=== PATIENT | male | born 1940 | race Caucasian/White ===

== ENCOUNTER → 2017-12-12 14:32 | Outpatient (CLI) | payer MEDICARE, OTHER, SELFPAY ==
--- NOTE | 2017-12-12 | DI.MRI.S_ITS ---
PROCEDURE: MR SHOULDER RT WO CON INDICATIONS: PAIN IN RIGHT SHOULDER. DECREASED RANGE OF MOTION TECHNIQUE: Noncontrast oblique coronal T2 fast spin echo with fat saturation, oblique sagittal T1 spin echo and T2 fast spin echo with fat saturation, axial T1 spin echo and T2 fast spin echo with fat saturation through the shoulder. COMPARISON: [facility] [place], CR, XR SHOULDER 2+ VIEWS RIGHT, 05/23/2017, 9:18. [facility], MR, SHOULDER WITHOUT CONTRAST, 08/10/2017, 10:39. FINDINGS: Image quality: Excellent. Rotator cuff: The infraspinatus and subscapularis tendons appear intact throughout. There is a wide full-thickness supraspinatus rotator cuff tear measuring up to 2.9 cm in maximal dimension in the lateral length of the tear. This appears to have slightly enlarged from a comparison MRI 08/10/17. Alternatively, further retraction of the supraspinatus tendon could explain that increased width of the tear. No rotator cuff muscle atrophy on sagittal images. Bones and bursae: No bone marrow contusions or fractures. 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 The acromion demonstrates conventional anatomy, without an os acromiale. No pathologic subacromial-subdeltoid or subcoracoid bursal fluid is present. Stable mild lateral humeral joint osteoarthritis. Capsule and soft tissues: In the absence of intra-articular contrast, the labrum and glenohumeral ligaments appear intact. The long head of the biceps tendon demonstrates normal location and morphology. The rotator interval appears normal, without fibrosis. The coracohumeral ligament is normal in thickness. IMPRESSION: Slight interval increase in the width of the full-thickness supraspinatus rotator cuff tear previously also identified 08/10/17 by right shoulder MRI. This injury appears secondary to the chronic impingement related to fibrous and osseous hypertrophy from a.c. joint degeneration. Dictated by: Venkatesh Modi M.D. on 12/12/2017 at 15:28 Approved by: Venkatesh Modi M.D. on 12/12/2017 at 15:32
== END ==
PROVIDERS: Family Provider Family Medicine; PCP Family Medicine; Visit Provider Orthopaedic Surgery
DX: M75.121 Complete rotator cuff tear or rupture of right shoulder, not specified as traumatic (principal)
CPT/HCPCS: 73221

== ENCOUNTER → 2018-01-23 13:12 | Outpatient (CLI) | payer MEDICARE, OTHER, SELFPAY ==
[2018-01-23 13:39] LABS: INR 2.2 (0.9-1.3); Prothrombin Time 23.7 SECONDS (10.1-12.7)
== END ==
PROVIDERS: Family Provider Family Medicine; PCP Family Medicine; Visit Provider Family Medicine
DX: Z95.2 Presence of prosthetic heart valve (principal); Z79.01 Long term (current) use of anticoagulants
CPT/HCPCS: 36415; 85610

== ENCOUNTER 2018-03-14 20:06 | Emergency (ER) | payer MEDICARE, OTHER, SELFPAY ==
[2018-03-14 20:16] VITALS: BP 140/67; PULSE 60; RESP 17; TEMP 36.5; O2SAT 95; BMI 28.8
--- NOTE | 2018-03-14 20:22 | DI.CT.S_ITS ---
PROCEDURE: CT ABDOMEN PELVIS W CON INDICATIONS: Generalized abdominal pain and bloating over the past severa TECHNIQUE: After the administration of intravenous contrast, 5 mm thick sections acquired from the diaphragm to the symphysis. 5 mm coronal and sagittal reformats were acquired. For radiation dose reduction, the following was used: automated exposure control, adjustment of mA and/or kV according to patient size. COMPARISON: [facility], CT, CHEST/ABD/PEL WITH CONTRAST, 03/29/2017, 17:47. FINDINGS: Image quality: Excellent. ABDOMEN: Lung bases: Mild bibasilar scarring versus atelectasis.. Heart size is normal. Solid organs: Liver is normal in size and enhancement. Gallbladder demonstrates calculi within its lumen.. Biliary system is non dilated. Pancreas enhances normally. Spleen is normal in size and enhancement. No adrenal nodules. Kidneys demonstrate normal size and enhancement, without hydronephrosis. Peritoneum and bowel: Bowel loops demonstrate normal wall thickness and caliber. No pneumoperitoneum. Small amount of mesenteric fluid within the central pelvis.. Duodenal diverticulum. Normal appendix. Nodes and vessels: No retroperitoneal or mesenteric adenopathy by size criteria. Aorta and inferior vena cava are normal in size. Miscellaneous: No ventral hernias. PELVIS: Genitourinary: Bladder wall thickness is normal. Prostate is enlarged, and indents the urinary bladder base, as before. Miscellaneous: No inguinal hernias or adenopathy. Bones: No suspicious bony lesions. No vertebral body compression fractures. IMPRESSION: 1. Small amount of mesenteric fluid, which is nonspecific, but may indicate underlying peritoneal inflammation. 2. Cholelithiasis. 3. Enlarged prostate; recommend correlation with PSA values. 4. Cholelithiasis. Dictated by: Adriana Cotton M.D. on 03/14/2018 at 21:17 Approved by: Adriana Cotton M.D. on 03/14/2018 at 21:20
--- NOTE | 2018-03-14 20:26 | ED_ITS ---
HPI - Abdominal Pain <REESE Valdez - Last Filed: 03/14/18 21:46> General Chief Complaint: Abdominal Pain Stated Complaint: STOMACH PAIN Time Seen by Provider: 03/14/18 20:12 History of Present Illness HPI narrative: 78-year-old male here for complaint of pain into his abdomen over the past several days. He denies any trauma to the abdomen. He reports that he also feels so bloated. Last bowel movement was yesterday and was diarrhea. He denies any fevers or chills. He denies any urinary symptoms. He denies any dark stool. No nausea or vomiting. Positive p.o. intake. He denies any other concerns or complaints at this time. Increased pain with palpation to the area. He denies any relievers of his pain. Related Data Home Medications Medication Instructions Recorded Confirmed acetaminophen 650 mg PO Q8HP PRN #0 03/29/17 Previous Rx's Medication Instructions Recorded amlodipine [Norvasc] 5 mg PO QDAY #90 tab 09/11/17 oxycodone 5 mg tablet 5 - 10 mg PO Q6HP PRN #90 tab 12/06/17 atorvastatin 40 mg tablet 40 mg PO DAILY #90 tab 01/15/18 warfarin 5 mg tablet 5 mg PO SEE INSTRUCTIONS #180 tab 03/13/18 doxazosin 8 mg tablet 8 mg PO Q DAY #30 tab 03/14/18 Allergies Allergy/AdvReac Type Severity Reaction Status Date / Time amoxicillin [AMOXICILLIN] Allergy Mild EDEMA IN Verified 03/14/18 20:16 HANDS, BUTTOCKS Penicillins [PENICILLINS] Allergy Mild SWELLING Verified 03/14/18 20:16 clavulanic acid AdvReac Mild EDEMA Verified 03/14/18 20:16 [CLAVULANIC ACID] lisinopril [LISINOPRIL] AdvReac Mild COUGH Verified 03/14/18 20:16 Review of Systems <REESE Valdez - Last Filed: 03/14/18 21:46> Constitutional Denies chills, Denies fever(s), Denies lethargy and Denies weakness Eyes Denies change in vision, Denies eye discharge, Denies irritation and Denies loss of vision ENT Ears, Nose, Mouth, and Throat: Denies change in voice, Denies neck pain and Denies sore throat Cardiovascular Denies chest pain, Denies irregular heart rhythm, Denies lightheadedness, Denies palpitations, Denies dyspnea, Denies dyspnea on exertion and Denies orthopnea Respiratory Denies cough, Denies dyspnea, Denies dyspnea on exertion and Denies wheezing Gastrointestinal Gastrointestinal: Reports abdominal pain Genitourinary Denies hematuria, Denies flank pain, Denies urinary incontinence and Denies urinary urgency Musculoskeletal Denies neck pain Integumentary/Breasts Denies pruritus, Denies erythema, Denies rash and Denies wounds Neurologic Denies confusion, Denies loss of vision and Denies weakness Psychiatric Denies anxiety, Denies confusion, Denies depression, Denies homicidal ideation and Denies suicidal ideation Endocrine Denies palpitations Hematologic/Lymphatic Denies easy bruising Allergic/Immunologic Denies wheezing Exam <REESE Valdez - Last Filed: 03/14/18 21:46> Initial Vital Signs Initial Vital Signs: Vital Signs Temperature 97.7 F 03/14/18 20:16 Pulse Rate 60 03/14/18 20:16 Respiratory Rate 17 03/14/18 20:16 Blood Pressure 140/67 H 03/14/18 20:16 Pulse Oximetry 95 03/14/18 20:16 Const General: cooperative and well developed Nutritional Appearance: well nourished Orientation: alert, awake, oriented x3 and not confused [facility] Mouth: oral mucosae normal and moist mucous membranes Eyes Eyelids: eyelids normal Conjunctivae: conjunctivae normal Sclera: sclerae normal Pupils: PERRL Resp Effort & Inspection: normal respiratory effort, able to speak in complete sentences, no respiratory distress and no use of accessory muscles Auscultation: clear to auscultation bilaterally, no rales, no rhonchi and no wheezes Cardio Rate: regular rate Rhythm: regular rhythm Heart Sounds: no click, no gallops, no murmurs and no rubs Pulses: normal peripheral pulses GI Inspection: distended Palpation: soft, no hepatosplenomegaly, No guarding, No pulsatile mass and tender (Generalized tenderness however worse to super umbilical area) Auscultation: normal bowel sounds Skin General: no rashes or lesions noted, No jaundice and No petechiae Neuro General: alert, oriented x3, gait normal and no focal motor deficits Speech: speech normal <Kvng Mendoza DO - Last Filed: 03/14/18 21:49> Initial Vital Signs Initial Vital Signs: Vital Signs Temperature 97.7 F 03/14/18 20:16 Pulse Rate 60 03/14/18 20:16 Respiratory Rate 17 03/14/18 20:16 Blood Pressure 140/67 H 03/14/18 20:16 Pulse Oximetry 95 03/14/18 20:16 Course <REESE Valdez - Last Filed: 03/14/18 21:46> Orders Ordered: ED Orders 03/14/18 20:22 CT abdomen pelvis w con Stat 03/14/18 20:30 Complete Blood Count AUTO DIFF Stat Comprehensive Metabolic Panel Stat Lipase Stat Prothrombin Time INR Stat Sodium Chloride (Normal Saline 0.9%) 1,000 mls @ 150 mls/hr IV CONT BELÉN Last Admin: 03/14/18 20:45 Dose: 150 mls/hr Vital Signs - 8 hr 03/14/18 20:16 03/14/18 21:33 Temperature 97.7 F Pulse Rate 60 64 Respiratory Rate 17 18 Blood Pressure 140/67 H Blood Pressure [Left Arm] 142/62 H Pulse Oximetry 95 97 <Kvng Mendoza DO - Last Filed: 03/14/18 21:49> Orders Ordered: ED Orders 03/14/18 20:22 CT abdomen pelvis w con Stat 03/14/18 20:30 Complete Blood Count AUTO DIFF Stat Comprehensive Metabolic Panel Stat Lipase Stat Prothrombin Time INR Stat Sodium Chloride (Normal Saline 0.9%) 1,000 mls @ 150 mls/hr IV CONT BELÉN Last Admin: 03/14/18 20:45 Dose: 150 mls/hr Vital Signs - 8 hr 03/14/18 20:16 03/14/18 21:33 Temperature 97.7 F Pulse Rate 60 64 Respiratory Rate 17 18 Blood Pressure 140/67 H Blood Pressure [Left Arm] 142/62 H Pulse Oximetry 95 97 MDM - Abdominal Pain <REESE Valdez - Last Filed: 03/14/18 21:46> Lab Data Result diagrams: 03/14/18 20:30 03/14/18 20:30 Lab Results 03/14/18 03/14/18 03/14/18 Range/Units 20:30 20:30 20:30 WBC 5.2 (4.5-11.0) X10^3/uL RBC 4.18 L (4.5-5.9) X10^6/uL Hgb 14.2 (13.5-17.5) g/dL Hct 40.4 L (41-53) % MCV 96.6 (80-100) fL MCH 33.8 (26-34) PG MCHC 35.0 (30-36) % RDW 13.0 (11.6-14.8) % Plt Count 161 (150-400) X10^3/uL Neut % (Auto) 58.3 (50-75) % Lymph % (Auto) 28.7 (25-40) % [place] % (Auto) 9.4 (3-14) % Eos % (Auto) 2.7 (2-4) % Baso % (Auto) 0.9 (0-2) % Neut # (Auto) 3000 (3461-3932) /uL PT 24.8 H (10.1-12.7) SECONDS INR 2.2 H (0.9-1.3) Sodium 141 (137-145) mmol/L Potassium 4.1 (3.4-5.1) mmol/L Chloride 103 (98-107) mmol/L Carbon Dioxide 30 (22-32) mmol/L BUN 13 (9-20) mg/dL Creatinine 0.90 (0.66-1.25) mg/dL Estimated GFR > 60.0 (>60) mL/min BUN/Creatinine Ratio 14.4 (6-22) Glucose 110 (80-110) mg/dL Calcium 8.9 (8.4-10.2) mg/dL Total Bilirubin 1.9 H (0.2-1.3) mg/dL AST 28 (17-59) IU/L ALT 23 (21-72) IU/L Alkaline Phosphatase 63 (38-126) U/L Total Protein 6.5 (6.3-8.2) g/dL Albumin 4.0 (3.5-5.0) g/dL Globulin 2.5 (1.7-4.1) g/dL Albumin/Globulin Ratio 1.6 (1.0-2.8) Lipase 27 (23-300) U/L Point of care testing: Urine Dip Bedside Urine Glucose Negative Bedside Urine Bilirubin - Negative Bedside Urine Ketone - Negative Urine Specific [place] 1.015 Bedside Urine Occult Blood - Negative Bedside Urine pH 7.0 Bedside Urine Urobilinogen +/- 1mg Bedside Urine Nitrite - Negative Bedside Urine Leukocytes - Negative Esterase Imaging Data CT scan - abdomen: Radiologist's impression: PROCEDURE: CT ABDOMEN PELVIS W CON INDICATIONS: Generalized abdominal pain and bloating over the past severa TECHNIQUE: After the administration of intravenous contrast, 5 mm thick sections acquired from the diaphragm to the symphysis. 5 mm coronal and sagittal reformats were acquired. For radiation dose reduction, the following was used: automated exposure control, adjustment of mA and/or kV according to patient size. COMPARISON: [facility], CT, CHEST/ABD/PEL WITH CONTRAST, 03/29/2017, 17:47. FINDINGS: Image quality: Excellent. ABDOMEN: Lung bases: Mild bibasilar scarring versus atelectasis.. Heart size is normal. Solid organs: Liver is normal in size and enhancement. Gallbladder demonstrates calculi within its lumen.. Biliary system is non dilated. Pancreas enhances normally. Spleen is normal in size and enhancement. No adrenal nodules. Kidneys demonstrate normal size and enhancement, without hydronephrosis. Peritoneum and bowel: Bowel loops demonstrate normal wall thickness and caliber. No pneumoperitoneum. Small amount of mesenteric fluid within the central pelvis.. Duodenal diverticulum. Normal appendix. Nodes and vessels: No retroperitoneal or mesenteric adenopathy by size criteria. Aorta and inferior vena cava are normal in size. Miscellaneous: No ventral hernias. PELVIS: Genitourinary: Bladder wall thickness is normal. Prostate is enlarged, and indents the urinary bladder base, as before. Miscellaneous: No inguinal hernias or adenopathy. Bones: No suspicious bony lesions. No vertebral body compression fractures. IMPRESSION: 1. Small amount of mesenteric fluid, which is nonspecific, but may indicate underlying peritoneal inflammation. 2. Cholelithiasis. 3. Enlarged prostate; recommend correlation with PSA values. 4. Cholelithiasis. Dictated by: Adriana Cotton M.D. on 03/14/2018 at 21:17 Approved by: Adriana Cotton M.D. on 03/14/2018 at 21:20 MDM Narrative Medical decision making narrative: CBC and Chem panel were obtained were unremarkable. Lipase was obtained was negative. Urinalysis was negative for urinary tract infection. CT of the abdomen showed cholelithiasis however did not appear to be any biliary dilation or blockage. No emergent cause of his symptoms are found. Differential between viral illness and abdominal wall pain. [id number] Tylenol as needed for any discomfort. Follow up with primary care provider the next couple days for re-evaluation. For any worsening symptoms return to the emergency room. <Kvng Mendoza, - Last Filed: 03/14/18 21:49> Lab Data Lab Results 03/14/18 03/14/18 03/14/18 Range/Units 20:30 20:30 20:30 WBC 5.2 (4.5-11.0) X10^3/uL RBC 4.18 L (4.5-5.9) X10^6/uL Hgb 14.2 (13.5-17.5) g/dL Hct 40.4 L (41-53) % MCV 96.6 (80-100) fL MCH 33.8 (26-34) PG MCHC 35.0 (30-36) % RDW 13.0 (11.6-14.8) % Plt Count 161 (150-400) X10^3/uL Neut % (Auto) 58.3 (50-75) % Lymph % (Auto) 28.7 (25-40) % [place] % (Auto) 9.4 (3-14) % Eos % (Auto) 2.7 (2-4) % Baso % (Auto) 0.9 (0-2) % Neut # (Auto) 3000 (8880-0040) /uL PT 24.8 H (10.1-12.7) SECONDS INR 2.2 H (0.9-1.3) Sodium 141 (137-145) mmol/L Potassium 4.1 (3.4-5.1) mmol/L Chloride 103 (98-107) mmol/L Carbon Dioxide 30 (22-32) mmol/L BUN 13 (9-20) mg/dL Creatinine 0.90 (0.66-1.25) mg/dL Estimated GFR > 60.0 (>60) mL/min BUN/Creatinine Ratio 14.4 (6-22) Glucose 110 (80-110) mg/dL Calcium 8.9 (8.4-10.2) mg/dL Total Bilirubin 1.9 H (0.2-1.3) mg/dL AST 28 (17-59) IU/L ALT 23 (21-72) IU/L Alkaline Phosphatase 63 (38-126) U/L Total Protein 6.5 (6.3-8.2) g/dL Albumin 4.0 (3.5-5.0) g/dL Globulin 2.5 (1.7-4.1) g/dL Albumin/Globulin Ratio 1.6 (1.0-2.8) Lipase 27 (23-300) U/L Point of care testing: Urine Dip Bedside Urine Glucose Negative Bedside Urine Bilirubin - Negative Bedside Urine Ketone - Negative Urine Specific [place] 1.015 Bedside Urine Occult Blood - Negative Bedside Urine pH 7.0 Bedside Urine Urobilinogen +/- 1mg Bedside Urine Nitrite - Negative Bedside Urine Leukocytes - Negative Esterase Discharge Plan Departure Patient Disposition: Home, Self-Care Clinical Impression: Abdominal pain Instructions: DI for Abdominal Pain-Adult Activity Restrictions/Additional Instructions: Laboratory results today were unremarkable. CT of the abdomen shows that you have gallstones however those appear to be causing a problem at this time. Otherwise CT was unremarkable. Differential between abdominal wall pain or viral illness. Use [id number] Tylenol as needed for any discomfort. Follow up with her primary care provider in the next couple days for re- evaluation. For any worsening symptoms return to the emergency room. Prescriptions: No Action acetaminophen 650 MG tablet extended release 650 mg PO Q8HP PRNQty: 0 RF: 0 amlodipine [Norvasc] 5 MG tablet 5 mg PO QDAY Qty: 90 RF: 2 oxycodone 5 mg tablet 5 - 10 mg PO Q6HP PRN (Reason: PAIN) Qty: 90 RF: 0 atorvastatin 40 mg tablet 40 mg PO DAILY Qty: 90 RF: 1 warfarin [Coumadin] 5 mg tablet 5 mg PO SEE INSTRUCTIONS Qty: 180 RF: 3 doxazosin 8 mg tablet 8 mg PO Q DAY Qty: 30 RF: 0 Referrals: Phillip Ghosh MD [Primary Care Provider] - <Kvng Mendoza DO - Last Filed: 03/14/18 21:49> Cosign ED Attending Tabature Attestation: I was available for consultation during this patient's emergency department encounter
[2018-03-14 20:43] LABS: Add Manual Diff / Slide Review NO; Basophils Percent Auto 0.9 % (0-2); Eosinophils Percent Auto 2.7 % (2-4); Hematocrit 40.4 % (41-53); Hemoglobin 14.2 g/dL (13.5-17.5); Lymphocytes Percent Auto 28.7 % (25-40); Mean Corpuscular Hemoglobin 33.8 PG (26-34); Mean Corpuscular Volume 96.6 fL (80-100); Monocytes Percent Auto 9.4 % (3-14); Neutrophils Absolute Auto 3000 /uL (3000-5900); Neutrophils Percent Auto 58.3 % (50-75); Platelet Count 161 X10^3/uL (150-400); Red Blood Cell Count 4.18 X10^6/uL (4.5-5.9); White Blood Cell Count 5.2 X10^3/uL (4.5-11.0)
[2018-03-14] MEDS: SODIUM CHLORIDE 0.9% 1,000 ML 150 ML IV (20:45)
[2018-03-14 20:54] LABS: INR 2.2 (0.9-1.3); Prothrombin Time 24.8 SECONDS (10.1-12.7)
[2018-03-14 20:57] LABS: Alanine Aminotransferase 23 IU/L (21-72); Albumin Globulin Ratio 1.6 (1.0-2.8); Alkaline Phosphatase 63 U/L (38-126); Aspartate Aminotransferase 28 IU/L (17-59); BUN Creatinine Ratio 14.4 (6-22); Bilirubin Total 1.9 mg/dL (0.2-1.3); Blood Urea Nitrogen 13 mg/dL (9-20); Calcium 8.9 mg/dL (8.4-10.2); Carbon Dioxide 30 mmol/L (22-32); Chloride 103 mmol/L (98-107); Estimated Glomerular Filt Rate > 60.0 mL/min (>60); Globulin 2.5 g/dL (1.7-4.1); Glucose 110 mg/dL (80-110); HEMOLYSIS 17 (0-50); Lipase 27 U/L (23-300); Potassium 4.1 mmol/L (3.4-5.1); Sodium 141 mmol/L (137-145); Total Protein 6.5 g/dL (6.3-8.2)
[2018-03-14 21:33] VITALS: BP 142/62; PULSE 64; RESP 18; O2SAT 97
== END 2018-03-14 21:55 | disposition home or self-care (01) ==
PROVIDERS: Emergency Provider Nurse Practitioner Family; Family Provider Family Medicine; PCP Family Medicine
DX: R10.9 Unspecified abdominal pain (principal)
CPT/HCPCS: 36591; 74177; 80053; 81003; 83690; 85025; 85610; 96360; 99283; 99285; Q9967

== ENCOUNTER → 2018-03-22 10:06 | Outpatient (CLI) | payer MEDICARE, OTHER, SELFPAY ==
[2018-03-22 11:28] LABS: Alanine Aminotransferase 21 IU/L (21-72); Albumin 4.1 g/dL (3.5-5.0); Albumin Globulin Ratio 1.6 (1.0-2.8); Alkaline Phosphatase 69 U/L (38-126); Aspartate Aminotransferase 20 IU/L (17-59); Blood Urea Nitrogen 16 mg/dL (9-20); Calcium 9.5 mg/dL (8.4-10.2); Carbon Dioxide 32 mmol/L (22-32); Chloride 102 mmol/L (98-107); Estimated Glomerular Filt Rate > 60.0 mL/min (>60); Globulin 2.5 g/dL (1.7-4.1); Glucose 116 mg/dL (80-110); HEMOLYSIS < 15 (0-50); Potassium 4.5 mmol/L (3.4-5.1); Sodium 142 mmol/L (137-145); Total Protein 6.6 g/dL (6.3-8.2)
== END ==
PROVIDERS: PCP Family Medicine; Visit Provider Internal Medicine
DX: Z00.00 Encounter for general adult medical examination without abnormal findings (principal)
CPT/HCPCS: 36415; 80053

== ENCOUNTER → 2018-03-30 07:26 | Outpatient (CLI) | payer MEDICARE, OTHER, SELFPAY ==
--- NOTE | 2018-03-30 07:27 | DI.NM.S_ITS ---
PROCEDURE: [place] BONE SCAN WHOLE BODY RADIOPHARMACEUTICAL: 19.7 mCi Tc-99m MDP IV. INDICATIONS: left rib pain TECHNIQUE: Delayed whole-body scintigrams were obtained approximately 3-4 hours after intravenous injection of radiotracer. Anterior and posterior views were acquired from vertex to feet. Additional left and right oblique views of the ribs were obtained. COMPARISON: [place], [place], BONE SCAN WHOLE BODY, 07/28/2008, 15:02. FINDINGS: Focus of moderately increased uptake involving left anterolateral 10th rib is seen. Significant increased tracer uptake at L1 level is also seen. Symmetric increased uptake in bilateral shoulder and wrist joints are seen as well as bilateral ankle joints consistent with osteoarthritic changes. Patient is status post bilateral total knee arthroplasty with symmetric mildly increased tracer uptake around bilateral knee prosthesis likely represent stress reaction. IMPRESSION: 1. Suggestion of a fracture involving left anterolateral 10th rib with mild to moderately increased focus of tracer uptake. 2. Increased uptake at L1 level, most consistent with significant degenerative endplate changes seen on recent CT dated 03/14/18. Dictated by: Frank Brizuela M.D. on 03/30/2018 at 14:09 Approved by: Frank Brizuela M.D. on 03/30/2018 at 14:21
== END ==
PROVIDERS: Family Provider Family Medicine; PCP Family Medicine; Visit Provider Family Medicine
DX: R07.81 Pleurodynia (principal)
CPT/HCPCS: 78306; A9503

== ENCOUNTER 2018-04-19 06:26 | Day surgery (SDC) | payer MEDICARE, OTHER, SELFPAY ==
[2018-04-11 09:42] VITALS: BMI 30.1
[2018-04-19 07:03] VITALS: BP 139/78; PULSE 55; RESP 16; TEMP 36.3; O2SAT 92; BMI 30.1
[2018-04-19] MEDS: LACTATED RINGERS 1,000 ML 42 ML IV ×2 (07:14→09:44)
[2018-04-19] MEDS: MIDAZOLAM 2 MG/2 ML VIAL IV (07:50)
--- NOTE | 2018-04-19 08:09 | SUR.PREOP ---
Block start time 0751 . Monitoring initiated and maintained throughout procedure. Oxygen and medications given per anesthesiologist instructions. Patient remained stable throughout procedure, no adverse reactions noted. Block end time 0801.
[2018-04-19] MEDS: CLINDAMYCIN 900 MG/50 ML PIGGYBACK 50 MG IV (08:10)
--- NOTE | 2018-04-19 08:54 | SUR.OPER ---
Beach chair with Conner/Dillon shoulder positioner. Lower body on padded OR bed. Head in foam padded head cradle, secured with straps. Non-operative arm secured <90 degrees abduction. Pillow under knees. Safety belt at thigh. Cloth tape over blanket over lower legs.
[2018-04-19] MEDS: BUPIVACAINE 0.5% W/ EPI (PF) VIAL 30 ML INJ (09:00)
[2018-04-19] MEDS: SODIUM CHLORIDE IRRIG SOLUTION 3,000 ML, EPINEPHrine 1 MG IRR (09:19)
--- NOTE | 2018-04-19 10:13 | PM.OP.1 ---
Operative Date/Time/Diagnoses Date of procedure: 04/19/18 Time of procedure: 08:16 Pre-op diagnosis: Right rotator cuff tear Post-op diagnosis: same Procedure & Clinicians Procedure: Right arthroscopic rotator cuff repair. Right arthroscopic subacromial decompression and distal clavicle excision. Right arthroscopic glenohumeral joint debridement. Same procedure as scheduled: Yes Indications: Large tear involving the rotator cuff Biomedical Engineering Supervisor: Susanna Basurto Anesthesia Type: General and Peripheral nerve block Operative Notes Findings: Large tear involving supraspinatus and infraspinatus. No sign of any high riding humeral head. No sign of any subscapularis tear. Some general arthritic changes to the glenohumeral joint but no signs of any complete loss of cartilage. Degenerative fraying to the labrum. No sign of any proximal biceps tearing or tenosynovitis. Type 1 slap tear. Closure Type: primary Specimen(s): none sent Implants & Drains: Arthrex anchors Applied: implant(s) Estimated Blood Loss (mL): 5 Blood products transfused: none Procedure in detail: On date of service, Patient was met in the holding area. The operative site was signed and witnessed by the OR staff. The surgeries once again discussed with the patient and any remaining questions they had were answered fully. Patient was taken back to the operating theater and placed on the operating table in a supine position. Great care was taken to ensure that all bony prominences were properly padded. Patient was then placed into the beach chair position. The head and neck were properly positioned and secured. A timeout was performed verifying patient's name, procedure, and the operative site. The upper extremity was then prepped and draped in the normal sterile fashion. Previously, the bony anatomy and portal sites were marked out as well as injected with Marcaine with epinephrine. An 11 blade was used to make an incision in the posterior aspect of the shoulder. The camera was placed, and a diagnostic shoulder scope was performed. Findings listed above. Next under direct visualization, a anterior portal was made. A shaver was brought in and Extensive debridement of the glenohumeral joint was performed. Patient had signs of fraying to the labrum. There is no sign of any instability to the glenohumeral joint. Next the camera was placed into the subacromial space. A lateral portal was obtained under direct visualization. A combination of the shaver and vapor wand, a debridement of the inflamed tissue as well as inflamed bursa was performed. The lateral gutter was also cleaned out. This gave us good visualization of the bursal aspect of the rotator cuff as well as the acromial arch. There was a large rotator cuff tear with significant retraction. A good portion of the humeral head was exposed. A 4 mm bur was used to decorticate the rotator cuff footprint. Next, a 6 mm bur was used to perform a subacromial decompression as well as a distal clavicle excision. Two medial anchor was placed. It was preloaded with 2 suture strands. 2 strands were placed posteriorly and the other 2 were placed anteriorly. Using a grasper the rotator cuff back to its point of insertion. Next, one limb anteriorly and one limb posteriorly was placed through one lateral anchor and this was repeated one more time. This allowed a crisscross pattern for the lateral fixation helping us to recreate the rotator cuff footprint. This provided a complete coverage of the humeral head which was previously exposed. Also reinforcing the rotator cuff repair. The shoulder was taken through range of motion and there was no sign of any remaining impingement lesions. The rotator cuff repair was tested using a probe and was felt to be very secure. Instruments were removed and the portal sites were closed. Patient's shoulder was cleaned, dried, dressed and she was taken to the PACU in stable condition. Complications: none Condition: stable Disposition: PACU Plan for aftercare: Patient will follow our postoperative protocol for rotator cuff repair.
--- NOTE | 2018-04-19 10:22 | SUR.OPER ---
UNABLE TO SCAN CLEOCIN
[2018-04-19 10:24] VITALS: BP 122/70; PULSE 68; TEMP 36; O2SAT 89
[2018-04-19 10:29] VITALS: BP 97/47; PULSE 63; RESP 16; O2SAT 91
[2018-04-19 10:34] VITALS: BP 98/49; PULSE 65; RESP 11; O2SAT 91
[2018-04-19 10:39] VITALS: BP 116/59; PULSE 65; RESP 17; O2SAT 91
[2018-04-19 11:13] VITALS: BP 113/62; PULSE 12; RESP 69; TEMP 36.2; O2SAT 90
== END 2018-04-19 11:17 | disposition home or self-care (01) ==
PROVIDERS: Family Provider Family Medicine; PCP Family Medicine; Visit Provider Orthopaedic Surgery
PROC: (CPT 29805; principal; 2018-04-19 07:45)
DX: M75.121 Complete rotator cuff tear or rupture of right shoulder, not specified as traumatic (principal); M75.41 Impingement syndrome of right shoulder; S43.431A Superior glenoid labrum lesion of right shoulder, initial encounter; I10 Essential (primary) hypertension; E78.5 Hyperlipidemia, unspecified; G47.30 Sleep apnea, unspecified; K21.9 Gastro-esophageal reflux disease without esophagitis; F32.9 Major depressive disorder, single episode, unspecified; F17.200 Nicotine dependence, unspecified, uncomplicated; Z95.4 Presence of other heart-valve replacement; Z79.01 Long term (current) use of anticoagulants; G47.33 Obstructive sleep apnea (adult) (pediatric)
CPT/HCPCS: 29827; 29826; 29824; 64415; 64450; J0171; J1100; J2250; J2405; J2704; J3010

== ENCOUNTER 2018-04-25 08:30 | Oncology outpatient (ONC) | payer MEDICARE, OTHER, SELFPAY ==
[2018-04-15] MEDS: ENOXAPARIN 100 MG/ML SYRINGE SUBCUT (21:16)
--- NOTE | 2018-04-15 21:18 | PC.NURSE ---
Pt ambulated up to for lovenox shot. Pt tolerated well.
[2018-04-16 08:38] VITALS: BP 148/75; PULSE 48; RESP 18; TEMP 36.9; O2SAT 93
[2018-04-16] MEDS: ENOXAPARIN 100 MG/ML SYRINGE SUBCUT ×2 (08:39→20:46)
[2018-04-17 08:26] VITALS: BP 140/75; PULSE 46; RESP 16; TEMP 36.8; O2SAT 96
[2018-04-17] MEDS: ENOXAPARIN 100 MG/ML SYRINGE SUBCUT ×2 (08:27→20:36)
[2018-04-18 08:34] VITALS: BP 151/69; PULSE 46; RESP 16; TEMP 36.8; O2SAT 94
[2018-04-18] MEDS: ENOXAPARIN 100 MG/ML SYRINGE SUBCUT ×2 (08:36→20:32)
[2018-04-19 21:01] VITALS: BP 101/40; PULSE 54; RESP 20; TEMP 36.3; O2SAT 92
[2018-04-19] MEDS: ENOXAPARIN 100 MG/ML SYRINGE SUBCUT (21:01)
--- NOTE | 2018-04-19 21:03 | PC.NURSE ---
Pt ambulatory with daughter to room 203 for evening lovenox injection. Vital signs taken and recorded. Pt has areas of ecchymosis to lower abdomen BL. Injection administered to left upper abdomen without difficulty. Pt ambulatory from room 203 with daughter to home. Left hospital in stable condition without any verbalized concerns or complaints.
--- NOTE | 2018-04-19 22:16 | PC.NURSE ---
Addendum: Re pt's blood pressure 101/40. Inquired of pt if experiencing any dizziness when up and pt denies. Pt does demonstrate steady gait and ambulates without any assistive devices. 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 Daughter (caregiver) confirms this.
[2018-04-20] MEDS: ENOXAPARIN 100 MG/ML SYRINGE SUBCUT ×2 (09:14→20:28)
--- NOTE | 2018-04-20 09:20 | PC.NURSE ---
Pt arrived for Lovenox injection per orders. edmund well. will return for tenth dose tonight.
[2018-04-20 09:21] VITALS: BP 150/69; PULSE 46; RESP 16; TEMP 36.7
[2018-04-21 08:43] VITALS: BP 133/71; PULSE 50; RESP 16; TEMP 36.6; O2SAT 93
[2018-04-21] MEDS: ENOXAPARIN 100 MG/ML SYRINGE SUBCUT ×2 (08:48→20:40)
--- NOTE | 2018-04-21 08:52 | PC.NURSE ---
Pt here for a scheduled Lovenox injection. Pt denies pain, right arm is in a sling. Pt is afebrile and states he is feeling well today. Lovenox injection administered to right lower abdomen. Pt has bruising bilaterally to lower abdomen.
--- NOTE | 2018-04-21 21:02 | PC.NURSE ---
Lien shift note: Infusion center patient receiving Lovenox SQ arrived to , independently ambulatory with steady gait. Patient receiving Lovenox daily SQ Q12H. Will return in the AM. Patient is aware of precautions and is aware of re check INR on the Mar. Alert, oriented and very pleasant. No s/sx of active bleeding. Accompanied by family, which are very supportive.
[2018-04-22] MEDS: ENOXAPARIN 100 MG/ML SYRINGE SUBCUT ×2 (08:47→20:16)
--- NOTE | 2018-04-22 20:46 | PC.NURSE ---
Pt arrived on unit with daughter for evening injection of Lovenox which was administered. He has extensive bruising over his R and L abdomen secondary to the previous injections. He and his daughter say that this is usual for him. His vital signs were 131/62, 68,18, 98.3. He is complaining of pain in the outer saspect of his R wrist which is in a sling. it appears as though there is increased pressure from the sling on his wrist although there is no redness or swelling apparent. he has full ROM of the joint and good CMS to the fingers. The back of his hand and fingers are slightly swollen. I told him that he could put a soft cloth or washcloth in the sling around the area that is bothering him and to be sure to tell the physical Therapist about it in the morning. He stated that he understood my guidance and he left the unit ambulatory.
[2018-04-23 08:51] VITALS: BP 120/51; PULSE 65; RESP 16; TEMP 37; O2SAT 94
[2018-04-23] MEDS: ENOXAPARIN 100 MG/ML SYRINGE SUBCUT ×2 (08:53→20:32)
--- NOTE | 2018-04-23 20:35 | PC.NURSE ---
pt ambulated to for lovenox shot @ 2031. Pt tolerated well and had no complaints.
[2018-04-24] MEDS: ENOXAPARIN 100 MG/ML SYRINGE SUBCUT ×2 (08:37→20:24)
--- NOTE | 2018-04-24 20:28 | PC.NURSE ---
Patient ambulated to ac coordinator office for lovenox injection. no other rooms available. Pt tolerated well. scattered bruising noted on lower abd.
[2018-04-25] MEDS: ENOXAPARIN 100 MG/ML SYRINGE SUBCUT ×2 (08:31→20:12)
[2018-04-25 08:32] VITALS: BP 123/70; PULSE 54; RESP 18; TEMP 36.9; O2SAT 92
== END 2018-04-26 12:00 | disposition home or self-care (01) ==
PROVIDERS: Family Provider Family Medicine; PCP Family Medicine; Visit Provider Family Medicine
DX: Z95.2 Presence of prosthetic heart valve (principal)
CPT/HCPCS: 96372; J1650

== ENCOUNTER → 2018-08-14 08:08 | Outpatient (CLI) | payer MEDICARE, OTHER, SELFPAY ==
[2018-08-14 09:07] LABS: Hemoglobin A1C% w Est Avg Glu 5.1 % (4.0-6.0)
[2018-08-14 09:13] LABS: Add Manual Diff / Slide Review NO; Basophils Absolute Auto 0 /uL (0-100); Basophils Percent Auto 0.4 % (0-2); Eosinophils Absolute Auto 100 /uL (0-450); Eosinophils Percent Auto 1.5 % (2-4); Hematocrit 45.1 % (41-53); Hemoglobin 15.3 g/dL (13.5-17.5); Lymphocytes Absolute Auto 1700 /uL (1100-4500); Lymphocytes Percent Auto 31.2 % (25-40); Mean Corpuscular HGB Conc 34.1 % (30-36); Mean Corpuscular Hemoglobin 32.4 PG (26-34); Monocytes Absolute Auto 500 /uL (0-900); Monocytes Percent Auto 9.3 % (3-14); Neutrophils Absolute Auto 3200 /uL (1500-7000); Neutrophils Percent Auto 57.6 % (50-75); Platelet Count 180 X10^3/uL (150-400); Red Blood Cell Count 4.74 X10^6/uL (4.5-5.9); Red Cell Distribution Width 14.8 % (11.6-14.8); White Blood Cell Count 5.6 X10^3/uL (4.5-11.0)
[2018-08-14 09:18] LABS: Alanine Aminotransferase 27 IU/L (21-72); Albumin 4.3 g/dL (3.5-5.0); Albumin Globulin Ratio 1.4 (1.0-2.8); Alkaline Phosphatase 83 U/L (38-126); Aspartate Aminotransferase 21 IU/L (17-59); BUN Creatinine Ratio 16.3 (6-22); Bilirubin Total 1.7 mg/dL (0.2-1.3); Blood Urea Nitrogen 13 mg/dL (9-20); Calcium 9.3 mg/dL (8.4-10.2); Carbon Dioxide 29 mmol/L (22-32); Chloride 105 mmol/L (98-107); Cholesterol 145 mg/dL (140-199); Estimated Glomerular Filt Rate > 60.0 mL/min (>60); Glucose 103 mg/dL (80-110); HDL Cholesterol 44 mg/dL (40-60); HEMOLYSIS < 15 (0-50); LDL Cholesterol Calculated 83 mg/dL (<100); Potassium 4.8 mmol/L (3.4-5.1); Sodium 142 mmol/L (137-145); Total Protein 7.3 g/dL (6.3-8.2); Triglycerides 90 mg/dL (35-150)
[2018-08-14 09:21] LABS: Microalbumi Creatinin Ratio Ur 15.7 ug/mg CR (<30); Microalbumin Urine Random 1.7 mg/dL (0-1.6)
[2018-08-14 09:47] LABS: Prostate Specific Antigen Scrn 7.07 ng/mL (0.1-4.0)
[2018-08-14 09:59] LABS: Thyroid Stimulating Hormone 1.62 uIU/mL (0.47-4.68)
== END ==
PROVIDERS: Family Provider Family Medicine; PCP Family Medicine; Visit Provider Family Medicine
DX: E78.5 Hyperlipidemia, unspecified (principal); I10 Essential (primary) hypertension; R89.9 Unspecified abnormal finding in specimens from other organs, systems and tissues; Z95.2 Presence of prosthetic heart valve; R97.20 Elevated prostate specific antigen [PSA]; Z12.5 Encounter for screening for malignant neoplasm of prostate; R73.09 Other abnormal glucose
CPT/HCPCS: 36415; 80053; 80061; 82043; 82570; 83036; 84443; 85025; G0103

== ENCOUNTER 2018-08-20 16:00 | Outpatient (RCR) | payer MEDICARE, OTHER, SELFPAY ==
--- NOTE | 2018-04-24 14:23 | PT.OIE ---
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 (04/23/18) Impingement syndrome of right shoulder (04/23/18) Past Medical History (Last Updated 04/11/18 @ 10:24 by Chante Santacruz, RN) Neck pain (Chronic) Hospital-acquired pneumonia (Resolved 2015) Neck muscle spasm (Chronic) Pneumonia (Resolved 2016) Hypoxia (Chronic) Cholelithiasis (Chronic 02/2018) Respiratory failure (Chronic) Cervical spinal stenosis (Chronic) Community acquired pneumonia (Resolved 2016) BPH NOS w ur obs/LUTS (Chronic) GERD (gastroesophageal reflux disease) (Acute) Gallstones (Acute) Gout (Acute) Hyperlipidemia (Acute) Impingement syndrome of right shoulder (Acute) Osteoarthritis (Acute) 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 (Acute) Rib fracture (Acute) Supraspinatus tendon tear (Acute) TIA (transient ischemic attack) (Acute) Ankle pain (Chronic 1999) Chronic anticoagulation (Chronic 03/11/97) Depression (Chronic) Diverticular disease (Chronic ~1989) Elevated PSA (Chronic ~1989) Hearing loss (Chronic ~1989) Hypertension (Chronic 1999) Reflex sympathetic dystrophy (Chronic) Shoulder pain (Chronic 1996) Sleep apnea (Chronic 2002) AAA (abdominal aortic aneurysm) (Resolved 03/11/97) Chicken pox (Resolved 1951) Colon polyps (Resolved 2001) Hepatitis B (Resolved 1984) Hernia (Resolved ~1989) Kidney stones (Resolved ~1969) Measles (Resolved ~1949) Mumps (Resolved 1949) Neck fracture (Resolved 1974) Spinal fracture (Resolved 2007) Past Surgical History (Last Updated 04/11/18 @ 10:23 by Chante Santacruz RN) H/O varicose vein stripping (Acute) History of cardiac catheterization (Acute) History of meniscectomy of left knee (Acute) History of partial colectomy (Acute) History of total knee arthroplasty (Acute) S/P cervical spinal fusion (Acute) S/P left knee arthroscopy (Acute) S/P resection of aortic aneurysm (Acute) Status post unicompartmental knee replacement, left (Acute) Anesthesia (Resolved) History of aortic valve replacement (Resolved 03/11/97) History of arthroscopy of knee (Resolved) History of colon surgery (Resolved) History of neck surgery (Resolved 1998) History of spinal fusion (Resolved 1974) History of vasectomy (Resolved) Status post hernia repair (Resolved ~1989) Status post knee surgery (Resolved 1974) Provider Visit Care Team Role Provider Type Phillip Ghosh MD Family Provider Physician Primary Care Provider Specialty: Family Practice Address: [address] [place] [address], [address] Email: [email or web address] Jerry Pabon MD Attending Provider Physician Specialty: Orthopedic Surgery Address: [address] [place] [address], [address] Email: [email or web address] Physical Therapy Initial Evaluation PT-OP-A Visit Information Start: 04/23/18 14:56 Freq: Status: Active Protocol: Document 04/23/18 14:58 EA (Rec: 04/23/18 15:09 EA [id number]) Out-Patient Physical Therapy Visit Information Visit Information Visit Type Initial Evaluation Visit Start Time 09:45 Visit Stop Time 10:35 Total Visit Minutes 35 Visit Number 1 Evaluation Information Evaluation Date 04/23/18 PT-OP-B Current Condition Start: 04/23/18 14:56 Freq: Status: Active Protocol: Document 04/23/18 14:58 EA (Rec: 04/23/18 15:09 EA [id number]) Current Condition History of Current Condition Onset Date S/P R rotator cuff repain 04/19 History of Current Condition S/P R rotator cuff repair 04/19 Prior Treatments and Tests Steroid injection in the past few months prior to surgery Future Testing and Treatments Planned None at this time Treatment Goals Patient/Caregiver Goals Back to previous level of function Prior Functional Status Baseline Function- ADL's Independent Baseline Function- Mobility Independent Baseline Function- Other Able to drive and do groceries indep Current Functional Impairments (Reported) Functional Limitations- ADL's Minimal assistance with bathing, personal care Functional Limitations- Mobility/Gait indep Functional Limitations- Work/School Indep Functional Limitations- Other Unable to drive at this time, unable to perform yard work PT-OP-C Subjective Start: 04/23/18 14:56 Freq: Status: Active Protocol: Document 04/23/18 14:58 EA (Rec: 04/23/18 15:09 EA [id number]) OP-PT Subjective Patient Comments Patient Comments Patient wants to get back to previous level of function Patient Questionnaires Quick Dash- Upper Extremity Quick Dash UE Score 51 Quick Dash UE Impairment 80 to 99% Impaired (Score 80- 99) OP-PT Pain Assessment Location Right Shoulder Intensity 7 Scale Used Numeric (1 - 10) Description Acute With Movement Home Pain Medication Use Pain Medications Used Yes Pain Behaviors Pain Behaviors Facial Grimacing Guarding Holding Area PT-OP-E Functional Tests Start: 04/23/18 14:56 Freq: Status: Active Protocol: Document 04/23/18 16:50 EA (Rec: 04/24/18 10:02 EA [id number]) Functional Tests Apley's Scratch Test Action 1: The subject is instructed to touch the opposite shoulder with his/her hand. This motion checks Glenohumeral adduction, internal rotation , horizontal adduction and scapular protraction Action 2: The subject is instructed to place his/her arm overhead and reach behind the neck to touch his/her upper back. This motion checks Glenohumeral abduction, external rotation and scapular upward rotation and elevation. Action 3: The subject puts his/her hand on the lower back and reaches upward as far as possible. This motion checks glenohumeral adduction, internal rotation and scapular retraction with downward rotation Action 1- Left shoulder Action 1- Right n/a Action 2- Left T2 Action 2- Right n/a Action 3- Left T12 Action 3- Right n/a PT-OP-J Posture/Palpation/Skin Start: 04/23/18 14:56 Freq: Status: Active Protocol: Document 04/23/18 16:50 EA (Rec: 04/24/18 10:02 EA [id number]) Posture Evaluation Position Standing Evaluation View Lateral Head/C-Spine Posture Forward Head Shoulder Posture (L) Rounded (R) Rounded Scapula Posture (L) Protracted (R) Protracted Skin Assessment Incisional Assessment Incision Appearance/Comments Incision is covered but no signs of acute infection Other Assessments Skin Assessment Comments Bruise to right low abdominal quadrant, right anterolat arm PT-OP-K Range of Motion Start: 04/23/18 14:56 Freq: Status: Active Protocol: Document 04/23/18 16:45 EA (Rec: 04/24/18 10:04 EA [id number]) Shoulder Goniometric Range of Motion Shoulder Measured in Degrees Left Active Shoulder ROM WFL Yes Shoulder ROM Limitations Comments Right shoulder not tested due to pre-caution. Elbow/Forearm Range of Motion Elbow/Forearm Measured in Degrees Passive Elbow/Forearm ROM WFL Yes PT-OP-M Strength Start: 04/23/18 14:56 Freq: Status: Active Protocol: Document 04/23/18 16:50 EA (Rec: 04/24/18 10:02 EA [id number]) Shoulder Strength Shoulder Manual Muscle Testing Right Reason Not Measured Orthopedic Precautions Elbow/Forearm Strength Elbow and Forearm Manual Muscle Testing Left Reason Not Measured WFL Right Flexion (C6) 3 Fair Extension (C7) 3 Fair Pronation 3 Fair Supination 3 Fair Wrist Strength Wrist Manual Muscle Testing Left Reason Not Measured WFL Right Flexion (C7) 3 Fair Extension (C6) 3 Fair Ulnar Deviation 3 Fair Radial Deviation 3 Fair PT-OP-Q Treatments Start: 04/23/18 14:56 Freq: Status: Active Protocol: Document 04/23/18 15:13 EA (Rec: 04/23/18 15:13 EA [id number]) Self-Care/Home Management Treatment Education Patient Education Home Exercise Program Joint Protection Pain Management Posture Safety Other Education Shoulder pre-cautions PT-OP-T Assessment and Plan Start: 04/23/18 14:56 Freq: Status: Active Protocol: Document 04/23/18 16:45 EA (Rec: 04/24/18 14:20 EA [id number]) Physical Therapy Assessment Rehab Potential Rehabilitation Potential Good Evaluation Complexity Number of Personal Factors/Comorbidities 1-2 Number of Body Systems Impaired 1-2 Clinical Presentation at Evaluation Stable Impairments Impairments Activity Tolerance Functional Activities Functional Mobility Pain Posture ROM Soft Tissue Mobility Strength Goals Five Impairment HEP dependent Director Of Accounts Payable Goal (LTG) Patient will exhibit independent HEP with safety LTG Duration 4 wks. Four Impairment Impaired elbow and wrist strength Director Of Accounts Payable Goal (LTG) Patient will increase elbow and wrist strength to at least 3+/5 for functional gripping activities LTG Duration 4 wks Three Impairment QuickDash score of 51 Halfway Goal (LTG) Patient will have Quick Dash score of less than 40 LTG Duration 4 wks Two Impairment Impaired Right shoulder strength Halfway Goal (LTG) Patient increase left shoulder strength to 3/5 for functional AROM that is align to rehab protocol LTG Duration 4-6 wks One Impairment Impaired R shoulder ROM Director Of Accounts Payable Goal (LTG) Patient will perform abd/ flexion AROM to functional range or as to align with rehab protocol LTG Duration 4 wks Assessment Summary Assessment Pleasant 78/ y/o male patient who underwent R total shoulder arthroplasty on 04/19/18. Today patient exhibited limited ROM to R shoulder, elbow, and wrist with muscle weakness and muscle guarding. Ocular inspection reveals no signs of acute infection. Skin assessment reveals bruises to anterior arm and right lower abdominal quadrant. Circulatory test and sensory test to right UE are WFL. Pre- cautions and HEP given to patient and showed good understanding. Patient is a good candidate for skilled PT to reach previous level of function safely. Physical Therapy Plan Frequency and Duration Frequency of Treatment 2x/Week Duration of Treatment 8 wks Plan of Care Start Date 04/23/18 Plan of Care End Date 06/18/18 Therapeutic Interventions Therapeutic Interventions Home Exercise Program Joint Mobilizations Manual Therapy Patient/Caregiver Education Self-Care/Home Management Soft Tissue Mobilization Taping Therapeutic Activities Therapeutic Exercises Modalities Biofeedback Electric Stimulation Hot Packs Ultrasound Next Visit Focus/Plan Next Note Type Treatment Note Next Visit Plan FRA AROM- strengthening, gentle PROM to right shoulder, pendulum
--- NOTE | 2018-04-24 14:25 | PT.OPPOC ---
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 (04/23/18) Impingement syndrome of right shoulder (04/23/18) Provider Visit Care Team Role Provider Type Phillip Ghosh MD Family Provider Physician Primary Care Provider Specialty: Family Practice Address: [address] [place] [address], [address] Email: [email or web address] Jerry Pabon MD Attending Provider Physician Specialty: Orthopedic Surgery Address: [address] [place] [address], [address] Email: [email or web address] Plan Of Care PT-OP-T Assessment and Plan Start: 04/23/18 14:56 Freq: Status: Active Protocol: Document 04/23/18 16:45 EA (Rec: 04/24/18 14:20 EA [id number]) Physical Therapy Assessment Rehab Potential Rehabilitation Potential Good Evaluation Complexity Number of Personal Factors/Comorbidities 1-2 Number of Body Systems Impaired 1-2 Clinical Presentation at Evaluation Stable Impairments Impairments Activity Tolerance Functional Activities Functional Mobility Pain Posture ROM Soft Tissue Mobility Strength Goals Five Impairment HEP dependent Extension Division Director Goal (LTG) Patient will exhibit independent HEP with safety LTG Duration 4 wks. Four Impairment Impaired elbow and wrist strength Extension Division Director Goal (LTG) Patient will increase elbow and wrist strength to at least 3+/5 for functional gripping activities LTG Duration 4 wks Three Impairment QuickDash score of 51 Long-Term Goal (LTG) Patient will have Quick Dash score of less than 40 LTG Duration 4 wks Two Impairment Impaired Right shoulder strength Long-Term Goal (LTG) Patient increase left shoulder strength to 3/5 for functional AROM that is align to rehab protocol LTG Duration 4-6 wks One Impairment Impaired R shoulder ROM Extension Division Director Goal (LTG) Patient will perform abd/ flexion AROM to functional range or as to align with rehab protocol LTG Duration 4 wks Assessment Summary Assessment Pleasant 78/ y/o male patient who underwent R total shoulder arthroplasty on 04/19/18. Today patient exhibited limited ROM to R shoulder, elbow, and wrist with muscle weakness and muscle guarding. Ocular inspection reveals no signs of acute infection. Skin assessment reveals bruises to anterior arm and right lower abdominal quadrant. Circulatory test and sensory test to right UE are WFL. Pre- cautions and HEP given to patient and showed good understanding. Patient is a good candidate for skilled PT to reach previous level of function safely. Physical Therapy Plan Frequency and Duration Frequency of Treatment 2x/Week Duration of Treatment 8 wks Plan of Care Start Date 04/23/18 Plan of Care End Date 06/18/18 Therapeutic Interventions Therapeutic Interventions Home Exercise Program Joint Mobilizations Manual Therapy Patient/Caregiver Education Self-Care/Home Management Soft Tissue Mobilization Taping Therapeutic Activities Therapeutic Exercises Modalities Biofeedback Electric Stimulation Hot Packs Ultrasound Next Visit Focus/Plan Next Note Type Treatment Note Next Visit Plan FRA AROM- strengthening, gentle PROM to right shoulder, pendulum Plan of Care Dates Plan of Care Start Date 04/23/18 Plan of Care End Date 06/18/18 Please Sign and Return: I have reviewed this Plan of Care and certify that the skilled therapy services above are required to meet the patient?s needs. Physician Signature Date Printed Name and Credentials Clinical Instructor Signature Printed Name and Credentials
--- NOTE | 2018-04-26 12:14 | PT.OTN ---
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 (04/26/18) Impingement syndrome of right shoulder (04/26/18) Physical Therapy Treatment Note PT-OP-A Visit Information Start: 04/23/18 14:56 Freq: Status: Active Protocol: Document 04/26/18 10:21 EA (Rec: 04/26/18 10:31 EA [id number]) Out-Patient Physical Therapy Visit Information Visit Information Visit Type Treatment Note Visit Start Time 09:45 Visit Stop Time 10:30 Total Visit Minutes 40 Visit Number 1 PT-OP-B Current Condition Start: 04/23/18 14:56 Freq: Status: Active Protocol: Document 04/23/18 14:58 EA (Rec: 04/23/18 15:09 EA [id number]) Current Condition History of Current Condition Onset Date S/P R rotator cuff repain 04/19 History of Current Condition S/P R rotator cuff repair 04/19 Prior Treatments and Tests Steroid injection in the past few months prior to surgery Future Testing and Treatments Planned None at this time Treatment Goals Patient/Caregiver Goals Back to previous level of function Prior Functional Status Baseline Function- ADL's Independent Baseline Function- Mobility Independent Baseline Function- Other Able to drive and do groceries indep Current Functional Impairments (Reported) Functional Limitations- ADL's Minimal assistance with bathing, personal care Functional Limitations- Mobility/Gait indep Functional Limitations- Work/School Indep Functional Limitations- Other Unable to drive at this time, unable to perform yard work PT-OP-C Subjective Start: 04/23/18 14:56 Freq: Status: Active Protocol: Document 04/26/18 10:21 EA (Rec: 04/26/18 10:31 EA [id number]) OP-PT Subjective Patient Comments Patient Comments Patient reports unable to perform HEP on schedule time; denies tingling and numbness to arm. Pt rated pain 4/10. PT-OP-E Functional Tests Start: 04/23/18 14:56 Freq: Status: Active Protocol: Document 04/23/18 16:50 EA (Rec: 04/24/18 10:02 EA [id number]) Functional Tests Lorenzoey's Scratch Test Action 1: The subject is instructed to touch the opposite shoulder with his/her hand. This motion checks Glenohumeral adduction, internal rotation , horizontal adduction and scapular protraction Action 2: The subject is instructed to place his/her arm overhead and reach behind the neck to touch his/her upper back. This motion checks Glenohumeral abduction, external rotation and scapular upward rotation and elevation. Action 3: The subject puts his/her hand on the lower back and reaches upward as far as possible. This motion checks glenohumeral adduction, internal rotation and scapular retraction with downward rotation Action 1- Left shoulder Action 1- Right n/a Action 2- Left T2 Action 2- Right n/a Action 3- Left T12 Action 3- Right n/a PT-OP-J Posture/Palpation/Skin Start: 04/23/18 14:56 Freq: Status: Active Protocol: Document 04/23/18 16:50 EA (Rec: 04/24/18 10:02 EA [id number]) Posture Evaluation Position Standing Evaluation View Lateral Head/C-Spine Posture Forward Head Shoulder Posture (L) Rounded (R) Rounded Scapula Posture (L) Protracted (R) Protracted Skin Assessment Incisional Assessment Incision Appearance/Comments Incision is covered but no signs of acute infection Other Assessments Skin Assessment Comments Bruise to right low abdominal quadrant, right anterolat arm PT-OP-K Range of Motion Start: 04/23/18 14:56 Freq: Status: Active Protocol: Document 04/23/18 16:45 EA (Rec: 04/24/18 10:04 EA [id number]) Shoulder Goniometric Range of Motion Shoulder Measured in Degrees Left Active Shoulder ROM WFL Yes Shoulder ROM Limitations Comments Right shoulder not tested due to pre-caution. Elbow/Forearm Range of Motion Elbow/Forearm Measured in Degrees Passive Elbow/Forearm ROM WFL Yes PT-OP-M Strength Start: 04/23/18 14:56 Freq: Status: Active Protocol: Document 04/23/18 16:50 EA (Rec: 04/24/18 10:02 EA [id number]) Shoulder Strength Shoulder Manual Muscle Testing Right Reason Not Measured Orthopedic Precautions Elbow/Forearm Strength Elbow and Forearm Manual Muscle Testing Left Reason Not Measured WFL Right Flexion (C6) 3 Fair Extension (C7) 3 Fair Pronation 3 Fair Supination 3 Fair Wrist Strength Wrist Manual Muscle Testing Left Reason Not Measured WFL Right Flexion (C7) 3 Fair Extension (C6) 3 Fair Ulnar Deviation 3 Fair Radial Deviation 3 Fair PT-OP-Q Treatments Start: 04/23/18 14:56 Freq: Status: Active Protocol: Document 04/26/18 10:21 EA (Rec: 04/26/18 10:31 EA [id number]) Therapeutic Exercises Supine Exercises 4 Supine Exercise Name gentle PROM to flexion Reps/Minutes 10 reps Comments Avoid stressing tissue 3 Supine Exercise Name Wrist AP AROM Resistance 15 reps x 2 sets 2 Supine Exercise Name Elbo pron/sup Reps/Minutes 15 reps x 2 sets Comments Pillow under elbow and fixed side of the the body 1 Supine Exercise Name elbow flexion/ext Reps/Minutes 15 reps x 2 Comments Pillow under elbow and fixed side of the the body Standing Exercises 1 Standing Exercise Name Pendulum: flexion only Reps/Minutes x 10 reps Comments HEP componenets Self-Care/Home Management Treatment Education Patient Education Joint Protection Pain Management Posture Safety Other Education Reviewed HEP and additional exercise. Advised to call his physcian for follow up. PT-OP-R Modalities Start: 04/23/18 14:56 Freq: Status: Active Protocol: Document 04/26/18 10:21 EA (Rec: 04/26/18 10:31 EA [id number]) Hot Pack/Cold Pack Treatment Cold Pack Location Right shoulder Patient Position Supine Treatment Duration (minutes) 10 Comments Pillow under arm PT-OP-T Assessment and Plan Start: 04/23/18 14:56 Freq: Status: Active Protocol: Document 04/26/18 10:21 EA (Rec: 04/26/18 10:31 EA [id number]) Physical Therapy Assessment Assessment Summary Assessment Patient has improve elbow and wrist mobility and strength. No signs acute infection noted . Recommended to cont HEP and call his physician for follow up. Physical Therapy Plan Next Visit Focus/Plan Next Note Type Treatment Note Next Visit Plan FRA AROM- strengthening, gentle PROM to right shoulder, pendulum
--- NOTE | 2018-04-30 14:32 | PT.OTN ---
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 (04/30/18) Impingement syndrome of right shoulder (04/30/18) Physical Therapy Treatment Note PT-OP-A Visit Information Start: 04/23/18 14:56 Freq: Status: Active Protocol: Document 04/30/18 14:32 DLM (Rec: 04/30/18 16:47 DL [id number]) Out-Patient Physical Therapy Visit Information Visit Information Visit Type Treatment Note Visit Start Time 14:32 Visit Stop Time 15:18 Total Visit Minutes 46 Visit Number 3/10 Number of BAR[employer] Visits 0 Evaluation Information Evaluation Date 04/23/18 PT-OP-B Current Condition Start: 04/23/18 14:56 Freq: Status: Active Protocol: Document 04/23/18 14:58 EA (Rec: 04/23/18 15:09 EA [id number]) Current Condition History of Current Condition Onset Date S/P R rotator cuff repair 04/19 History of Current Condition S/P R rotator cuff repair 04/19 Prior Treatments and Tests Steroid injection in the past few months prior to surgery Future Testing and Treatments Planned None at this time Treatment Goals Patient/Caregiver Goals Back to previous level of function Prior Functional Status Baseline Function- ADL's Independent Baseline Function- Mobility Independent Baseline Function- Other Able to drive and do groceries indep Current Functional Impairments (Reported) Functional Limitations- ADL's Minimal assistance with bathing, personal care Functional Limitations- Mobility/Gait indep Functional Limitations- Work/School Indep Functional Limitations- Other Unable to drive at this time, unable to perform yard work PT-OP-C Subjective Start: 04/23/18 14:56 Freq: Status: Active Protocol: Document 04/30/18 14:32 DLM (Rec: 04/30/18 16:47 [facility] [email or web address][facility] OP-PT Subjective Patient Comments Patient Comments He has been doing some ex and icing at home. He continues to have pain when trying to sleep. He has a trip planned to [place] in Aug and wants to be well by then. OP-PT Pain Assessment Location Right Shoulder Pain Location Details at rest Intensity 0 Other Pain Alleviating Factors moving right UE increases his pain PT-OP-E Functional Tests Start: 04/23/18 14:56 Freq: Status: Active Protocol: Document 04/23/18 16:50 EA (Rec: 04/24/18 10:02 EA [id number]) Functional Tests Action 1- Left shoulder Action 1- Right n/a Action 2- Left T2 Action 2- Right n/a Action 3- Left T12 Action 3- Right n/a PT-OP-J Posture/Palpation/Skin Start: 04/23/18 14:56 Freq: Status: Active Protocol: Document 04/23/18 16:50 EA (Rec: 04/24/18 10:02 EA [id number]) Posture Evaluation Position Standing Evaluation View Lateral Head/C-Spine Posture Forward Head Shoulder Posture (L) Rounded (R) Rounded Scapula Posture (L) Protracted (R) Protracted Skin Assessment Incisional Assessment Incision Appearance/Comments Incision is covered but no signs of acute infection Other Assessments Skin Assessment Comments Bruise to right low abdominal quadrant, right anterolat arm PT-OP-K Range of Motion Start: 04/23/18 14:56 Freq: Status: Active Protocol: Document 04/30/18 14:32 DLM (Rec: 04/30/18 16:47 DLM [email or web address]) Shoulder Goniometric Range of Motion Shoulder Measured in Degrees Right Passive Testing Position Supine Flexion 85 External Rotation at 0 degrees Abduction 10 PT-OP-M Strength Start: 04/23/18 14:56 Freq: Status: Active Protocol: Document 04/23/18 16:50 EA (Rec: 04/24/18 10:02 EA [id number]) Shoulder Strength Shoulder Manual Muscle Testing Right Reason Not Measured Orthopedic Precautions Elbow/Forearm Strength Elbow and Forearm Manual Muscle Testing Left Reason Not Measured WFL Right Flexion (C6) 3 Fair Extension (C7) 3 Fair Pronation 3 Fair Supination 3 Fair Wrist Strength Wrist Manual Muscle Testing Left Reason Not Measured WFL Right Flexion (C7) 3 Fair Extension (C6) 3 Fair Ulnar Deviation 3 Fair Radial Deviation 3 Fair PT-OP-Q Treatments Start: 04/23/18 14:56 Freq: Status: Active Protocol: Document 04/30/18 14:32 DLM (Rec: 04/30/18 16:47 DLM [email or web address]) Therapeutic Exercises Supine Exercises 6 Supine Exercise Name shoulder ER with cane Side right Resistance AAROM/PROM Equipment Used cane Reps/Minutes x 10 Comments per protocal 5 Supine Exercise Name PROM shoulder ER Side right Comments gradual progression per protocal 4 Supine Exercise Name gentle PROM to flexion Comments gradual progression 3 Supine Exercise Name Wrist AP AROM Resistance 15 reps x 2 sets 2 Supine Exercise Name Elbow pron/sup Reps/Minutes 15 reps x 2 sets Comments Pillow under elbow and fixed side of the the body 1 Supine Exercise Name elbow flexion/ext Reps/Minutes 15 reps x 2 Comments Pillow under elbow and fixed side of the the body Manual Therapy Treatment Soft Tissue Mobilization 1 Body Location right LE bruised area Mobilization Type Myofascial Release Intensity/Depth Superficial Body Position Supine Comments pillow under UE, goal to decrease bruising Self-Care/Home Management Treatment Education Other Education reviewed HEP and surgeon protocal PT-OP-R Modalities Start: 04/23/18 14:56 Freq: Status: Active Protocol: Document 04/30/18 14:32 DLM (Rec: 04/30/18 16:47 DLM [email or web address]) Hot Pack/Cold Pack Treatment Cold Pack Location Right shoulder Patient Position Hooklying Treatment Duration (minutes) 10 Patient Tolerance Good Comments Pillow under UE PT-OP-T Assessment and Plan Start: 04/23/18 14:56 Freq: Status: Active Protocol: Document 04/30/18 14:32 DLM (Rec: 04/30/18 16:47 DLM [email or web address]) Physical Therapy Assessment Progress Towards Goals Progress Towards Goals Progressing Toward Goals Progress Comments progressing treatment per protocal post-op Assessment Summary Assessment Original dressing still in place. Pt scheduled to follow up with surgeon on 05/02/18. He reports increased pain with ROM exercises this visit. PROM continues to gradually improve. Will continue to progress treatment per surgeon protocal. Physical Therapy Plan Frequency and Duration Frequency of Treatment 2x/Week Duration of Treatment 8 wks Plan of Care Start Date 04/23/18 Plan of Care End Date 06/18/18 Therapeutic Interventions Other Therapeutic Interventions continue per treatment plan and surgeon protocal Next Visit Focus/Plan Next Note Type Treatment Note Next Visit Plan progress PROM right shoulder per protocal
--- NOTE | 2018-05-03 12:20 | PT.OTN ---
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 (05/03/18) Impingement syndrome of right shoulder (05/03/18) Physical Therapy Treatment Note PT-OP-A Visit Information Start: 04/23/18 14:56 Freq: Status: Active Protocol: Document 05/03/18 10:22 EA (Rec: 05/03/18 10:26 EA [id number]) Out-Patient Physical Therapy Visit Information Visit Information Visit Type Treatment Note Visit Start Time 09:45 Visit Stop Time 10:30 Visit Number 11/07 PT-OP-B Current Condition Start: 04/23/18 14:56 Freq: Status: Active Protocol: Document 04/23/18 14:58 EA (Rec: 04/23/18 15:09 EA [id number]) Current Condition History of Current Condition Onset Date S/P R rotator cuff repain 04/19 History of Current Condition S/P R rotator cuff repair 04/19 Prior Treatments and Tests Steroid injection in the past few months prior to surgery Future Testing and Treatments Planned None at this time Treatment Goals Patient/Caregiver Goals Back to previous level of function Prior Functional Status Baseline Function- ADL's Independent Baseline Function- Mobility Independent Baseline Function- Other Able to drive and do groceries indep Current Functional Impairments (Reported) Functional Limitations- ADL's Minimal assistance with bathing, personal care Functional Limitations- Mobility/Gait indep Functional Limitations- Work/School Indep Functional Limitations- Other Unable to drive at this time, unable to perform yard work PT-OP-C Subjective Start: 04/23/18 14:56 Freq: Status: Active Protocol: Document 05/03/18 10:22 EA (Rec: 05/03/18 10:26 EA [id number]) OP-PT Subjective Patient Comments Patient Comments Pt reports HEP compliance; states pain is increasing. patient denies arm numbness, however weak. PT-OP-E Functional Tests Start: 04/23/18 14:56 Freq: Status: Active Protocol: Document 04/23/18 16:50 EA (Rec: 04/24/18 10:02 EA [id number]) Functional Tests Lorenzoey's Scratch Test Action 1: The subject is instructed to touch the opposite shoulder with his/her hand. This motion checks Glenohumeral adduction, internal rotation , horizontal adduction and scapular protraction Action 2: The subject is instructed to place his/her arm overhead and reach behind the neck to touch his/her upper back. This motion checks Glenohumeral abduction, external rotation and scapular upward rotation and elevation. Action 3: The subject puts his/her hand on the lower back and reaches upward as far as possible. This motion checks glenohumeral adduction, internal rotation and scapular retraction with downward rotation Action 1- Left shoulder Action 1- Right n/a Action 2- Left T2 Action 2- Right n/a Action 3- Left T12 Action 3- Right n/a PT-OP-J Posture/Palpation/Skin Start: 04/23/18 14:56 Freq: Status: Active Protocol: Document 04/23/18 16:50 EA (Rec: 04/24/18 10:02 EA [id number]) Posture Evaluation Position Standing Evaluation View Lateral Head/C-Spine Posture Forward Head Shoulder Posture (L) Rounded (R) Rounded Scapula Posture (L) Protracted (R) Protracted Skin Assessment Incisional Assessment Incision Appearance/Comments Incision is covered but no signs of acute infection Other Assessments Skin Assessment Comments Bruise to right low abdominal quadrant, right anterolat arm PT-OP-K Range of Motion Start: 04/23/18 14:56 Freq: Status: Active Protocol: Document 04/30/18 14:32 DLM (Rec: 04/30/18 16:47 DLM [email or web address]) Shoulder Goniometric Range of Motion Shoulder Measured in Degrees Right Passive Testing Position Supine Flexion 85 External Rotation at 0 degrees Abduction 10 PT-OP-M Strength Start: 04/23/18 14:56 Freq: Status: Active Protocol: Document 04/23/18 16:50 EA (Rec: 04/24/18 10:02 EA [id number]) Shoulder Strength Shoulder Manual Muscle Testing Right Reason Not Measured Orthopedic Precautions Elbow/Forearm Strength Elbow and Forearm Manual Muscle Testing Left Reason Not Measured WFL Right Flexion (C6) 3 Fair Extension (C7) 3 Fair Pronation 3 Fair Supination 3 Fair Wrist Strength Wrist Manual Muscle Testing Left Reason Not Measured WFL Right Flexion (C7) 3 Fair Extension (C6) 3 Fair Ulnar Deviation 3 Fair Radial Deviation 3 Fair PT-OP-Q Treatments Start: 04/23/18 14:56 Freq: Status: Active Protocol: Document 05/03/18 10:27 EA (Rec: 05/03/18 10:29 EA [id number]) Therapeutic Exercises Supine Exercises 4 Supine Exercise Name gentle PROM to flexion Comments gradual progression 3 Supine Exercise Name Wrist AP AROM Resistance 15 reps x 2 sets Comments 1# 2 Supine Exercise Name Elbow pron/sup Resistance 1# Reps/Minutes 15 reps x 2 sets Comments Pillow under elbow and fixed side of the the body 1 Supine Exercise Name elbow flexion/ext Resistance 1# Reps/Minutes 15 reps x 2 Comments Pillow under elbow and fixed side of the the body Manual Therapy Treatment Soft Tissue Mobilization 1 Body Location Right scapular, traps and deltoid area Mobilization Type Myofascial Release Intensity/Depth Superficial Body Position Supine PT-OP-R Modalities Start: 04/23/18 14:56 Freq: Status: Active Protocol: Document 05/03/18 10:22 EA (Rec: 05/03/18 10:26 EA [id number]) Electric Stimulation Electric Stimulation Interferential Current (IFC) Body Location right scapulars and deltoid Duration (Minutes) 15 Patient Position Supine Combined With Heat/Cold Cold Pack PT-OP-T Assessment and Plan Start: 04/23/18 14:56 Freq: Status: Active Protocol: Document 05/03/18 10:22 EA (Rec: 05/03/18 10:26 EA [id number]) Physical Therapy Assessment Assessment Summary Assessment Dressing is removed and showed no acute infection. FRA still weak and shakey during exercises. Recommended to cont . HEP and ICING. Re-educated with pre-cautions. Physical Therapy Plan Next Visit Focus/Plan Next Note Type Treatment Note Next Visit Plan progress PROM right shoulder per protocal
--- NOTE | 2018-05-10 15:14 | PT.OTN ---
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 (05/10/18) Impingement syndrome of right shoulder (05/10/18) Physical Therapy Treatment Note PT-OP-A Visit Information Start: 04/23/18 14:56 Freq: Status: Active Protocol: Document 05/10/18 13:47 EA (Rec: 05/10/18 14:01 EA [id number]) Out-Patient Physical Therapy Visit Information Visit Information Visit Type Treatment Note Visit Start Time 09:45 Visit Stop Time 10:30 Visit Number 01/07 PT-OP-B Current Condition Start: 04/23/18 14:56 Freq: Status: Active Protocol: Document 04/23/18 14:58 EA (Rec: 04/23/18 15:09 EA [id number]) Current Condition History of Current Condition Onset Date S/P R rotator cuff repain 04/19 History of Current Condition S/P R rotator cuff repair 04/19 Prior Treatments and Tests Steroid injection in the past few months prior to surgery Future Testing and Treatments Planned None at this time Treatment Goals Patient/Caregiver Goals Back to previous level of function Prior Functional Status Baseline Function- ADL's Independent Baseline Function- Mobility Independent Baseline Function- Other Able to drive and do groceries indep Current Functional Impairments (Reported) Functional Limitations- ADL's Minimal assistance with bathing, personal care Functional Limitations- Mobility/Gait indep Functional Limitations- Work/School Indep Functional Limitations- Other Unable to drive at this time, unable to perform yard work PT-OP-C Subjective Start: 04/23/18 14:56 Freq: Status: Active Protocol: Document 05/10/18 13:47 EA (Rec: 05/10/18 14:01 EA [id number]) OP-PT Subjective Patient Comments Patient Comments Pt reports unable to perform HEP on time and he has been out sling a lot of times; denies tingling and numbness RUE. PT-OP-E Functional Tests Start: 04/23/18 14:56 Freq: Status: Active Protocol: Document 04/23/18 16:50 EA (Rec: 04/24/18 10:02 EA [id number]) Functional Tests Lorenzoey's Scratch Test Action 1: The subject is instructed to touch the opposite shoulder with his/her hand. This motion checks Glenohumeral adduction, internal rotation , horizontal adduction and scapular protraction Action 2: The subject is instructed to place his/her arm overhead and reach behind the neck to touch his/her upper back. This motion checks Glenohumeral abduction, external rotation and scapular upward rotation and elevation. Action 3: The subject puts his/her hand on the lower back and reaches upward as far as possible. This motion checks glenohumeral adduction, internal rotation and scapular retraction with downward rotation Action 1- Left shoulder Action 1- Right n/a Action 2- Left T2 Action 2- Right n/a Action 3- Left T12 Action 3- Right n/a PT-OP-J Posture/Palpation/Skin Start: 04/23/18 14:56 Freq: Status: Active Protocol: Document 04/23/18 16:50 EA (Rec: 04/24/18 10:02 EA [id number]) Posture Evaluation Position Standing Evaluation View Lateral Head/C-Spine Posture Forward Head Shoulder Posture (L) Rounded (R) Rounded Scapula Posture (L) Protracted (R) Protracted Skin Assessment Incisional Assessment Incision Appearance/Comments Incision is covered but no signs of acute infection Other Assessments Skin Assessment Comments Bruise to right low abdominal quadrant, right anterolat arm PT-OP-K Range of Motion Start: 04/23/18 14:56 Freq: Status: Active Protocol: Document 04/30/18 14:32 DLM (Rec: 04/30/18 16:47 DLM [email or web address]) Shoulder Goniometric Range of Motion Shoulder Measured in Degrees Right Passive Testing Position Supine Flexion 85 External Rotation at 0 degrees Abduction 10 PT-OP-M Strength Start: 04/23/18 14:56 Freq: Status: Active Protocol: Document 04/23/18 16:50 EA (Rec: 04/24/18 10:02 EA [id number]) Shoulder Strength Shoulder Manual Muscle Testing Right Reason Not Measured Orthopedic Precautions Elbow/Forearm Strength Elbow and Forearm Manual Muscle Testing Left Reason Not Measured WFL Right Flexion (C6) 3 Fair Extension (C7) 3 Fair Pronation 3 Fair Supination 3 Fair Wrist Strength Wrist Manual Muscle Testing Left Reason Not Measured WFL Right Flexion (C7) 3 Fair Extension (C6) 3 Fair Ulnar Deviation 3 Fair Radial Deviation 3 Fair PT-OP-Q Treatments Start: 04/23/18 14:56 Freq: Status: Active Protocol: Document 05/10/18 13:47 EA (Rec: 05/10/18 14:01 EA [id number]) Therapeutic Exercises Supine Exercises 7 Supine Exercise Name squeeze and release Reps/Minutes x 20 reps x 2 sets Comments squeeze ball 4 Supine Exercise Name gentle PROM to flexion Comments gradual progression 3 Supine Exercise Name Wrist AP AROM Resistance 15 reps x 2 sets Comments 1# 2 Supine Exercise Name Elbow pron/sup Resistance 1# Reps/Minutes 15 reps x 2 sets Comments Pillow under elbow and fixed side of the the body 1 Supine Exercise Name elbow flexion/ext Resistance 1# Reps/Minutes 15 reps x 2 Comments Pillow under elbow and fixed side of the the body Manual Therapy Treatment Soft Tissue Mobilization 1 Body Location Right scapular, traps and deltoid area Mobilization Type Myofascial Release Intensity/Depth Superficial Body Position Supine Manual Techniques 1 Type Contract -relax passive stretch: Elbow flex/EXT PT-OP-R Modalities Start: 04/23/18 14:56 Freq: Status: Active Protocol: Document 05/10/18 13:47 EA (Rec: 05/10/18 14:01 EA [id number]) Electric Stimulation Electric Stimulation Interferential Current (IFC) Body Location right scapulars and deltoid Duration (Minutes) 15 Patient Position Supine Combined With Heat/Cold Cold Pack PT-OP-T Assessment and Plan Start: 04/23/18 14:56 Freq: Status: Active Protocol: Document 05/10/18 13:47 EA (Rec: 05/10/18 14:01 EA [id number]) Physical Therapy Assessment Assessment Summary Assessment Still noted weakness to right LE's. Recommended to cont. HEP . Educated the consequences of not using the elbow and hand for exercises at this time. Patient tolerated treatment well. Physical Therapy Plan Next Visit Focus/Plan Next Note Type Treatment Note Next Visit Plan progress PROM right shoulder per protocal
--- NOTE | 2018-05-14 15:41 | PT.OTN ---
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 (05/14/18) Impingement syndrome of right shoulder (05/14/18) Physical Therapy Treatment Note PT-OP-A Visit Information Start: 04/23/18 14:56 Freq: Status: Active Protocol: Document 05/14/18 13:40 EA (Rec: 05/14/18 13:44 EA [id number]) Out-Patient Physical Therapy Visit Information Visit Information Visit Type Treatment Note Visit Start Time 09:45 Visit Stop Time 10:30 Visit Number 02/06 PT-OP-B Current Condition Start: 04/23/18 14:56 Freq: Status: Active Protocol: Document 04/23/18 14:58 EA (Rec: 04/23/18 15:09 EA [id number]) Current Condition History of Current Condition Onset Date S/P R rotator cuff repain 04/19 History of Current Condition S/P R rotator cuff repair 04/19 Prior Treatments and Tests Steroid injection in the past few months prior to surgery Future Testing and Treatments Planned None at this time Treatment Goals Patient/Caregiver Goals Back to previous level of function Prior Functional Status Baseline Function- ADL's Independent Baseline Function- Mobility Independent Baseline Function- Other Able to drive and do groceries indep Current Functional Impairments (Reported) Functional Limitations- ADL's Minimal assistance with bathing, personal care Functional Limitations- Mobility/Gait indep Functional Limitations- Work/School Indep Functional Limitations- Other Unable to drive at this time, unable to perform yard work PT-OP-C Subjective Start: 04/23/18 14:56 Freq: Status: Active Protocol: Document 05/14/18 13:40 EA (Rec: 05/14/18 13:44 EA [id number]) OP-PT Subjective Patient Comments Patient Comments Pt reports shoulder pain is improving; states at tiems removed sling for elbow and hand mobility; denies increase in symptoms. PT-OP-E Functional Tests Start: 04/23/18 14:56 Freq: Status: Active Protocol: Document 04/23/18 16:50 EA (Rec: 04/24/18 10:02 EA [id number]) Functional Tests Patricia's Scratch Test Action 1: The subject is instructed to touch the opposite shoulder with his/her hand. This motion checks Glenohumeral adduction, internal rotation , horizontal adduction and scapular protraction Action 2: The subject is instructed to place his/her arm overhead and reach behind the neck to touch his/her upper back. This motion checks Glenohumeral abduction, external rotation and scapular upward rotation and elevation. Action 3: The subject puts his/her hand on the lower back and reaches upward as far as possible. This motion checks glenohumeral adduction, internal rotation and scapular retraction with downward rotation Action 1- Left shoulder Action 1- Right n/a Action 2- Left T2 Action 2- Right n/a Action 3- Left T12 Action 3- Right n/a PT-OP-J Posture/Palpation/Skin Start: 04/23/18 14:56 Freq: Status: Active Protocol: Document 04/23/18 16:50 EA (Rec: 04/24/18 10:02 EA [id number]) Posture Evaluation Position Standing Evaluation View Lateral Head/C-Spine Posture Forward Head Shoulder Posture (L) Rounded (R) Rounded Scapula Posture (L) Protracted (R) Protracted Skin Assessment Incisional Assessment Incision Appearance/Comments Incision is covered but no signs of acute infection Other Assessments Skin Assessment Comments Bruise to right low abdominal quadrant, right anterolat arm PT-OP-K Range of Motion Start: 04/23/18 14:56 Freq: Status: Active Protocol: Document 04/30/18 14:32 DLM (Rec: 04/30/18 16:47 DLM [id number]) Shoulder Goniometric Range of Motion Shoulder Measured in Degrees Right Passive Testing Position Supine Flexion 85 External Rotation at 0 degrees Abduction 10 PT-OP-M Strength Start: 04/23/18 14:56 Freq: Status: Active Protocol: Document 04/23/18 16:50 EA (Rec: 04/24/18 10:02 EA [id number]) Shoulder Strength Shoulder Manual Muscle Testing Right Reason Not Measured Orthopedic Precautions Elbow/Forearm Strength Elbow and Forearm Manual Muscle Testing Left Reason Not Measured WFL Right Flexion (C6) 3 Fair Extension (C7) 3 Fair Pronation 3 Fair Supination 3 Fair Wrist Strength Wrist Manual Muscle Testing Left Reason Not Measured WFL Right Flexion (C7) 3 Fair Extension (C6) 3 Fair Ulnar Deviation 3 Fair Radial Deviation 3 Fair PT-OP-Q Treatments Start: 04/23/18 14:56 Freq: Status: Active Protocol: Document 05/14/18 13:44 EA (Rec: 05/14/18 13:45 EA [id number]) Therapeutic Exercises Supine Exercises 7 Supine Exercise Name squeeze and release Reps/Minutes x 20 reps x 2 sets Comments squeeze ball 4 Supine Exercise Name gentle PROM to flexion Comments gradual progression 3 Supine Exercise Name Wrist AP AROM Resistance 15 reps x 2 sets Comments 1-3# 2 Supine Exercise Name Elbow pron/sup Resistance 1-3# Reps/Minutes 15 reps x 2 sets Comments Pillow under elbow and fixed side of the the body 1 Supine Exercise Name elbow flexion/ext Resistance 1-3# Reps/Minutes 15 reps x 2 Comments Pillow under elbow and fixed side of the the body Manual Therapy Treatment Soft Tissue Mobilization 1 Body Location Right scapular, traps and deltoid area Mobilization Type Myofascial Release Intensity/Depth Superficial Body Position Supine Manual Techniques 1 Type Contract -relax passive stretch: Elbow flex/EXT PT-OP-R Modalities Start: 04/23/18 14:56 Freq: Status: Active Protocol: Document 05/14/18 13:40 EA (Rec: 05/14/18 13:44 EA [id number]) Electric Stimulation Electric Stimulation Interferential Current (IFC) Body Location right scapulars and deltoid Duration (Minutes) 15 Patient Position Supine Combined With Heat/Cold Cold Pack Hot Pack/Cold Pack Treatment Cold Pack Location Right shoulder Patient Position Hooklying Treatment Duration (minutes) 10 Patient Tolerance Good Comments Pillow under arm PT-OP-T Assessment and Plan Start: 04/23/18 14:56 Freq: Status: Active Protocol: Document 05/14/18 13:40 EA (Rec: 05/14/18 13:44 EA [id number]) Physical Therapy Assessment Assessment Summary Assessment Patient had improved arm and hands strength with improved shoulder mobility. Patient is progressing well. re-educated with pre-caution and understands it. Physical Therapy Plan Next Visit Focus/Plan Next Note Type Treatment Note Next Visit Plan progress PROM right shoulder per protocal
--- NOTE | 2018-05-17 17:44 | PT.OTN ---
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 (05/17/18) Impingement syndrome of right shoulder (05/17/18) Physical Therapy Treatment Note PT-OP-A Visit Information Start: 04/23/18 14:56 Freq: Status: Active Protocol: Document 05/17/18 15:58 EA (Rec: 05/17/18 16:02 EA [id number]) Out-Patient Physical Therapy Visit Information Visit Information Visit Type Treatment Note Visit Number 03/09 PT-OP-B Current Condition Start: 04/23/18 14:56 Freq: Status: Active Protocol: Document 04/23/18 14:58 EA (Rec: 04/23/18 15:09 EA [id number]) Current Condition History of Current Condition Onset Date S/P R rotator cuff repain 04/19 History of Current Condition S/P R rotator cuff repair 04/19 Prior Treatments and Tests Steroid injection in the past few months prior to surgery Future Testing and Treatments Planned None at this time Treatment Goals Patient/Caregiver Goals Back to previous level of function Prior Functional Status Baseline Function- ADL's Independent Baseline Function- Mobility Independent Baseline Function- Other Able to drive and do groceries indep Current Functional Impairments (Reported) Functional Limitations- ADL's Minimal assistance with bathing, personal care Functional Limitations- Mobility/Gait indep Functional Limitations- Work/School Indep Functional Limitations- Other Unable to drive at this time, unable to perform yard work PT-OP-C Subjective Start: 04/23/18 14:56 Freq: Status: Active Protocol: Document 05/17/18 15:58 EA (Rec: 05/17/18 16:02 EA [id number]) OP-PT Subjective Patient Comments Patient Comments Pt reports compliant with HEP; denies increased in symptoms PT-OP-E Functional Tests Start: 04/23/18 14:56 Freq: Status: Active Protocol: Document 04/23/18 16:50 EA (Rec: 04/24/18 10:02 EA [id number]) Functional Tests Patricia's Scratch Test Action 1: The subject is instructed to touch the opposite shoulder with his/her hand. This motion checks Glenohumeral adduction, internal rotation , horizontal adduction and scapular protraction Action 2: The subject is instructed to place his/her arm overhead and reach behind the neck to touch his/her upper back. This motion checks Glenohumeral abduction, external rotation and scapular upward rotation and elevation. Action 3: The subject puts his/her hand on the lower back and reaches upward as far as possible. This motion checks glenohumeral adduction, internal rotation and scapular retraction with downward rotation Action 1- Left shoulder Action 1- Right n/a Action 2- Left T2 Action 2- Right n/a Action 3- Left T12 Action 3- Right n/a PT-OP-J Posture/Palpation/Skin Start: 04/23/18 14:56 Freq: Status: Active Protocol: Document 04/23/18 16:50 EA (Rec: 04/24/18 10:02 EA [id number]) Posture Evaluation Position Standing Evaluation View Lateral Head/C-Spine Posture Forward Head Shoulder Posture (L) Rounded (R) Rounded Scapula Posture (L) Protracted (R) Protracted Skin Assessment Incisional Assessment Incision Appearance/Comments Incision is covered but no signs of acute infection Other Assessments Skin Assessment Comments Bruise to right low abdominal quadrant, right anterolat arm PT-OP-K Range of Motion Start: 04/23/18 14:56 Freq: Status: Active Protocol: Document 04/30/18 14:32 DLM (Rec: 04/30/18 16:47 DLM [id number]) Shoulder Goniometric Range of Motion Shoulder Measured in Degrees Right Passive Testing Position Supine Flexion 85 External Rotation at 0 degrees Abduction 10 PT-OP-M Strength Start: 04/23/18 14:56 Freq: Status: Active Protocol: Document 04/23/18 16:50 EA (Rec: 04/24/18 10:02 EA [id number]) Shoulder Strength Shoulder Manual Muscle Testing Right Reason Not Measured Orthopedic Precautions Elbow/Forearm Strength Elbow and Forearm Manual Muscle Testing Left Reason Not Measured WFL Right Flexion (C6) 3 Fair Extension (C7) 3 Fair Pronation 3 Fair Supination 3 Fair Wrist Strength Wrist Manual Muscle Testing Left Reason Not Measured WFL Right Flexion (C7) 3 Fair Extension (C6) 3 Fair Ulnar Deviation 3 Fair Radial Deviation 3 Fair PT-OP-Q Treatments Start: 04/23/18 14:56 Freq: Status: Active Protocol: Document 05/17/18 15:58 EA (Rec: 05/17/18 16:02 EA [id number]) Therapeutic Exercises Supine Exercises 8 Supine Exercise Name Trips ext Side right Resistance Lv 1 TB Reps/Minutes x 10 resp x 2 7 Supine Exercise Name squeeze and release Reps/Minutes x 20 reps x 3 sets Comments squeeze ball 4 Supine Exercise Name gentle PROM to flexion Comments gradual progression 3 Supine Exercise Name Wrist AP AROM Resistance 15 reps x 2 sets Comments 1-3# 2 Supine Exercise Name Elbow pron/sup Resistance 1-3# Reps/Minutes 15 reps x 2 sets Comments Pillow under elbow and fixed side of the the body 1 Supine Exercise Name elbow flexion/ext Resistance 1-3# Reps/Minutes 15 reps x 2 Comments Pillow under elbow and fixed side of the the body Standing Exercises 1 Standing Exercise Name Pendulum: flexion Reps/Minutes x 20 reps Manual Therapy Treatment Soft Tissue Mobilization 1 Body Location Right scapular, traps and deltoid area Mobilization Type Myofascial Release Intensity/Depth Superficial Body Position Supine PT-OP-R Modalities Start: 04/23/18 14:56 Freq: Status: Active Protocol: Document 05/17/18 15:58 EA (Rec: 05/17/18 16:02 EA [id number]) Electric Stimulation Electric Stimulation Interferential Current (IFC) Body Location right scapulars and deltoid Duration (Minutes) 15 Patient Position Supine Combined With Heat/Cold Cold Pack PT-OP-T Assessment and Plan Start: 04/23/18 14:56 Freq: Status: Active Protocol: Document 05/17/18 15:58 EA (Rec: 05/17/18 16:02 EA [id number]) Physical Therapy Assessment Assessment Summary Assessment Pt tolerated treatment well. ROM is much improved; still noted weakness of elbow and wrist musculature. Physical Therapy Plan Next Visit Focus/Plan Next Note Type Treatment Note Next Visit Plan Progress as tolerated.
--- NOTE | 2018-05-21 13:54 | PT.OTN ---
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 (05/21/18) Impingement syndrome of right shoulder (05/21/18) Physical Therapy Treatment Note PT-OP-A Visit Information Start: 04/23/18 14:56 Freq: Status: Active Protocol: Document 05/21/18 10:25 EA (Rec: 05/21/18 10:32 EA [id number]) Out-Patient Physical Therapy Visit Information Visit Information Visit Type Treatment Note Visit Start Time 09:45 Visit Stop Time 10:30 Visit Number 04/09 PT-OP-B Current Condition Start: 04/23/18 14:56 Freq: Status: Active Protocol: Document 04/23/18 14:58 EA (Rec: 04/23/18 15:09 EA [id number]) Current Condition History of Current Condition Onset Date S/P R rotator cuff repain 04/19 History of Current Condition S/P R rotator cuff repair 04/19 Prior Treatments and Tests Steroid injection in the past few months prior to surgery Future Testing and Treatments Planned None at this time Treatment Goals Patient/Caregiver Goals Back to previous level of function Prior Functional Status Baseline Function- ADL's Independent Baseline Function- Mobility Independent Baseline Function- Other Able to drive and do groceries indep Current Functional Impairments (Reported) Functional Limitations- ADL's Minimal assistance with bathing, personal care Functional Limitations- Mobility/Gait indep Functional Limitations- Work/School Indep Functional Limitations- Other Unable to drive at this time, unable to perform yard work PT-OP-C Subjective Start: 04/23/18 14:56 Freq: Status: Active Protocol: Document 05/21/18 10:25 EA (Rec: 05/21/18 10:32 EA [id number]) OP-PT Subjective Patient Comments Patient Comments Pt reports is now able to use right hand with feed with feeding; states no increased in pain and other symptoms. PT-OP-E Functional Tests Start: 04/23/18 14:56 Freq: Status: Active Protocol: Document 04/23/18 16:50 EA (Rec: 04/24/18 10:02 EA [id number]) Functional Tests Lorenzoey's Scratch Test Action 1: The subject is instructed to touch the opposite shoulder with his/her hand. This motion checks Glenohumeral adduction, internal rotation , horizontal adduction and scapular protraction Action 2: The subject is instructed to place his/her arm overhead and reach behind the neck to touch his/her upper back. This motion checks Glenohumeral abduction, external rotation and scapular upward rotation and elevation. Action 3: The subject puts his/her hand on the lower back and reaches upward as far as possible. This motion checks glenohumeral adduction, internal rotation and scapular retraction with downward rotation Action 1- Left shoulder Action 1- Right n/a Action 2- Left T2 Action 2- Right n/a Action 3- Left T12 Action 3- Right n/a PT-OP-J Posture/Palpation/Skin Start: 04/23/18 14:56 Freq: Status: Active Protocol: Document 04/23/18 16:50 EA (Rec: 04/24/18 10:02 EA [id number]) Posture Evaluation Position Standing Evaluation View Lateral Head/C-Spine Posture Forward Head Shoulder Posture (L) Rounded (R) Rounded Scapula Posture (L) Protracted (R) Protracted Skin Assessment Incisional Assessment Incision Appearance/Comments Incision is covered but no signs of acute infection Other Assessments Skin Assessment Comments Bruise to right low abdominal quadrant, right anterolat arm PT-OP-K Range of Motion Start: 04/23/18 14:56 Freq: Status: Active Protocol: Document 04/30/18 14:32 DLM (Rec: 04/30/18 16:47 DLM [id number]) Shoulder Goniometric Range of Motion Shoulder Measured in Degrees Right Passive Testing Position Supine Flexion 85 External Rotation at 0 degrees Abduction 10 PT-OP-M Strength Start: 04/23/18 14:56 Freq: Status: Active Protocol: Document 04/23/18 16:50 EA (Rec: 04/24/18 10:02 EA [id number]) Shoulder Strength Shoulder Manual Muscle Testing Right Reason Not Measured Orthopedic Precautions Elbow/Forearm Strength Elbow and Forearm Manual Muscle Testing Left Reason Not Measured WFL Right Flexion (C6) 3 Fair Extension (C7) 3 Fair Pronation 3 Fair Supination 3 Fair Wrist Strength Wrist Manual Muscle Testing Left Reason Not Measured WFL Right Flexion (C7) 3 Fair Extension (C6) 3 Fair Ulnar Deviation 3 Fair Radial Deviation 3 Fair PT-OP-Q Treatments Start: 04/23/18 14:56 Freq: Status: Active Protocol: Document 05/21/18 10:25 EA (Rec: 05/21/18 10:32 EA [id number]) Therapeutic Exercises Supine Exercises 9 Supine Exercise Name Shoulder Isomet: ABD/FLEX/ER/ IR Reps/Minutes x 5SH x 3reps Comments arm at side 8 Supine Exercise Name Trips ext Side right Resistance Lv 1 TB Reps/Minutes x 10 resp x 2 7 Supine Exercise Name squeeze and release Reps/Minutes x 20 reps x 3 sets Comments squeeze ball 4 Supine Exercise Name gentle PROM to flexion Comments gradual progression 3 Supine Exercise Name Wrist AP AROM Resistance 15 reps x 2 sets Comments 1-3# 2 Supine Exercise Name Elbow pron/sup Resistance 1-3# Reps/Minutes 15 reps x 2 sets Comments Pillow under elbow and fixed side of the the body Standing Exercises 1 Standing Exercise Name Pendulum: flexion Reps/Minutes x 20 reps Manual Therapy Treatment Soft Tissue Mobilization 1 Body Location Right scapular, traps and deltoid area Mobilization Type Myofascial Release Intensity/Depth Superficial Body Position Supine PT-OP-R Modalities Start: 04/23/18 14:56 Freq: Status: Active Protocol: Document 05/21/18 10:25 EA (Rec: 05/21/18 10:32 EA [id number]) Electric Stimulation Electric Stimulation Interferential Current (IFC) Body Location right scapulars and deltoid Duration (Minutes) 15 Patient Position Supine Combined With Heat/Cold Cold Pack PT-OP-T Assessment and Plan Start: 04/23/18 14:56 Freq: Status: Active Protocol: Document 05/21/18 10:25 EA (Rec: 05/21/18 10:32 EA [id number]) Physical Therapy Assessment Assessment Summary Assessment Improved strength and mobility noted to right shoulder; advised to out of sling as often at this time except when sleeping and unfamiliar places. Physical Therapy Plan Next Visit Focus/Plan Next Note Type Treatment Note Next Visit Plan Progress as tolerated. Provide HEP next visit.
--- NOTE | 2018-05-24 15:13 | PT.OTN ---
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 (05/24/18) Impingement syndrome of right shoulder (05/24/18) Physical Therapy Treatment Note PT-OP-A Visit Information Start: 04/23/18 14:56 Freq: Status: Active Protocol: Document 05/24/18 12:58 EA (Rec: 05/24/18 13:03 EA [id number]) Out-Patient Physical Therapy Visit Information Visit Information Visit Type Treatment Note Visit Start Time 12:15 Visit Stop Time 13:00 Visit Number 05/09 PT-OP-B Current Condition Start: 04/23/18 14:56 Freq: Status: Active Protocol: Document 04/23/18 14:58 EA (Rec: 04/23/18 15:09 EA [id number]) Current Condition History of Current Condition Onset Date S/P R rotator cuff repain 04/19 History of Current Condition S/P R rotator cuff repair 04/19 Prior Treatments and Tests Steroid injection in the past few months prior to surgery Future Testing and Treatments Planned None at this time Treatment Goals Patient/Caregiver Goals Back to previous level of function Prior Functional Status Baseline Function- ADL's Independent Baseline Function- Mobility Independent Baseline Function- Other Able to drive and do groceries indep Current Functional Impairments (Reported) Functional Limitations- ADL's Minimal assistance with bathing, personal care Functional Limitations- Mobility/Gait indep Functional Limitations- Work/School Indep Functional Limitations- Other Unable to drive at this time, unable to perform yard work PT-OP-C Subjective Start: 04/23/18 14:56 Freq: Status: Active Protocol: Document 05/24/18 12:58 EA (Rec: 05/24/18 13:03 EA [id number]) OP-PT Subjective Patient Comments Patient Comments Pt reports left shoulder pain is much less and he has been using with eating and other below shoulder movement with cautious. PT-OP-E Functional Tests Start: 04/23/18 14:56 Freq: Status: Active Protocol: Document 04/23/18 16:50 EA (Rec: 04/24/18 10:02 EA [id number]) Functional Tests Lorenzoey's Scratch Test Action 1: The subject is instructed to touch the opposite shoulder with his/her hand. This motion checks Glenohumeral adduction, internal rotation , horizontal adduction and scapular protraction Action 2: The subject is instructed to place his/her arm overhead and reach behind the neck to touch his/her upper back. This motion checks Glenohumeral abduction, external rotation and scapular upward rotation and elevation. Action 3: The subject puts his/her hand on the lower back and reaches upward as far as possible. This motion checks glenohumeral adduction, internal rotation and scapular retraction with downward rotation Action 1- Left shoulder Action 1- Right n/a Action 2- Left T2 Action 2- Right n/a Action 3- Left T12 Action 3- Right n/a PT-OP-J Posture/Palpation/Skin Start: 04/23/18 14:56 Freq: Status: Active Protocol: Document 04/23/18 16:50 EA (Rec: 04/24/18 10:02 EA [id number]) Posture Evaluation Position Standing Evaluation View Lateral Head/C-Spine Posture Forward Head Shoulder Posture (L) Rounded (R) Rounded Scapula Posture (L) Protracted (R) Protracted Skin Assessment Incisional Assessment Incision Appearance/Comments Incision is covered but no signs of acute infection Other Assessments Skin Assessment Comments Bruise to right low abdominal quadrant, right anterolat arm PT-OP-K Range of Motion Start: 04/23/18 14:56 Freq: Status: Active Protocol: Document 04/30/18 14:32 DLM (Rec: 04/30/18 16:47 DLM [id number]) Shoulder Goniometric Range of Motion Shoulder Measured in Degrees Right Passive Testing Position Supine Flexion 85 External Rotation at 0 degrees Abduction 10 PT-OP-M Strength Start: 04/23/18 14:56 Freq: Status: Active Protocol: Document 04/23/18 16:50 EA (Rec: 04/24/18 10:02 EA [id number]) Shoulder Strength Shoulder Manual Muscle Testing Right Reason Not Measured Orthopedic Precautions Elbow/Forearm Strength Elbow and Forearm Manual Muscle Testing Left Reason Not Measured WFL Right Flexion (C6) 3 Fair Extension (C7) 3 Fair Pronation 3 Fair Supination 3 Fair Wrist Strength Wrist Manual Muscle Testing Left Reason Not Measured WFL Right Flexion (C7) 3 Fair Extension (C6) 3 Fair Ulnar Deviation 3 Fair Radial Deviation 3 Fair PT-OP-Q Treatments Start: 04/23/18 14:56 Freq: Status: Active Protocol: Document 05/24/18 12:58 EA (Rec: 05/24/18 13:03 EA [id number]) Therapeutic Exercises Supine Exercises 10 Supine Exercise Name Wand flexion/ press Side bilateral Reps/Minutes x 15 reps x 2 sets 9 Supine Exercise Name Shoulder Isomet: ABD/FLEX/ER/ IR Reps/Minutes x 5SH x 3reps Comments arm at side 8 Supine Exercise Name Trips ext Side right Resistance Lv 1 TB Reps/Minutes x 10 resp x 2 7 Supine Exercise Name squeeze and release Reps/Minutes x 20 reps x 3 sets Comments squeeze ball 4 Supine Exercise Name gentle PROM to flexion Comments gradual progression 3 Supine Exercise Name Wrist AP AROM Resistance 15 reps x 2 sets Comments 1-3# 2 Supine Exercise Name Elbow pron/sup Resistance 1-3# Reps/Minutes 15 reps x 2 sets Comments Pillow under elbow and fixed side of the the body 1 Supine Exercise Name elbow flexion/ext Resistance 1-3# Reps/Minutes 15 reps x 2 Comments Pillow under elbow and fixed side of the the body Standing Exercises 1 Standing Exercise Name Pendulum: flexion Reps/Minutes x 20 reps Manual Therapy Treatment Soft Tissue Mobilization 1 Body Location Right scapular, traps and deltoid area Mobilization Type Myofascial Release Intensity/Depth Superficial Body Position Supine Manual Techniques 1 Type Contract -relax passive stretch: Elbow flex/EXT PT-OP-R Modalities Start: 04/23/18 14:56 Freq: Status: Active Protocol: Document 05/24/18 12:58 EA (Rec: 05/24/18 13:03 EA [id number]) Electric Stimulation Electric Stimulation Interferential Current (IFC) Body Location right scapulars and deltoid Duration (Minutes) 15 Patient Position Supine Combined With Heat/Cold Cold Pack PT-OP-T Assessment and Plan Start: 04/23/18 14:56 Freq: Status: Active Protocol: Document 05/24/18 12:58 EA (Rec: 05/24/18 13:03 EA [id number]) Physical Therapy Assessment Assessment Summary Assessment Improve joint mob and strength noted. Patient progressing well as to rehab protocol. Continue with current plan. Physical Therapy Plan Frequency and Duration Frequency of Treatment 2x/Week Next Visit Focus/Plan Next Note Type Treatment Note Next Visit Plan Progress as tolerated. Provide HEP next visit.
--- NOTE | 2018-05-28 15:17 | PT.OTN ---
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 (05/28/18) Impingement syndrome of right shoulder (05/28/18) Physical Therapy Treatment Note PT-OP-A Visit Information Start: 04/23/18 14:56 Freq: Status: Active Protocol: Document 05/28/18 13:09 EA (Rec: 05/28/18 13:55 EA [id number]) Out-Patient Physical Therapy Visit Information Visit Information Visit Type Treatment Note Visit Start Time 13:00 Visit Stop Time 13:45 Visit Number 08/09 PT-OP-B Current Condition Start: 04/23/18 14:56 Freq: Status: Active Protocol: Document 04/23/18 14:58 EA (Rec: 04/23/18 15:09 EA [id number]) Current Condition History of Current Condition Onset Date S/P R rotator cuff repain 04/19 History of Current Condition S/P R rotator cuff repair 04/19 Prior Treatments and Tests Steroid injection in the past few months prior to surgery Future Testing and Treatments Planned None at this time Treatment Goals Patient/Caregiver Goals Back to previous level of function Prior Functional Status Baseline Function- ADL's Independent Baseline Function- Mobility Independent Baseline Function- Other Able to drive and do groceries indep Current Functional Impairments (Reported) Functional Limitations- ADL's Minimal assistance with bathing, personal care Functional Limitations- Mobility/Gait indep Functional Limitations- Work/School Indep Functional Limitations- Other Unable to drive at this time, unable to perform yard work PT-OP-C Subjective Start: 04/23/18 14:56 Freq: Status: Active Protocol: Document 05/28/18 13:09 EA (Rec: 05/28/18 13:55 EA [id number]) OP-PT Subjective Patient Comments Patient Comments Pt reports mowed the backyard with not much effort to right arm; states complaint with HEP and precuations. PT-OP-E Functional Tests Start: 04/23/18 14:56 Freq: Status: Active Protocol: Document 04/23/18 16:50 EA (Rec: 04/24/18 10:02 EA [id number]) Functional Tests Lorenzoey's Scratch Test Action 1: The subject is instructed to touch the opposite shoulder with his/her hand. This motion checks Glenohumeral adduction, internal rotation , horizontal adduction and scapular protraction Action 2: The subject is instructed to place his/her arm overhead and reach behind the neck to touch his/her upper back. This motion checks Glenohumeral abduction, external rotation and scapular upward rotation and elevation. Action 3: The subject puts his/her hand on the lower back and reaches upward as far as possible. This motion checks glenohumeral adduction, internal rotation and scapular retraction with downward rotation Action 1- Left shoulder Action 1- Right n/a Action 2- Left T2 Action 2- Right n/a Action 3- Left T12 Action 3- Right n/a PT-OP-J Posture/Palpation/Skin Start: 04/23/18 14:56 Freq: Status: Active Protocol: Document 04/23/18 16:50 EA (Rec: 04/24/18 10:02 EA [id number]) Posture Evaluation Position Standing Evaluation View Lateral Head/C-Spine Posture Forward Head Shoulder Posture (L) Rounded (R) Rounded Scapula Posture (L) Protracted (R) Protracted Skin Assessment Incisional Assessment Incision Appearance/Comments Incision is covered but no signs of acute infection Other Assessments Skin Assessment Comments Bruise to right low abdominal quadrant, right anterolat arm PT-OP-K Range of Motion Start: 04/23/18 14:56 Freq: Status: Active Protocol: Document 04/30/18 14:32 DLM (Rec: 04/30/18 16:47 DLM [id number]) Shoulder Goniometric Range of Motion Shoulder Measured in Degrees Right Passive Testing Position Supine Flexion 85 External Rotation at 0 degrees Abduction 10 PT-OP-M Strength Start: 04/23/18 14:56 Freq: Status: Active Protocol: Document 04/23/18 16:50 EA (Rec: 04/24/18 10:02 EA [id number]) Shoulder Strength Shoulder Manual Muscle Testing Right Reason Not Measured Orthopedic Precautions Elbow/Forearm Strength Elbow and Forearm Manual Muscle Testing Left Reason Not Measured WFL Right Flexion (C6) 3 Fair Extension (C7) 3 Fair Pronation 3 Fair Supination 3 Fair Wrist Strength Wrist Manual Muscle Testing Left Reason Not Measured WFL Right Flexion (C7) 3 Fair Extension (C6) 3 Fair Ulnar Deviation 3 Fair Radial Deviation 3 Fair PT-OP-Q Treatments Start: 04/23/18 14:56 Freq: Status: Active Protocol: Document 05/28/18 13:09 EA (Rec: 05/28/18 13:55 EA [id number]) Cardio Equipment Upper Body Ergometer (UBE) Duration (Minutes) 6 RPM 15 Seat Position 13 Height the lowest Other 10% effort to right UE. Therapeutic Exercises Supine Exercises 10 Supine Exercise Name Wand flexion/ press Side bilateral Reps/Minutes x 15 reps x 2 sets 9 Supine Exercise Name Shoulder Isomet: ABD/FLEX/ER/ IR Reps/Minutes x 5SH x 3reps Comments arm at side 8 Supine Exercise Name Trips ext Side right Resistance Lv 1 TB Reps/Minutes x 10 resp x 2 7 Supine Exercise Name squeeze and release Reps/Minutes x 20 reps x 3 sets Comments squeeze ball 4 Supine Exercise Name gentle PROM to flexion Comments gradual progression 3 Supine Exercise Name Wrist AP AROM Resistance 15 reps x 2 sets Comments 1-5# 2 Supine Exercise Name Elbow pron/sup Resistance 1-5# Reps/Minutes 15 reps x 2 sets Comments Pillow under elbow and fixed side of the the body 1 Supine Exercise Name elbow flexion/ext Resistance 1-3# Reps/Minutes 15 reps x 2 Comments Pillow under elbow and fixed side of the the body Sitting Exercises 1 Sitting Exercise Name Mackenzie: flex Reps/Minutes x 15 reps x 2 Comments pain free range Standing Exercises 1 Standing Exercise Name Pendulum: flexion Reps/Minutes x 20 reps Manual Therapy Treatment Soft Tissue Mobilization 1 Body Location Right scapular, traps and deltoid area Mobilization Type Myofascial Release Intensity/Depth Superficial Body Position Supine Manual Techniques 1 Type Manual AROM: Manual resistance Reps/Duration x 10 reps at mild resistance Comments Shoulder ABD/ADD/ER/IR PT-OP-R Modalities Start: 04/23/18 14:56 Freq: Status: Active Protocol: Document 05/28/18 13:09 EA (Rec: 05/28/18 13:55 EA [id number]) Electric Stimulation Electric Stimulation Interferential Current (IFC) Body Location right scapulars and deltoid Duration (Minutes) 15 Patient Position Supine Combined With Heat/Cold Cold Pack PT-OP-T Assessment and Plan Start: 04/23/18 14:56 Freq: Status: Active Protocol: Document 05/28/18 13:09 EA (Rec: 05/28/18 13:55 EA [id number]) Physical Therapy Assessment Assessment Summary Assessment Pt tolerated treatment with no increase in symptoms. Pt is progressing well. Physical Therapy Plan Next Visit Focus/Plan Next Note Type Treatment Note Next Visit Plan Progress as tolerated. Provide HEP next visit.
--- NOTE | 2018-05-31 15:13 | PT.OTN ---
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 (05/31/18) Impingement syndrome of right shoulder (05/31/18) Physical Therapy Treatment Note PT-OP-A Visit Information Start: 04/23/18 14:56 Freq: Status: Active Protocol: Document 05/31/18 13:04 EA (Rec: 05/31/18 13:47 EA [id number]) Out-Patient Physical Therapy Visit Information Visit Information Visit Type Treatment Note Visit Start Time 13:00 Visit Stop Time 13:45 Visit Number 09/09 PT-OP-B Current Condition Start: 04/23/18 14:56 Freq: Status: Active Protocol: Document 04/23/18 14:58 EA (Rec: 04/23/18 15:09 EA [id number]) Current Condition History of Current Condition Onset Date S/P R rotator cuff repain 04/19 History of Current Condition S/P R rotator cuff repair 04/19 Prior Treatments and Tests Steroid injection in the past few months prior to surgery Future Testing and Treatments Planned None at this time Treatment Goals Patient/Caregiver Goals Back to previous level of function Prior Functional Status Baseline Function- ADL's Independent Baseline Function- Mobility Independent Baseline Function- Other Able to drive and do groceries indep Current Functional Impairments (Reported) Functional Limitations- ADL's Minimal assistance with bathing, personal care Functional Limitations- Mobility/Gait indep Functional Limitations- Work/School Indep Functional Limitations- Other Unable to drive at this time, unable to perform yard work PT-OP-C Subjective Start: 04/23/18 14:56 Freq: Status: Active Protocol: Document 05/31/18 13:04 EA (Rec: 05/31/18 13:47 EA [id number]) OP-PT Subjective Patient Comments Patient Comments Pt reports that he has been using right arm to most of the feeding and dressing; states able to drive safely; denies extreme pain to shoulder but mostly sore. Patient Reported Progress Improving PT-OP-E Functional Tests Start: 04/23/18 14:56 Freq: Status: Active Protocol: Document 04/23/18 16:50 EA (Rec: 04/24/18 10:02 EA [id number]) Functional Tests Lorenzoey's Scratch Test Action 1: The subject is instructed to touch the opposite shoulder with his/her hand. This motion checks Glenohumeral adduction, internal rotation , horizontal adduction and scapular protraction Action 2: The subject is instructed to place his/her arm overhead and reach behind the neck to touch his/her upper back. This motion checks Glenohumeral abduction, external rotation and scapular upward rotation and elevation. Action 3: The subject puts his/her hand on the lower back and reaches upward as far as possible. This motion checks glenohumeral adduction, internal rotation and scapular retraction with downward rotation Action 1- Left shoulder Action 1- Right n/a Action 2- Left T2 Action 2- Right n/a Action 3- Left T12 Action 3- Right n/a PT-OP-J Posture/Palpation/Skin Start: 04/23/18 14:56 Freq: Status: Active Protocol: Document 04/23/18 16:50 EA (Rec: 04/24/18 10:02 EA [id number]) Posture Evaluation Position Standing Evaluation View Lateral Head/C-Spine Posture Forward Head Shoulder Posture (L) Rounded (R) Rounded Scapula Posture (L) Protracted (R) Protracted Skin Assessment Incisional Assessment Incision Appearance/Comments Incision is covered but no signs of acute infection Other Assessments Skin Assessment Comments Bruise to right low abdominal quadrant, right anterolat arm PT-OP-K Range of Motion Start: 04/23/18 14:56 Freq: Status: Active Protocol: Document 04/30/18 14:32 DLM (Rec: 04/30/18 16:47 DLM [id number]) Shoulder Goniometric Range of Motion Shoulder Measured in Degrees Right Passive Testing Position Supine Flexion 85 External Rotation at 0 degrees Abduction 10 PT-OP-M Strength Start: 04/23/18 14:56 Freq: Status: Active Protocol: Document 04/23/18 16:50 EA (Rec: 04/24/18 10:02 EA [id number]) Shoulder Strength Shoulder Manual Muscle Testing Right Reason Not Measured Orthopedic Precautions Elbow/Forearm Strength Elbow and Forearm Manual Muscle Testing Left Reason Not Measured WFL Right Flexion (C6) 3 Fair Extension (C7) 3 Fair Pronation 3 Fair Supination 3 Fair Wrist Strength Wrist Manual Muscle Testing Left Reason Not Measured WFL Right Flexion (C7) 3 Fair Extension (C6) 3 Fair Ulnar Deviation 3 Fair Radial Deviation 3 Fair PT-OP-Q Treatments Start: 04/23/18 14:56 Freq: Status: Active Protocol: Document 05/31/18 13:04 EA (Rec: 05/31/18 13:47 EA [id number]) Cardio Equipment Upper Body Ergometer (UBE) Duration (Minutes) 6 RPM 15 Seat Position 13 Height the lowest Other 10-20% effort to right UE. Therapeutic Exercises Supine Exercises 10 Supine Exercise Name Wand flexion/ press Side bilateral Reps/Minutes x 15 reps x 2 sets 9 Supine Exercise Name Shoulder Isomet: ABD/FLEX/ER/ IR Reps/Minutes x 5SH x 3reps Comments multijoint angle 8 Supine Exercise Name Trips ext Side right Resistance Lv 1 TB Reps/Minutes x 10 resp x 2 Comments sitting/standing Prone Exercises 1 Prone Exercise Name scap abduction Reps/Minutes x 10 reps x 2 Comments AAROM Sitting Exercises 4 Sitting Exercise Name ER Side right Resistance Lv 1 Reps/Minutes x 10 reps gentle range 3 Sitting Exercise Name Wand shoulder extension Reps/Minutes x 15 reps x 2 2 Sitting Exercise Name bicep curls Resistance 2-3 lbs Reps/Minutes x 12 reps x 2 1 Sitting Exercise Name Mackenzie: flex/abd Reps/Minutes x 15 reps x 2 Comments pain free range Standing Exercises 1 Standing Exercise Name Pendulum: flexion Reps/Minutes x 20 reps Manual Therapy Treatment Soft Tissue Mobilization 1 Body Location Right scapular, traps and deltoid area Mobilization Type Myofascial Release Intensity/Depth Superficial Body Position Supine Manual Techniques 1 Type Manual AROM: Manual resistance Reps/Duration x 10 reps at mild resistance Comments Shoulder ABD/ADD/ER/IR PT-OP-R Modalities Start: 04/23/18 14:56 Freq: Status: Active Protocol: Document 05/31/18 13:04 EA (Rec: 05/31/18 13:47 EA [id number]) Electric Stimulation Electric Stimulation Interferential Current (IFC) Body Location right scapulars and deltoid Duration (Minutes) 15 Patient Position Supine Combined With Heat/Cold Cold Pack PT-OP-T Assessment and Plan Start: 04/23/18 14:56 Freq: Status: Active Protocol: Document 05/31/18 13:49 EA (Rec: 05/31/18 13:51 EA [id number]) Physical Therapy Assessment Assessment Summary Assessment Patient exhibit improved strength and mobility with less pain. Patient cont. to progress Physical Therapy Plan Next Visit Focus/Plan Next Note Type Treatment Note Next Visit Plan Begin gentle resistance progressive exercises preceded by ROM.
--- NOTE | 2018-06-04 17:32 | PT.OTN ---
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 (06/04/18) Impingement syndrome of right shoulder (06/04/18) Physical Therapy Treatment Note PT-OP-A Visit Information Start: 04/23/18 14:56 Freq: Status: Active Protocol: Document 06/04/18 17:24 EA (Rec: 06/04/18 17:32 EA [id number]) Out-Patient Physical Therapy Visit Information Visit Information Visit Type Treatment Note Visit Start Time 13:00 Visit Stop Time 13:45 Total Visit Minutes 40 Visit Number 3/ PT-OP-B Current Condition Start: 04/23/18 14:56 Freq: Status: Active Protocol: Document 04/23/18 14:58 EA (Rec: 04/23/18 15:09 EA [id number]) Current Condition History of Current Condition Onset Date S/P R rotator cuff repain 04/19 History of Current Condition S/P R rotator cuff repair 04/19 Prior Treatments and Tests Steroid injection in the past few months prior to surgery Future Testing and Treatments Planned None at this time Treatment Goals Patient/Caregiver Goals Back to previous level of function Prior Functional Status Baseline Function- ADL's Independent Baseline Function- Mobility Independent Baseline Function- Other Able to drive and do groceries indep Current Functional Impairments (Reported) Functional Limitations- ADL's Minimal assistance with bathing, personal care Functional Limitations- Mobility/Gait indep Functional Limitations- Work/School Indep Functional Limitations- Other Unable to drive at this time, unable to perform yard work PT-OP-C Subjective Start: 04/23/18 14:56 Freq: Status: Active Protocol: Document 06/04/18 17:24 EA (Rec: 06/04/18 17:32 EA [id number]) OP-PT Subjective Patient Comments Patient Comments Pt reports he has been using his arm using pool; denies placing strenous activity; states he has been compliant with HEP Patient Reported Progress Improving PT-OP-E Functional Tests Start: 04/23/18 14:56 Freq: Status: Active Protocol: Document 04/23/18 16:50 EA (Rec: 04/24/18 10:02 EA [id number]) Functional Tests Lorenzoey's Scratch Test Action 1: The subject is instructed to touch the opposite shoulder with his/her hand. This motion checks Glenohumeral adduction, internal rotation , horizontal adduction and scapular protraction Action 2: The subject is instructed to place his/her arm overhead and reach behind the neck to touch his/her upper back. This motion checks Glenohumeral abduction, external rotation and scapular upward rotation and elevation. Action 3: The subject puts his/her hand on the lower back and reaches upward as far as possible. This motion checks glenohumeral adduction, internal rotation and scapular retraction with downward rotation Action 1- Left shoulder Action 1- Right n/a Action 2- Left T2 Action 2- Right n/a Action 3- Left T12 Action 3- Right n/a PT-OP-J Posture/Palpation/Skin Start: 04/23/18 14:56 Freq: Status: Active Protocol: Document 04/23/18 16:50 EA (Rec: 04/24/18 10:02 EA [id number]) Posture Evaluation Position Standing Evaluation View Lateral Head/C-Spine Posture Forward Head Shoulder Posture (L) Rounded (R) Rounded Scapula Posture (L) Protracted (R) Protracted Skin Assessment Incisional Assessment Incision Appearance/Comments Incision is covered but no signs of acute infection Other Assessments Skin Assessment Comments Bruise to right low abdominal quadrant, right anterolat arm PT-OP-K Range of Motion Start: 04/23/18 14:56 Freq: Status: Active Protocol: Document 04/30/18 14:32 DLM (Rec: 04/30/18 16:47 DLM [id number]) Shoulder Goniometric Range of Motion Shoulder Measured in Degrees Right Passive Testing Position Supine Flexion 85 External Rotation at 0 degrees Abduction 10 PT-OP-M Strength Start: 04/23/18 14:56 Freq: Status: Active Protocol: Document 04/23/18 16:50 EA (Rec: 04/24/18 10:02 EA [id number]) Shoulder Strength Shoulder Manual Muscle Testing Right Reason Not Measured Orthopedic Precautions Elbow/Forearm Strength Elbow and Forearm Manual Muscle Testing Left Reason Not Measured WFL Right Flexion (C6) 3 Fair Extension (C7) 3 Fair Pronation 3 Fair Supination 3 Fair Wrist Strength Wrist Manual Muscle Testing Left Reason Not Measured WFL Right Flexion (C7) 3 Fair Extension (C6) 3 Fair Ulnar Deviation 3 Fair Radial Deviation 3 Fair PT-OP-Q Treatments Start: 04/23/18 14:56 Freq: Status: Active Protocol: Document 06/04/18 17:24 EA (Rec: 06/04/18 17:32 EA [id number]) Cardio Equipment Upper Body Ergometer (UBE) Duration (Minutes) 6 RPM 15 Seat Position 13 Height the lowest Other 20-30% effort to right UE. Therapeutic Exercises Supine Exercises 11 Supine Exercise Name Shoulder ABD/ER 9 Supine Exercise Name Shoulder Isomet: ABD/FLEX/ER/ IR Reps/Minutes x 5SH x 3reps Comments multijoint angle 6 Supine Exercise Name D1,D2 F/E motion Reps/Minutes x 10 reps 5 Supine Exercise Name Horiz ABD Reps/Minutes x15 reps x 2 sets 4 Supine Exercise Name gentle PROM to flexion Comments gradual progression 2 Supine Exercise Name T-bar flexion ext Equipment Used x 15 reps x 2 Prone Exercises 1 Prone Exercise Name scap abduction Reps/Minutes x 10 reps x 2 Comments AAROM Sitting Exercises 1 Sitting Exercise Name Mackenzie: flex/abd Reps/Minutes x 15 reps x 2 Comments pain free range Standing Exercises 1 Standing Exercise Name Pendulum: flexion Reps/Minutes x 20 reps Manual Therapy Treatment Soft Tissue Mobilization 1 Body Location Right scapular, traps and deltoid area Mobilization Type Myofascial Release Intensity/Depth Superficial Body Position Supine Manual Techniques 1 Type Manual AROM: Manual resistance Reps/Duration x 10 reps at mild resistance Comments Shoulder ABD/ADD/ER/IR PT-OP-R Modalities Start: 04/23/18 14:56 Freq: Status: Active Protocol: Document 06/04/18 17:24 EA (Rec: 06/04/18 17:32 EA [id number]) Hot Pack/Cold Pack Treatment Cold Pack Location Right shoulder Patient Position Hooklying Treatment Duration (minutes) 10 Patient Tolerance Good Comments Pillow under arm PT-OP-T Assessment and Plan Start: 04/23/18 14:56 Freq: Status: Active Protocol: Document 06/04/18 17:24 EA (Rec: 06/04/18 17:32 EA [id number]) Physical Therapy Assessment Assessment Summary Assessment Improved ROM and strength time with manual assist. Patient is progress well. Physical Therapy Plan Next Visit Focus/Plan Next Note Type Treatment Note Next Visit Plan Begin gentle resistance progressive exercises preceded by ROM.
--- NOTE | 2018-06-07 15:18 | PT.OTN ---
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 (06/07/18) Impingement syndrome of right shoulder (06/07/18) Physical Therapy Treatment Note PT-OP-A Visit Information Start: 04/23/18 14:56 Freq: Status: Active Protocol: Document 06/07/18 13:05 EA (Rec: 06/07/18 13:46 EA [id number]) Out-Patient Physical Therapy Visit Information Visit Information Visit Type Treatment Note Visit Start Time 13:00 Visit Stop Time 13:45 Total Visit Minutes 40 Visit Number 4 PT-OP-B Current Condition Start: 04/23/18 14:56 Freq: Status: Active Protocol: Document 04/23/18 14:58 EA (Rec: 04/23/18 15:09 EA [id number]) Current Condition History of Current Condition Onset Date S/P R rotator cuff repain 04/19 History of Current Condition S/P R rotator cuff repair 04/19 Prior Treatments and Tests Steroid injection in the past few months prior to surgery Future Testing and Treatments Planned None at this time Treatment Goals Patient/Caregiver Goals Back to previous level of function Prior Functional Status Baseline Function- ADL's Independent Baseline Function- Mobility Independent Baseline Function- Other Able to drive and do groceries indep Current Functional Impairments (Reported) Functional Limitations- ADL's Minimal assistance with bathing, personal care Functional Limitations- Mobility/Gait indep Functional Limitations- Work/School Indep Functional Limitations- Other Unable to drive at this time, unable to perform yard work PT-OP-C Subjective Start: 04/23/18 14:56 Freq: Status: Active Protocol: Document 06/07/18 13:05 EA (Rec: 06/07/18 13:46 EA [id number]) OP-PT Subjective Patient Comments Patient Comments Denies incrased of pain to shoulder but elbow is bothering him after playing pool for 30 mins. PT-OP-E Functional Tests Start: 04/23/18 14:56 Freq: Status: Active Protocol: Document 04/23/18 16:50 EA (Rec: 04/24/18 10:02 EA [id number]) Functional Tests Patricia's Scratch Test Action 1: The subject is instructed to touch the opposite shoulder with his/her hand. This motion checks Glenohumeral adduction, internal rotation , horizontal adduction and scapular protraction Action 2: The subject is instructed to place his/her arm overhead and reach behind the neck to touch his/her upper back. This motion checks Glenohumeral abduction, external rotation and scapular upward rotation and elevation. Action 3: The subject puts his/her hand on the lower back and reaches upward as far as possible. This motion checks glenohumeral adduction, internal rotation and scapular retraction with downward rotation Action 1- Left shoulder Action 1- Right n/a Action 2- Left T2 Action 2- Right n/a Action 3- Left T12 Action 3- Right n/a PT-OP-J Posture/Palpation/Skin Start: 04/23/18 14:56 Freq: Status: Active Protocol: Document 04/23/18 16:50 EA (Rec: 04/24/18 10:02 EA [id number]) Posture Evaluation Position Standing Evaluation View Lateral Head/C-Spine Posture Forward Head Shoulder Posture (L) Rounded (R) Rounded Scapula Posture (L) Protracted (R) Protracted Skin Assessment Incisional Assessment Incision Appearance/Comments Incision is covered but no signs of acute infection Other Assessments Skin Assessment Comments Bruise to right low abdominal quadrant, right anterolat arm PT-OP-K Range of Motion Start: 04/23/18 14:56 Freq: Status: Active Protocol: Document 04/30/18 14:32 DLM (Rec: 04/30/18 16:47 DLM [id number]) Shoulder Goniometric Range of Motion Shoulder Measured in Degrees Right Passive Testing Position Supine Flexion 85 External Rotation at 0 degrees Abduction 10 PT-OP-M Strength Start: 04/23/18 14:56 Freq: Status: Active Protocol: Document 04/23/18 16:50 EA (Rec: 04/24/18 10:02 EA [id number]) Shoulder Strength Shoulder Manual Muscle Testing Right Reason Not Measured Orthopedic Precautions Elbow/Forearm Strength Elbow and Forearm Manual Muscle Testing Left Reason Not Measured WFL Right Flexion (C6) 3 Fair Extension (C7) 3 Fair Pronation 3 Fair Supination 3 Fair Wrist Strength Wrist Manual Muscle Testing Left Reason Not Measured WFL Right Flexion (C7) 3 Fair Extension (C6) 3 Fair Ulnar Deviation 3 Fair Radial Deviation 3 Fair PT-OP-Q Treatments Start: 04/23/18 14:56 Freq: Status: Active Protocol: Document 06/07/18 13:05 EA (Rec: 06/07/18 13:46 EA [id number]) Cardio Equipment Upper Body Ergometer (UBE) Duration (Minutes) 6 RPM 15 Seat Position 13 Height the lowest Other 30-40% effort to right UE. Therapeutic Exercises Supine Exercises 11 Supine Exercise Name Shoulder ABD/ER 10 Supine Exercise Name Wand flexion/ press Side bilateral Reps/Minutes x 15 reps x 2 sets 9 Supine Exercise Name Shoulder Isomet: ABD/FLEX/ER/ IR Reps/Minutes x 5SH x 3reps Comments multijoint angle 8 Supine Exercise Name Trips ext Side right Resistance Lv 2 TB Reps/Minutes x 10 resp x 2 Comments sitting/standing 6 Supine Exercise Name D1,D2 F/E motion Reps/Minutes x 10 reps 5 Supine Exercise Name Horiz ABD Reps/Minutes x15 reps x 2 sets 4 Supine Exercise Name gentle PROM to flexion Comments gradual progression 2 Supine Exercise Name T-bar flexion ext Resistance 1-5# Equipment Used x 15 reps x 2 Prone Exercises 1 Prone Exercise Name scap abduction Reps/Minutes x 10 reps x 2 Comments AAROM Sitting Exercises 4 Sitting Exercise Name ER Side right Resistance Lv 1 Reps/Minutes x 10 reps gentle range 3 Sitting Exercise Name Wand shoulder extension Reps/Minutes x 15 reps x 2 1 Sitting Exercise Name Mackenzie: flex/abd Reps/Minutes x 15 reps x 2 Comments pain free range Manual Therapy Treatment Soft Tissue Mobilization 1 Body Location Right scapular, traps and deltoid area Mobilization Type Myofascial Release Intensity/Depth Superficial Body Position Supine Manual Techniques 1 Type Manual AROM: Manual resistance Reps/Duration x 10 reps at mild resistance Comments Shoulder ABD/ADD/ER/IR PT-OP-R Modalities Start: 04/23/18 14:56 Freq: Status: Active Protocol: Document 06/07/18 13:46 EA (Rec: 06/07/18 13:46 EA [id number]) Hot Pack/Cold Pack Treatment Cold Pack Location Right shoulder Patient Position Hooklying Treatment Duration (minutes) 10 Patient Tolerance Good Comments Pillow under arm PT-OP-T Assessment and Plan Start: 04/23/18 14:56 Freq: Status: Active Protocol: Document 06/07/18 13:05 EA (Rec: 06/07/18 13:46 EA [id number]) Physical Therapy Assessment Assessment Summary Assessment Pt tolerated treatment well. No discomfort noted during therex. Physical Therapy Plan Next Visit Focus/Plan Next Note Type Treatment Note Next Visit Plan Begin gentle resistance progressive exercises preceded by ROM.
--- NOTE | 2018-06-11 14:35 | PT.OTN ---
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 (06/11/18) Impingement syndrome of right shoulder (06/11/18) Physical Therapy Treatment Note PT-OP-A Visit Information Start: 04/23/18 14:56 Freq: Status: Active Protocol: Document 06/11/18 13:40 EA (Rec: 06/11/18 13:46 EA [id number]) Out-Patient Physical Therapy Visit Information Visit Information Visit Type Treatment Note Visit Start Time 13:00 Visit Stop Time 13:45 Total Visit Minutes 40 Visit Number 12/07 PT-OP-B Current Condition Start: 04/23/18 14:56 Freq: Status: Active Protocol: Document 04/23/18 14:58 EA (Rec: 04/23/18 15:09 EA [id number]) Current Condition History of Current Condition Onset Date S/P R rotator cuff repain 04/19 History of Current Condition S/P R rotator cuff repair 04/19 Prior Treatments and Tests Steroid injection in the past few months prior to surgery Future Testing and Treatments Planned None at this time Treatment Goals Patient/Caregiver Goals Back to previous level of function Prior Functional Status Baseline Function- ADL's Independent Baseline Function- Mobility Independent Baseline Function- Other Able to drive and do groceries indep Current Functional Impairments (Reported) Functional Limitations- ADL's Minimal assistance with bathing, personal care Functional Limitations- Mobility/Gait indep Functional Limitations- Work/School Indep Functional Limitations- Other Unable to drive at this time, unable to perform yard work PT-OP-C Subjective Start: 04/23/18 14:56 Freq: Status: Active Protocol: Document 06/11/18 13:46 EA (Rec: 06/11/18 13:47 EA [id number]) OP-PT Subjective Patient Comments Patient Comments Seen by his surgeon and reports cont with PT and to beign strengthen after end of Nov. Patient Reported Progress Improving PT-OP-E Functional Tests Start: 04/23/18 14:56 Freq: Status: Active Protocol: Document 04/23/18 16:50 EA (Rec: 04/24/18 10:02 EA [id number]) Functional Tests Lorenzoey's Scratch Test Action 1: The subject is instructed to touch the opposite shoulder with his/her hand. This motion checks Glenohumeral adduction, internal rotation , horizontal adduction and scapular protraction Action 2: The subject is instructed to place his/her arm overhead and reach behind the neck to touch his/her upper back. This motion checks Glenohumeral abduction, external rotation and scapular upward rotation and elevation. Action 3: The subject puts his/her hand on the lower back and reaches upward as far as possible. This motion checks glenohumeral adduction, internal rotation and scapular retraction with downward rotation Action 1- Left shoulder Action 1- Right n/a Action 2- Left T2 Action 2- Right n/a Action 3- Left T12 Action 3- Right n/a PT-OP-J Posture/Palpation/Skin Start: 04/23/18 14:56 Freq: Status: Active Protocol: Document 04/23/18 16:50 EA (Rec: 04/24/18 10:02 EA [id number]) Posture Evaluation Position Standing Evaluation View Lateral Head/C-Spine Posture Forward Head Shoulder Posture (L) Rounded (R) Rounded Scapula Posture (L) Protracted (R) Protracted Skin Assessment Incisional Assessment Incision Appearance/Comments Incision is covered but no signs of acute infection Other Assessments Skin Assessment Comments Bruise to right low abdominal quadrant, right anterolat arm PT-OP-K Range of Motion Start: 04/23/18 14:56 Freq: Status: Active Protocol: Document 04/30/18 14:32 DLM (Rec: 04/30/18 16:47 DLM [id number]) Shoulder Goniometric Range of Motion Shoulder Measured in Degrees Right Passive Testing Position Supine Flexion 85 External Rotation at 0 degrees Abduction 10 PT-OP-M Strength Start: 04/23/18 14:56 Freq: Status: Active Protocol: Document 04/23/18 16:50 EA (Rec: 04/24/18 10:02 EA [id number]) Shoulder Strength Shoulder Manual Muscle Testing Right Reason Not Measured Orthopedic Precautions Elbow/Forearm Strength Elbow and Forearm Manual Muscle Testing Left Reason Not Measured WFL Right Flexion (C6) 3 Fair Extension (C7) 3 Fair Pronation 3 Fair Supination 3 Fair Wrist Strength Wrist Manual Muscle Testing Left Reason Not Measured WFL Right Flexion (C7) 3 Fair Extension (C6) 3 Fair Ulnar Deviation 3 Fair Radial Deviation 3 Fair PT-OP-Q Treatments Start: 04/23/18 14:56 Freq: Status: Active Protocol: Document 06/11/18 13:40 EA (Rec: 06/11/18 13:46 EA [id number]) Cardio Equipment Upper Body Ergometer (UBE) Duration (Minutes) 6 RPM 15 Seat Position 13 Height the lowest Other 30% effort to right UE. Therapeutic Exercises Supine Exercises 11 Supine Exercise Name Shoulder ABD/ER 10 Supine Exercise Name Wand flexion/ press Side bilateral Reps/Minutes x 15 reps x 2 sets 8 Supine Exercise Name Trips ext Side right Resistance Lv 2 TB Reps/Minutes x 10 resp x 2 Comments sitting/standing 6 Supine Exercise Name D1,D2 F/E motion Reps/Minutes x 10 reps 5 Supine Exercise Name Horiz ABD Reps/Minutes x15 reps x 2 sets 4 Supine Exercise Name gentle PROM to flexion Comments gradual progression 2 Supine Exercise Name T-Bar ER Prone Exercises 1 Prone Exercise Name scap abduction Reps/Minutes x 10 reps x 2 Comments AAROM Sitting Exercises 1 Sitting Exercise Name Mackenzie: flex/abd Reps/Minutes x 15 reps x 2 Comments pain free range Manual Therapy Treatment Soft Tissue Mobilization 1 Body Location Right scapular, traps and deltoid area Mobilization Type Myofascial Release Intensity/Depth Superficial Body Position Supine Manual Techniques 1 Type Manual AROM: Manual resistance Reps/Duration x 10 reps at mild resistance Comments Shoulder ABD/ADD/ER/IR PT-OP-R Modalities Start: 04/23/18 14:56 Freq: Status: Active Protocol: Document 06/11/18 13:40 EA (Rec: 06/11/18 13:46 EA [id number]) Hot Pack/Cold Pack Treatment Cold Pack Location Right shoulder Patient Position Hooklying Treatment Duration (minutes) 10 Patient Tolerance Good Comments Pillow under arm PT-OP-T Assessment and Plan Start: 04/23/18 14:56 Freq: Status: Active Protocol: Document 06/11/18 13:40 EA (Rec: 06/11/18 13:46 EA [id number]) Physical Therapy Assessment Assessment Summary Assessment Pt reached functional ROM to flexion/Abduction; strengthening to proceed once cleared from surgeon. Physical Therapy Plan Next Visit Focus/Plan Next Note Type Treatment Note Next Visit Plan Resistance to elbow and wrist/ hand region.
--- NOTE | 2018-06-14 16:15 | PT.OTN ---
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 (06/14/18) Impingement syndrome of right shoulder (06/14/18) Physical Therapy Treatment Note PT-OP-A Visit Information Start: 04/23/18 14:56 Freq: Status: Active Protocol: Document 06/14/18 15:56 EA (Rec: 06/14/18 16:01 EA [id number]) Out-Patient Physical Therapy Visit Information Visit Information Visit Type Treatment Note Visit Start Time 14:30 Visit Stop Time 15:15 Total Visit Minutes 40 Visit Number 01/07 PT-OP-B Current Condition Start: 04/23/18 14:56 Freq: Status: Active Protocol: Document 04/23/18 14:58 EA (Rec: 04/23/18 15:09 EA [id number]) Current Condition History of Current Condition Onset Date S/P R rotator cuff repain 04/19 History of Current Condition S/P R rotator cuff repair 04/19 Prior Treatments and Tests Steroid injection in the past few months prior to surgery Future Testing and Treatments Planned None at this time Treatment Goals Patient/Caregiver Goals Back to previous level of function Prior Functional Status Baseline Function- ADL's Independent Baseline Function- Mobility Independent Baseline Function- Other Able to drive and do groceries indep Current Functional Impairments (Reported) Functional Limitations- ADL's Minimal assistance with bathing, personal care Functional Limitations- Mobility/Gait indep Functional Limitations- Work/School Indep Functional Limitations- Other Unable to drive at this time, unable to perform yard work PT-OP-C Subjective Start: 04/23/18 14:56 Freq: Status: Active Protocol: Document 06/14/18 15:56 EA (Rec: 06/14/18 16:01 EA [id number]) OP-PT Subjective Patient Comments Patient Comments Pt reports complaint with HEP: denies increased in pain. Patient Reported Progress Improving PT-OP-E Functional Tests Start: 04/23/18 14:56 Freq: Status: Active Protocol: Document 04/23/18 16:50 EA (Rec: 04/24/18 10:02 EA [id number]) Functional Tests Lorenzoey's Scratch Test Action 1: The subject is instructed to touch the opposite shoulder with his/her hand. This motion checks Glenohumeral adduction, internal rotation , horizontal adduction and scapular protraction Action 2: The subject is instructed to place his/her arm overhead and reach behind the neck to touch his/her upper back. This motion checks Glenohumeral abduction, external rotation and scapular upward rotation and elevation. Action 3: The subject puts his/her hand on the lower back and reaches upward as far as possible. This motion checks glenohumeral adduction, internal rotation and scapular retraction with downward rotation Action 1- Left shoulder Action 1- Right n/a Action 2- Left T2 Action 2- Right n/a Action 3- Left T12 Action 3- Right n/a PT-OP-J Posture/Palpation/Skin Start: 04/23/18 14:56 Freq: Status: Active Protocol: Document 04/23/18 16:50 EA (Rec: 04/24/18 10:02 EA [id number]) Posture Evaluation Position Standing Evaluation View Lateral Head/C-Spine Posture Forward Head Shoulder Posture (L) Rounded (R) Rounded Scapula Posture (L) Protracted (R) Protracted Skin Assessment Incisional Assessment Incision Appearance/Comments Incision is covered but no signs of acute infection Other Assessments Skin Assessment Comments Bruise to right low abdominal quadrant, right anterolat arm PT-OP-K Range of Motion Start: 04/23/18 14:56 Freq: Status: Active Protocol: Document 04/30/18 14:32 DLM (Rec: 04/30/18 16:47 DLM [id number]) Shoulder Goniometric Range of Motion Shoulder Measured in Degrees Right Passive Testing Position Supine Flexion 85 External Rotation at 0 degrees Abduction 10 PT-OP-M Strength Start: 04/23/18 14:56 Freq: Status: Active Protocol: Document 04/23/18 16:50 EA (Rec: 04/24/18 10:02 EA [id number]) Shoulder Strength Shoulder Manual Muscle Testing Right Reason Not Measured Orthopedic Precautions Elbow/Forearm Strength Elbow and Forearm Manual Muscle Testing Left Reason Not Measured WFL Right Flexion (C6) 3 Fair Extension (C7) 3 Fair Pronation 3 Fair Supination 3 Fair Wrist Strength Wrist Manual Muscle Testing Left Reason Not Measured WFL Right Flexion (C7) 3 Fair Extension (C6) 3 Fair Ulnar Deviation 3 Fair Radial Deviation 3 Fair PT-OP-Q Treatments Start: 04/23/18 14:56 Freq: Status: Active Protocol: Document 06/14/18 15:56 EA (Rec: 06/14/18 16:01 EA [id number]) Cardio Equipment Upper Body Ergometer (UBE) Duration (Minutes) 6 RPM 15 Seat Position 13 Height the lowest Other 30% effort to right UE. Therapeutic Exercises Supine Exercises 11 Supine Exercise Name Shoulder ABD/ER 10 Supine Exercise Name Wand flexion/ press Side bilateral Reps/Minutes x 15 reps x 2 sets 8 Supine Exercise Name Trips ext Side right Resistance Lv 2 TB Reps/Minutes x 10 resp x 2 Comments sitting/standing 6 Supine Exercise Name D1,D2 F/E motion Reps/Minutes x 10 reps 5 Supine Exercise Name Horiz ABD Reps/Minutes x15 reps x 2 sets 4 Supine Exercise Name gentle PROM to flexion Comments gradual progression Prone Exercises 1 Prone Exercise Name scap abduction Reps/Minutes x 10 reps x 2 Comments AAROM Sitting Exercises 1 Sitting Exercise Name Mackenzie: flex/abd Reps/Minutes x 15 reps x 2 Comments pain free range Manual Therapy Treatment Soft Tissue Mobilization 1 Body Location Right scapular, traps and deltoid area Mobilization Type Myofascial Release Intensity/Depth Superficial Body Position Supine Manual Techniques 1 Type Manual AROM: Manual resistance Reps/Duration x 10 reps at mild resistance Comments Shoulder ABD/ADD/ER/IR PT-OP-R Modalities Start: 04/23/18 14:56 Freq: Status: Active Protocol: Document 06/11/18 13:40 EA (Rec: 06/11/18 13:46 EA [id number]) Hot Pack/Cold Pack Treatment Cold Pack Location Right shoulder Patient Position Hooklying Treatment Duration (minutes) 10 Patient Tolerance Good Comments Pillow under arm PT-OP-T Assessment and Plan Start: 04/23/18 14:56 Freq: Status: Active Protocol: Document 06/14/18 15:56 EA (Rec: 06/14/18 16:01 EA [id number]) Physical Therapy Assessment Assessment Summary Assessment Tolerated treatment well. Weakness to scap ABD/Elev still evident in prone position. Physical Therapy Plan Next Visit Focus/Plan Next Note Type Treatment Note Next Visit Plan Cont with current plan.
--- NOTE | 2018-06-18 15:45 | PT.OTN ---
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 (06/18/18) Impingement syndrome of right shoulder (06/18/18) Physical Therapy Treatment Note PT-OP-A Visit Information Start: 04/23/18 14:56 Freq: Status: Active Protocol: Document 06/18/18 14:39 EA (Rec: 06/18/18 15:20 EA [id number]) Out-Patient Physical Therapy Visit Information Visit Information Visit Type Treatment Note Visit Start Time 14:30 Visit Stop Time 15:15 Total Visit Minutes 40 Visit Number 7 PT-OP-B Current Condition Start: 04/23/18 14:56 Freq: Status: Active Protocol: Document 04/23/18 14:58 EA (Rec: 04/23/18 15:09 EA [id number]) Current Condition History of Current Condition Onset Date S/P R rotator cuff repain 04/19 History of Current Condition S/P R rotator cuff repair 04/19 Prior Treatments and Tests Steroid injection in the past few months prior to surgery Future Testing and Treatments Planned None at this time Treatment Goals Patient/Caregiver Goals Back to previous level of function Prior Functional Status Baseline Function- ADL's Independent Baseline Function- Mobility Independent Baseline Function- Other Able to drive and do groceries indep Current Functional Impairments (Reported) Functional Limitations- ADL's Minimal assistance with bathing, personal care Functional Limitations- Mobility/Gait indep Functional Limitations- Work/School Indep Functional Limitations- Other Unable to drive at this time, unable to perform yard work PT-OP-C Subjective Start: 04/23/18 14:56 Freq: Status: Active Protocol: Document 06/18/18 14:39 EA (Rec: 06/18/18 15:20 EA [id number]) OP-PT Subjective Patient Comments Patient Comments Pt reports right shoulder was bruise last 3 days ago with no know reasons; states he has been using his left arm quite a bit at this time; driving, eating and mowing the lawn. Pt denies increased of shoulder symptoms. PT-OP-E Functional Tests Start: 04/23/18 14:56 Freq: Status: Active Protocol: Document 04/23/18 16:50 EA (Rec: 04/24/18 10:02 EA [id number]) Functional Tests Patricia's Scratch Test Action 1: The subject is instructed to touch the opposite shoulder with his/her hand. This motion checks Glenohumeral adduction, internal rotation , horizontal adduction and scapular protraction Action 2: The subject is instructed to place his/her arm overhead and reach behind the neck to touch his/her upper back. This motion checks Glenohumeral abduction, external rotation and scapular upward rotation and elevation. Action 3: The subject puts his/her hand on the lower back and reaches upward as far as possible. This motion checks glenohumeral adduction, internal rotation and scapular retraction with downward rotation Action 1- Left shoulder Action 1- Right n/a Action 2- Left T2 Action 2- Right n/a Action 3- Left T12 Action 3- Right n/a PT-OP-J Posture/Palpation/Skin Start: 04/23/18 14:56 Freq: Status: Active Protocol: Document 04/23/18 16:50 EA (Rec: 04/24/18 10:02 EA [id number]) Posture Evaluation Position Standing Evaluation View Lateral Head/C-Spine Posture Forward Head Shoulder Posture (L) Rounded (R) Rounded Scapula Posture (L) Protracted (R) Protracted Skin Assessment Incisional Assessment Incision Appearance/Comments Incision is covered but no signs of acute infection Other Assessments Skin Assessment Comments Bruise to right low abdominal quadrant, right anterolat arm PT-OP-K Range of Motion Start: 04/23/18 14:56 Freq: Status: Active Protocol: Document 04/30/18 14:32 DLM (Rec: 04/30/18 16:47 DLM [id number]) Shoulder Goniometric Range of Motion Shoulder Measured in Degrees Right Passive Testing Position Supine Flexion 85 External Rotation at 0 degrees Abduction 10 PT-OP-M Strength Start: 04/23/18 14:56 Freq: Status: Active Protocol: Document 04/23/18 16:50 EA (Rec: 04/24/18 10:02 EA [id number]) Shoulder Strength Shoulder Manual Muscle Testing Right Reason Not Measured Orthopedic Precautions Elbow/Forearm Strength Elbow and Forearm Manual Muscle Testing Left Reason Not Measured WFL Right Flexion (C6) 3 Fair Extension (C7) 3 Fair Pronation 3 Fair Supination 3 Fair Wrist Strength Wrist Manual Muscle Testing Left Reason Not Measured WFL Right Flexion (C7) 3 Fair Extension (C6) 3 Fair Ulnar Deviation 3 Fair Radial Deviation 3 Fair PT-OP-Q Treatments Start: 04/23/18 14:56 Freq: Status: Active Protocol: Document 06/18/18 14:39 EA (Rec: 06/18/18 15:20 EA [id number]) Cardio Equipment Upper Body Ergometer (UBE) Duration (Minutes) 6 RPM 15 Seat Position 13 Height the lowest Other 30% effort to right UE. Therapeutic Exercises Supine Exercises 11 Supine Exercise Name Shoulder ABD/ER Reps/Minutes x 15 reps 8 Supine Exercise Name Triceps ext Side right Resistance Lv 2 TB Reps/Minutes x 10 resp x 2 Comments sitting/standing 6 Supine Exercise Name D1,D2 F/E motion Reps/Minutes bx 2 sets 5 Supine Exercise Name Horiz ABD Reps/Minutes x15 reps x 2 sets 4 Supine Exercise Name gentle PROM to flexion Comments gradual progression 2 Supine Exercise Name T-Bar ER Reps/Minutes x 15 reps Prone Exercises 1 Prone Exercise Name scap abduction Reps/Minutes x 10 reps x 2 Comments AAROM Sitting Exercises 3 Sitting Exercise Name Wand shoulder extension Reps/Minutes x 15 reps x 2 1 Sitting Exercise Name Mackenzie: flex/abd Reps/Minutes x 15 reps x 2 Comments pain free range Manual Therapy Treatment Soft Tissue Mobilization 1 Body Location Right scapular, traps and deltoid area Mobilization Type Myofascial Release Intensity/Depth Superficial Body Position Supine Manual Techniques 1 Type Manual AROM: Manual resistance Reps/Duration x 10 reps at mild resistance Comments Shoulder ABD/ADD/ER/IR PT-OP-R Modalities Start: 04/23/18 14:56 Freq: Status: Active Protocol: Document 06/11/18 13:40 EA (Rec: 06/11/18 13:46 EA [id number]) Hot Pack/Cold Pack Treatment Cold Pack Location Right shoulder Patient Position Hooklying Treatment Duration (minutes) 10 Patient Tolerance Good Comments Pillow under arm PT-OP-T Assessment and Plan Start: 04/23/18 14:56 Freq: Status: Active Protocol: Document 06/18/18 14:39 EA (Rec: 06/18/18 15:20 EA [id number]) Physical Therapy Assessment Assessment Summary Assessment Pt is exhibiting improved shoulder coordinated movement pattern; small bruise noted to anterior shoulder but no indication of movement deterioration. Recommends patient to get cautious of using the right arm. Physical Therapy Plan Next Visit Focus/Plan Next Note Type Treatment Note Next Visit Plan Cont with current plan.
--- NOTE | 2018-06-20 15:58 | PT.OTN ---
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 (06/20/18) Impingement syndrome of right shoulder (06/20/18) Physical Therapy Treatment Note PT-OP-A Visit Information Start: 04/23/18 14:56 Freq: Status: Active Protocol: Document 06/20/18 15:23 EA (Rec: 06/20/18 15:57 EA [id number]) Out-Patient Physical Therapy Visit Information Visit Information Visit Type Treatment Note Visit Start Time 14:30 Visit Stop Time 15:15 Total Visit Minutes 40 Visit Number 8 PT-OP-B Current Condition Start: 04/23/18 14:56 Freq: Status: Active Protocol: Document 04/23/18 14:58 EA (Rec: 04/23/18 15:09 EA [id number]) Current Condition History of Current Condition Onset Date S/P R rotator cuff repain 04/19 History of Current Condition S/P R rotator cuff repair 04/19 Prior Treatments and Tests Steroid injection in the past few months prior to surgery Future Testing and Treatments Planned None at this time Treatment Goals Patient/Caregiver Goals Back to previous level of function Prior Functional Status Baseline Function- ADL's Independent Baseline Function- Mobility Independent Baseline Function- Other Able to drive and do groceries indep Current Functional Impairments (Reported) Functional Limitations- ADL's Minimal assistance with bathing, personal care Functional Limitations- Mobility/Gait indep Functional Limitations- Work/School Indep Functional Limitations- Other Unable to drive at this time, unable to perform yard work PT-OP-C Subjective Start: 04/23/18 14:56 Freq: Status: Active Protocol: Document 06/20/18 15:23 EA (Rec: 06/20/18 15:57 EA [id number]) OP-PT Subjective Patient Comments Patient Comments Pt reports complaint with HEP and no increased in pain symptoms. PT-OP-E Functional Tests Start: 04/23/18 14:56 Freq: Status: Active Protocol: Document 04/23/18 16:50 EA (Rec: 04/24/18 10:02 EA [id number]) Functional Tests Lorenzoey's Scratch Test Action 1: The subject is instructed to touch the opposite shoulder with his/her hand. This motion checks Glenohumeral adduction, internal rotation , horizontal adduction and scapular protraction Action 2: The subject is instructed to place his/her arm overhead and reach behind the neck to touch his/her upper back. This motion checks Glenohumeral abduction, external rotation and scapular upward rotation and elevation. Action 3: The subject puts his/her hand on the lower back and reaches upward as far as possible. This motion checks glenohumeral adduction, internal rotation and scapular retraction with downward rotation Action 1- Left shoulder Action 1- Right n/a Action 2- Left T2 Action 2- Right n/a Action 3- Left T12 Action 3- Right n/a PT-OP-J Posture/Palpation/Skin Start: 04/23/18 14:56 Freq: Status: Active Protocol: Document 04/23/18 16:50 EA (Rec: 04/24/18 10:02 EA [id number]) Posture Evaluation Position Standing Evaluation View Lateral Head/C-Spine Posture Forward Head Shoulder Posture (L) Rounded (R) Rounded Scapula Posture (L) Protracted (R) Protracted Skin Assessment Incisional Assessment Incision Appearance/Comments Incision is covered but no signs of acute infection Other Assessments Skin Assessment Comments Bruise to right low abdominal quadrant, right anterolat arm PT-OP-K Range of Motion Start: 04/23/18 14:56 Freq: Status: Active Protocol: Document 04/30/18 14:32 DLM (Rec: 04/30/18 16:47 DLM [id number]) Shoulder Goniometric Range of Motion Shoulder Measured in Degrees Right Passive Testing Position Supine Flexion 85 External Rotation at 0 degrees Abduction 10 PT-OP-M Strength Start: 04/23/18 14:56 Freq: Status: Active Protocol: Document 04/23/18 16:50 EA (Rec: 04/24/18 10:02 EA [id number]) Shoulder Strength Shoulder Manual Muscle Testing Right Reason Not Measured Orthopedic Precautions Elbow/Forearm Strength Elbow and Forearm Manual Muscle Testing Left Reason Not Measured WFL Right Flexion (C6) 3 Fair Extension (C7) 3 Fair Pronation 3 Fair Supination 3 Fair Wrist Strength Wrist Manual Muscle Testing Left Reason Not Measured WFL Right Flexion (C7) 3 Fair Extension (C6) 3 Fair Ulnar Deviation 3 Fair Radial Deviation 3 Fair PT-OP-Q Treatments Start: 04/23/18 14:56 Freq: Status: Active Protocol: Document 06/20/18 15:23 EA (Rec: 06/20/18 15:57 EA [id number]) Cardio Equipment Upper Body Ergometer (UBE) Duration (Minutes) 6 RPM 15 Seat Position 13 Height 5 Other 30% effort to right UE. Therapeutic Exercises Supine Exercises 11 Supine Exercise Name Shoulder ABD/ER Reps/Minutes x 15 reps x 2 8 Supine Exercise Name Triceps ext Side right Resistance Lv 3 TB Reps/Minutes x 10 resp x 2 Comments sitting/standing 7 Supine Exercise Name Shoulder serratus punch Reps/Minutes x 12 reps x 2 sets 6 Supine Exercise Name D1,D2 F/E motion Reps/Minutes 2 sets 2 Supine Exercise Name T-Bar ER Reps/Minutes x 15 reps Prone Exercises 1 Prone Exercise Name Shoulder Y-T- exension Reps/Minutes x 10 reps x 2 Comments AROM Sitting Exercises 3 Sitting Exercise Name Wand shoulder extension Reps/Minutes x 15 reps x 2 1 Sitting Exercise Name Mackenzie: flex/abd Reps/Minutes x 15 reps x 2 Comments pain free range Manual Therapy Treatment Manual Techniques 1 Type Manual AROM: Manual resistance Reps/Duration x 10 reps at mild resistance Comments Shoulder ABD/ADD/ER/IR PT-OP-R Modalities Start: 04/23/18 14:56 Freq: Status: Active Protocol: Document 06/11/18 13:40 EA (Rec: 06/11/18 13:46 EA [id number]) Hot Pack/Cold Pack Treatment Cold Pack Location Right shoulder Patient Position Hooklying Treatment Duration (minutes) 10 Patient Tolerance Good Comments Pillow under arm PT-OP-T Assessment and Plan Start: 04/23/18 14:56 Freq: Status: Active Protocol: Document 06/20/18 15:23 EA (Rec: 06/20/18 15:57 EA [id number]) Physical Therapy Assessment Assessment Summary Assessment Improved scapular control noted however still noted weakness in gravity resisted position. Patient cont to progress but slowly at this time. Physical Therapy Plan Next Visit Focus/Plan Next Note Type Treatment Note Next Visit Plan Cont with current plan.
--- NOTE | 2018-06-25 16:31 | PT.OTRE ---
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 (06/25/18) Impingement syndrome of right shoulder (06/25/18) Past Medical History (Last Updated 04/11/18 @ 10:24 by Chante Santacruz, RN) Neck pain (Chronic) Hospital-acquired pneumonia (Resolved 2015) Neck muscle spasm (Chronic) Pneumonia (Resolved 2016) Hypoxia (Chronic) Cholelithiasis (Chronic 02/2018) Respiratory failure (Chronic) Cervical spinal stenosis (Chronic) Community acquired pneumonia (Resolved 2016) BPH NOS w ur obs/LUTS (Chronic) GERD (gastroesophageal reflux disease) (Acute) Gallstones (Acute) Gout (Acute) Hyperlipidemia (Acute) Impingement syndrome of right shoulder (Acute) Osteoarthritis (Acute) 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 (Acute) Rib fracture (Acute) Supraspinatus tendon tear (Acute) TIA (transient ischemic attack) (Acute) Ankle pain (Chronic 1999) Chronic anticoagulation (Chronic 03/11/97) Depression (Chronic) Diverticular disease (Chronic ~1989) Elevated PSA (Chronic ~1989) Hearing loss (Chronic ~1989) Hypertension (Chronic 1999) Reflex sympathetic dystrophy (Chronic) Shoulder pain (Chronic 1996) Sleep apnea (Chronic 2002) AAA (abdominal aortic aneurysm) (Resolved 03/11/97) Chicken pox (Resolved 1951) Colon polyps (Resolved 2001) Hepatitis B (Resolved 1984) Hernia (Resolved ~1989) Kidney stones (Resolved ~1969) Measles (Resolved ~1949) Mumps (Resolved 1949) Neck fracture (Resolved 1974) Spinal fracture (Resolved 2007) Surgical History (Last Updated 04/11/18 @ 10:23 by Chante Santacruz RN) H/O varicose vein stripping (Acute) History of cardiac catheterization (Acute) History of meniscectomy of left knee (Acute) History of partial colectomy (Acute) History of total knee arthroplasty (Acute) S/P cervical spinal fusion (Acute) S/P left knee arthroscopy (Acute) S/P resection of aortic aneurysm (Acute) Status post unicompartmental knee replacement, left (Acute) Anesthesia (Resolved) History of aortic valve replacement (Resolved 03/11/97) History of arthroscopy of knee (Resolved) History of colon surgery (Resolved) History of neck surgery (Resolved 1998) History of spinal fusion (Resolved 1974) History of vasectomy (Resolved) Status post hernia repair (Resolved ~1989) Status post knee surgery (Resolved 1974) Provider Visit Care Team Role Provider Type Phillip Ghosh MD Family Provider Physician Primary Care Provider Specialty: Family Practice Address: [address] [place] [address], [id number] Email: [email or web address] Jerry Pabon MD Attending Provider Physician Specialty: Orthopedic Surgery Address: [address] [place] [address], [id number] Email: [email or web address] Physical Therapy Re-Evaluation PT-OP-A Visit Information Start: 04/23/18 14:56 Freq: Status: Active Protocol: Document 06/25/18 09:05 EA (Rec: 06/25/18 09:47 EA [id number]) Out-Patient Physical Therapy Visit Information Visit Information Visit Type Treatment Note Visit Start Time 09:00 Visit Stop Time 09:40 Total Visit Minutes 40 PT-OP-B Current Condition Start: 04/23/18 14:56 Freq: Status: Active Protocol: Document 04/23/18 14:58 EA (Rec: 04/23/18 15:09 EA [id number]) Current Condition History of Current Condition Onset Date S/P R rotator cuff repain 04/19 History of Current Condition S/P R rotator cuff repair 04/19 Prior Treatments and Tests Steroid injection in the past few months prior to surgery Future Testing and Treatments Planned None at this time Treatment Goals Patient/Caregiver Goals Back to previous level of function Prior Functional Status Baseline Function- ADL's Independent Baseline Function- Mobility Independent Baseline Function- Other Able to drive and do groceries indep Current Functional Impairments (Reported) Functional Limitations- ADL's Minimal assistance with bathing, personal care Functional Limitations- Mobility/Gait indep Functional Limitations- Work/School Indep Functional Limitations- Other Unable to drive at this time, unable to perform yard work PT-OP-C Subjective Start: 04/23/18 14:56 Freq: Status: Active Protocol: Document 06/25/18 10:26 EA (Rec: 06/25/18 10:28 EA [id number]) OP-PT Subjective Patient Comments Patient Comments Patient reports he has been complaint with HEP; denies increase in pain but weakness still evident even from elbow to wrist area. Patient believes arthritis to wrist area makes his arm difficult to use. Patient Reported Progress Improving Patient Questionnaires Quick Dash- Upper Extremity Quick Dash UE Score 45 Quick Dash UE Impairment 40 to 59% Impaired (Score 40- 59) PT-OP-E Functional Tests Start: 04/23/18 14:56 Freq: Status: Active Protocol: Document 06/25/18 09:05 EA (Rec: 06/25/18 09:47 EA [id number]) Functional Tests Apley's Scratch Test Action 1: The subject is instructed to touch the opposite shoulder with his/her hand. This motion checks Glenohumeral adduction, internal rotation , horizontal adduction and scapular protraction Action 2: The subject is instructed to place his/her arm overhead and reach behind the neck to touch his/her upper back. This motion checks Glenohumeral abduction, external rotation and scapular upward rotation and elevation. Action 3: The subject puts his/her hand on the lower back and reaches upward as far as possible. This motion checks glenohumeral adduction, internal rotation and scapular retraction with downward rotation Action 1- Left shoulder Action 1- Right shoulder Action 2- Left T2 Action 2- Right ear Action 3- Left T12 Action 3- Right L3 PT-OP-J Posture/Palpation/Skin Start: 04/23/18 14:56 Freq: Status: Active Protocol: Document 04/23/18 16:50 EA (Rec: 04/24/18 10:02 EA [id number]) Posture Evaluation Position Standing Evaluation View Lateral Head/C-Spine Posture Forward Head Shoulder Posture (L) Rounded (R) Rounded Scapula Posture (L) Protracted (R) Protracted Skin Assessment Incisional Assessment Incision Appearance/Comments Incision is covered but no signs of acute infection Other Assessments Skin Assessment Comments Bruise to right low abdominal quadrant, right anterolat arm PT-OP-K Range of Motion Start: 04/23/18 14:56 Freq: Status: Active Protocol: Document 06/25/18 09:05 EA (Rec: 06/25/18 09:47 EA [id number]) Shoulder Goniometric Range of Motion Shoulder Measured in Degrees Right Testing Position Sitting Flexion 45 Extension 55 Abduction 50 External Rotation at 0 degrees Abduction 40 Internal Rotation 50 Right Passive Testing Position Supine Flexion 140 Abduction 140 External Rotation at 90 degrees 65 Abduction External Rotation at 0 degrees Abduction 60 Internal Rotation 40 Left Active Shoulder ROM WFL Yes Shoulder ROM Limitations Shoulder ROM Limitations Muscle Weakness Pain Elbow/Forearm Range of Motion Elbow/Forearm Measured in Degrees Passive Elbow/Forearm ROM WFL Yes PT-OP-M Strength Start: 04/23/18 14:56 Freq: Status: Active Protocol: Document 06/25/18 09:05 EA (Rec: 06/25/18 09:47 EA [id number]) Shoulder Strength Shoulder Manual Muscle Testing Right Flexion 3- Fair- Extension 3 Fair Abduction (C5) 3- Fair- Adduction 3 Fair External Rotation 3- Fair- Internal Rotation 3 Fair Horizontal Abduction 3- Fair- Horizontal Adduction 3 Fair Reason Not Measured Orthopedic Precautions Elbow/Forearm Strength Elbow and Forearm Manual Muscle Testing Left Reason Not Measured WFL Right Flexion (C6) 3+ Fair+ Extension (C7) 3+ Fair+ Pronation 3+ Fair+ Supination 3+ Fair+ Wrist Strength Wrist Manual Muscle Testing Right Flexion (C7) 3+ Fair+ Extension (C6) 3+ Fair+ Ulnar Deviation 3+ Fair+ Radial Deviation 3+ Fair+ PT-OP-Q Treatments Start: 04/23/18 14:56 Freq: Status: Active Protocol: Document 06/25/18 09:05 EA (Rec: 06/25/18 09:47 EA [id number]) Therapeutic Exercises Supine Exercises 11 Supine Exercise Name Shoulder ABD/ER Reps/Minutes x 15 reps x 2 10 Supine Exercise Name Wand flexion/ press Side bilateral Reps/Minutes x 15 reps x 2 sets 9 Supine Exercise Name Shoulder Isomet: ABD/FLEX/ER/ IR Reps/Minutes x 5SH x 3reps Comments multijoint angle 8 Supine Exercise Name Triceps ext Side right Resistance Lv 3 TB Reps/Minutes x 10 resp x 2 Comments sitting/standing 7 Supine Exercise Name Shoulder serratus punch Reps/Minutes x 12 reps x 2 sets 6 Supine Exercise Name D1,D2 F/E motion Resistance 1# AW Reps/Minutes 2 sets 5 Supine Exercise Name Horiz ABD Reps/Minutes x15 reps x 2 sets 4 Supine Exercise Name gentle PROM to flexion Comments gradual progression 3 Supine Exercise Name Wrist AP AROM Resistance 15 reps x 2 sets Comments 1-5# 2 Supine Exercise Name T-Bar ER Reps/Minutes x 15 reps 1 Supine Exercise Name elbow flexion/ext Resistance 1-3# Reps/Minutes 15 reps x 2 Comments Pillow under elbow and fixed side of the the body Prone Exercises 1 Prone Exercise Name Shoulder Y-T- exension Reps/Minutes x 10 reps x 2 Comments AROM Sitting Exercises 4 Sitting Exercise Name ER Side right Resistance Lv 1 Reps/Minutes x 10 reps gentle range 3 Sitting Exercise Name Wand shoulder extension Reps/Minutes x 15 reps x 2 2 Sitting Exercise Name bicep curls Resistance 2-3 lbs Reps/Minutes x 12 reps x 2 1 Sitting Exercise Name Mackenzie: flex/abd Reps/Minutes x 15 reps x 2 Comments pain free range Standing Exercises 1 Standing Exercise Name Pendulum: flexion Reps/Minutes x 20 reps Manual Therapy Treatment Soft Tissue Mobilization 1 Body Location Right scapular, traps and deltoid area Mobilization Type Myofascial Release Intensity/Depth Superficial Body Position Supine Manual Techniques 1 Type Manual AROM: Manual resistance : PNF Reps/Duration x 10 reps at mild resistance Comments Shoulder ABD/ADD/ER/IR PT-OP-R Modalities Start: 04/23/18 14:56 Freq: Status: Active Protocol: Document 06/11/18 13:40 EA (Rec: 06/11/18 13:46 EA [id number]) Hot Pack/Cold Pack Treatment Cold Pack Location Right shoulder Patient Position Hooklying Treatment Duration (minutes) 10 Patient Tolerance Good Comments Pillow under arm PT-OP-T Assessment and Plan Start: 04/23/18 14:56 Freq: Status: Active Protocol: Document 06/25/18 09:05 EA (Rec: 06/25/18 09:47 EA [id number]) Physical Therapy Assessment Goals Five Impairment HEP dependent Bologna Maker Goal (LTG) Patient will exhibit indepedent HEP with safety LTG Duration Improving Four Impairment Impaired elbow and wrist strength Bologna Maker Goal (LTG) Patient will increase elbow and wrist strength to at least 3+/5 for functional gripping activities LTG Duration 4 wks (Improving) Three Impairment QuickDash score of 51 Bologna Maker Goal (LTG) Patient will have Quick Dash score of less than 40 LTG Duration 4 wks (Improving) Two Impairment Impaired Right shoulder strength Bologna Maker Goal (LTG) Patient increase left shoulder strength to 3/5 for functional AROM that is align to rehab protocol LTG Duration 4-6 wks (improving) One Impairment Impaired R shoulder ROM Bologna Maker Goal (LTG) Patient will perform abd/ flexion AROM to functional range or as to align with rehab protocol LTG Duration 4 wks Progress Towards Goals Progress Towards Goals Progressing Toward Goals Assessment Summary Assessment Pt demonstrates improved ROM with improved functional mobility. Patient will continue to benefit with skilled PT with focus at this time in shoulder/arm strengthening per protocol. Physical Therapy Plan Frequency and Duration Frequency of Treatment 2x/Week Duration of Treatment 8 wks Plan of Care Start Date 06/18/18 Plan of Care End Date 08/13/18 Therapeutic Interventions Therapeutic Interventions Home Exercise Program Joint Mobilizations Manual Therapy Patient/Caregiver Education Self-Care/Home Management Soft Tissue Mobilization Therapeutic Activities Therapeutic Exercises Modalities Cold Pack/Ice Massage Electric Stimulation Hot Packs Other Therapeutic Interventions continue per treatment plan and surgeon protocol Next Visit Focus/Plan Next Note Type Treatment Note Next Visit Plan Progress per shoulder surgery protocol.
--- NOTE | 2018-06-25 16:31 | PT.OPPOC ---
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 (06/25/18) Impingement syndrome of right shoulder (06/25/18) Provider Visit Care Team Role Provider Type Phillip Ghosh MD Family Provider Physician Primary Care Provider Specialty: Family Practice Address: [address] [place] [address], [id number] Email: [email or web address] Jerry Pabon MD Attending Provider Physician Specialty: Orthopedic Surgery Address: [address] [place] [address], [address] Email: [email or web address] Plan Of Care PT-OP-T Assessment and Plan Start: 04/23/18 14:56 Freq: Status: Active Protocol: Document 06/25/18 09:05 EA (Rec: 06/25/18 09:47 EA [id number]) Physical Therapy Assessment Goals Five Impairment HEP dependent Sheriff Sergeant Goal (LTG) Patient will exhibit indepedent HEP with safety LTG Duration Improving Four Impairment Impaired elbow and wrist strength Senior Care Goal (LTG) Patient will increase elbow and wrist strength to at least 3+/5 for functional gripping activities LTG Duration 4 wks (Improving) Three Impairment QuickDash score of 51 Senior Care Goal (LTG) Patient will have Quick Dash score of less than 40 LTG Duration 4 wks (Improving) Two Impairment Impaired Right shoulder strength Sheriff Sergeant Goal (LTG) Patient increase left shoulder strength to 3/5 for functional AROM that is align to rehab protocol LTG Duration 4-6 wks (improving) One Impairment Impaired R shoulder ROM Sheriff Sergeant Goal (LTG) Patient will perform abd/ flexion AROM to functional range or as to align with rehab protocol LTG Duration 4 wks Progress Towards Goals Progress Towards Goals Progressing Toward Goals Assessment Summary Assessment Pt demonstrates improved ROM with improved functional mobility. Patient will continue to benefit with skilled PT with focus at this time in shoulder/arm strengthening or per protocol. Physical Therapy Plan Frequency and Duration Frequency of Treatment 2x/Week Duration of Treatment 8 wks Plan of Care Start Date 06/18/18 Plan of Care End Date 08/13/18 Therapeutic Interventions Therapeutic Interventions Home Exercise Program Joint Mobilizations Manual Therapy Patient/Caregiver Education Self-Care/Home Management Soft Tissue Mobilization Therapeutic Activities Therapeutic Exercises Modalities Cold Pack/Ice Massage Electric Stimulation Hot Packs Other Therapeutic Interventions continue per treatment plan and surgeon protocol Next Visit Focus/Plan Next Note Type Treatment Note Next Visit Plan Progress per shoulder surgery protocol. Plan of Care Dates Plan of Care Start Date 06/18/18 Plan of Care End Date 08/13/18 Please Sign and Return: I have reviewed this Plan of Care and certify that the skilled therapy services above are required to meet the patient?s needs. Physician Signature Date Printed Name and Credentials Clinical Instructor Signature Printed Name and Credentials
--- NOTE | 2018-06-28 12:11 | PT.OTN ---
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 (06/28/18) Impingement syndrome of right shoulder (06/28/18) Physical Therapy Treatment Note PT-OP-A Visit Information Start: 04/23/18 14:56 Freq: Status: Active Protocol: Document 06/28/18 11:11 EA (Rec: 06/28/18 11:15 EA [id number]) Out-Patient Physical Therapy Visit Information Visit Information Visit Type Treatment Note Visit Start Time 10:30 Visit Stop Time 11:10 Total Visit Minutes 40 PT-OP-B Current Condition Start: 04/23/18 14:56 Freq: Status: Active Protocol: Document 04/23/18 14:58 EA (Rec: 04/23/18 15:09 EA [id number]) Current Condition History of Current Condition Onset Date S/P R rotator cuff repain 04/19 History of Current Condition S/P R rotator cuff repair 04/19 Prior Treatments and Tests Steroid injection in the past few months prior to surgery Future Testing and Treatments Planned None at this time Treatment Goals Patient/Caregiver Goals Back to previous level of function Prior Functional Status Baseline Function- ADL's Independent Baseline Function- Mobility Independent Baseline Function- Other Able to drive and do groceries indep Current Functional Impairments (Reported) Functional Limitations- ADL's Minimal assistance with bathing, personal care Functional Limitations- Mobility/Gait indep Functional Limitations- Work/School Indep Functional Limitations- Other Unable to drive at this time, unable to perform yard work PT-OP-C Subjective Start: 04/23/18 14:56 Freq: Status: Active Protocol: Document 06/28/18 11:11 EA (Rec: 06/28/18 11:15 EA [id number]) OP-PT Subjective Patient Comments Patient Comments Pt reports no increased in shoulder symptoms; states he feels that he is much improving. PT-OP-E Functional Tests Start: 04/23/18 14:56 Freq: Status: Active Protocol: Document 06/25/18 09:05 EA (Rec: 06/25/18 09:47 EA [id number]) Functional Tests Lorenzoey's Scratch Test Action 1: The subject is instructed to touch the opposite shoulder with his/her hand. This motion checks Glenohumeral adduction, internal rotation , horizontal adduction and scapular protraction Action 2: The subject is instructed to place his/her arm overhead and reach behind the neck to touch his/her upper back. This motion checks Glenohumeral abduction, external rotation and scapular upward rotation and elevation. Action 3: The subject puts his/her hand on the lower back and reaches upward as far as possible. This motion checks glenohumeral adduction, internal rotation and scapular retraction with downward rotation Action 1- Left shoulder Action 1- Right shoulder Action 2- Left T2 Action 2- Right ear Action 3- Left T12 Action 3- Right L3 PT-OP-J Posture/Palpation/Skin Start: 04/23/18 14:56 Freq: Status: Active Protocol: Document 04/23/18 16:50 EA (Rec: 04/24/18 10:02 EA [id number]) Posture Evaluation Position Standing Evaluation View Lateral Head/C-Spine Posture Forward Head Shoulder Posture (L) Rounded (R) Rounded Scapula Posture (L) Protracted (R) Protracted Skin Assessment Incisional Assessment Incision Appearance/Comments Incision is covered but no signs of acute infection Other Assessments Skin Assessment Comments Bruise to right low abdominal quadrant, right anterolat arm PT-OP-K Range of Motion Start: 04/23/18 14:56 Freq: Status: Active Protocol: Document 06/25/18 09:05 EA (Rec: 06/25/18 09:47 EA [id number]) Shoulder Goniometric Range of Motion Shoulder Measured in Degrees Right Testing Position Sitting Flexion 45 Extension 55 Abduction 50 External Rotation at 0 degrees Abduction 40 Internal Rotation 50 Right Passive Testing Position Supine Flexion 140 Abduction 140 External Rotation at 90 degrees 65 Abduction External Rotation at 0 degrees Abduction 60 Internal Rotation 40 Left Active Shoulder ROM WFL Yes Shoulder ROM Limitations Shoulder ROM Limitations Muscle Weakness Pain Elbow/Forearm Range of Motion Elbow/Forearm Measured in Degrees Passive Elbow/Forearm ROM WFL Yes PT-OP-M Strength Start: 04/23/18 14:56 Freq: Status: Active Protocol: Document 06/25/18 09:05 EA (Rec: 06/25/18 09:47 EA [id number]) Shoulder Strength Shoulder Manual Muscle Testing Right Flexion 3- Fair- Extension 3 Fair Abduction (C5) 3- Fair- Adduction 3 Fair External Rotation 3- Fair- Internal Rotation 3 Fair Horizontal Abduction 3- Fair- Horizontal Adduction 3 Fair Reason Not Measured Orthopedic Precautions Elbow/Forearm Strength Elbow and Forearm Manual Muscle Testing Left Reason Not Measured WFL Right Flexion (C6) 3+ Fair+ Extension (C7) 3+ Fair+ Pronation 3+ Fair+ Supination 3+ Fair+ Wrist Strength Wrist Manual Muscle Testing Right Flexion (C7) 3+ Fair+ Extension (C6) 3+ Fair+ Ulnar Deviation 3+ Fair+ Radial Deviation 3+ Fair+ PT-OP-Q Treatments Start: 04/23/18 14:56 Freq: Status: Active Protocol: Document 06/28/18 11:11 EA (Rec: 06/28/18 11:15 EA [id number]) Cardio Equipment Upper Body Ergometer (UBE) Duration (Minutes) 6 RPM 15 Seat Position 13 Height 5 Other 30% effort to right UE. Therapeutic Exercises Supine Exercises 11 Supine Exercise Name Shoulder ABD/ER Resistance 1# Reps/Minutes x 15 reps x 2 10 Supine Exercise Name Wand flexion/ press Side bilateral Resistance 1# Reps/Minutes x 15 reps x 2 sets 9 Supine Exercise Name Shoulder Isomet: ABD/FLEX/ER/ IR Reps/Minutes x 5SH x 3reps Comments multijoint angle 8 Supine Exercise Name Triceps ext Side right Resistance Lv 3 TB Reps/Minutes x 10 resp x 2 Comments sitting/standing 7 Supine Exercise Name Shoulder serratus punch Reps/Minutes x 12 reps x 2 sets 6 Supine Exercise Name D1,D2 F/E motion Resistance 1# AW Reps/Minutes 2 sets 5 Supine Exercise Name Horiz ABD Resistance 1# Reps/Minutes x15 reps x 2 sets 4 Supine Exercise Name gentle PROM to flexion Comments gradual progression 3 Supine Exercise Name Wrist AP AROM Resistance 15 reps x 2 sets Comments 1-5# 1 Supine Exercise Name elbow flexion/ext Resistance 1-3# Reps/Minutes 15 reps x 2 Comments Pillow under elbow and fixed side of the the body Sitting Exercises 4 Sitting Exercise Name ER Side right Reps/Minutes x 10 reps x 2 gentle range 2 Sitting Exercise Name bicep curls Resistance 2-4 lbs Reps/Minutes x 12 reps x 2 1 Sitting Exercise Name Mackenzie: flex/abd Reps/Minutes x 15 reps x 2 Comments pain free range Manual Therapy Treatment Soft Tissue Mobilization 1 Body Location Right scapular, traps and deltoid area Mobilization Type Myofascial Release Intensity/Depth Superficial Body Position Supine Manual Techniques 1 Type Manual AROM: Manual resistance : PNF Body Position supine/prone/SL Reps/Duration x 10 reps at mild resistance Comments Shoulder ABD/ADD/ER/IR PT-OP-R Modalities Start: 04/23/18 14:56 Freq: Status: Active Protocol: Document 06/28/18 11:15 EA (Rec: 06/28/18 11:15 EA [id number]) Hot Pack/Cold Pack Treatment Cold Pack Location Right shoulder Patient Position Hooklying Treatment Duration (minutes) 10 Patient Tolerance Good Comments Pillow under arm PT-OP-T Assessment and Plan Start: 04/23/18 14:56 Freq: Status: Active Protocol: Document 06/28/18 11:11 EA (Rec: 06/28/18 11:15 EA [id number]) Physical Therapy Assessment Assessment Summary Assessment Improved shoulder stability and range. Patient continued to progress at this time. Physical Therapy Plan Next Visit Focus/Plan Next Note Type Treatment Note Next Visit Plan Progress per shoulder surgery protocol.
--- NOTE | 2018-07-03 15:11 | PT.OTN ---
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 (07/03/18) Impingement syndrome of right shoulder (07/03/18) Physical Therapy Treatment Note PT-OP-A Visit Information Start: 04/23/18 14:56 Freq: Status: Active Protocol: Document 07/03/18 14:34 EA (Rec: 07/03/18 15:10 EA [id number]) Out-Patient Physical Therapy Visit Information Visit Information Visit Type Treatment Note Visit Start Time 13:45 Visit Stop Time 14:25 Total Visit Minutes 38 PT-OP-B Current Condition Start: 04/23/18 14:56 Freq: Status: Active Protocol: Document 04/23/18 14:58 EA (Rec: 04/23/18 15:09 EA [id number]) Current Condition History of Current Condition Onset Date S/P R rotator cuff repain 04/19 History of Current Condition S/P R rotator cuff repair 04/19 Prior Treatments and Tests Steroid injection in the past few months prior to surgery Future Testing and Treatments Planned None at this time Treatment Goals Patient/Caregiver Goals Back to previous level of function Prior Functional Status Baseline Function- ADL's Independent Baseline Function- Mobility Independent Baseline Function- Other Able to drive and do groceries indep Current Functional Impairments (Reported) Functional Limitations- ADL's Minimal assistance with bathing, personal care Functional Limitations- Mobility/Gait indep Functional Limitations- Work/School Indep Functional Limitations- Other Unable to drive at this time, unable to perform yard work PT-OP-C Subjective Start: 04/23/18 14:56 Freq: Status: Active Protocol: Document 07/03/18 14:34 EA (Rec: 07/03/18 15:10 EA [id number]) OP-PT Subjective Patient Comments Patient Comments Pt reports not consistent with HEP due to busy schedule. Patient Reported Progress Improving PT-OP-E Functional Tests Start: 04/23/18 14:56 Freq: Status: Active Protocol: Document 06/25/18 09:05 EA (Rec: 06/25/18 09:47 EA [id number]) Functional Tests Patricia's Scratch Test Action 1: The subject is instructed to touch the opposite shoulder with his/her hand. This motion checks Glenohumeral adduction, internal rotation , horizontal adduction and scapular protraction Action 2: The subject is instructed to place his/her arm overhead and reach behind the neck to touch his/her upper back. This motion checks Glenohumeral abduction, external rotation and scapular upward rotation and elevation. Action 3: The subject puts his/her hand on the lower back and reaches upward as far as possible. This motion checks glenohumeral adduction, internal rotation and scapular retraction with downward rotation Action 1- Left shoulder Action 1- Right shoulder Action 2- Left T2 Action 2- Right ear Action 3- Left T12 Action 3- Right L3 PT-OP-J Posture/Palpation/Skin Start: 04/23/18 14:56 Freq: Status: Active Protocol: Document 04/23/18 16:50 EA (Rec: 04/24/18 10:02 EA [id number]) Posture Evaluation Position Standing Evaluation View Lateral Head/C-Spine Posture Forward Head Shoulder Posture (L) Rounded (R) Rounded Scapula Posture (L) Protracted (R) Protracted Skin Assessment Incisional Assessment Incision Appearance/Comments Incision is covered but no signs of acute infection Other Assessments Skin Assessment Comments Bruise to right low abdominal quadrant, right anterolat arm PT-OP-K Range of Motion Start: 04/23/18 14:56 Freq: Status: Active Protocol: Document 06/25/18 09:05 EA (Rec: 06/25/18 09:47 EA [id number]) Shoulder Goniometric Range of Motion Shoulder Measured in Degrees Right Testing Position Sitting Flexion 45 Extension 55 Abduction 50 External Rotation at 0 degrees Abduction 40 Internal Rotation 50 Right Passive Testing Position Supine Flexion 140 Abduction 140 External Rotation at 90 degrees 65 Abduction External Rotation at 0 degrees Abduction 60 Internal Rotation 40 Left Active Shoulder ROM WFL Yes Shoulder ROM Limitations Shoulder ROM Limitations Muscle Weakness Pain Elbow/Forearm Range of Motion Elbow/Forearm Measured in Degrees Passive Elbow/Forearm ROM WFL Yes PT-OP-M Strength Start: 04/23/18 14:56 Freq: Status: Active Protocol: Document 06/25/18 09:05 EA (Rec: 06/25/18 09:47 EA [id number]) Shoulder Strength Shoulder Manual Muscle Testing Right Flexion 3- Fair- Extension 3 Fair Abduction (C5) 3- Fair- Adduction 3 Fair External Rotation 3- Fair- Internal Rotation 3 Fair Horizontal Abduction 3- Fair- Horizontal Adduction 3 Fair Reason Not Measured Orthopedic Precautions Elbow/Forearm Strength Elbow and Forearm Manual Muscle Testing Left Reason Not Measured WFL Right Flexion (C6) 3+ Fair+ Extension (C7) 3+ Fair+ Pronation 3+ Fair+ Supination 3+ Fair+ Wrist Strength Wrist Manual Muscle Testing Right Flexion (C7) 3+ Fair+ Extension (C6) 3+ Fair+ Ulnar Deviation 3+ Fair+ Radial Deviation 3+ Fair+ PT-OP-Q Treatments Start: 04/23/18 14:56 Freq: Status: Active Protocol: Document 07/03/18 14:34 EA (Rec: 07/03/18 15:10 EA [id number]) Cardio Equipment Upper Body Ergometer (UBE) Duration (Minutes) 7 RPM 15 Seat Position 13 Height 6 Therapeutic Exercises Supine Exercises 11 Supine Exercise Name Shoulder ABD/ER Resistance 1# Reps/Minutes x 15 reps x 2 10 Supine Exercise Name Wand flexion/ press Side bilateral Resistance 2# Reps/Minutes x 15 reps x 2 sets 9 Supine Exercise Name Shoulder Isomet: ABD/FLEX/ER/ IR Reps/Minutes x 5SH x 3reps Comments multijoint angle 8 Supine Exercise Name Triceps ext Side right Resistance Lv 3 TB Reps/Minutes x 10 resp x 2 Comments sitting/standing 7 Supine Exercise Name Shoulder serratus punch Resistance 2# Reps/Minutes x 12 reps x 2 sets 6 Supine Exercise Name D1,D2 F/E motion Resistance 1# AW Reps/Minutes 2 sets 5 Supine Exercise Name Horiz ABD Resistance 2# Reps/Minutes x15 reps x 2 sets 4 Supine Exercise Name gentle PROM to flexion Comments gradual progression 3 Supine Exercise Name Wrist AP AROM Resistance 15 reps x 2 sets Comments 1-5# 1 Supine Exercise Name elbow flexion/ext Resistance 1-3# Reps/Minutes 15 reps x 2 Comments Pillow under elbow and fixed side of the the body Prone Exercises 1 Prone Exercise Name Shoulder Y-T- exension Reps/Minutes x 10 reps x 2 Comments AROM Sitting Exercises 4 Sitting Exercise Name ER Side right Reps/Minutes x 10 reps x 2 gentle range 3 Sitting Exercise Name Wand shoulder extension Reps/Minutes x 15 reps x 2 2 Sitting Exercise Name bicep curls Resistance 2-4 lbs Reps/Minutes x 12 reps x 2 1 Sitting Exercise Name Mackenzie: flex/abd Reps/Minutes x 15 reps x 2 Comments pain free range Standing Exercises 1 Standing Exercise Name Pendulum: flexion Reps/Minutes x 20 reps Manual Therapy Treatment Manual Techniques 1 Type Manual AROM: Manual resistance : PNF Body Position supine/prone/SL Reps/Duration x 10 reps at mild resistance Comments Shoulder ABD/ADD/ER/IR: Manual min resistance PT-OP-R Modalities Start: 04/23/18 14:56 Freq: Status: Active Protocol: Document 07/03/18 14:34 EA (Rec: 07/03/18 15:10 EA [id number]) Hot Pack/Cold Pack Treatment Cold Pack Location Right shoulder Patient Position Hooklying Treatment Duration (minutes) 10 Patient Tolerance Good Comments Pillow under arm PT-OP-T Assessment and Plan Start: 04/23/18 14:56 Freq: Status: Active Protocol: Document 07/03/18 14:34 EA (Rec: 07/03/18 15:10 EA [id number]) Physical Therapy Assessment Assessment Summary Assessment Pt tolerated treatment.
--- NOTE | 2018-07-03 15:53 | PT.OTN ---
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 (07/03/18) Impingement syndrome of right shoulder (07/03/18) Physical Therapy Treatment Note PT-OP-A Visit Information Start: 04/23/18 14:56 Freq: Status: Active Protocol: Document 07/03/18 14:34 EA (Rec: 07/03/18 15:10 EA [id number]) Out-Patient Physical Therapy Visit Information Visit Information Visit Type Treatment Note Visit Start Time 13:45 Visit Stop Time 14:25 Total Visit Minutes 38 PT-OP-B Current Condition Start: 04/23/18 14:56 Freq: Status: Active Protocol: Document 04/23/18 14:58 EA (Rec: 04/23/18 15:09 EA [id number]) Current Condition History of Current Condition Onset Date S/P R rotator cuff repain 04/19 History of Current Condition S/P R rotator cuff repair 04/19 Prior Treatments and Tests Steroid injection in the past few months prior to surgery Future Testing and Treatments Planned None at this time Treatment Goals Patient/Caregiver Goals Back to previous level of function Prior Functional Status Baseline Function- ADL's Independent Baseline Function- Mobility Independent Baseline Function- Other Able to drive and do groceries indep Current Functional Impairments (Reported) Functional Limitations- ADL's Minimal assistance with bathing, personal care Functional Limitations- Mobility/Gait indep Functional Limitations- Work/School Indep Functional Limitations- Other Unable to drive at this time, unable to perform yard work PT-OP-C Subjective Start: 04/23/18 14:56 Freq: Status: Active Protocol: Document 07/03/18 14:34 EA (Rec: 07/03/18 15:10 EA [id number]) OP-PT Subjective Patient Comments Patient Comments Pt reports not consistent with HEP due to busy schedule. Patient Reported Progress Improving PT-OP-E Functional Tests Start: 04/23/18 14:56 Freq: Status: Active Protocol: Document 06/25/18 09:05 EA (Rec: 06/25/18 09:47 EA [id number]) Functional Tests Patricia's Scratch Test Action 1: The subject is instructed to touch the opposite shoulder with his/her hand. This motion checks Glenohumeral adduction, internal rotation , horizontal adduction and scapular protraction Action 2: The subject is instructed to place his/her arm overhead and reach behind the neck to touch his/her upper back. This motion checks Glenohumeral abduction, external rotation and scapular upward rotation and elevation. Action 3: The subject puts his/her hand on the lower back and reaches upward as far as possible. This motion checks glenohumeral adduction, internal rotation and scapular retraction with downward rotation Action 1- Left shoulder Action 1- Right shoulder Action 2- Left T2 Action 2- Right ear Action 3- Left T12 Action 3- Right L3 PT-OP-J Posture/Palpation/Skin Start: 04/23/18 14:56 Freq: Status: Active Protocol: Document 04/23/18 16:50 EA (Rec: 04/24/18 10:02 EA [id number]) Posture Evaluation Position Standing Evaluation View Lateral Head/C-Spine Posture Forward Head Shoulder Posture (L) Rounded (R) Rounded Scapula Posture (L) Protracted (R) Protracted Skin Assessment Incisional Assessment Incision Appearance/Comments Incision is covered but no signs of acute infection Other Assessments Skin Assessment Comments Bruise to right low abdominal quadrant, right anterolat arm PT-OP-K Range of Motion Start: 04/23/18 14:56 Freq: Status: Active Protocol: Document 06/25/18 09:05 EA (Rec: 06/25/18 09:47 EA [id number]) Shoulder Goniometric Range of Motion Shoulder Measured in Degrees Right Testing Position Sitting Flexion 45 Extension 55 Abduction 50 External Rotation at 0 degrees Abduction 40 Internal Rotation 50 Right Passive Testing Position Supine Flexion 140 Abduction 140 External Rotation at 90 degrees 65 Abduction External Rotation at 0 degrees Abduction 60 Internal Rotation 40 Left Active Shoulder ROM WFL Yes Shoulder ROM Limitations Shoulder ROM Limitations Muscle Weakness Pain Elbow/Forearm Range of Motion Elbow/Forearm Measured in Degrees Passive Elbow/Forearm ROM WFL Yes PT-OP-M Strength Start: 04/23/18 14:56 Freq: Status: Active Protocol: Document 06/25/18 09:05 EA (Rec: 06/25/18 09:47 EA [id number]) Shoulder Strength Shoulder Manual Muscle Testing Right Flexion 3- Fair- Extension 3 Fair Abduction (C5) 3- Fair- Adduction 3 Fair External Rotation 3- Fair- Internal Rotation 3 Fair Horizontal Abduction 3- Fair- Horizontal Adduction 3 Fair Reason Not Measured Orthopedic Precautions Elbow/Forearm Strength Elbow and Forearm Manual Muscle Testing Left Reason Not Measured WFL Right Flexion (C6) 3+ Fair+ Extension (C7) 3+ Fair+ Pronation 3+ Fair+ Supination 3+ Fair+ Wrist Strength Wrist Manual Muscle Testing Right Flexion (C7) 3+ Fair+ Extension (C6) 3+ Fair+ Ulnar Deviation 3+ Fair+ Radial Deviation 3+ Fair+ PT-OP-Q Treatments Start: 04/23/18 14:56 Freq: Status: Active Protocol: Document 07/03/18 14:34 EA (Rec: 07/03/18 15:10 EA [id number]) Cardio Equipment Upper Body Ergometer (UBE) Duration (Minutes) 7 RPM 15 Seat Position 13 Height 6 Therapeutic Exercises Supine Exercises 11 Supine Exercise Name Shoulder ABD/ER Resistance 1# Reps/Minutes x 15 reps x 2 10 Supine Exercise Name Wand flexion/ press Side bilateral Resistance 2# Reps/Minutes x 15 reps x 2 sets 9 Supine Exercise Name Shoulder Isomet: ABD/FLEX/ER/ IR Reps/Minutes x 5SH x 3reps Comments multijoint angle 8 Supine Exercise Name Triceps ext Side right Resistance Lv 3 TB Reps/Minutes x 10 resp x 2 Comments sitting/standing 7 Supine Exercise Name Shoulder serratus punch Resistance 2# Reps/Minutes x 12 reps x 2 sets 6 Supine Exercise Name D1,D2 F/E motion Resistance 1# AW Reps/Minutes 2 sets 5 Supine Exercise Name Horiz ABD Resistance 2# Reps/Minutes x15 reps x 2 sets 4 Supine Exercise Name gentle PROM to flexion Comments gradual progression 3 Supine Exercise Name Wrist AP AROM Resistance 15 reps x 2 sets Comments 1-5# 1 Supine Exercise Name elbow flexion/ext Resistance 1-3# Reps/Minutes 15 reps x 2 Comments Pillow under elbow and fixed side of the the body Prone Exercises 1 Prone Exercise Name Shoulder Y-T- exension Reps/Minutes x 10 reps x 2 Comments AROM Sitting Exercises 4 Sitting Exercise Name ER Side right Reps/Minutes x 10 reps x 2 gentle range 3 Sitting Exercise Name Wand shoulder extension Reps/Minutes x 15 reps x 2 2 Sitting Exercise Name bicep curls Resistance 2-4 lbs Reps/Minutes x 12 reps x 2 1 Sitting Exercise Name Mackenzie: flex/abd Reps/Minutes x 15 reps x 2 Comments pain free range Standing Exercises 1 Standing Exercise Name Pendulum: flexion Reps/Minutes x 20 reps Manual Therapy Treatment Manual Techniques 1 Type Manual AROM: Manual resistance : PNF Body Position supine/prone/SL Reps/Duration x 10 reps at mild resistance Comments Shoulder ABD/ADD/ER/IR: Manual min resistance PT-OP-R Modalities Start: 04/23/18 14:56 Freq: Status: Active Protocol: Document 07/03/18 14:34 EA (Rec: 07/03/18 15:10 EA [id number]) Hot Pack/Cold Pack Treatment Cold Pack Location Right shoulder Patient Position Hooklying Treatment Duration (minutes) 10 Patient Tolerance Good Comments Pillow under arm PT-OP-T Assessment and Plan Start: 04/23/18 14:56 Freq: Status: Active Protocol: Document 07/03/18 14:34 EA (Rec: 07/03/18 15:10 EA [id number]) Physical Therapy Assessment Assessment Summary Assessment Pt tolerated treatment.
--- NOTE | 2018-07-10 16:46 | PT.OTN ---
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 (07/10/18) Impingement syndrome of right shoulder (07/10/18) Physical Therapy Treatment Note PT-OP-A Visit Information Start: 04/23/18 14:56 Freq: Status: Active Protocol: Document 07/10/18 14:25 EA (Rec: 07/10/18 14:32 EA [id number]) Out-Patient Physical Therapy Visit Information Visit Information Visit Type Treatment Note Visit Start Time 13:45 Visit Stop Time 14:25 Total Visit Minutes 38 PT-OP-B Current Condition Start: 04/23/18 14:56 Freq: Status: Active Protocol: Document 04/23/18 14:58 EA (Rec: 04/23/18 15:09 EA [id number]) Current Condition History of Current Condition Onset Date S/P R rotator cuff repain 04/19 History of Current Condition S/P R rotator cuff repair 04/19 Prior Treatments and Tests Steroid injection in the past few months prior to surgery Future Testing and Treatments Planned None at this time Treatment Goals Patient/Caregiver Goals Back to previous level of function Prior Functional Status Baseline Function- ADL's Independent Baseline Function- Mobility Independent Baseline Function- Other Able to drive and do groceries indep Current Functional Impairments (Reported) Functional Limitations- ADL's Minimal assistance with bathing, personal care Functional Limitations- Mobility/Gait indep Functional Limitations- Work/School Indep Functional Limitations- Other Unable to drive at this time, unable to perform yard work PT-OP-C Subjective Start: 04/23/18 14:56 Freq: Status: Active Protocol: Document 07/03/18 14:34 EA (Rec: 07/03/18 15:10 EA [id number]) OP-PT Subjective Patient Comments Patient Comments Pt reports not consistent with HEP due to busy schedule. Patient Reported Progress Improving PT-OP-E Functional Tests Start: 04/23/18 14:56 Freq: Status: Active Protocol: Document 06/25/18 09:05 EA (Rec: 06/25/18 09:47 EA [id number]) Functional Tests Lorenzoey's Scratch Test Action 1: The subject is instructed to touch the opposite shoulder with his/her hand. This motion checks Glenohumeral adduction, internal rotation , horizontal adduction and scapular protraction Action 2: The subject is instructed to place his/her arm overhead and reach behind the neck to touch his/her upper back. This motion checks Glenohumeral abduction, external rotation and scapular upward rotation and elevation. Action 3: The subject puts his/her hand on the lower back and reaches upward as far as possible. This motion checks glenohumeral adduction, internal rotation and scapular retraction with downward rotation Action 1- Left shoulder Action 1- Right shoulder Action 2- Left T2 Action 2- Right ear Action 3- Left T12 Action 3- Right L3 PT-OP-J Posture/Palpation/Skin Start: 04/23/18 14:56 Freq: Status: Active Protocol: Document 04/23/18 16:50 EA (Rec: 04/24/18 10:02 EA [id number]) Posture Evaluation Position Standing Evaluation View Lateral Head/C-Spine Posture Forward Head Shoulder Posture (L) Rounded (R) Rounded Scapula Posture (L) Protracted (R) Protracted Skin Assessment Incisional Assessment Incision Appearance/Comments Incision is covered but no signs of acute infection Other Assessments Skin Assessment Comments Bruise to right low abdominal quadrant, right anterolat arm PT-OP-K Range of Motion Start: 04/23/18 14:56 Freq: Status: Active Protocol: Document 06/25/18 09:05 EA (Rec: 06/25/18 09:47 EA [id number]) Shoulder Goniometric Range of Motion Shoulder Measured in Degrees Right Testing Position Sitting Flexion 45 Extension 55 Abduction 50 External Rotation at 0 degrees Abduction 40 Internal Rotation 50 Right Passive Testing Position Supine Flexion 140 Abduction 140 External Rotation at 90 degrees 65 Abduction External Rotation at 0 degrees Abduction 60 Internal Rotation 40 Left Active Shoulder ROM WFL Yes Shoulder ROM Limitations Shoulder ROM Limitations Muscle Weakness Pain Elbow/Forearm Range of Motion Elbow/Forearm Measured in Degrees Passive Elbow/Forearm ROM WFL Yes PT-OP-M Strength Start: 04/23/18 14:56 Freq: Status: Active Protocol: Document 06/25/18 09:05 EA (Rec: 06/25/18 09:47 EA [id number]) Shoulder Strength Shoulder Manual Muscle Testing Right Flexion 3- Fair- Extension 3 Fair Abduction (C5) 3- Fair- Adduction 3 Fair External Rotation 3- Fair- Internal Rotation 3 Fair Horizontal Abduction 3- Fair- Horizontal Adduction 3 Fair Reason Not Measured Orthopedic Precautions Elbow/Forearm Strength Elbow and Forearm Manual Muscle Testing Left Reason Not Measured WFL Right Flexion (C6) 3+ Fair+ Extension (C7) 3+ Fair+ Pronation 3+ Fair+ Supination 3+ Fair+ Wrist Strength Wrist Manual Muscle Testing Right Flexion (C7) 3+ Fair+ Extension (C6) 3+ Fair+ Ulnar Deviation 3+ Fair+ Radial Deviation 3+ Fair+ PT-OP-Q Treatments Start: 04/23/18 14:56 Freq: Status: Active Protocol: Document 07/10/18 14:25 EA (Rec: 07/10/18 14:32 EA [id number]) Cardio Equipment Upper Body Ergometer (UBE) Duration (Minutes) 7 RPM 15 Seat Position 13 Height 6-6.5 Gym Equipment Cable Column (Body Solid) Lat Pull Down Details Adjusted cablle: single arm pull down, mid and low row Resistance 15 lbs Reps/Time x 1 reps Therapeutic Exercises Supine Exercises 11 Supine Exercise Name Shoulder ABD/ER Resistance 1# Reps/Minutes x 15 reps x 2 8 Supine Exercise Name Triceps ext Side right Resistance Lv 3 TB Reps/Minutes x 10 resp x 2 Comments sitting/standing 7 Supine Exercise Name Shoulder serratus punch Resistance 2# Reps/Minutes x 12 reps x 2 sets 6 Supine Exercise Name D1,D2 F/E motion Resistance 1# AW Reps/Minutes 2 sets 5 Supine Exercise Name Horiz ABD Resistance 2# Reps/Minutes x15 reps x 2 sets Prone Exercises 1 Prone Exercise Name Shoulder Y-T- exension Reps/Minutes x 10 reps x 2 Comments AROM Sitting Exercises 3 Sitting Exercise Name Wand shoulder extension Resistance 7lbs Reps/Minutes x 15 reps x 2 2 Sitting Exercise Name bicep curls Resistance 2-4 lbs Reps/Minutes x 12 reps x 2 Standing Exercises 3 Standing Exercise Name T-bar shouder EXT Resistance 7lbs Reps/Minutes x 15 reps 2 Standing Exercise Name ER/IR Side right Resistance Lv1 Reps/Minutes x 12 reps 1 Standing Exercise Name T-bar flexion?abd half upper range Resistance 2 lbs Reps/Minutes x15 reps x 2 Comments tactile guide PT-OP-R Modalities Start: 04/23/18 14:56 Freq: Status: Active Protocol: Document 07/03/18 14:34 EA (Rec: 07/03/18 15:10 EA [id number]) Hot Pack/Cold Pack Treatment Cold Pack Location Right shoulder Patient Position Hooklying Treatment Duration (minutes) 10 Patient Tolerance Good Comments Pillow under arm PT-OP-T Assessment and Plan Start: 04/23/18 14:56 Freq: Status: Active Protocol: Document 07/10/18 14:25 EA (Rec: 07/10/18 14:32 EA [id number]) Physical Therapy Assessment Assessment Summary Assessment Noted improved strength with no discomfort at this time. Patient is progressing well. Physical Therapy Plan Next Visit Focus/Plan Next Note Type Treatment Note Next Visit Plan Progress as tolerated
--- NOTE | 2018-07-17 17:00 | PT.OTN ---
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 (07/17/18) Impingement syndrome of right shoulder (07/17/18) Physical Therapy Treatment Note PT-OP-A Visit Information Start: 04/23/18 14:56 Freq: Status: Active Protocol: Document 07/17/18 13:50 EA (Rec: 07/17/18 15:12 EA [id number]) Out-Patient Physical Therapy Visit Information Visit Information Visit Type Treatment Note Visit Start Time 13:45 Visit Stop Time 14:25 Total Visit Minutes 38 PT-OP-B Current Condition Start: 04/23/18 14:56 Freq: Status: Active Protocol: Document 04/23/18 14:58 EA (Rec: 04/23/18 15:09 EA [id number]) Current Condition History of Current Condition Onset Date S/P R rotator cuff repain 04/19 History of Current Condition S/P R rotator cuff repair 04/19 Prior Treatments and Tests Steroid injection in the past few months prior to surgery Future Testing and Treatments Planned None at this time Treatment Goals Patient/Caregiver Goals Back to previous level of function Prior Functional Status Baseline Function- ADL's Independent Baseline Function- Mobility Independent Baseline Function- Other Able to drive and do groceries indep Current Functional Impairments (Reported) Functional Limitations- ADL's Minimal assistance with bathing, personal care Functional Limitations- Mobility/Gait indep Functional Limitations- Work/School Indep Functional Limitations- Other Unable to drive at this time, unable to perform yard work PT-OP-C Subjective Start: 04/23/18 14:56 Freq: Status: Active Protocol: Document 07/17/18 13:50 EA (Rec: 07/17/18 15:12 EA [id number]) OP-PT Subjective Patient Comments Patient Comments Pt reports pain occurs mostly with overhead and extreme rotation; denies pain at rest. Reports compliant with HEP. PT-OP-E Functional Tests Start: 04/23/18 14:56 Freq: Status: Active Protocol: Document 06/25/18 09:05 EA (Rec: 06/25/18 09:47 EA [id number]) Functional Tests Lorenzoey's Scratch Test Action 1: The subject is instructed to touch the opposite shoulder with his/her hand. This motion checks Glenohumeral adduction, internal rotation , horizontal adduction and scapular protraction Action 2: The subject is instructed to place his/her arm overhead and reach behind the neck to touch his/her upper back. This motion checks Glenohumeral abduction, external rotation and scapular upward rotation and elevation. Action 3: The subject puts his/her hand on the lower back and reaches upward as far as possible. This motion checks glenohumeral adduction, internal rotation and scapular retraction with downward rotation Action 1- Left shoulder Action 1- Right shoulder Action 2- Left T2 Action 2- Right ear Action 3- Left T12 Action 3- Right L3 PT-OP-J Posture/Palpation/Skin Start: 04/23/18 14:56 Freq: Status: Active Protocol: Document 04/23/18 16:50 EA (Rec: 04/24/18 10:02 EA [id number]) Posture Evaluation Position Standing Evaluation View Lateral Head/C-Spine Posture Forward Head Shoulder Posture (L) Rounded (R) Rounded Scapula Posture (L) Protracted (R) Protracted Skin Assessment Incisional Assessment Incision Appearance/Comments Incision is covered but no signs of acute infection Other Assessments Skin Assessment Comments Bruise to right low abdominal quadrant, right anterolat arm PT-OP-K Range of Motion Start: 04/23/18 14:56 Freq: Status: Active Protocol: Document 06/25/18 09:05 EA (Rec: 06/25/18 09:47 EA [id number]) Shoulder Goniometric Range of Motion Shoulder Measured in Degrees Right Testing Position Sitting Flexion 45 Extension 55 Abduction 50 External Rotation at 0 degrees Abduction 40 Internal Rotation 50 Right Passive Testing Position Supine Flexion 140 Abduction 140 External Rotation at 90 degrees 65 Abduction External Rotation at 0 degrees Abduction 60 Internal Rotation 40 Left Active Shoulder ROM WFL Yes Shoulder ROM Limitations Shoulder ROM Limitations Muscle Weakness Pain Elbow/Forearm Range of Motion Elbow/Forearm Measured in Degrees Passive Elbow/Forearm ROM WFL Yes PT-OP-M Strength Start: 04/23/18 14:56 Freq: Status: Active Protocol: Document 06/25/18 09:05 EA (Rec: 06/25/18 09:47 EA [id number]) Shoulder Strength Shoulder Manual Muscle Testing Right Flexion 3- Fair- Extension 3 Fair Abduction (C5) 3- Fair- Adduction 3 Fair External Rotation 3- Fair- Internal Rotation 3 Fair Horizontal Abduction 3- Fair- Horizontal Adduction 3 Fair Reason Not Measured Orthopedic Precautions Elbow/Forearm Strength Elbow and Forearm Manual Muscle Testing Left Reason Not Measured WFL Right Flexion (C6) 3+ Fair+ Extension (C7) 3+ Fair+ Pronation 3+ Fair+ Supination 3+ Fair+ Wrist Strength Wrist Manual Muscle Testing Right Flexion (C7) 3+ Fair+ Extension (C6) 3+ Fair+ Ulnar Deviation 3+ Fair+ Radial Deviation 3+ Fair+ PT-OP-Q Treatments Start: 04/23/18 14:56 Freq: Status: Active Protocol: Document 07/17/18 13:50 EA (Rec: 07/17/18 15:12 EA [id number]) Cardio Equipment Upper Body Ergometer (UBE) Duration (Minutes) 7 RPM 15 Seat Position 13 Height 6-6.5 Gym Equipment Cable Column (Body Solid) Lat Pull Down Details Adjusted cablle: single arm pull down, mid and low row Resistance 15 lbs Reps/Time x 1 reps Therapeutic Exercises Supine Exercises 11 Supine Exercise Name Shoulder ABD/ER Resistance 1# Reps/Minutes x 15 reps x 2 8 Supine Exercise Name Triceps ext Side right Resistance Lv 3 TB Reps/Minutes x 10 resp x 2 Comments sitting/standing 7 Supine Exercise Name Shoulder serratus punch Resistance 4# Reps/Minutes x 12 reps x 2 sets 6 Supine Exercise Name D1,D2 F/E motion Resistance 1# AW Reps/Minutes 2 sets 5 Supine Exercise Name Horiz ABD Resistance 3# Reps/Minutes x15 reps x 2 sets Prone Exercises 1 Prone Exercise Name Shoulder Y-T- exension Resistance 1# Reps/Minutes x 10 reps x 2 Sitting Exercises 3 Sitting Exercise Name Wand shoulder extension Resistance 7lbs Reps/Minutes x 15 reps x 2 2 Sitting Exercise Name bicep curls Resistance 2-4 lbs Reps/Minutes x 12 reps x 2 Standing Exercises 4 Standing Exercise Name wall slide flexion/ABD 3 Standing Exercise Name T-bar shouder EXT Resistance 7lbs Reps/Minutes x 15 reps 2 Standing Exercise Name ER/IR Side right Resistance Lv1 Reps/Minutes x 12 reps 1 Standing Exercise Name T-bar flexion/abd full upper range Resistance 2 lbs Reps/Minutes x15 reps x 2 Comments tactile guide Manual Therapy Treatment Soft Tissue Mobilization 1 Body Location Right scapular, traps and deltoid area Mobilization Type Myofascial Release Intensity/Depth Superficial Body Position Supine PT-OP-R Modalities Start: 04/23/18 14:56 Freq: Status: Active Protocol: Document 07/03/18 14:34 EA (Rec: 07/03/18 15:10 EA [id number]) Hot Pack/Cold Pack Treatment Cold Pack Location Right shoulder Patient Position Hooklying Treatment Duration (minutes) 10 Patient Tolerance Good Comments Pillow under arm PT-OP-T Assessment and Plan Start: 04/23/18 14:56 Freq: Status: Active Protocol: Document 07/17/18 13:50 EA (Rec: 07/17/18 15:12 EA [id number]) Physical Therapy Assessment Assessment Summary Assessment Pt exhibits improved functional mobility with slight discomfort; patient learned to decreased substitution movement. Overall patient is progressing well. Physical Therapy Plan Next Visit Focus/Plan Next Note Type Treatment Note Next Visit Plan Progress as tolerated
--- NOTE | 2018-07-19 17:35 | PT.OTN ---
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 (07/25/18) Impingement syndrome of right shoulder (07/25/18) Physical Therapy Treatment Note PT-OP-A Visit Information Start: 04/23/18 14:56 Freq: Status: Active Protocol: Document 07/25/18 13:41 EA (Rec: 07/25/18 13:45 EA [id number]) Out-Patient Physical Therapy Visit Information Visit Information Visit Type Treatment Note Visit Start Time 13:45 Visit Stop Time 14:25 Total Visit Minutes 40 PT-OP-B Current Condition Start: 04/23/18 14:56 Freq: Status: Active Protocol: Document 04/23/18 14:58 EA (Rec: 04/23/18 15:09 EA [id number]) Current Condition History of Current Condition Onset Date S/P R rotator cuff repain 04/19 History of Current Condition S/P R rotator cuff repair 04/19 Prior Treatments and Tests Steroid injection in the past few months prior to surgery Future Testing and Treatments Planned None at this time Treatment Goals Patient/Caregiver Goals Back to previous level of function Prior Functional Status Baseline Function- ADL's Independent Baseline Function- Mobility Independent Baseline Function- Other Able to drive and do groceries indep Current Functional Impairments (Reported) Functional Limitations- ADL's Minimal assistance with bathing, personal care Functional Limitations- Mobility/Gait indep Functional Limitations- Work/School Indep Functional Limitations- Other Unable to drive at this time, unable to perform yard work PT-OP-C Subjective Start: 04/23/18 14:56 Freq: Status: Active Protocol: Document 07/25/18 13:41 EA (Rec: 07/25/18 13:45 EA [id number]) OP-PT Subjective Patient Comments Patient Comments Pt reports no pain but weakness; states complaint with HEP. PT-OP-E Functional Tests Start: 04/23/18 14:56 Freq: Status: Active Protocol: Document 06/25/18 09:05 EA (Rec: 06/25/18 09:47 EA [id number]) Functional Tests Lorenzoey's Scratch Test Action 1: The subject is instructed to touch the opposite shoulder with his/her hand. This motion checks Glenohumeral adduction, internal rotation , horizontal adduction and scapular protraction Action 2: The subject is instructed to place his/her arm overhead and reach behind the neck to touch his/her upper back. This motion checks Glenohumeral abduction, external rotation and scapular upward rotation and elevation. Action 3: The subject puts his/her hand on the lower back and reaches upward as far as possible. This motion checks glenohumeral adduction, internal rotation and scapular retraction with downward rotation Action 1- Left shoulder Action 1- Right shoulder Action 2- Left T2 Action 2- Right ear Action 3- Left T12 Action 3- Right L3 PT-OP-J Posture/Palpation/Skin Start: 04/23/18 14:56 Freq: Status: Active Protocol: Document 04/23/18 16:50 EA (Rec: 04/24/18 10:02 EA [id number]) Posture Evaluation Position Standing Evaluation View Lateral Head/C-Spine Posture Forward Head Shoulder Posture (L) Rounded (R) Rounded Scapula Posture (L) Protracted (R) Protracted Skin Assessment Incisional Assessment Incision Appearance/Comments Incision is covered but no signs of acute infection Other Assessments Skin Assessment Comments Bruise to right low abdominal quadrant, right anterolat arm PT-OP-K Range of Motion Start: 04/23/18 14:56 Freq: Status: Active Protocol: Document 06/25/18 09:05 EA (Rec: 06/25/18 09:47 EA [id number]) Shoulder Goniometric Range of Motion Shoulder Measured in Degrees Right Testing Position Sitting Flexion 45 Extension 55 Abduction 50 External Rotation at 0 degrees Abduction 40 Internal Rotation 50 Right Passive Testing Position Supine Flexion 140 Abduction 140 External Rotation at 90 degrees 65 Abduction External Rotation at 0 degrees Abduction 60 Internal Rotation 40 Left Active Shoulder ROM WFL Yes Shoulder ROM Limitations Shoulder ROM Limitations Muscle Weakness Pain Elbow/Forearm Range of Motion Elbow/Forearm Measured in Degrees Passive Elbow/Forearm ROM WFL Yes PT-OP-M Strength Start: 04/23/18 14:56 Freq: Status: Active Protocol: Document 06/25/18 09:05 EA (Rec: 06/25/18 09:47 EA [id number]) Shoulder Strength Shoulder Manual Muscle Testing Right Flexion 3- Fair- Extension 3 Fair Abduction (C5) 3- Fair- Adduction 3 Fair External Rotation 3- Fair- Internal Rotation 3 Fair Horizontal Abduction 3- Fair- Horizontal Adduction 3 Fair Reason Not Measured Orthopedic Precautions Elbow/Forearm Strength Elbow and Forearm Manual Muscle Testing Left Reason Not Measured WFL Right Flexion (C6) 3+ Fair+ Extension (C7) 3+ Fair+ Pronation 3+ Fair+ Supination 3+ Fair+ Wrist Strength Wrist Manual Muscle Testing Right Flexion (C7) 3+ Fair+ Extension (C6) 3+ Fair+ Ulnar Deviation 3+ Fair+ Radial Deviation 3+ Fair+ PT-OP-Q Treatments Start: 04/23/18 14:56 Freq: Status: Active Protocol: Document 07/25/18 13:41 EA (Rec: 07/25/18 13:45 EA [id number]) Cardio Equipment Upper Body Ergometer (UBE) Duration (Minutes) 7 RPM 15 Seat Position 13 Height 5-7 Gym Equipment Cable Column (Body Solid) Lat Pull Down Details Adjusted cablle: single arm pull down, mid and low row Resistance 20-30 lbs Reps/Time x 1 reps Therapeutic Exercises Supine Exercises 11 Supine Exercise Name Shoulder ABD/ER Resistance 1# Reps/Minutes x 15 reps x 2 Prone Exercises 1 Prone Exercise Name Shoulder Y-T- exension Resistance 1# Reps/Minutes x 10 reps x 2 Sitting Exercises 4 Sitting Exercise Name ER Side right Resistance 1# Reps/Minutes x 10 reps x 2 gentle range 3 Sitting Exercise Name Wand shoulder extension Resistance 7lbs Reps/Minutes x 15 reps x 2 Standing Exercises 5 Standing Exercise Name Body blade Side right Reps/Minutes x 30Sec x 3 reps 4 Standing Exercise Name wall slide flexion/ABD 3 Standing Exercise Name T-bar shouder EXT Resistance 7lbs Reps/Minutes x 15 reps 2 Standing Exercise Name ER/IR Side right Resistance Lv1 Reps/Minutes x 12 reps 1 Standing Exercise Name T-bar flexion/abd full upper range Resistance 2 lbs Reps/Minutes x15 reps x 2 Comments tactile guide PT-OP-R Modalities Start: 04/23/18 14:56 Freq: Status: Active Protocol: Document 07/26/18 13:14 EA (Rec: 07/26/18 13:14 EA [id number]) Hot Pack/Cold Pack Treatment Cold Pack Location right shoulder Patient Position Hooklying Patient Tolerance Good PT-OP-T Assessment and Plan Start: 04/23/18 14:56 Freq: Status: Active Protocol: Document 07/25/18 13:41 EA (Rec: 07/25/18 13:45 EA [id number]) Physical Therapy Assessment Assessment Summary Assessment Pt cont to exhibit shoulder strength improvement. Cont with current plan. Advance as tolerated Physical Therapy Plan Next Visit Focus/Plan Next Note Type Treatment Note Next Visit Plan Progress as tolerated
--- NOTE | 2018-07-25 15:10 | PT.OTN ---
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 (07/25/18) Impingement syndrome of right shoulder (07/25/18) Physical Therapy Treatment Note PT-OP-A Visit Information Start: 04/23/18 14:56 Freq: Status: Active Protocol: Document 07/25/18 13:41 EA (Rec: 07/25/18 13:45 EA [id number]) Out-Patient Physical Therapy Visit Information Visit Information Visit Type Treatment Note Visit Start Time 13:45 Visit Stop Time 14:25 Total Visit Minutes 40 PT-OP-B Current Condition Start: 04/23/18 14:56 Freq: Status: Active Protocol: Document 04/23/18 14:58 EA (Rec: 04/23/18 15:09 EA [id number]) Current Condition History of Current Condition Onset Date S/P R rotator cuff repain 04/19 History of Current Condition S/P R rotator cuff repair 04/19 Prior Treatments and Tests Steroid injection in the past few months prior to surgery Future Testing and Treatments Planned None at this time Treatment Goals Patient/Caregiver Goals Back to previous level of function Prior Functional Status Baseline Function- ADL's Independent Baseline Function- Mobility Independent Baseline Function- Other Able to drive and do groceries indep Current Functional Impairments (Reported) Functional Limitations- ADL's Minimal assistance with bathing, personal care Functional Limitations- Mobility/Gait indep Functional Limitations- Work/School Indep Functional Limitations- Other Unable to drive at this time, unable to perform yard work PT-OP-C Subjective Start: 04/23/18 14:56 Freq: Status: Active Protocol: Document 07/25/18 13:41 EA (Rec: 07/25/18 13:45 EA [id number]) OP-PT Subjective Patient Comments Patient Comments Pt reports no pain but weakness; states complaint with HEP. PT-OP-E Functional Tests Start: 04/23/18 14:56 Freq: Status: Active Protocol: Document 06/25/18 09:05 EA (Rec: 06/25/18 09:47 EA [id number]) Functional Tests Lorenzoey's Scratch Test Action 1: The subject is instructed to touch the opposite shoulder with his/her hand. This motion checks Glenohumeral adduction, internal rotation , horizontal adduction and scapular protraction Action 2: The subject is instructed to place his/her arm overhead and reach behind the neck to touch his/her upper back. This motion checks Glenohumeral abduction, external rotation and scapular upward rotation and elevation. Action 3: The subject puts his/her hand on the lower back and reaches upward as far as possible. This motion checks glenohumeral adduction, internal rotation and scapular retraction with downward rotation Action 1- Left shoulder Action 1- Right shoulder Action 2- Left T2 Action 2- Right ear Action 3- Left T12 Action 3- Right L3 PT-OP-J Posture/Palpation/Skin Start: 04/23/18 14:56 Freq: Status: Active Protocol: Document 04/23/18 16:50 EA (Rec: 04/24/18 10:02 EA [id number]) Posture Evaluation Position Standing Evaluation View Lateral Head/C-Spine Posture Forward Head Shoulder Posture (L) Rounded (R) Rounded Scapula Posture (L) Protracted (R) Protracted Skin Assessment Incisional Assessment Incision Appearance/Comments Incision is covered but no signs of acute infection Other Assessments Skin Assessment Comments Bruise to right low abdominal quadrant, right anterolat arm PT-OP-K Range of Motion Start: 04/23/18 14:56 Freq: Status: Active Protocol: Document 06/25/18 09:05 EA (Rec: 06/25/18 09:47 EA [id number]) Shoulder Goniometric Range of Motion Shoulder Measured in Degrees Right Testing Position Sitting Flexion 45 Extension 55 Abduction 50 External Rotation at 0 degrees Abduction 40 Internal Rotation 50 Right Passive Testing Position Supine Flexion 140 Abduction 140 External Rotation at 90 degrees 65 Abduction External Rotation at 0 degrees Abduction 60 Internal Rotation 40 Left Active Shoulder ROM WFL Yes Shoulder ROM Limitations Shoulder ROM Limitations Muscle Weakness Pain Elbow/Forearm Range of Motion Elbow/Forearm Measured in Degrees Passive Elbow/Forearm ROM WFL Yes PT-OP-M Strength Start: 04/23/18 14:56 Freq: Status: Active Protocol: Document 06/25/18 09:05 EA (Rec: 06/25/18 09:47 EA [id number]) Shoulder Strength Shoulder Manual Muscle Testing Right Flexion 3- Fair- Extension 3 Fair Abduction (C5) 3- Fair- Adduction 3 Fair External Rotation 3- Fair- Internal Rotation 3 Fair Horizontal Abduction 3- Fair- Horizontal Adduction 3 Fair Reason Not Measured Orthopedic Precautions Elbow/Forearm Strength Elbow and Forearm Manual Muscle Testing Left Reason Not Measured WFL Right Flexion (C6) 3+ Fair+ Extension (C7) 3+ Fair+ Pronation 3+ Fair+ Supination 3+ Fair+ Wrist Strength Wrist Manual Muscle Testing Right Flexion (C7) 3+ Fair+ Extension (C6) 3+ Fair+ Ulnar Deviation 3+ Fair+ Radial Deviation 3+ Fair+ PT-OP-Q Treatments Start: 04/23/18 14:56 Freq: Status: Active Protocol: Document 07/25/18 13:41 EA (Rec: 07/25/18 13:45 EA [id number]) Cardio Equipment Upper Body Ergometer (UBE) Duration (Minutes) 7 RPM 15 Seat Position 13 Height 5-7 Gym Equipment Cable Column (Body Solid) Lat Pull Down Details Adjusted cablle: single arm pull down, mid and low row Resistance 20-30 lbs Reps/Time x 1 reps Therapeutic Exercises Supine Exercises 11 Supine Exercise Name Shoulder ABD/ER Resistance 1# Reps/Minutes x 15 reps x 2 Prone Exercises 1 Prone Exercise Name Shoulder Y-T- exension Resistance 1# Reps/Minutes x 10 reps x 2 Sitting Exercises 4 Sitting Exercise Name ER Side right Resistance 1# Reps/Minutes x 10 reps x 2 gentle range 3 Sitting Exercise Name Wand shoulder extension Resistance 7lbs Reps/Minutes x 15 reps x 2 Standing Exercises 5 Standing Exercise Name Body blade Side right Reps/Minutes x 30Sec x 3 reps 4 Standing Exercise Name wall slide flexion/ABD 3 Standing Exercise Name T-bar shouder EXT Resistance 7lbs Reps/Minutes x 15 reps 2 Standing Exercise Name ER/IR Side right Resistance Lv1 Reps/Minutes x 12 reps 1 Standing Exercise Name T-bar flexion/abd full upper range Resistance 2 lbs Reps/Minutes x15 reps x 2 Comments tactile guide PT-OP-R Modalities Start: 04/23/18 14:56 Freq: Status: Active Protocol: Document 07/25/18 13:45 EA (Rec: 07/25/18 13:45 EA [id number]) Hot Pack/Cold Pack Treatment Cold Pack Location right shoulder Patient Position Hooklying Patient Tolerance Good PT-OP-T Assessment and Plan Start: 04/23/18 14:56 Freq: Status: Active Protocol: Document 07/25/18 13:41 EA (Rec: 07/25/18 13:45 EA [id number]) Physical Therapy Assessment Assessment Summary Assessment Pt cont to exhibit shoulder strength improvement. Cont with current plan. Advance as tolerated Physical Therapy Plan Next Visit Focus/Plan Next Note Type Treatment Note Next Visit Plan Progress as tolerated
--- NOTE | 2018-08-01 15:54 | PT.OTN ---
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 (08/01/18) Impingement syndrome of right shoulder (08/01/18) Physical Therapy Treatment Note PT-OP-A Visit Information Start: 04/23/18 14:56 Freq: Status: Active Protocol: Document 08/01/18 13:09 EA (Rec: 08/01/18 13:51 EA [id number]) Out-Patient Physical Therapy Visit Information Visit Information Visit Type Treatment Note Visit Start Time 13:00 Visit Stop Time 13:45 Total Visit Minutes 45 PT-OP-B Current Condition Start: 04/23/18 14:56 Freq: Status: Active Protocol: Document 04/23/18 14:58 EA (Rec: 04/23/18 15:09 EA [id number]) Current Condition History of Current Condition Onset Date S/P R rotator cuff repain 04/19 History of Current Condition S/P R rotator cuff repair 04/19 Prior Treatments and Tests Steroid injection in the past few months prior to surgery Future Testing and Treatments Planned None at this time Treatment Goals Patient/Caregiver Goals Back to previous level of function Prior Functional Status Baseline Function- ADL's Independent Baseline Function- Mobility Independent Baseline Function- Other Able to drive and do groceries indep Current Functional Impairments (Reported) Functional Limitations- ADL's Minimal assistance with bathing, personal care Functional Limitations- Mobility/Gait indep Functional Limitations- Work/School Indep Functional Limitations- Other Unable to drive at this time, unable to perform yard work PT-OP-C Subjective Start: 04/23/18 14:56 Freq: Status: Active Protocol: Document 08/01/18 13:09 EA (Rec: 08/01/18 13:51 EA [id number]) OP-PT Subjective Patient Comments Patient Comments Pt reports compliant with HEP; states weakness still noticeable with arm twisting. Pt reports wrist pain limits his ability to strengthen shoulder. Patient Reported Progress Improving PT-OP-E Functional Tests Start: 04/23/18 14:56 Freq: Status: Active Protocol: Document 06/25/18 09:05 EA (Rec: 06/25/18 09:47 EA [id number]) Functional Tests Lorenzoey's Scratch Test Action 1: The subject is instructed to touch the opposite shoulder with his/her hand. This motion checks Glenohumeral adduction, internal rotation , horizontal adduction and scapular protraction Action 2: The subject is instructed to place his/her arm overhead and reach behind the neck to touch his/her upper back. This motion checks Glenohumeral abduction, external rotation and scapular upward rotation and elevation. Action 3: The subject puts his/her hand on the lower back and reaches upward as far as possible. This motion checks glenohumeral adduction, internal rotation and scapular retraction with downward rotation Action 1- Left shoulder Action 1- Right shoulder Action 2- Left T2 Action 2- Right ear Action 3- Left T12 Action 3- Right L3 PT-OP-J Posture/Palpation/Skin Start: 04/23/18 14:56 Freq: Status: Active Protocol: Document 04/23/18 16:50 EA (Rec: 04/24/18 10:02 EA [id number]) Posture Evaluation Position Standing Evaluation View Lateral Head/C-Spine Posture Forward Head Shoulder Posture (L) Rounded (R) Rounded Scapula Posture (L) Protracted (R) Protracted Skin Assessment Incisional Assessment Incision Appearance/Comments Incision is covered but no signs of acute infection Other Assessments Skin Assessment Comments Bruise to right low abdominal quadrant, right anterolat arm PT-OP-K Range of Motion Start: 04/23/18 14:56 Freq: Status: Active Protocol: Document 06/25/18 09:05 EA (Rec: 06/25/18 09:47 EA [id number]) Shoulder Goniometric Range of Motion Shoulder Measured in Degrees Right Testing Position Sitting Flexion 45 Extension 55 Abduction 50 External Rotation at 0 degrees Abduction 40 Internal Rotation 50 Right Passive Testing Position Supine Flexion 140 Abduction 140 External Rotation at 90 degrees 65 Abduction External Rotation at 0 degrees Abduction 60 Internal Rotation 40 Left Active Shoulder ROM WFL Yes Shoulder ROM Limitations Shoulder ROM Limitations Muscle Weakness Pain Elbow/Forearm Range of Motion Elbow/Forearm Measured in Degrees Passive Elbow/Forearm ROM WFL Yes PT-OP-M Strength Start: 04/23/18 14:56 Freq: Status: Active Protocol: Document 06/25/18 09:05 EA (Rec: 06/25/18 09:47 EA [id number]) Shoulder Strength Shoulder Manual Muscle Testing Right Flexion 3- Fair- Extension 3 Fair Abduction (C5) 3- Fair- Adduction 3 Fair External Rotation 3- Fair- Internal Rotation 3 Fair Horizontal Abduction 3- Fair- Horizontal Adduction 3 Fair Reason Not Measured Orthopedic Precautions Elbow/Forearm Strength Elbow and Forearm Manual Muscle Testing Left Reason Not Measured WFL Right Flexion (C6) 3+ Fair+ Extension (C7) 3+ Fair+ Pronation 3+ Fair+ Supination 3+ Fair+ Wrist Strength Wrist Manual Muscle Testing Right Flexion (C7) 3+ Fair+ Extension (C6) 3+ Fair+ Ulnar Deviation 3+ Fair+ Radial Deviation 3+ Fair+ PT-OP-Q Treatments Start: 04/23/18 14:56 Freq: Status: Active Protocol: Document 08/01/18 13:09 EA (Rec: 08/01/18 13:51 EA [id number]) Cardio Equipment Upper Body Ergometer (UBE) Duration (Minutes) 7 RPM 15 Seat Position 13 Height 5-7 Other effort level 55 Therapeutic Exercises Sitting Exercises 4 Sitting Exercise Name ER Side right Resistance 1# Reps/Minutes x 10 reps x 2 gentle range 3 Sitting Exercise Name Wand shoulder extension Resistance 7lbs Reps/Minutes x 15 reps x 2 2 Sitting Exercise Name bicep curls Resistance 4-6 lbs Reps/Minutes x 12 reps x 2 Standing Exercises 5 Standing Exercise Name Body blade Side right Reps/Minutes x 30Sec x 3 reps 4 Standing Exercise Name wall slide flexion/ABD 3 Standing Exercise Name T-bar shouder EXT Resistance 7lbs Reps/Minutes x 15 reps 2 Standing Exercise Name ER/IR Side right Resistance Lv1 Reps/Minutes x 12 reps 1 Standing Exercise Name T-bar flexion/abd full upper range Resistance 2 lbs Reps/Minutes x15 reps x 2 Comments tactile guide Manual Therapy Treatment Soft Tissue Mobilization 1 Body Location Right wrist ulnar deviator. Mobilization Type Cross-Friction Intensity/Depth Superficial Body Position Supine PT-OP-R Modalities Start: 04/23/18 14:56 Freq: Status: Active Protocol: Document 07/26/18 13:14 EA (Rec: 07/26/18 13:14 EA [id number]) Hot Pack/Cold Pack Treatment Cold Pack Location right shoulder Patient Position Hooklying Patient Tolerance Good PT-OP-T Assessment and Plan Start: 04/23/18 14:56 Freq: Status: Active Protocol: Document 08/01/18 13:09 EA (Rec: 08/01/18 13:51 EA [id number]) Physical Therapy Assessment Assessment Summary Assessment Patient
--- NOTE | 2018-08-07 14:32 | PT.OTN ---
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 (08/07/18) Impingement syndrome of right shoulder (08/07/18) Physical Therapy Treatment Note PT-OP-A Visit Information Start: 04/23/18 14:56 Freq: Status: Active Protocol: Document 08/01/18 13:09 EA (Rec: 08/01/18 13:51 EA [id number]) Out-Patient Physical Therapy Visit Information Visit Information Visit Type Treatment Note Visit Start Time 13:00 Visit Stop Time 13:45 Total Visit Minutes 45 PT-OP-B Current Condition Start: 04/23/18 14:56 Freq: Status: Active Protocol: Document 04/23/18 14:58 EA (Rec: 04/23/18 15:09 EA [id number]) Current Condition History of Current Condition Onset Date S/P R rotator cuff repain 04/19 History of Current Condition S/P R rotator cuff repair 04/19 Prior Treatments and Tests Steroid injection in the past few months prior to surgery Future Testing and Treatments Planned None at this time Treatment Goals Patient/Caregiver Goals Back to previous level of function Prior Functional Status Baseline Function- ADL's Independent Baseline Function- Mobility Independent Baseline Function- Other Able to drive and do groceries indep Current Functional Impairments (Reported) Functional Limitations- ADL's Minimal assistance with bathing, personal care Functional Limitations- Mobility/Gait indep Functional Limitations- Work/School Indep Functional Limitations- Other Unable to drive at this time, unable to perform yard work PT-OP-C Subjective Start: 04/23/18 14:56 Freq: Status: Active Protocol: Document 08/07/18 13:04 EA (Rec: 08/07/18 13:56 EA [id number]) OP-PT Subjective Patient Comments Patient Comments Pt reprots wrist still painful bu not much; states consistent with HEP and he uses wrist brace. Patient Reported Progress Improving PT-OP-E Functional Tests Start: 04/23/18 14:56 Freq: Status: Active Protocol: Document 06/25/18 09:05 EA (Rec: 06/25/18 09:47 EA [id number]) Functional Tests Lorenzoey's Scratch Test Action 1: The subject is instructed to touch the opposite shoulder with his/her hand. This motion checks Glenohumeral adduction, internal rotation , horizontal adduction and scapular protraction Action 2: The subject is instructed to place his/her arm overhead and reach behind the neck to touch his/her upper back. This motion checks Glenohumeral abduction, external rotation and scapular upward rotation and elevation. Action 3: The subject puts his/her hand on the lower back and reaches upward as far as possible. This motion checks glenohumeral adduction, internal rotation and scapular retraction with downward rotation Action 1- Left shoulder Action 1- Right shoulder Action 2- Left T2 Action 2- Right ear Action 3- Left T12 Action 3- Right L3 PT-OP-J Posture/Palpation/Skin Start: 04/23/18 14:56 Freq: Status: Active Protocol: Document 04/23/18 16:50 EA (Rec: 04/24/18 10:02 EA [id number]) Posture Evaluation Position Standing Evaluation View Lateral Head/C-Spine Posture Forward Head Shoulder Posture (L) Rounded (R) Rounded Scapula Posture (L) Protracted (R) Protracted Skin Assessment Incisional Assessment Incision Appearance/Comments Incision is covered but no signs of acute infection Other Assessments Skin Assessment Comments Bruise to right low abdominal quadrant, right anterolat arm PT-OP-K Range of Motion Start: 04/23/18 14:56 Freq: Status: Active Protocol: Document 06/25/18 09:05 EA (Rec: 06/25/18 09:47 EA [id number]) Shoulder Goniometric Range of Motion Shoulder Measured in Degrees Right Testing Position Sitting Flexion 45 Extension 55 Abduction 50 External Rotation at 0 degrees Abduction 40 Internal Rotation 50 Right Passive Testing Position Supine Flexion 140 Abduction 140 External Rotation at 90 degrees 65 Abduction External Rotation at 0 degrees Abduction 60 Internal Rotation 40 Left Active Shoulder ROM WFL Yes Shoulder ROM Limitations Shoulder ROM Limitations Muscle Weakness Pain Elbow/Forearm Range of Motion Elbow/Forearm Measured in Degrees Passive Elbow/Forearm ROM WFL Yes PT-OP-M Strength Start: 04/23/18 14:56 Freq: Status: Active Protocol: Document 06/25/18 09:05 EA (Rec: 06/25/18 09:47 EA [id number]) Shoulder Strength Shoulder Manual Muscle Testing Right Flexion 3- Fair- Extension 3 Fair Abduction (C5) 3- Fair- Adduction 3 Fair External Rotation 3- Fair- Internal Rotation 3 Fair Horizontal Abduction 3- Fair- Horizontal Adduction 3 Fair Reason Not Measured Orthopedic Precautions Elbow/Forearm Strength Elbow and Forearm Manual Muscle Testing Left Reason Not Measured WFL Right Flexion (C6) 3+ Fair+ Extension (C7) 3+ Fair+ Pronation 3+ Fair+ Supination 3+ Fair+ Wrist Strength Wrist Manual Muscle Testing Right Flexion (C7) 3+ Fair+ Extension (C6) 3+ Fair+ Ulnar Deviation 3+ Fair+ Radial Deviation 3+ Fair+ PT-OP-Q Treatments Start: 04/23/18 14:56 Freq: Status: Active Protocol: Document 08/07/18 13:04 EA (Rec: 08/07/18 13:56 EA [id number]) Cardio Equipment Upper Body Ergometer (UBE) Duration (Minutes) 7 RPM 15 Seat Position 13 Height 5-8 Other effort level 55 Gym Equipment Cable Column (Body Solid) Lat Pull Down Details Adjusted cablle: single arm pull down, mid and low row Resistance 20-30 lbs Reps/Time x 1 reps Therapeutic Exercises Prone Exercises 1 Prone Exercise Name Shoulder Y-T- exension Resistance 1# Reps/Minutes x 10 reps x 2 Sitting Exercises 4 Sitting Exercise Name ER Side right Resistance 1# Reps/Minutes x 10 reps x 2 gentle range 3 Sitting Exercise Name Wand shoulder extension Resistance 7lbs Reps/Minutes x 15 reps x 2 2 Sitting Exercise Name bicep curls Resistance 4-6 lbs Reps/Minutes x 12 reps x 2 Comments Wrist wgts 1 Sitting Exercise Name Mackenzie: flex/abd Reps/Minutes x 15 reps x 2 Comments pain free range Standing Exercises 5 Standing Exercise Name Body blade Side right Reps/Minutes x 30Sec x 3 reps 3 Standing Exercise Name T-bar shouder EXT Resistance 7lbs Reps/Minutes x 15 reps 2 Standing Exercise Name ER/IR Side right Resistance Lv1 Reps/Minutes x 12 reps 1 Standing Exercise Name T-bar flexion/abd full upper range Resistance 2 lbs Reps/Minutes x15 reps x 2 Comments tactile guide PT-OP-R Modalities Start: 04/23/18 14:56 Freq: Status: Active Protocol: Document 08/07/18 14:28 EA (Rec: 08/07/18 14:29 EA [id number]) Paraffin Bath Treatment Right Hand Treatment Technique Immersion Bath Patient Tolerance Good PT-OP-T Assessment and Plan Start: 04/23/18 14:56 Freq: Status: Active Protocol: Document 08/07/18 14:31 EA (Rec: 08/07/18 14:32 EA [id number]) Physical Therapy Assessment Assessment Summary Assessment Noted improved range and strength. Patient right shoulder is functionally useful at this time. Patient exhibits excellent progress. Physical Therapy Plan Next Visit Focus/Plan Next Note Type Treatment Note Next Visit Plan advance as tolerated
--- NOTE | 2018-08-13 13:26 | PT.OTRE ---
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 (08/13/18) Impingement syndrome of right shoulder (08/13/18) Past Medical History (Last Updated 04/11/18 @ 10:24 by Chante Santacruz, RN) Neck pain (Chronic) Hospital-acquired pneumonia (Resolved 2015) Neck muscle spasm (Chronic) Pneumonia (Resolved 2016) Hypoxia (Chronic) Cholelithiasis (Chronic 02/2018) Respiratory failure (Chronic) Cervical spinal stenosis (Chronic) Community acquired pneumonia (Resolved 2016) BPH NOS w ur obs/LUTS (Chronic) GERD (gastroesophageal reflux disease) (Acute) Gallstones (Acute) Gout (Acute) Hyperlipidemia (Acute) Impingement syndrome of right shoulder (Acute) Osteoarthritis (Acute) 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 (Acute) Rib fracture (Acute) Supraspinatus tendon tear (Acute) TIA (transient ischemic attack) (Acute) Ankle pain (Chronic 1999) Chronic anticoagulation (Chronic 03/11/97) Depression (Chronic) Diverticular disease (Chronic ~1989) Elevated PSA (Chronic ~1989) Hearing loss (Chronic ~1989) Hypertension (Chronic 1999) Reflex sympathetic dystrophy (Chronic) Shoulder pain (Chronic 1996) Sleep apnea (Chronic 2002) AAA (abdominal aortic aneurysm) (Resolved 03/11/97) Chicken pox (Resolved 1951) Colon polyps (Resolved 2001) Hepatitis B (Resolved 1984) Hernia (Resolved ~1989) Kidney stones (Resolved ~1969) Measles (Resolved ~1949) Mumps (Resolved 1949) Neck fracture (Resolved 1974) Spinal fracture (Resolved 2007) Surgical History (Last Updated 04/11/18 @ 10:23 by Chante Santacruz RN) H/O varicose vein stripping (Acute) History of cardiac catheterization (Acute) History of meniscectomy of left knee (Acute) History of partial colectomy (Acute) History of total knee arthroplasty (Acute) S/P cervical spinal fusion (Acute) S/P left knee arthroscopy (Acute) S/P resection of aortic aneurysm (Acute) Status post unicompartmental knee replacement, left (Acute) Anesthesia (Resolved) History of aortic valve replacement (Resolved 03/11/97) History of arthroscopy of knee (Resolved) History of colon surgery (Resolved) History of neck surgery (Resolved 1998) History of spinal fusion (Resolved 1974) History of vasectomy (Resolved) Status post hernia repair (Resolved ~1989) Status post knee surgery (Resolved 1974) Provider Visit Care Team Role Provider Type Phillip Ghosh MD Family Provider Physician Primary Care Provider Specialty: Family Practice Address: [address] [place] [address], [id number] Email: [email or web address] Jerry Pabon MD Attending Provider Physician Specialty: Orthopedic Surgery Address: [address] [place] [address], [id number] Email: [email or web address] Physical Therapy Re-Evaluation PT-OP-A Visit Information Start: 04/23/18 14:56 Freq: Status: Active Protocol: Document 08/13/18 12:10 EA (Rec: 08/13/18 12:24 EA [id number]) Out-Patient Physical Therapy Visit Information Visit Information Visit Type Treatment Note Visit Note re-eval no charge performed to this date Visit Start Time 10:30 Visit Stop Time 11:10 Total Visit Minutes 38 PT-OP-B Current Condition Start: 04/23/18 14:56 Freq: Status: Active Protocol: Document 04/23/18 14:58 EA (Rec: 04/23/18 15:09 EA [id number]) Current Condition History of Current Condition Onset Date S/P R rotator cuff repain 04/19 History of Current Condition S/P R rotator cuff repair 04/19 Prior Treatments and Tests Steroid injection in the past few months prior to surgery Future Testing and Treatments Planned None at this time Treatment Goals Patient/Caregiver Goals Back to previous level of function Prior Functional Status Baseline Function- ADL's Independent Baseline Function- Mobility Independent Baseline Function- Other Able to drive and do groceries indep Current Functional Impairments (Reported) Functional Limitations- ADL's Minimal assistance with bathing, personal care Functional Limitations- Mobility/Gait indep Functional Limitations- Work/School Indep Functional Limitations- Other Unable to drive at this time, unable to perform yard work PT-OP-C Subjective Start: 04/23/18 14:56 Freq: Status: Active Protocol: Document 08/13/18 12:10 EA (Rec: 08/13/18 12:24 EA [id number]) OP-PT Subjective Patient Comments Patient Comments Pt reports wrist still bother his actibity; states he has been cutting barnard in the past few days and shoulder is functional but still weak. Patient Questionnaires Quick Dash- Upper Extremity Quick Dash UE Score 34 Quick Dash UE Impairment 20 to 39% Impaired (Score 20- 39) PT-OP-E Functional Tests Start: 04/23/18 14:56 Freq: Status: Active Protocol: Document 08/13/18 12:10 EA (Rec: 08/13/18 12:24 EA [id number]) Functional Tests Apley's Scratch Test Action 1: The subject is instructed to touch the opposite shoulder with his/her hand. This motion checks Glenohumeral adduction, internal rotation , horizontal adduction and scapular protraction Action 2: The subject is instructed to place his/her arm overhead and reach behind the neck to touch his/her upper back. This motion checks Glenohumeral abduction, external rotation and scapular upward rotation and elevation. Action 3: The subject puts his/her hand on the lower back and reaches upward as far as possible. This motion checks glenohumeral adduction, internal rotation and scapular retraction with downward rotation Action 1- Left shoulder Action 1- Right shoulder Action 2- Left T2 Action 2- Right T1 Action 3- Left T12 Action 3- Right T10 PT-OP-J Posture/Palpation/Skin Start: 04/23/18 14:56 Freq: Status: Active Protocol: Document 04/23/18 16:50 EA (Rec: 04/24/18 10:02 EA [id number]) Posture Evaluation Position Standing Evaluation View Lateral Head/C-Spine Posture Forward Head Shoulder Posture (L) Rounded (R) Rounded Scapula Posture (L) Protracted (R) Protracted Skin Assessment Incisional Assessment Incision Appearance/Comments Incision is covered but no signs of acute infection Other Assessments Skin Assessment Comments Bruise to right low abdominal quadrant, right anterolat arm PT-OP-K Range of Motion Start: 04/23/18 14:56 Freq: Status: Active Protocol: Document 08/13/18 12:10 EA (Rec: 08/13/18 12:24 EA [id number]) Shoulder Goniometric Range of Motion Shoulder Measured in Degrees Right Testing Position Sitting Flexion 160 Extension 60 Abduction 160 External Rotation at 0 degrees Abduction 75 Internal Rotation 55 Right Passive Testing Position Supine Flexion 180 Abduction 180 External Rotation at 90 degrees 90 Abduction External Rotation at 0 degrees Abduction 60 Internal Rotation 40 Left Active Shoulder ROM WFL Yes PT-OP-M Strength Start: 04/23/18 14:56 Freq: Status: Active Protocol: Document 08/13/18 12:10 EA (Rec: 08/13/18 12:24 EA [id number]) Shoulder Strength Shoulder Manual Muscle Testing Right Flexion 3+ Fair+ Extension 3+ Fair+ Abduction (C5) 3+ Fair+ Adduction 3+ Fair+ External Rotation 3- Fair- Internal Rotation 3+ Fair+ Horizontal Abduction 3+ Fair+ Horizontal Adduction 3 Fair PT-OP-Q Treatments Start: 04/23/18 14:56 Freq: Status: Active Protocol: Document 08/13/18 12:10 EA (Rec: 08/13/18 12:24 EA [id number]) Gym Equipment Cable Column (Body Solid) Lat Pull Down Details Adjusted cablle: single arm pull down, mid and low row Resistance 20-40 lbs Reps/Time x 1 reps Therapeutic Exercises Prone Exercises 1 Prone Exercise Name Shoulder Y-T- exension Resistance 1-2# Reps/Minutes x 10 reps x 2 Standing Exercises 5 Standing Exercise Name Body blade Side right Reps/Minutes x 30Sec x 3 reps 3 Standing Exercise Name T-bar shouder EXT Resistance 7lbs Reps/Minutes x 15 reps 2 Standing Exercise Name ER/IR Side right Resistance Lv2 Reps/Minutes x 12 reps 1 Standing Exercise Name T-bar flexion/abd full upper range Resistance 2 lbs Reps/Minutes x15 reps x 2 Comments tactile guide PT-OP-R Modalities Start: 04/23/18 14:56 Freq: Status: Active Protocol: Document 08/13/18 12:10 EA (Rec: 08/13/18 12:24 EA [id number]) Paraffin Bath Treatment Right Hand Treatment Technique Immersion Bath Patient Tolerance Good PT-OP-T Assessment and Plan Start: 04/23/18 14:56 Freq: Status: Active Protocol: Document 08/13/18 12:10 EA (Rec: 08/13/18 12:24 EA [id number]) Physical Therapy Assessment Impairments Impairments Activity Tolerance Functional Activities Functional Mobility Pain Posture ROM Soft Tissue Mobility Strength Goals Five Impairment HEP dependent Juvenile Probation Officer Goal (LTG) Patient will exhibit indepedent HEP with safety LTG Duration Improving Four Impairment Impaired elbow and wrist strength Intermediate Goal (LTG) Patient will increase elbow and wrist strength to at least 4-/5 for functional gripping activities LTG Duration 3 wks Three Impairment QuickDash score of 51 Intermediate Goal (LTG) Patient will have Quick Dash score of less than 30 LTG Duration 4 wks (Improving) Two Impairment Impaired Right shoulder strength Intermediate Goal (LTG) Patient increase left shoulder strength to 4/5 for functional AROM that is align to rehab protocol LTG Duration 3 wks One Impairment Impaired R shoulder ROM Juvenile Probation Officer Goal (LTG) Patient will perform abd/ flexion AROM to functional range or as to align with rehab protocol LTG Duration goal reached Progress Towards Goals Progress Towards Goals Progressing Toward Goals Assessment Summary Assessment Pt demonstrated improved right shoulder ROM and strength. Functionally, patient has been performing previous activities at home with no increased of shoulder pain, however, right lateral wrist pain limits his max potential. Overall, patient is progressing toward goal and will continue to benefit with skilled PT with the main focus of strengthening, decreasing wrist pain and more HEP. Physical Therapy Plan Frequency and Duration Frequency of Treatment 2x/Week Duration of Treatment 3 wks Plan of Care Start Date 08/13/18 Plan of Care End Date 09/03/18 Therapeutic Interventions Therapeutic Interventions Home Exercise Program Joint Mobilizations Manual Therapy Patient/Caregiver Education Self-Care/Home Management Soft Tissue Mobilization Therapeutic Activities Therapeutic Exercises Modalities Cold Pack/Ice Massage Electric Stimulation Hot Packs Other Therapeutic Interventions continue per treatment plan and surgeon protocol Next Visit Focus/Plan Next Note Type Treatment Note Next Visit Plan advance as tolerated: review HEP and chage as needed
--- NOTE | 2018-08-13 13:26 | PT.OPPOC ---
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 (08/13/18) Impingement syndrome of right shoulder (08/13/18) Provider Visit Care Team Role Provider Type Phillip Ghosh MD Family Provider Physician Primary Care Provider Specialty: Family Practice Address: [address] [place] [address], [id number] Email: [email or web address] Jerry Pabon MD Attending Provider Physician Specialty: Orthopedic Surgery Address: [address] [place] [address], [id number] Email: [email or web address] Plan Of Care PT-OP-T Assessment and Plan Start: 04/23/18 14:56 Freq: Status: Active Protocol: Document 08/13/18 12:10 EA (Rec: 08/13/18 12:24 EA [id number]) Physical Therapy Assessment Impairments Impairments Activity Tolerance Functional Activities Functional Mobility Pain Posture ROM Soft Tissue Mobility Strength Goals Five Impairment HEP dependent Geodetic Survey Director Goal (LTG) Patient will exhibit indepedent HEP with safety LTG Duration Improving Four Impairment Impaired elbow and wrist strength Residential Goal (LTG) Patient will increase elbow and wrist strength to at least 4-/5 for functional gripping activities LTG Duration 3 wks Three Impairment QuickDash score of 51 Geodetic Survey Director Goal (LTG) Patient will have Quick Dash score of less than 30 LTG Duration 4 wks (Improving) Two Impairment Impaired Right shoulder strength Residential Goal (LTG) Patient increase left shoulder strength to 4/5 for functional AROM that is align to rehab protocol LTG Duration 3 wks One Impairment Impaired R shoulder ROM Geodetic Survey Director Goal (LTG) Patient will perform abd/ flexion AROM to functional range or as to align with rehab protocol LTG Duration goal reached Progress Towards Goals Progress Towards Goals Progressing Toward Goals Assessment Summary Assessment Pt demonstrated improved right shoulder ROM and strength. Functionally, patient has been performing previous activities at home with no increased of shoulder pain, however, right lateral wrist pain limits his max potential. Overall, patient is progressing toward goal and will continue to benefit with skilled PT with the main focus of strengthening, decreasing wrist pain and more HEP. Physical Therapy Plan Frequency and Duration Frequency of Treatment 2x/Week Duration of Treatment 3 wks Plan of Care Start Date 08/13/18 Plan of Care End Date 09/03/18 Therapeutic Interventions Therapeutic Interventions Home Exercise Program Joint Mobilizations Manual Therapy Patient/Caregiver Education Self-Care/Home Management Soft Tissue Mobilization Therapeutic Activities Therapeutic Exercises Modalities Cold Pack/Ice Massage Electric Stimulation Hot Packs Other Therapeutic Interventions continue per treatment plan and surgeon protocal Next Visit Focus/Plan Next Note Type Treatment Note Next Visit Plan advance as tolerated: review HEP and chage as needed Plan of Care Dates Plan of Care Start Date 08/13/18 Plan of Care End Date 09/03/18 Please Sign and Return: I have reviewed this Plan of Care and certify that the skilled therapy services above are required to meet the patient?s needs. Physician Signature Date Printed Name and Credentials Clinical Instructor Signature Printed Name and Credentials
--- NOTE | 2018-08-15 12:59 | PT.OTN ---
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 (08/15/18) Impingement syndrome of right shoulder (08/15/18) Physical Therapy Treatment Note PT-OP-A Visit Information Start: 04/23/18 14:56 Freq: Status: Active Protocol: Document 08/15/18 10:33 EA (Rec: 08/15/18 10:37 EA [id number]) Out-Patient Physical Therapy Visit Information Visit Information Visit Type Treatment Note Visit Start Time 10:30 Visit Stop Time 11:10 Total Visit Minutes 38 PT-OP-B Current Condition Start: 04/23/18 14:56 Freq: Status: Active Protocol: Document 04/23/18 14:58 EA (Rec: 04/23/18 15:09 EA [id number]) Current Condition History of Current Condition Onset Date S/P R rotator cuff repain 04/19 History of Current Condition S/P R rotator cuff repair 04/19 Prior Treatments and Tests Steroid injection in the past few months prior to surgery Future Testing and Treatments Planned None at this time Treatment Goals Patient/Caregiver Goals Back to previous level of function Prior Functional Status Baseline Function- ADL's Independent Baseline Function- Mobility Independent Baseline Function- Other Able to drive and do groceries indep Current Functional Impairments (Reported) Functional Limitations- ADL's Minimal assistance with bathing, personal care Functional Limitations- Mobility/Gait indep Functional Limitations- Work/School Indep Functional Limitations- Other Unable to drive at this time, unable to perform yard work PT-OP-C Subjective Start: 04/23/18 14:56 Freq: Status: Active Protocol: Document 08/15/18 10:33 EA (Rec: 08/15/18 10:37 EA [id number]) OP-PT Subjective Patient Comments Patient Comments Pt repoprts right arm is all functionl to all activites however with mild to mod weakness; states [ain is motly to right wrist only. PT-OP-E Functional Tests Start: 04/23/18 14:56 Freq: Status: Active Protocol: Document 08/13/18 12:10 EA (Rec: 08/13/18 12:24 EA [id number]) Functional Tests Lorenzoey's Scratch Test Action 1: The subject is instructed to touch the opposite shoulder with his/her hand. This motion checks Glenohumeral adduction, internal rotation , horizontal adduction and scapular protraction Action 2: The subject is instructed to place his/her arm overhead and reach behind the neck to touch his/her upper back. This motion checks Glenohumeral abduction, external rotation and scapular upward rotation and elevation. Action 3: The subject puts his/her hand on the lower back and reaches upward as far as possible. This motion checks glenohumeral adduction, internal rotation and scapular retraction with downward rotation Action 1- Left shoulder Action 1- Right shoulder Action 2- Left T2 Action 2- Right T1 Action 3- Left T12 Action 3- Right T10 PT-OP-J Posture/Palpation/Skin Start: 04/23/18 14:56 Freq: Status: Active Protocol: Document 04/23/18 16:50 EA (Rec: 04/24/18 10:02 EA [id number]) Posture Evaluation Position Standing Evaluation View Lateral Head/C-Spine Posture Forward Head Shoulder Posture (L) Rounded (R) Rounded Scapula Posture (L) Protracted (R) Protracted Skin Assessment Incisional Assessment Incision Appearance/Comments Incision is covered but no signs of acute infection Other Assessments Skin Assessment Comments Bruise to right low abdominal quadrant, right anterolat arm PT-OP-K Range of Motion Start: 04/23/18 14:56 Freq: Status: Active Protocol: Document 08/13/18 12:10 EA (Rec: 08/13/18 12:24 EA [id number]) Shoulder Goniometric Range of Motion Shoulder Measured in Degrees Right Testing Position Sitting Flexion 160 Extension 60 Abduction 160 External Rotation at 0 degrees Abduction 75 Internal Rotation 55 Right Passive Testing Position Supine Flexion 180 Abduction 180 External Rotation at 90 degrees 90 Abduction External Rotation at 0 degrees Abduction 60 Internal Rotation 40 Left Active Shoulder ROM WFL Yes PT-OP-M Strength Start: 04/23/18 14:56 Freq: Status: Active Protocol: Document 08/13/18 12:10 EA (Rec: 08/13/18 12:24 EA [id number]) Shoulder Strength Shoulder Manual Muscle Testing Right Flexion 3+ Fair+ Extension 3+ Fair+ Abduction (C5) 3+ Fair+ Adduction 3+ Fair+ External Rotation 3- Fair- Internal Rotation 3+ Fair+ Horizontal Abduction 3+ Fair+ Horizontal Adduction 3 Fair PT-OP-Q Treatments Start: 04/23/18 14:56 Freq: Status: Active Protocol: Document 08/15/18 10:33 EA (Rec: 08/15/18 10:37 EA [id number]) Cardio Equipment Upper Body Ergometer (UBE) Duration (Minutes) 7 RPM 15 Seat Position 13 Height 5-8 Other effort level 55 Gym Equipment Cable Column (Body Solid) Lat Pull Down Details Adjusted cablle: single arm pull down, mid and low row Resistance 20-40 lbs Reps/Time x 10 reps x 2 sets Therapeutic Exercises Prone Exercises 1 Prone Exercise Name Shoulder Y-T- exension Resistance 1-2-3# Reps/Minutes x 10 reps x 2 Sitting Exercises 2 Sitting Exercise Name bicep curls Resistance 4-6 lbs Reps/Minutes x 12 reps x 2 Comments Wrist wgts Standing Exercises 5 Standing Exercise Name Body blade Side right Reps/Minutes x 30Sec x 3 reps 3 Standing Exercise Name T-bar shouder EXT Resistance 8lbs Reps/Minutes x 15 reps 2 Standing Exercise Name ER/IR Side right Resistance Lv2 Reps/Minutes x 12 reps 1 Standing Exercise Name T-bar flexion/abd full upper range Resistance 2 lbs Reps/Minutes x15 reps x 2 Comments tactile guide Other Exercises 1 Other Exercise Name chest crossover Side right Equipment Used LV 3-4 Reps/Minutes x 12 reps x 2 sets PT-OP-R Modalities Start: 04/23/18 14:56 Freq: Status: Active Protocol: Document 08/15/18 12:10 EA (Rec: 08/15/18 12:12 EA [id number]) Hot Pack/Cold Pack Treatment Cold Pack Location right shoulder Patient Position Hooklying Patient Tolerance Good PT-OP-T Assessment and Plan Start: 04/23/18 14:56 Freq: Status: Active Protocol: Document 08/15/18 12:10 EA (Rec: 08/15/18 12:12 EA [id number]) Physical Therapy Assessment Assessment Summary Assessment Pt right shoulder strength continued to improve and as well wrist pain symptoms is not limiting all resistance exercises at this time. HEP was reviewed and show good understanding. Physical Therapy Plan Next Visit Focus/Plan Next Note Type Treatment Note Next Visit Plan advance as tolerated: review HEP and change as needed
--- NOTE | 2018-08-20 16:48 | PT.OTN ---
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 (08/20/18) Impingement syndrome of right shoulder (08/20/18) Physical Therapy Treatment Note PT-OP-A Visit Information Start: 04/23/18 14:56 Freq: Status: Active Protocol: Document 08/20/18 16:43 EA (Rec: 08/20/18 16:48 EA [id number]) Out-Patient Physical Therapy Visit Information Visit Information Visit Type Treatment Note Visit Start Time 16:00 Visit Stop Time 16:40 Total Visit Minutes 40 PT-OP-B Current Condition Start: 04/23/18 14:56 Freq: Status: Active Protocol: Document 04/23/18 14:58 EA (Rec: 04/23/18 15:09 EA [id number]) Current Condition History of Current Condition Onset Date S/P R rotator cuff repain 04/19 History of Current Condition S/P R rotator cuff repair 04/19 Prior Treatments and Tests Steroid injection in the past few months prior to surgery Future Testing and Treatments Planned None at this time Treatment Goals Patient/Caregiver Goals Back to previous level of function Prior Functional Status Baseline Function- ADL's Independent Baseline Function- Mobility Independent Baseline Function- Other Able to drive and do groceries indep Current Functional Impairments (Reported) Functional Limitations- ADL's Minimal assistance with bathing, personal care Functional Limitations- Mobility/Gait indep Functional Limitations- Work/School Indep Functional Limitations- Other Unable to drive at this time, unable to perform yard work PT-OP-C Subjective Start: 04/23/18 14:56 Freq: Status: Active Protocol: Document 08/20/18 16:43 EA (Rec: 08/20/18 16:48 EA [id number]) OP-PT Subjective Patient Comments Patient Comments Pt report he would be out of town in would like to be discharged is skilled PT; states he has been using his right arm functionally and is better than before. PT-OP-E Functional Tests Start: 04/23/18 14:56 Freq: Status: Active Protocol: Document 08/13/18 12:10 EA (Rec: 08/13/18 12:24 EA [id number]) Functional Tests Lorenzoey's Scratch Test Action 1: The subject is instructed to touch the opposite shoulder with his/her hand. This motion checks Glenohumeral adduction, internal rotation , horizontal adduction and scapular protraction Action 2: The subject is instructed to place his/her arm overhead and reach behind the neck to touch his/her upper back. This motion checks Glenohumeral abduction, external rotation and scapular upward rotation and elevation. Action 3: The subject puts his/her hand on the lower back and reaches upward as far as possible. This motion checks glenohumeral adduction, internal rotation and scapular retraction with downward rotation Action 1- Left shoulder Action 1- Right shoulder Action 2- Left T2 Action 2- Right T1 Action 3- Left T12 Action 3- Right T10 PT-OP-J Posture/Palpation/Skin Start: 04/23/18 14:56 Freq: Status: Active Protocol: Document 04/23/18 16:50 EA (Rec: 04/24/18 10:02 EA [id number]) Posture Evaluation Position Standing Evaluation View Lateral Head/C-Spine Posture Forward Head Shoulder Posture (L) Rounded (R) Rounded Scapula Posture (L) Protracted (R) Protracted Skin Assessment Incisional Assessment Incision Appearance/Comments Incision is covered but no signs of acute infection Other Assessments Skin Assessment Comments Bruise to right low abdominal quadrant, right anterolat arm PT-OP-K Range of Motion Start: 04/23/18 14:56 Freq: Status: Active Protocol: Document 08/13/18 12:10 EA (Rec: 08/13/18 12:24 EA [id number]) Shoulder Goniometric Range of Motion Shoulder Measured in Degrees Right Testing Position Sitting Flexion 160 Extension 60 Abduction 160 External Rotation at 0 degrees Abduction 75 Internal Rotation 55 Right Passive Testing Position Supine Flexion 180 Abduction 180 External Rotation at 90 degrees 90 Abduction External Rotation at 0 degrees Abduction 60 Internal Rotation 40 Left Active Shoulder ROM WFL Yes PT-OP-M Strength Start: 04/23/18 14:56 Freq: Status: Active Protocol: Document 08/13/18 12:10 EA (Rec: 08/13/18 12:24 EA [id number]) Shoulder Strength Shoulder Manual Muscle Testing Right Flexion 3+ Fair+ Extension 3+ Fair+ Abduction (C5) 3+ Fair+ Adduction 3+ Fair+ External Rotation 3- Fair- Internal Rotation 3+ Fair+ Horizontal Abduction 3+ Fair+ Horizontal Adduction 3 Fair PT-OP-Q Treatments Start: 04/23/18 14:56 Freq: Status: Active Protocol: Document 08/20/18 16:43 EA (Rec: 08/20/18 16:48 EA [id number]) Cardio Equipment Upper Body Ergometer (UBE) Duration (Minutes) 7 RPM 15 Seat Position 13 Height 5-8 Other effort level 55 Gym Equipment Cable Column (Body Solid) Lat Pull Down Details Adjusted cablle: single arm pull down, mid and low row Resistance 20-40 lbs Reps/Time x 10 reps x 2 sets Therapeutic Exercises Prone Exercises 1 Prone Exercise Name Shoulder Y-T- exension Resistance 1-2-3# Reps/Minutes x 10 reps x 2 Comments HEP comp Sitting Exercises 2 Sitting Exercise Name bicep curls Resistance 4-6 lbs Reps/Minutes x 12 reps x 2 Comments HEP comp Standing Exercises 5 Standing Exercise Name Body blade Side right Reps/Minutes x 30Sec x 3 reps 3 Standing Exercise Name T-bar shouder EXT Resistance 8lbs Reps/Minutes x 15 reps Comments HEP comp 2 Standing Exercise Name ER/IR Side right Resistance Lv2 Reps/Minutes x 12 reps Comments HEP comp 1 Standing Exercise Name T-bar flexion/abd full upper range Resistance 2 lbs Reps/Minutes x15 reps x 2 Comments HEP comp Other Exercises 1 Other Exercise Name chest crossover Side right Equipment Used LV 3-4 Reps/Minutes x 12 reps x 2 sets Self-Care/Home Management Treatment Education Patient Education Home Exercise Program Joint Protection Pain Management Posture PT-OP-R Modalities Start: 04/23/18 14:56 Freq: Status: Active Protocol: Document 08/15/18 12:10 EA (Rec: 08/15/18 12:12 EA [id number]) Hot Pack/Cold Pack Treatment Cold Pack Location right shoulder Patient Position Hooklying Patient Tolerance Good PT-OP-T Assessment and Plan Start: 04/23/18 14:56 Freq: Status: Active Protocol: Document 08/20/18 16:43 EA (Rec: 08/20/18 16:48 EA [id number]) Physical Therapy Assessment Assessment Summary Assessment Pt is discharge today upon request. Patient exhibit good functional improvement at the time of discharge. Physical Therapy Plan Discharge Physical Therapy Discharge Reasons Patient Request
== END 2018-08-21 11:58 ==
LOC: PHYS 16:00
PROVIDERS: Family Provider Family Medicine; PCP Family Medicine; Visit Provider Orthopaedic Surgery
DX: M75.41 Impingement syndrome of right shoulder (principal); M75.121 Complete rotator cuff tear or rupture of right shoulder, not specified as traumatic
CPT/HCPCS: 97010; 97014; 97018; 97110; 97140; 97161; 97535; G0283

== ENCOUNTER 2018-10-17 17:21 | Emergency (ER) | payer MEDICARE, OTHER, SELFPAY ==
[2018-10-17 17:32] VITALS: BP 143/74; PULSE 53; RESP 20; TEMP 37.1; O2SAT 94
[2018-10-17 17:52] LABS: Appearance Urine UA CLOUDY; Bilirubin Urine UA NEGATIVE (NEGATIVE); Color Urine UA YELLOW; Glucose Urine UA NEGATIVE (Negative); Ketones Urine UA TRACE (NEGATIVE); Leukocyte Esterase Urine UA 1+ (NEGATIVE); Nitrite Urine UA POSITIVE (Negative); Occult Blood Urine UA 3+ (Negative); Protein Urine UA 2+ (Negative); Specific Gravity Urine UA >=1.030 (1.000-1.035)
[2018-10-17 18:11] LABS: RBC Urine >100/HPF (0-5/HPF); Renal Epithelial Cells Urine 0-1/HPF; Squamous Epithelial Cell Urine 0-1 /HPF; WBC Urine 10-30/HPF (0-5/HPF)
[2018-10-17 18:12] LABS: Amorphous Sediment Urine 1+; Bacteria Urine Many (>30); Culture Indicated Urine Specimen Cultured; Mucus Urine 2+ (Negative)
--- NOTE | 2018-10-17 19:33 | ED_ITS ---
HPI - Male Genitourinary General Chief complaint: Urogenital-Male Stated complaint: BLOOD IN URINE CATHETER Time Seen by Provider: 10/17/18 19:33 Source: patient Mode of arrival: ambulatory Limitations: no limitations History of Present Illness HPI Narrative: Patient is a 78-year-old male. Has an indwelling urinary catheter that was placed at a hospital in [place] when he was visiting down there. He states this is placed because of urinary retention. He has a follow- up with a urologist on the of this month. He states he is also on Coumadin for a prosthetic valve. Is here because he had blood in his urinary catheter. He states that he feels like it is still draining. No other symptoms. Related Data Home Medications Medication Instructions Recorded Confirmed acetaminophen 650 mg PO Q8HP PRN #0 03/29/17 08/25/18 atorvastatin 20 mg PO DAILY 04/11/18 08/25/18 gabapentin 300 - 900 mg PO TID PRN 04/11/18 08/25/18 amlodipine [Norvasc] 5 mg PO DAILY 10/17/18 10/17/18 atorvastatin 40 mg PO DAILY 10/17/18 10/17/18 Previous Rx's Medication Instructions Recorded warfarin 5 mg tablet 5 mg PO SEE INSTRUCTIONS #180 tab 03/13/18 oxycodone 5 mg tablet 5 - 10 mg PO Q6HP PRN #90 tab 03/27/18 enoxaparin 100 mg/mL subcutaneous 100 mg SUBCUT Q12H #20 device 04/05/18 syringe hydroxyzine pamoate [Vistaril] 25 mg PO TID-QID PRN #60 cap 04/19/18 doxazosin 8 mg tablet 8 mg PO Q DAY #90 tab 05/15/18 miscellaneous medical supply misc #1 each 08/27/18 oxycodone-acetaminophen 5 mg-325 See Rx Instructions PO Q4-6H PRN 08/27/18 mg tablet #60 tab Allergies Allergy/AdvReac Type Severity Reaction Status Date / Time amoxicillin [AMOXICILLIN] Allergy Mild EDEMA IN Verified 08/25/18 08:28 HANDS, BUTTOCKS Penicillins [PENICILLINS] Allergy Mild SWELLING Verified 08/25/18 08:28 clavulanic acid AdvReac Mild EDEMA Verified 08/25/18 08:28 [CLAVULANIC ACID] lisinopril [LISINOPRIL] AdvReac Mild COUGH Verified 08/25/18 08:28 Review of Systems Constitutional Denies fever(s) and Denies headache(s) ENT Ears, Nose, Mouth, and Throat: Denies headache(s) Cardiovascular Denies chest pain and Denies dyspnea Respiratory Denies dyspnea Gastrointestinal Gastrointestinal: Denies abdominal pain, Denies diarrhea, Denies nausea and Denies vomiting Genitourinary Reports hematuria and Denies dysuria Comments: Urinary catheter in place Musculoskeletal Denies myalgias and Denies arthralgias Integumentary/Breasts Denies rash Neurologic Denies headache(s) Hematologic/Lymphatic Comments: on Coumadin [facility]LY [facility], [facility] Medical History Neck pain (Chronic) Hospital-acquired pneumonia (Resolved 2015) Neck muscle spasm (Chronic) Pneumonia (Resolved 2016) Hypoxia (Chronic) Cholelithiasis (Chronic 02/2018) Respiratory failure (Chronic) Cervical spinal stenosis (Chronic) Community acquired pneumonia (Resolved 2016) BPH NOS w ur obs/LUTS (Chronic) GERD (gastroesophageal reflux disease) (Acute) Gallstones (Acute) Gout (Acute) Hyperlipidemia (Acute) Impingement syndrome of right shoulder (Acute) Osteoarthritis (Acute) 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 (Acute) Rib fracture (Acute) Supraspinatus tendon tear (Acute) TIA (transient ischemic attack) (Acute) Ankle pain (Chronic 1999) Chronic anticoagulation (Chronic 03/11/97) Depression (Chronic) Diverticular disease (Chronic ~1989) Elevated PSA (Chronic ~1989) Hearing loss (Chronic ~1989) Hypertension (Chronic 1999) Reflex sympathetic dystrophy (Chronic) Shoulder pain (Chronic 1996) Sleep apnea (Chronic 2002) AAA (abdominal aortic aneurysm) (Resolved 03/11/97) Chicken pox (Resolved 1951) Colon polyps (Resolved 2001) Hepatitis B (Resolved 1984) Hernia (Resolved ~1989) Kidney stones (Resolved ~1969) Measles (Resolved ~1949) Mumps (Resolved 1949) Neck fracture (Resolved 1974) Spinal fracture (Resolved 2007) Surgical History H/O varicose vein stripping (Acute) History of cardiac catheterization (Acute) History of meniscectomy of left knee (Acute) History of partial colectomy (Acute) History of total knee arthroplasty (Acute) S/P cervical spinal fusion (Acute) S/P left knee arthroscopy (Acute) S/P resection of aortic aneurysm (Acute) Status post unicompartmental knee replacement, left (Acute) Anesthesia (Resolved) History of aortic valve replacement (Resolved 03/11/97) History of arthroscopy of knee (Resolved) History of colon surgery (Resolved) History of neck surgery (Resolved 1998) History of spinal fusion (Resolved 1974) History of vasectomy (Resolved) Status post hernia repair (Resolved ~1989) Status post knee surgery (Resolved 1974) Family History Brother Age: 68 Diabetes mellitus Daughter Age: 55 Breast cancer Daughter Age: 42 Hypertension Cervical cancer Father Hypertension Heart disease Sister Age: 63 Cancer Breast cancer Colon cancer Lung cancer Brother Aortic aneurysm Daughter Cancer Melanoma Mother Heart disease Sister ATV accident causing injury Social History household members: none Smoking Status: Current some day smoker alcohol intake: former Family History Brother Age: 68 Diabetes mellitus Daughter Age: 55 Breast cancer Daughter Age: 42 Hypertension Cervical cancer Father Hypertension Heart disease Sister Age: 63 Cancer Breast cancer Colon cancer Lung cancer Brother Aortic aneurysm Daughter Cancer Melanoma Mother Heart disease Sister ATV accident causing injury Social History household members: none Smoking Status: Current some day smoker alcohol intake: former Exam Initial Vital Signs Initial Vital Signs: Vital Signs Temperature 98.7 F 10/17/18 17:32 Pulse Rate 53 L 10/17/18 17:32 Respiratory Rate 20 10/17/18 17:32 Blood Pressure 143/74 H 10/17/18 17:32 Pulse Oximetry 94 10/17/18 17:32 Const General: cooperative, healthy appearing, comfortable, well developed and No well groomed Orientation: alert, awake and oriented x3 HENMT Head: normal to inspection and normocephalic Resp Effort & Inspection: normal respiratory effort Cardio Rate: regular rate GI Inspection: non-distended Palpation: soft Other: urinary catheter in place Skin Lesions: no lesions Rashes: no rashes Neuro General: alert and awake Psych Appearance: grossly normal and well kempt Course Orders Ordered: ED Orders 10/17/18 19:56 Complete Blood Count AUTO DIFF Stat Prothrombin Time INR Stat Vital Signs - 8 hr 10/17/18 17:32 Temperature 98.7 F Pulse Rate 53 L Respiratory Rate 20 Blood Pressure 143/74 H Pulse Oximetry 94 MDM - Male Genitourinary Lab Data Attestation: I reviewed the patient's lab results. Result diagrams: 10/17/18 19:56 Lab Results 10/17/18 10/17/18 10/17/18 Range/Units 17:38 19:56 19:56 WBC 7.3 (4.5-11.0) X10^3/uL RBC 4.44 L (4.5-5.9) X10^6/uL Hgb 14.4 (13.5-17.5) g/dL Hct 42.8 (41-53) % MCV 96.5 (80-100) fL MCH 32.5 (26-34) PG MCHC 33.7 (30-36) % RDW 13.1 (11.6-14.8) % Plt Count 184 (150-400) X10^3/uL Neut % (Auto) 64.1 (50-75) % Lymph % (Auto) 25.4 (25-40) % [place] % (Auto) 7.3 (3-14) % Eos % (Auto) 2.6 (2-4) % Baso % (Auto) 0.6 (0-2) % Neut # (Auto) 4700 (9041-5724) /uL Lymph # (Auto) 1900 (5210-9129) /uL [place] # (Auto) 500 (0-900) /uL Eos # (Auto) 200 (0-450) /uL Baso # (Auto) 0 (0-100) /uL PT 26.2 H (10.1-12.7) SECONDS INR 2.2 H (0.9-1.3) Urine Color Yellow Urine Appearance Cloudy Urine pH 5.0 (4.5-8.0) Ur Specific [place] >=1.030 H (1.000-1.035) Urine Protein 2+ H (Negative) Urine Glucose (UA) Negative (Negative) g/dL Urine Ketones Trace H (NEGATIVE) Urine Occult Blood 3+ H (Negative) Urine Nitrate Positive (Negative) Urine Bilirubin Negative (NEGATIVE) Urine Urobilinogen 1.0 (0.2) E.U./dL Ur Leukocyte Esterase 1+ H (NEGATIVE) Urine RBC >100/hpf (0-5/HPF) Urine WBC 10-30/hpf H (0-5/HPF) Ur Squamous Epith Cells 0-1 /hpf Ur Renal Epithelial Cell 0-1/hpf Amorphous Sediment 1+ Urine Bacteria Many (>30) H (None) Urine Mucus 2+ H (Negative) Ur Culture Indicated? Specimen cultured MDM Narrative Medical decision making narrative: patient's INR is within range today. He is draining urine from his Coe. His urinalysis is concerning for urinary tract infection however given the fact that he has had the Coe catheter in for some time now there is also a high indication that this may be a colonization. Will hold on any antibiotics for now until the urine cultures resulted. I did inform the patient that a culture was pending. Informed Him that we would call if we needed to start him on antibiotics. I suspect that the hematuria secondary to irritation from the Coe balloon and also from him being on Coumadin. He already has follow-up with Urology. Patient expressed understanding and agreement with plan. Discharge Plan Departure Patient Disposition: Home Clinical Impression: Hematuria Qualifiers: Hematuria type: gross Qualified Code(s): R31.0 - Gross hematuria Discharge Date/Time: 10/17/18 20:28 Interventions: ED Discharge Assessment Last Done: 10/17/18 20:27 Instructions: DI for Hematuria Activity Restrictions/Additional Instructions: keep all of Your scheduled medical appointments. continue to increase your fluid intake. Return to the emergency department for any new symptoms, fevers, inability to urinate, or any other concerning symptoms Prescriptions: No Action acetaminophen 650 MG tablet extended release 650 mg PO Q8HP PRN (Reason: Pain) Qty: 0 RF: 0 warfarin [Coumadin] 5 mg tablet 5 mg PO SEE INSTRUCTIONS Qty: 180 RF: 3 doxazosin 8 mg tablet 8 mg PO Q DAY Qty: 90 RF: 1 miscellaneous medical supply misc .Route .MEDSUPPLY Qty: 1 RF: 0 oxycodone-acetaminophen [Percocet] 5-325 mg tablet See Rx Instructions PO Q4-6H PRN (Reason: pain) Qty: 60 RF: 0 oxycodone 5 mg tablet 5 - 10 mg PO Q6HP PRN (Reason: PAIN) Qty: 90 RF: 0 enoxaparin [Lovenox] 100 mg/mL syringe 100 mg SUBCUT Q12H Qty: 20 RF: 0 atorvastatin 20 mg Tablet 20 mg PO DAILY RF: 0 gabapentin 300 mg Capsule 300 - 900 mg PO TID PRN (Reason: Pain) RF: 0 hydroxyzine pamoate [Vistaril] 25 mg capsule 25 mg PO TID-QID PRN (Reason: spasms) Qty: 60 RF: 0 atorvastatin 40 mg tablet 40 mg PO DAILY RF: 0 amlodipine [Norvasc] 5 mg tablet 5 mg PO DAILY RF: 0 Referrals: Phillip Ghosh MD [Primary Care Provider] -
[2018-10-17 20:04] LABS: Add Manual Diff / Slide Review NO; Basophils Absolute Auto 0 /uL (0-100); Basophils Percent Auto 0.6 % (0-2); Eosinophils Absolute Auto 200 /uL (0-450); Eosinophils Percent Auto 2.6 % (2-4); Hematocrit 42.8 % (41-53); Hemoglobin 14.4 g/dL (13.5-17.5); Lymphocytes Absolute Auto 1900 /uL (1100-4500); Lymphocytes Percent Auto 25.4 % (25-40); Mean Corpuscular HGB Conc 33.7 % (30-36); Mean Corpuscular Hemoglobin 32.5 PG (26-34); Mean Corpuscular Volume 96.5 fL (80-100); Monocytes Absolute Auto 500 /uL (0-900); Monocytes Percent Auto 7.3 % (3-14); Neutrophils Absolute Auto 4700 /uL (1500-7000); Neutrophils Percent Auto 64.1 % (50-75); Platelet Count 184 X10^3/uL (150-400); Red Blood Cell Count 4.44 X10^6/uL (4.5-5.9); Red Cell Distribution Width 13.1 % (11.6-14.8); White Blood Cell Count 7.3 X10^3/uL (4.5-11.0)
[2018-10-17 20:09] LABS: INR 2.2 (0.9-1.3); Prothrombin Time 26.2 SECONDS (10.1-12.7)
== END 2018-10-17 20:28 | disposition home or self-care (01) ==
PROVIDERS: Emergency Medicine; Emergency Provider Emergency Medicine; Family Provider Family Medicine; PCP Family Medicine
DX: R31.9 Hematuria, unspecified (principal)
CPT/HCPCS: 81001; 85025; 85610; 87077; 87086; 87186; 99282; 99283

== ENCOUNTER → 2019-04-30 08:16 | Outpatient (CLI) | payer MEDICARE, OTHER, SELFPAY ==
[2019-04-30 09:42] LABS: Add Manual Diff / Slide Review NO; Basophils Absolute Auto 0 /uL (0-100); Basophils Percent Auto 0.3 % (0-2); Eosinophils Absolute Auto 100 /uL (0-450); Eosinophils Percent Auto 1.6 % (2-4); Hematocrit 42.3 % (41-53); Hemoglobin 14.8 g/dL (13.5-17.5); Lymphocytes Absolute Auto 1700 /uL (1100-4500); Lymphocytes Percent Auto 33.5 % (25-40); Mean Corpuscular Hemoglobin 33.9 PG (26-34); Mean Corpuscular Volume 96.7 fL (80-100); Monocytes Absolute Auto 500 /uL (0-900); Monocytes Percent Auto 10.4 % (3-14); Neutrophils Absolute Auto 2800 /uL (1500-7000); Neutrophils Percent Auto 54.2 % (50-75); Platelet Count 171 X10^3/uL (150-400); Red Blood Cell Count 4.38 X10^6/uL (4.5-5.9); Red Cell Distribution Width 13.3 % (11.6-14.8); White Blood Cell Count 5.1 X10^3/uL (4.5-11.0)
[2019-04-30 10:07] LABS: Alanine Aminotransferase 23 IU/L (21-72); Albumin 4.2 g/dL (3.5-5.0); Albumin Globulin Ratio 1.4 (1.0-2.8); Alkaline Phosphatase 78 U/L (38-126); Aspartate Aminotransferase 24 IU/L (17-59); BUN Creatinine Ratio 22.9 (6-22); Bilirubin Total 1.6 mg/dL (0.2-1.3); Blood Urea Nitrogen 16 mg/dL (9-20); Calcium 9.3 mg/dL (8.4-10.2); Carbon Dioxide 29 mmol/L (22-32); Chloride 104 mmol/L (98-107); Cholesterol 131 mg/dL (140-199); Estimated Glomerular Filt Rate > 60.0 mL/min (>60); Globulin 2.9 g/dL (1.7-4.1); Glucose 103 mg/dL (80-110); HDL Cholesterol 41 mg/dL (40-60); HEMOLYSIS < 15 (0-50); LDL Cholesterol Calculated 75 mg/dL (<100); Potassium 4.3 mmol/L (3.4-5.1); Sodium 142 mmol/L (137-145); Total Protein 7.1 g/dL (6.3-8.2); Triglycerides 76 mg/dL (35-150)
[2019-04-30 11:23] LABS: Thyroid Stimulating Hormone 1.88 uIU/mL (0.47-4.68)
== END ==
PROVIDERS: PCP Family Medicine; Visit Provider Family Medicine
DX: I10 Essential (primary) hypertension (principal)
CPT/HCPCS: 36415; 80053; 80061; 84443; 85025

== ENCOUNTER 2019-05-02 06:23 | Day surgery (SDC) | payer MEDICARE, OTHER, SELFPAY ==
[2019-05-02] MEDS: PROPARACAINE 0.5% OPHTH SOL 2 DROPS EYE-OP (07:18)
[2019-05-02 07:20] VITALS: BP 139/75; PULSE 51; RESP 16; TEMP 36.4; O2SAT 96; BMI 30.2
--- NOTE | 2019-05-02 07:25 | PM.PREOP ---
Pre-operative Note Interval Note History & Physical reviewed/Exam performed by Physician: Yes Changes to H&P: No
[2019-05-02] MEDS: CATARACT EYE COMPOUND (10 DROPS/SYRINGE) 3 DROPS EYE-OP (07:30)
[2019-05-02] MEDS: BALANCED SALT IRRIG SOLN NO.2 15 ML 5 ML IRR (08:04)
[2019-05-02] MEDS: CHONDROIDTIN/SOD HYALURONATE 1.05 ML SYRINGE INTRAOCULA (08:04)
[2019-05-02] MEDS: PHENYLEPHRINE/LIDOCAINE VIAL (OR) 0.2 ML EYE-OP (08:04)
[2019-05-02] MEDS: MOXIFLOXACIN INJ 5 MG/ML VIAL EYE-OP (08:04)
[2019-05-02] MEDS: TETRACAINE 0.5% OPHTH DROPS 4 ML 2 DROPS EYE-OP (08:05)
[2019-05-02] MEDS: LIDOCAINE 2% INJ SDV 2 ML INJ (08:05)
[2019-05-02] MEDS: BALANCED SALT IRRIG SOLN NO.2 500 ML, EPINEPHrine 1 MG IRR (08:06)
--- NOTE | 2019-05-02 08:19 | PM.OP.1 ---
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 The correct patient, surgical site and lens were confirmed. 0.5 % tetracaine drops were placed in the right eye. The patient was prepped and draped in the typical sterile manner. A lid speculum was placed in the eye. 2% lidocaine was placed on the eye. A paracentesis port was created with a side-port blade. 0.1 mL of 1% preservative free lidocaine with phenylephrine was injected into the anterior chamber. Viscoelastic was injected into the anterior chamber. A 2.6mm keratome was used to create a clear corneal temporal incision. Cystotome and Utrata forceps were used to create a continuous curvilinear capsulorrhexis. Balanced salt solution was used to hydrodissect the nucleus. Phacoemulsification was used to remove the lens. The capsular bag was inflated with viscoelastic. A Chish[place]m ZCBOO +21.0D lens was inserted into the capsule. Viscoelastic was removed and the wound hydrated. The wound was found to be leak free and the eye was assessed to be at normal physiologic pressure. 0.1mL Vigamox was injected into the anterior chamber. The lid speculum was removed and the patient left the operating room in excellent condition. Complications: none Post-operative Condition: stable Disposition: same day surgery
[2019-05-02 08:24] VITALS: BP 158/78; PULSE 50; RESP 15; TEMP 36.2; O2SAT 98
== END 2019-05-02 08:44 | disposition home or self-care (01) ==
LOC: OR 06:25
PROVIDERS: PCP Family Medicine; Visit Provider Ophthalmology
PROC: (CPT 66984; principal; 2019-05-02 07:45)
DX: H25.11 Age-related nuclear cataract, right eye (principal); I10 Essential (primary) hypertension
CPT/HCPCS: 66984; J0171; J2250

== ENCOUNTER 2019-05-16 06:34 | Day surgery (SDC) | payer MEDICARE, OTHER, SELFPAY ==
[2019-05-16 06:58] VITALS: BP 133/73; PULSE 61; RESP 15; TEMP 36.3; O2SAT 93; BMI 28.8
[2019-05-16] MEDS: PROPARACAINE 0.5% OPHTH SOL 2 DROPS EYE-OP (07:10)
[2019-05-16] MEDS: CATARACT EYE COMPOUND (10 DROPS/SYRINGE) 3 DROPS EYE-OP (07:11)
--- NOTE | 2019-05-16 07:37 | PM.PREOP ---
Pre-operative Note Interval Note History & Physical reviewed/Exam performed by Physician: Yes Changes to H&P: No
[2019-05-16] MEDS: PHENYLEPHRINE/LIDOCAINE VIAL (OR) 0.2 ML EYE-OP ×2 (08:02→08:03)
[2019-05-16] MEDS: CHONDROIDTIN/SOD HYALURONATE 1.05 ML SYRINGE INTRAOCULA (08:04)
[2019-05-16] MEDS: TETRACAINE 0.5% OPHTH DROPS 4 ML 2 DROPS EYE-OP (08:04)
[2019-05-16] MEDS: BALANCED SALT IRRIG SOLN NO.2 15 ML 5 ML IRR (08:04)
[2019-05-16] MEDS: LIDOCAINE 2% INJ SDV 2 ML INJ (08:05)
[2019-05-16] MEDS: BALANCED SALT IRRIG SOLN NO.2 500 ML, EPINEPHrine 1 MG IRR (08:05)
[2019-05-16] MEDS: MOXIFLOXACIN INJ 5 MG/ML VIAL EYE-OP (08:08)
--- NOTE | 2019-05-16 08:27 | PM.OP.1 ---
Procedure & Clinicians Procedure: Cataract extraction with intraocular lens implant, left Same procedure as scheduled: Yes Indications: Visually significant age related nuclear sclerosis, left Surgeon: Omer Gonzalez Click Yes if Unassisted: Yes Anesthesia Type: MAC +/- Operative Notes Procedure in detail: The patient was brought to the operating suite. The correct patient, surgical site and lens were confirmed. 0.5 % tetracaine drops were placed in the left eye. The patient was prepped and draped in the typical sterile manner. A lid speculum was placed in the eye. 2% lidocaine was placed on the eye. A paracentesis port was created with a side-port blade. 0.1 mL of 1% preservative free lidocaine with phenylephrine was injected into the anterior chamber. Viscoelastic was injected into the anterior chamber. A 2.6mm keratome was used to create a clear corneal temporal incision. Cystotome and Utrata forceps were used to create a continuous curvilinear capsulorrhexis. Balanced salt solution was used to hydrodissect the nucleus. Phacoemulsification was used to remove the lens. The capsular bag was inflated with viscoelastic. A Chisholm ZCBOO +21.5D lens was inserted into the capsule. Viscoelastic was removed and the wound hydrated. The wound was found to be leak free and the eye was assessed to be at normal physiologic pressure. 0.1mL Vigamox was injected into the anterior chamber. The lid speculum was removed and the patient left the operating room in excellent condition. Complications: none Post-operative Condition: stable Disposition: same day surgery
[2019-05-16 08:28] VITALS: BP 146/76; PULSE 50; RESP 12; TEMP 36.3; O2SAT 98
--- NOTE | 2019-05-16 09:21 | SUR.PHASEII ---
Small area of superficial skin loss to nose. Dr. Gonzalez told patient it was from tape removal.
== END 2019-05-16 08:40 | disposition home or self-care (01) ==
PROVIDERS: Family Provider Family Medicine; PCP Family Medicine; Visit Provider Ophthalmology
PROC: (CPT 66984; principal; 2019-05-16 07:45)
DX: H25.12 Age-related nuclear cataract, left eye (principal); I10 Essential (primary) hypertension
CPT/HCPCS: 66984; J0171; J2250

== ENCOUNTER → 2019-06-24 08:48 | Outpatient (CLI) | payer MEDICARE, OTHER, SELFPAY ==
--- NOTE | 2019-06-24 08:52 | DI.RAD.S_ITS ---
PROCEDURE: XR FOOT RT MIN 3V INDICATIONS: R Heel pain TECHNIQUE: 3 views of the foot were acquired. COMPARISON: None. FINDINGS: Bones: No fractures or dislocations. No suspicious bony lesions. Osteoarthritis at the interphalangeal and tibiotalar joints. Soft tissues: No tibiotalar joint effusion. Achilles tendon appears normal. IMPRESSION: Mild interphalangeal and tibia talar degenerative osteophytic change, source of heel pain is not seen. Dictated by: Venkatesh Modi M.D. on 06/24/2019 at 9:22 Approved by: Venkatesh Modi M.D. on 06/24/2019 at 9:22
== END ==
PROVIDERS: Family Provider Family Medicine; PCP Family Medicine; Visit Provider Nurse Practitioner
DX: M79.671 Pain in right foot (principal); M19.071 Primary osteoarthritis, right ankle and foot
CPT/HCPCS: 73630

== ENCOUNTER → 2019-07-23 10:56 | Outpatient (CLI) | payer MEDICARE, OTHER, SELFPAY ==
--- NOTE | 2019-07-23 10:57 | DI.MRI.S_ITS ---
PROCEDURE: MR ANKLE RT WO CON INDICATIONS: unstable, swelling ankle TECHNIQUE: Noncontrast sagittal T1 spin echo and T2 fast spin echo with fat saturation, axial proton density fast spin echo and T2 fast spin echo with fat saturation, coronal T1 spin echo and T2 fast spin echo with fat saturation through the ankle/hindfoot. COMPARISON: [facility], CR, XR FOOT RT MIN 3V, 06/24/2019, 9:04. FINDINGS: Image quality: Excellent. Bones and joints: There is periarticular edema anteriorly along the subtalar joint involving the talus and navicular. The findings may represent reactive edema secondary to inflammatory changes in the sinus tarsi, intraosseous ganglion cyst formation, or bone contusions. No displaced fracture identified. There are foci of subchondral edema in subchondral cystic change along the talar dome with a probable osteochondral lesion in the medial talar dome. No associated displaced or unstable fragment. There is mild to moderate tibiotalar joint degeneration with mild osteophytosis, cartilage thinning, and chondral fissuring associated with small foci of subchondral edema. No hindfoot coalitions. There is a minimal tibiotalar joint effusion. Medial structures: The posterior tibialis, flexor digitorum longus, and flexor hallucis longus tendons are intact. The posterior tibial neurovascular bundle appears normal within the tarsal tunnel, without extrinsic mass effect. The deltoid and spring ligaments appear intact. Lateral structures: The anterior talofibular, calcaneofibular, and posterior talofibular ligaments appear intact. More superiorly, the anterior and posterior tibiofibular ligaments appear intact, as is the intermalleolar ligament. The tibiofibular syndesmosis is normal in width at 2 mm or less. The peroneus longus and brevis tendons demonstrate normal location and morphology. Adjacent bony peroneal tubercle and retrotrochlear prominence are normal in size. The sinus tarsi demonstrates effacement of the fatty signal with associated mild edema and cystic change. The calcaneonavicular and calcaneocuboid components of the bifurcate ligament appear intact. The dorsal calcaneocuboid ligament appears intact. Anterior structures: The tibialis anterior, extensor hallucis longus, and extensor digitorum longus tendons appear intact. The dorsal talonavicular ligament appears intact. Posterior and plantar structures: Achilles tendon demonstrates mild tendinopathy but appears intact. There is thickening of the central and lateral cords of the plantar fascia proximally with attenuated appearance of the lateral cord compatible with partial tearing. There is also associated mild soft tissue and bone marrow edema adjacent to their origins. Findings are compatible with plantar fasciitis. No abductor digiti quinti muscle atrophy to suggest Wilde neuropathy. IMPRESSION: 1. Mild to moderate tibiotalar joint degeneration with suspected osteochondral lesion along the medial talar dome. No displaced or unstable fragment. There is a minimal tibiotalar joint effusion. 2. Bone marrow edema along the subtalar joint anteriorly may represent reactive changes, intraosseous ganglion cyst formation, or bone contusion. No displaced fracture identified. 3. Plantar fasciitis with mild partial tearing in the lateral cord proximally. 4. Effacement of the sinus tarsi fat with associated mild edema. 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 Dictated by: Jeff Chang M.D. on 07/23/2019 at 14:38 Approved by: Jeff Chang M.D. on 07/23/2019 at 14:49
== END ==
PROVIDERS: PCP Family Medicine; Visit Provider Family Medicine
DX: M25.371 Other instability, right ankle (principal); M19.071 Primary osteoarthritis, right ankle and foot; M72.2 Plantar fascial fibromatosis
CPT/HCPCS: 73721

== ENCOUNTER → 2019-09-04 15:22 | Outpatient (CLI) | payer MEDICARE, OTHER, SELFPAY ==
[2019-09-04 16:13] LABS: Blood Urea Nitrogen 17 mg/dL (9-20); Estimated Glomerular Filt Rate > 60.0 mL/min (>60)
== END ==
PROVIDERS: PCP Family Medicine; Referring Provider Surgery; Visit Provider Family Medicine
DX: K57.92 Diverticulitis of intestine, part unspecified, without perforation or abscess without bleeding (principal)
CPT/HCPCS: 36415; 82565; 84520

== ENCOUNTER → 2019-09-05 10:53 | Outpatient (CLI) | payer MEDICARE, OTHER, SELFPAY ==
--- NOTE | 2019-09-05 10:54 | DI.CT.S_ITS ---
PROCEDURE: CT ABDOMEN PELVIS W CON INDICATIONS: DIVERTICULITIS TECHNIQUE: After the administration of oral and intravenous contrast, 5 mm thick sections acquired from the diaphragms to the symphysis. 5 mm thick coronal and sagittal reformats were performed. For radiation dose reduction, the following was used: automated exposure control, adjustment of mA and/or kV according to patient size. COMPARISON: [facility], CT, CT ABDOMEN PELVIS W CON, 03/14/2018, 21:01. [facility], CT, ABDOMEN/PELVIS WITH CONTRAST, 11/23/2011, 13:37. FINDINGS: Image quality: Excellent. ABDOMEN: Lung bases: Lung bases are clear. Heart size is at the upper limits of normal. Solid organs: Liver is normal in size and enhancement. Gallbladder contains a peripherally calcified 1.5 cm gallstone without evidence of acute cholecystitis or adjacent biliary distention. Biliary system is non-dilated. Pancreas enhances normally. Spleen is normal in size and enhancement. No adrenal nodules. Kidneys are normal in size and enhancement, without hydronephrosis. Peritoneum and bowel: Stomach, small bowel, and colon loops are normal in caliber and wall thickness. No free fluid or air. Nodes and vessels: No retroperitoneal or mesenteric adenopathy. Aorta and inferior vena cava are normal in caliber. Miscellaneous: No ventral hernias. There is a mild eventration at the lower pelvis at the midline, in an area of prior surgery, but no herniation is associated. PELVIS: Genitourinary: Bladder wall thickness is normal. Miscellaneous: No inguinal hernias or adenopathy. Mild sigmoid diverticulosis, no acute diverticulitis. Bones: No suspicious bony lesions. No vertebral body compression fractures. IMPRESSION: Heart size at the upper limits of normal. 1.5 cm peripherally calcified gallstone is present within the gallbladder lumen without evidence of acute cholecystitis or biliary obstruction. Through the abdomen and pelvis no area of infection were suspected neoplasm is found. Overall, while there is diverticulosis involving the sigmoid colon no acute diverticulitis is present. Dictated by: Venkatesh Modi M.D. on 09/05/2019 at 13:03 Approved by: Venkatesh Modi M.D. on 09/05/2019 at 13:06
== END ==
PROVIDERS: PCP Family Medicine; Referring Provider Surgery; Visit Provider Surgery
DX: K57.30 Diverticulosis of large intestine without perforation or abscess without bleeding (principal); K80.20 Calculus of gallbladder without cholecystitis without obstruction
CPT/HCPCS: 74177; Q9967

== ENCOUNTER 2019-09-09 10:45 | Day surgery (SDC) | payer MEDICARE, OTHER, SELFPAY ==
--- NOTE | 2019-09-09 | PATH_ITS ---
[facility] Accession Number: [id number] . 01 Material submitted: . colon - POLYP AT 50CM . 02 Diagnosis: Colon at 50 cm, Polyp: Tubulovillous adenoma, fragmented. Negative for high-grade dysplasia or malignancy. MRV 09/10/2019 1240 Local . 02 Electronically signed: . Jermaine Thomas MD, PhD, Pathologist NPI- [id number] . 01 Gross description: . Received one formalin-filled container, labeled with the patient's name and labeled polyp at 50 cm. The specimen consists of two portions of tissue which range in size from 0.5 x 0.4 x 0.4 cm to 0.9 x 0.9 x 0.7 cm. The smallest piece is totally submitted in one cassette. The largest piece is trisected and totally submitted in the same cassette. ([id number]) /FRR 09/10/2019 0231 Local . 02 Pathologist provided ICD-10: D12.6 . 02 CPT . 251159 Performed at: 01 [facility] [address], [place], [place] [id number] MD Jeff Villegas MD Phone: [phone] Performed at: 02 [facility] [address] [place], [place] [id number] MD Pinky Gurrola MD Phone: [phone]
[2019-09-09] MEDS: SODIUM CHLORIDE 0.9% 1,000 ML 200 ML IV (11:45)
[2019-09-09 11:47] VITALS: BP 164/77; PULSE 44; RESP 16; TEMP 36.6; O2SAT 95; BMI 28.2
--- NOTE | 2019-09-09 12:18 | SUR.PREOP ---
Warm blankets and additional pillow given. Call light within reach.
--- NOTE | 2019-09-09 12:19 | PM.HP.1 ---
History of Present Illness History of Present Illness Chief complaint: [id number] Narrative: Patient presents for colorectal screening. The previously normal colonoscopy 10 years ago. Recently they have been having some new onset left sided abdominal pain had a CT says several days ago which was grossly normal. The have some history of gastroesophageal reflux disease and currently take no medication for this. He had a previous sigmoid resection for diverticulitis. No personal or family history of colon cancer. On further history denies any recent gastrointestinal symptoms. No nausea, vomiting, loss of appetite, unexplained weight loss, change in bowel habits, diarrhea, constipation, melena, hematochezia, or bright red blood per rectum. Medical history is significant for aortic valve replacement on warfarin therapy. Patient History Medical History AAA (abdominal aortic aneurysm) (Resolved 03/11/97) Abnormal skin growth (Acute) Ankle pain (Chronic 1999) BPH NOS w ur obs/LUTS (Chronic) Cervical spinal stenosis (Chronic) Chicken pox (Resolved 1951) Cholelithiasis (Chronic 02/2018) Chronic anticoagulation (Chronic 03/11/97) Colon polyps (Resolved 2001) Community acquired pneumonia (Resolved 2016) Depression (Chronic) Diverticular disease (Chronic ~1989) Elevated PSA (Chronic ~1989) Gallstones (Acute) GERD (gastroesophageal reflux disease) (Acute) Gout (Acute) Hearing loss (Chronic ~1989) Hepatitis B (Resolved 1984) Hernia (Resolved ~1989) Hospital-acquired pneumonia (Resolved 2015) Hyperlipidemia (Acute) Hypertension (Chronic 1999) Hypoxia (Chronic) Impingement syndrome of right shoulder (Acute) Kidney stones (Resolved ~1970) Measles (Resolved ~1949) Mumps (Resolved 1949) Neck fracture (Resolved 1974) Neck muscle spasm (Chronic) Neck pain (Chronic) Osteoarthritis (Acute) Pneumonia (Resolved 2016) Reflex sympathetic dystrophy (Chronic) 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 (Acute) Respiratory failure (Chronic) Rib fracture (Acute) Shoulder pain (Chronic 1996) Sleep apnea (Chronic 2002) Spinal fracture (Resolved 2007) Supraspinatus tendon tear (Acute) TIA (transient ischemic attack) (Acute) Surgical History Anesthesia (Resolved) H/O varicose vein stripping (Acute) History of aortic valve replacement (Resolved 08/12/97) History of arthroscopy of knee (Resolved) History of cardiac catheterization (Acute) History of colon surgery (Resolved) History of meniscectomy of left knee (Acute) History of neck surgery (Resolved 1998) History of partial colectomy (Acute) History of spinal fusion (Resolved 1974) History of total knee arthroplasty (Acute) History of vasectomy (Resolved) S/P cervical spinal fusion (Acute) S/P left knee arthroscopy (Acute) S/P resection of aortic aneurysm (Acute) Status post hernia repair (Resolved ) Status post knee surgery (Resolved 1974) Status post unicompartmental knee replacement, left (Acute) Family & Social History Family History Brother Age: 69 Diabetes mellitus Daughter Age: 56 Breast cancer Daughter Age: 43 Hypertension Cervical cancer Father Hypertension Heart disease Sister Age: 64 Cancer Breast cancer Colon cancer Lung cancer Brother Aortic aneurysm Daughter Cancer Melanoma Mother Heart disease Sister ATV accident causing injury Social History: household members none Tobacco & Substance use: Smoking Status Current some day smoker alcohol intake former Meds Home Medications and Allergies Home Medications Medication Instructions Recorded Confirmed Type acetaminophen 650 mg PO Q8HP PRN #0 03/29/17 09/09/19 History miscellaneous medical supply #1 each 08/27/18 08/06/19 Rx warfarin 5 mg tablet 5 mg PO SEE INSTRUCTIONS #180 tab 03/07/19 09/09/19 Rx amlodipine 5 mg tablet 5 mg PO DAILY #90 tab NS 06/24/19 09/09/19 Rx atorvastatin 40 mg tablet 20 mg PO DAILY #90 tab 07/16/19 09/09/19 Rx doxazosin 8 mg tablet See Rx Instructions .ROUTE 08/18/19 09/09/19 Rx .COMPLEX #90 tablet oxycodone-acetaminophen 5 mg-325 See Rx Instructions PO Q4-6H PRN 08/20/19 09/09/19 Rx mg tablet #60 tab Allergies Allergy/AdvReac Type Severity Reaction Status Date / Time amoxicillin [AMOXICILLIN] Allergy Mild EDEMA IN Verified 08/06/19 08:50 HANDS, BUTTOCKS Penicillins [PENICILLINS] Allergy Mild SWELLING Verified 08/06/19 08:50 clavulanic acid AdvReac Mild EDEMA Verified 08/06/19 08:50 [CLAVULANIC ACID] lisinopril [LISINOPRIL] AdvReac Mild COUGH Verified 08/06/19 08:50 Review of Systems Review of Systems Narrative: A 10 point review of systems is negative except as noted in the HPI Exam Vital Signs (past 8 hours): - 09/09/19 11:47 Temperature 97.9 F Pulse Rate 44 L Respiratory Rate 16 Blood Pressure 164/77 H Pulse Oximetry 95 Oxygen Delivery Method Room Air Narrative Exam Narrative: General-no acute distress, well nourished HEENT-moist mucous membranes, no scleral icterus Neck-supple, no lymphadenopathy Chest- non labored respirations, clear to auscultation bilaterally Cardiac-regular rate no peripheral edema Abdomen-soft, nontender, non distended Extremities-warm, well perfused Neurological-alert and oriented, no focal deficits Assessment & Plan Assessment and plan (1) Screening for colon cancer: Current visit: Yes Status: Acute (2) Abdominal pain: Current visit: Yes Status: Acute Assessment & Plan narrative: The patient requires colorectal screening and colonoscopy is recommended. In addition he has left-sided abdominal pain and nondiagnostic CT abdomen pelvis. His history of chronic gastroesophageal reflux disease and esophagoduodenoscopy is indicated. Technical details were discussed. Risks, benefits, alternatives explained. Risks including but not limited to myocardial infarction, aspiration, bleeding, pain, missed lesion, incomplete examination, need for further radiographic studies, colonic perforation, and need for major abdominal surgery were discussed. All questions were answered to their satisfaction, and they are in agreement with this plan.
--- NOTE | 2019-09-09 12:48 | PM.OP.ENDO ---
Operative Date/Time/Diagnoses Date of procedure: 09/09/19 Time of procedure: 12:48 Pre-op diagnosis: Abdominal pain Screening colonoscopy Post-op diagnosis: same Procedure & Clinicians Study performed: Esophagoduodenoscopy Colonoscopy Same procedure as scheduled: Yes Indications: 79-year-old male last colonoscopy 10 years ago normal presents with left-sided abdominal pain and a prior sigmoid colectomy. CT abdomen pelvis unremarkable except for poe diverticulosis. Surgeon: Fei Reyes Procedure Notes SCOAP/Timeout: Performed Procedure in detail: Patient placed in left lateral decubitus position. Time out was performed. Procedural sedation was administered with Versed and Fentanyl. A bite block was placed. the scope was inserted into the mouth and advanced through the esophagus and into the stomach. The pylorus was intubated and the duodenum was normal. The scope was retroflexed within the stomach and there was no hiatal hernia. No ulcers, or gastritis. The scope was withdrawn into the esophagus the Z line was seen at 35 cm from the incisions. There was no cruz's esophagitis or masses or strictures. Stomach was desufflated and scope removed. Patient tolerated procedure well. Patient placed in left lateral decubitus position. Time out was performed. Procedural sedation was administered with Versed and Fentanyl. A rectal exam demonstrated no external hemorrhoids no internal masses. Colonoscopy scope was placed into the rectum and advanced through the colon to the cecum. The ileocecal valve was identified. The scope was then slowly withdrawn examining colon thoroughly in all directions. The colonoscopy was notable for the following 1. Adenomatous polyp removed with hot snare <1 cm at 50 cm from verge within descending colon. Hemostatic 2. Normal rectosigmoid anastamosis 3. Poe diverticulosis 4. Quality of prep fair Scope withdrawal time: 6 Sedation minutes: 25 Findings: polyp Specimen(s): other (Rama) Complications: none Impression: Normal EGD Polyp resection from 50 cm Post-procedure Recommendations: Colonscopy in 10 years Disposition: same day surgery
[2019-09-09 12:52] VITALS: BP 134/78; PULSE 48; RESP 12; TEMP 36.2; O2SAT 94
[2019-09-09] MEDS: LIDOCAINE 4% SOLN 50 ML 20 ML TOP (12:54)
[2019-09-09] MEDS: MIDAZOLAM 5 MG/5 ML VIAL IV (12:54)
[2019-09-09] MEDS: fentaNYL 250 MCG/5 ML INJ IV (12:55)
[2019-09-09 12:57] VITALS: BP 134/76; PULSE 48; RESP 11; O2SAT 94
[2019-09-09 13:02] VITALS: BP 142/75; PULSE 50; RESP 13; O2SAT 95
[2019-09-09 13:07] VITALS: BP 134/65; PULSE 47; RESP 19; TEMP 36.2; O2SAT 95
[2019-09-09 13:40] VITALS: BP 168/73; PULSE 41; RESP 16; TEMP 36.9; O2SAT 96
== END 2019-09-09 13:47 | disposition home or self-care (01) ==
PROVIDERS: PCP Family Medicine; Referring Provider Family Medicine; Visit Provider Surgery
PROC: 0DJ08ZZ Inspection of Upper Intestinal Tract, Via Natural or Artificial Opening Endoscopic (ICD-10-PCS; CPT 43235; principal; 2019-09-09 12:15)
PROC: 0DJD8ZZ Inspection of Lower Intestinal Tract, Via Natural or Artificial Opening Endoscopic (ICD-10-PCS; CPT 45378; 2019-09-09 12:15)
DX: D12.6 Benign neoplasm of colon, unspecified (principal); Z90.49 Acquired absence of other specified parts of digestive tract; K57.30 Diverticulosis of large intestine without perforation or abscess without bleeding
CPT/HCPCS: 45385; 43235; 99152; 99153; J2250; J3010

== ENCOUNTER → 2020-01-16 10:24 | Outpatient (CLI) | payer MEDICARE, OTHER, SELFPAY ==
[2020-01-16 11:24] LABS: Add Manual Diff / Slide Review NO; Basophils Absolute Auto 0 /uL (0-100); Basophils Percent Auto 0.3 % (0-2); Eosinophils Absolute Auto 100 /uL (0-450); Eosinophils Percent Auto 1.1 % (2-4); Hematocrit 39.9 % (41-53); Hemoglobin 14.1 g/dL (13.5-17.5); Lymphocytes Absolute Auto 1500 /uL (1100-4500); Lymphocytes Percent Auto 26.9 % (25-40); Mean Corpuscular HGB Conc 35.4 % (30-36); Mean Corpuscular Hemoglobin 34.4 PG (26-34); Mean Corpuscular Volume 97.3 fL (80-100); Monocytes Absolute Auto 400 /uL (0-900); Monocytes Percent Auto 7.6 % (3-14); Neutrophils Absolute Auto 3600 /uL (1500-7000); Neutrophils Percent Auto 64.1 % (50-75); Platelet Count 181 X10^3/uL (150-400); Red Cell Distribution Width 13.2 % (11.6-14.8); White Blood Cell Count 5.7 X10^3/uL (4.5-11.0)
[2020-01-16 11:54] LABS: Alanine Aminotransferase 14 IU/L (<50); Albumin 3.9 g/dL (3.5-5.0); Albumin Globulin Ratio 1.4 (1.0-2.8); Alkaline Phosphatase 87 U/L (38-126); Aspartate Aminotransferase 21 IU/L (17-59); Bilirubin Total 1.3 mg/dL (0.2-1.3); Blood Urea Nitrogen 17 mg/dL (9-20); Carbon Dioxide 28 mmol/L (22-32); Chloride 104 mmol/L (98-107); Cholesterol 122 mg/dL (140-199); Estimated Glomerular Filt Rate > 60.0 mL/min (>60); Globulin 2.8 g/dL (1.7-4.1); Glucose 99 mg/dL (80-110); HDL Cholesterol 36 mg/dL (40-60); HEMOLYSIS < 15 (0-50); LDL Cholesterol Calculated 69 mg/dL (<100); Potassium 4.4 mmol/L (3.4-5.1); Sodium 137 mmol/L (137-145); Total Protein 6.7 g/dL (6.3-8.2); Triglycerides 84 mg/dL (35-150)
[2020-01-16 12:23] LABS: Prostate Specific Antigen Scrn 7.79 ng/mL (0.1-4.0)
== END ==
PROVIDERS: PCP Family Medicine; Referring Provider Family Medicine; Visit Provider Family Medicine
DX: I10 Essential (primary) hypertension (principal); Z95.2 Presence of prosthetic heart valve; Z12.5 Encounter for screening for malignant neoplasm of prostate
CPT/HCPCS: 36415; 80053; 80061; 85025; G0103

== ENCOUNTER 2020-03-16 22:26 | Emergency (ER) | payer MEDICARE, OTHER, SELFPAY ==
[2020-03-16] VITALS (7 sets, daily range): BP systolic 127–185; BP diastolic 58–78; PULSE 50–60; RESP 19–33; TEMP 36.9; O2SAT 89–93; BMI 28.1
--- NOTE | 2020-03-16 22:45 | ED_ITS ---
HPI - General Adult General Chief complaint: Abdominal Pain Stated complaint: RIGHT UPPER SIDE PAIN Time Seen by Provider: 03/16/20 22:29 Source: patient Mode of arrival: Ambulatory Limitations: no limitations History of Present Illness HPI narrative: 80-year-old male with multiple chronic medical issues here for ev aluation of upper abdominal discomfort. He states that it occurred approximately 1 to 1-1/2 hours prior to arrival here in the ER. Was fairly sudden onset. Woke him from a sleep. Lasted approximately 40 minutes and then has completely resolved. This has happened to him in the past over the past couple night. Describes it as a ?squeezing ?sensation. Somewhat difficult for him to exactly characterize or localized however he does point to his upper abdomen. He states that when the pain was at its maximum he did have some sweating and some shortness of breath but those symptoms have resolved as well. Patient is on Coumadin for a distant history of a DVT. Related Data Home Medications Medication Instructions Recorded Confirmed acetaminophen 650 mg PO Q8HP PRN #0 03/29/17 03/10/20 Previous Rx's Medication Instructions Recorded miscellaneous medical supply #1 each 08/27/18 amlodipine 5 mg tablet 5 mg PO DAILY #90 tab NS 06/24/19 atorvastatin 40 mg tablet 20 mg PO DAILY #90 tab 07/16/19 warfarin 5 mg tablet 5 mg PO SEE INSTRUCTIONS #180 tab 10/28/19 doxazosin 8 mg tablet See Rx Instructions .ROUTE 11/18/19 .COMPLEX #90 tablet oxycodone-acetaminophen 5 mg-325 See Rx Instructions PO Q4-6H PRN 03/16/20 mg tablet #60 tab Allergies Allergy/AdvReac Type Severity Reaction Status Date / Time amoxicillin [AMOXICILLIN] Allergy Mild EDEMA IN Verified 01/16/20 09:55 HANDS, BUTTOCKS Penicillins [PENICILLINS] Allergy Mild SWELLING Verified 01/16/20 09:55 clavulanic acid AdvReac Mild EDEMA Verified 01/16/20 09:55 [CLAVULANIC ACID] lisinopril [LISINOPRIL] AdvReac Mild COUGH Verified 01/16/20 09:55 Review of Systems Constitutional Constitutional: Denies fever(s) Comments: Diaphoresis Cardiovascular Cardiovascular: Denies chest pain, Denies lightheadedness and Reports dyspnea Respiratory Respiratory: Denies cough and Reports dyspnea Gastrointestinal Gastrointestinal: Reports abdominal pain, Denies change in bowel habits and D enies nausea Musculoskeletal Musculoskeletal: Denies arthralgias and Denies myalgias Integumentary/Breasts Skin/Breast: Denies rash Neurologic Neurologic: Denies behavioral changes Psychiatric Psychiatric: Denies behavioral changes Hematologic/Lymphatic Hematologic/Lymphatic: Denies easy bleeding and Denies easy bruising Allergic/Immunologic Allergic/Immunologic: Denies urticaria Patient History Medical History AAA (abdominal aortic aneurysm) (Resolved 03/11/97) Abnormal skin growth (Acute) Ankle pain (Chronic 1999) BPH NOS w ur obs/LUTS (Chronic) Cervical spinal stenosis (Chronic) Chicken pox (Resolved 1951) Cholelithiasis (Chronic 02/2018) Chronic anticoagulation (Chronic 03/11/97) Colon polyps (Resolved 2001) Community acquired pneumonia (Resolved 2016) Depression (Chronic) Diverticular disease (Chronic ~1989) Elevated PSA (Chronic ~1989) Gallstones (Acute) GERD (gastroesophageal reflux disease) (Acute) Gout (Acute) Hearing loss (Chronic ~1989) Hepatitis B (Resolved 1984) Hernia (Resolved ~1989) Hospital-acquired pneumonia (Resolved 2015) Hyperlipidemia (Acute) Hypertension (Chronic 1999) Hypoxia (Chronic) Impingement syndrome of right shoulder (Acute) Kidney stones (Resolved ~1969) Measles (Resolved ~1949) Mumps (Resolved 1949) Neck fracture (Resolved 1974) Neck muscle spasm (Chronic) Neck pain (Chronic) Osteoarthritis (Acute) Pneumonia (Resolved 2016) Reflex sympathetic dystrophy (Chronic) 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 (Acute) Respiratory failure (Chronic) Rib fracture (Acute) Shoulder pain (Chronic 1996) Sleep apnea (Chronic 2002) Spinal fracture (Resolved 2007) Supraspinatus tendon tear (Acute) TIA (transient ischemic attack) (Acute) Surgical History Anesthesia (Resolved) H/O varicose vein stripping (Acute) History of aortic valve replacement (Resolved 03/11/97) History of arthroscopy of knee (Resolved) History of cardiac catheterization (Acute) History of colon surgery (Resolved) History of meniscectomy of left knee (Acute) History of neck surgery (Resolved 1998) History of partial colectomy (Acute) History of spinal fusion (Resolved 1974) History of total knee arthroplasty (Acute) History of vasectomy (Resolved) S/P cervical spinal fusion (Acute) S/P left knee arthroscopy (Acute) S/P resection of aortic aneurysm (Acute) Status post hernia repair (Resolved ~1989) Status post knee surgery (Resolved 1974) Status post unicompartmental knee replacement, left (Acute) Family History Brother Age: 69 Diabetes mellitus Daughter Age: 57 Breast cancer Daughter Age: 43 Hypertension Cervical cancer Father Hypertension Heart disease Sister Age: 64 Cancer Breast cancer Colon cancer Lung cancer Brother Aortic aneurysm Daughter Cancer Melanoma Mother Heart disease Sister ATV accident causing injury Social History household members: none Smoking Status: Current some day smoker alcohol intake: former Smoking Status: Current some day smoker alcohol intake frequency: 0-2 drinks per day Substance Use Type: does not use Exam Initial Vital Signs Initial Vital Signs: Vital Signs Temperature 98.5 F 03/16/20 22:26 Pulse Rate 60 03/16/20 22:26 Respiratory Rate 22 03/16/20 22:26 Blood Pressure 185/78 H 03/16/20 22:26 Pulse Oximetry 92 03/16/20 22:26 Const General: cooperative, comfortable and well developed Limitations: mental status not altered HENMT Head: normal to inspection and normocephalic Resp Effort & Inspection: normal respiratory effort Auscultation: clear to auscultation bilaterally Cardio Rate: regular rate Rhythm: regular rhythm Pulses: radial pulses present GI Inspection: non-distended Palpation: soft Skin Lesions: no lesions Rashes: no rashes Neuro General: patient alert, patient awake and patient oriented x3 Cognition: normal cognition Speech: speech normal Motor: muscle tone normal throughout Extrem General: normal to inspection, capillary refill normal and No edema Psych Appearance: grossly normal and well kempt Scores GCS Chandler coma scale eye opening: Spontaneous Chandler coma scale verbal response: Orientated Chandler coma scale motor response: Obey commands Chandler coma scale total score: 15 Course Orders Ordered: ED Orders 03/16/20 22:32 EKG-12 Lead Stat 03/16/20 22:42 Complete Blood Count AUTO DIFF Stat Comprehensive Metabolic Panel Stat Lipase Stat NT-proBNP (BNP-Adult 18+) Stat Partial Thromboplastin Time Stat Prothrombin Time INR Stat Troponin & CK Cardiac Panel Stat 03/16/20 22:45 XR chest 1V Stat 03/16/20 23:54 CT abdomen pelvis w con Stat Discontinued Medications Hydrocodone Bitart/Acetaminophen (Vicodin 5/325 Prepack) 1 bottle MISC SEEINSTR ONE Stop: 03/17/20 01:09 Last Admin: 03/17/20 01:51 Dose: 1 bottle Documented by: LORENA Cyclobenzaprine HCl (Flexeril 10 Mg Prepack) 1 bottle MISC SEEINSTR ONE Stop: 03/17/20 01:09 Last Admin: 03/17/20 01:51 Dose: 1 bottle Documented by: LORENA Hydromorphone HCl (Dilaudid) 0.5 mg IV NOW ONE Stop: 03/16/20 23:53 Last Admin: 03/16/20 23:56 Dose: 0.5 mg Documented by: HARJEET Morphine Sulfate (Morphine) 4 mg IV NOW ONE Stop: 03/16/20 22:45 Last Admin: 03/16/20 22:50 Dose: 4 mg Documented by: HARJEET Vital Signs Vital signs: Vital Signs - 8 hr 03/16/20 22:26 03/16/20 22:55 03/16/20 22:57 Temperature 98.5 F Pulse Rate 60 51 L 53 L Respiratory Rate 22 19 23 Blood Pressure 185/78 H 128/67 Pulse Oximetry 92 89 L 92 03/16/20 23:00 03/16/20 23:30 03/16/20 23:31 Temperature Pulse Rate 51 L 50 L 51 L Respiratory Rate 28 H 33 H 30 H Blood Pressure 127/63 141/58 H Pulse Oximetry 92 93 93 03/16/20 23:34 03/17/20 00:00 03/17/20 00:01 Temperature Pulse Rate 51 L 51 L Respiratory Rate 22 26 H Blood Pressure 124/59 L Pulse Oximetry 92 93 93 03/17/20 00:30 03/17/20 00:36 03/17/20 00:37 Temperature Pulse Rate 50 L 50 L 43 L Respiratory Rate 18 22 28 H Blood Pressure 148/71 H 148/71 H Pulse Oximetry 92 92 90 L 03/17/20 01:01 03/17/20 01:27 03/17/20 01:28 Temperature Pulse Rate 49 L 49 L 68 Respiratory Rate 33 H 20 Blood Pressure 167/78 H Pulse Oximetry 92 92 90 L 03/17/20 02:00 Temperature Pulse Rate 50 L Respiratory Rate 24 Blood Pressure 163/77 H Pulse Oximetry 92 Medical Decision Making Medical Records Medical records reviewed: Yes I reviewed the patient's medical records. Lab Data Lab results reviewed: Yes I reviewed the patient's lab results. Result diagrams: 03/16/20 22:42 03/16/20 22:42 Labs: Lab Results 03/16/20 03/16/20 03/16/20 Range/Units 22:42 22:42 22:42 WBC 6.9 (4.5-11.0) X10^3/uL RBC 4.15 L (4.5-5.9) X10^6/uL Hgb 13.9 (13.5-17.5) g/dL Hct 40.4 L (41-53) % MCV 97.4 (80-100) fL MCH 33.5 (26-34) PG MCHC 34.4 (30-36) % RDW 13.6 (11.6-14.8) % Plt Count 162 (150-400) X10^3/uL Neut % (Auto) 63.1 (50-75) % Lymph % (Auto) 25.7 (25-40) % [place] % (Auto) 8.4 (3-14) % Eos % (Auto) 2.2 (2-4) % Baso % (Auto) 0.6 (0-2) % Neut # (Auto) 4400 (9014-1227) /uL Lymph # (Auto) 1800 (8483-0590) /uL [place] # (Auto) 600 (0-900) /uL Eos # (Auto) 200 (0-450) /uL Baso # (Auto) 0 (0-100) /uL PT 28.1 H (10.1-12.7) SECONDS INR 2.5 H (0.9-1.3) APTT 42 H (26.4-36.2) SECONDS Sodium 137 (137-145) mmol/L Potassium 4.0 (3.4-5.1) mmol/L Chloride 105 (98-107) mmol/L Carbon Dioxide 27 (22-32) mmol/L BUN 18 (9-20) mg/dL Creatinine 0.79 (0.66-1.25) mg/dL Estimated GFR > 60.0 (>60) mL/min BUN/Creatinine Ratio 22.8 H (6-22) Glucose 97 (80-110) mg/dL Calcium 9.0 (8.4-10.2) mg/dL Total Bilirubin 1.7 H (0.2-1.3) mg/dL AST 22 (17-59) IU/L ALT 14 (<50) IU/L Alkaline Phosphatase 71 (38-126) U/L Total Creatine Kinase (55-170) U/L CK-MB (CK-2) CK-MB (CK-2) Rel Index Troponin I (0.01-0.034) ng/mL NT-Pro-B Natriuret Pep (<450) pg/mL Total Protein 6.9 (6.3-8.2) g/dL Albumin 4.1 (3.5-5.0) g/dL Globulin 2.8 (1.7-4.1) g/dL Albumin/Globulin Ratio 1.5 (1.0-2.8) Lipase 60 (23-300) U/L 03/16/20 Range/Units 22:42 WBC (4.5-11.0) X10^3/uL RBC (4.5-5.9) X10^6/uL Hgb (13.5-17.5) g/dL Hct (41-53) % MCV (80-100) fL MCH (26-34) PG MCHC (30-36) % RDW (11.6-14.8) % Plt Count (150-400) X10^3/uL Neut % (Auto) (50-75) % Lymph % (Auto) (25-40) % [place] % (Auto) (3-14) % Eos % (Auto) (2-4) % Baso % (Auto) (0-2) % Neut # (Auto) (9686-3787) /uL Lymph # (Auto) (7254-0277) /uL [place] # (Auto) (0-900) /uL Eos # (Auto) (0-450) /uL Baso # (Auto) (0-100) /uL PT (10.1-12.7) SECONDS INR (0.9-1.3) APTT (26.4-36.2) SECONDS Sodium (137-145) mmol/L Potassium (3.4-5.1) mmol/L Chloride (98-107) mmol/L Carbon Dioxide (22-32) mmol/L BUN (9-20) mg/dL Creatinine (0.66-1.25) mg/dL Estimated GFR (>60) mL/min BUN/Creatinine Ratio (6-22) Glucose (80-110) mg/dL Calcium (8.4-10.2) mg/dL Total Bilirubin (0.2-1.3) mg/dL AST (17-59) IU/L ALT (<50) IU/L Alkaline Phosphatase (38-126) U/L Total Creatine Kinase 55 (55-170) U/L CK-MB (CK-2) TNP CK-MB (CK-2) Rel Index TNP Troponin I 0.018 (0.01-0.034) ng/mL NT-Pro-B Natriuret Pep 333 (<450) pg/mL Total Protein (6.3-8.2) g/dL Albumin (3.5-5.0) g/dL Globulin (1.7-4.1) g/dL Albumin/Globulin Ratio (1.0-2.8) Lipase (23-300) U/L Urine Dip Bedside Urine Glucose 100 mg/dl Bedside Urine Bilirubin - Negative Bedside Urine Ketone - Negative Urine Specific [place] 1.010 Bedside Urine Occult Blood - Negative Bedside Urine pH 6.0 Bedside Urine Protein - Negative Bedside Urine Urobilinogen +/- 1mg Bedside Urine Nitrite - Negative Bedside Urine Leukocytes - Negative Esterase Point of care testing: Urine Dip Bedside Urine Glucose 100 mg/dl Bedside Urine Bilirubin - Negative Bedside Urine Ketone - Negative Urine Specific [place] 1.010 Bedside Urine Occult Blood - Negative Bedside Urine pH 6.0 Bedside Urine Protein - Negative Bedside Urine Urobilinogen +/- 1mg Bedside Urine Nitrite - Negative Bedside Urine Leukocytes - Negative Esterase Imaging Data Chest x-ray: Attestation: I personally reviewed and interpreted this imaging study as follows: My Impression: No pneumonia, no free under the diaphragm, no pneumothorax ECG Data Attestation: I personally reviewed and interpreted this ECG as follows: Prior ECG tracings: not available for review Interpretation: Sinus rhythm Ventricular rate of 59 Incomplete right bundle-branch block Nonspecific ST T wave changes MDM Narrative Medical decision making narrative: Patient symptom-free upon my evaluation has remained symptom free. Troponins negative x2. EKG shows nonspecific changes. Patient's history not entirely consistent with ACS. I have low suspicion for intra-abdominal surgical pathology. I feel we can hold on a CT scan for now. Discussed with the patient of the concerning the exact etiology of his symptoms. We did discuss his risk factors for coronary artery disease. He is therapeutic on his Coumadin and has been therapeutic so I feel that a pulmonary embolism is unlikely and that we can hold on radiologic studies for now. We did discuss return precautions and follow-up instructions. He expressed understanding and agreement. Discharge Plan Departure Patient Disposition: Home Clinical Impression: Acute flank pain, Abdominal pain Discharge Date/Time: 03/17/20 02:00 Instructions: DI for Abdominal Pain-Adult, DI for Flank Pain Activity Restrictions/Additional Instructions: Recommend you take all of your medications as directed. I recommend that tomorrow you contact your primary doctor about the symptoms that brought you to the emergency department this evening now also recommend that you talk with your specialty sales consultant about the other findings that we discussed. Let your specialty sales consultant know that the the chest x-ray and the CT scan we did today that we are concerned that potentially your having some fluid backed up on your lungs. Like we discussed return to the emergency department for any new or worsening symptoms Prescriptions: No Action acetaminophen 650 MG tablet extended release 650 mg PO Q8HP PRN (Reason: Pain) Qty: 0 RF: 0 (DME) miscellaneous medical supply misc See Dose Instructions .Route .MEDSUPPLY Qty: 1 RF: 0 amlodipine 5 mg tablet 5 mg PO DAILY Qty: 90 RF: 2 atorvastatin 40 mg tablet 20 mg PO DAILY Qty: 90 RF: 3 warfarin [Coumadin] 5 mg tablet 5 mg PO SEE INSTRUCTIONS Qty: 180 RF: 3 doxazosin 8 mg tablet See Rx Instructions .ROUTE .COMPLEX Qty: 90 RF: 1 oxycodone-acetaminophen [Percocet] 5-325 mg tablet See Rx Instructions PO Q4-6H PRN (Reason: pain) Qty: 60 RF: 0 Referrals: Phillip Ghosh MD [Primary Care Provider] -
--- NOTE | 2020-03-16 22:45 | DI.RAD.S_ITS ---
PROCEDURE: XR CHEST 1V INDICATIONS: Right sided chest pain TECHNIQUE: One view of the chest was acquired. COMPARISON: [facility], , CHEST 1 VIEW, 09/06/2017, 15:42. FINDINGS: Surgical changes and devices: Sternotomy wires Patchy bibasilar opacities. No pleural effusions or pneumothorax. Mediastinum: Mediastinal contours appear normal. Heart size is normal. Bones and chest wall: No suspicious bony lesions. Overlying soft tissues appear unremarkable. IMPRESSION: Low lung volumes and patchy bibasilar consolidative opacities. This could represent aspiration/atelectasis versus early pneumonia. If there is persistent clinical diagnostic uncertainty, continued surveillance with short interval chest radiographs after treatment is recommended. Dictated by: Nando Rizo M.D. on 03/17/2020 at 8:38 Approved by: Nando Rizo M.D. on 03/17/2020 at 8:39
[2020-03-16] MEDS: MORPHINE 4 MG/ML INJ IV (22:50)
[2020-03-16 22:52] LABS: Add Manual Diff / Slide Review NO; Basophils Absolute Auto 0 /uL (0-100); Basophils Percent Auto 0.6 % (0-2); Eosinophils Absolute Auto 200 /uL (0-450); Eosinophils Percent Auto 2.2 % (2-4); Hematocrit 40.4 % (41-53); Hemoglobin 13.9 g/dL (13.5-17.5); Lymphocytes Absolute Auto 1800 /uL (1100-4500); Lymphocytes Percent Auto 25.7 % (25-40); Mean Corpuscular HGB Conc 34.4 % (30-36); Mean Corpuscular Hemoglobin 33.5 PG (26-34); Mean Corpuscular Volume 97.4 fL (80-100); Monocytes Absolute Auto 600 /uL (0-900); Monocytes Percent Auto 8.4 % (3-14); Neutrophils Absolute Auto 4400 /uL (1500-7000); Neutrophils Percent Auto 63.1 % (50-75); Platelet Count 162 X10^3/uL (150-400); Red Blood Cell Count 4.15 X10^6/uL (4.5-5.9); Red Cell Distribution Width 13.6 % (11.6-14.8); White Blood Cell Count 6.9 X10^3/uL (4.5-11.0)
[2020-03-16 22:55] LABS: INR 2.5 (0.9-1.3); Prothrombin Time 28.1 SECONDS (10.1-12.7)
[2020-03-16 22:57] LABS: PTT Partial Thromboplastin Tim 42 SECONDS (26.4-36.2)
[2020-03-16 22:59] LABS: Alanine Aminotransferase 14 IU/L (<50); Albumin 4.1 g/dL (3.5-5.0); Albumin Globulin Ratio 1.5 (1.0-2.8); Alkaline Phosphatase 71 U/L (38-126); Aspartate Aminotransferase 22 IU/L (17-59); BUN Creatinine Ratio 22.8 (6-22); Bilirubin Total 1.7 mg/dL (0.2-1.3); Blood Urea Nitrogen 18 mg/dL (9-20); Carbon Dioxide 27 mmol/L (22-32); Chloride 105 mmol/L (98-107); Estimated Glomerular Filt Rate > 60.0 mL/min (>60); Globulin 2.8 g/dL (1.7-4.1); Glucose 97 mg/dL (80-110); HEMOLYSIS 47 (0-50); Lipase 60 U/L (23-300); Sodium 137 mmol/L (137-145); Total Protein 6.9 g/dL (6.3-8.2)
[2020-03-16 23:17] LABS: Creatine Kinase 55 U/L (55-170)
[2020-03-16 23:30] LABS: NT-proBNP (BNP-Adult 18+) 333 pg/mL (<450); Troponin I 0.018 ng/mL (0.01-0.034)
--- NOTE | 2020-03-16 23:54 | DI.CT.S_ITS ---
PROCEDURE: CT ABDOMEN PELVIS W CON INDICATIONS: Right upper abdominal pain, on Warfarin TECHNIQUE: After the administration of intravenous contrast, 5 mm thick sections acquired from the diaphragm to the symphysis. 5 mm coronal and sagittal reformats were acquired. For radiation dose reduction, the following was used: automated exposure control, adjustment of mA and/or kV according to patient size. COMPARISON: [facility], CT, CHEST/ABD/PEL WITH CONTRAST, 03/29/2017, 17:47[facility], CT, CT ABDOMEN PELVIS W CON, 03/14/2018, 21:01. [facility], CR, XR CHEST 1V, 03/16/2020, 22:49. [facility], CT, CT ABDOMEN PELVIS W CON, 09/05/2019, 11:42. FINDINGS: Image quality: Excellent. ABDOMEN: Patchy ill-defined consolidative opacities in both lower lobes heart is enlarged. Coronary artery calcifications are present. Solid organs: Liver is normal in size and enhancement. Gallbladder contains a rim calcified large gallstone. . Biliary system is non dilated. Pancreas enhances normally. Spleen is normal in size and enhancement. No adrenal nodules. Kidneys demonstrate normal size and enhancement, without hydronephrosis. No free fluid or air. Normal appendix. Colonic diverticulosis is seen without evidence of acute complication. Incidental duodenal diverticulum. Surgical bowel anastomosis present in the left abdomen. Moderate amount of stool is present. Nodes and vessels: No retroperitoneal or mesenteric adenopathy by size criteria. Aorta and inferior vena cava are normal in size. Miscellaneous: No ventral hernias. PELVIS: Circumferential bladder wall thickening is present. Marked enlargement of the prostate. Rectum is grossly unremarkable Bilateral fat containing inguinal hernias. Bones: No vertebral body compression fracture. Spondylytic changes and facet arthropathy. IMPRESSION: Bilateral patchy consolidation both visualized lung bases suggestive of aspiration/atelectasis versus pneumonia. Recommend clinical correlation. If there is persistent clinical diagnostic uncertainty, continued surveillance with short interval chest radiographs after treatment is recommended. Circumferential bladder wall thickening raising possibility of cystitis. Please correlate with urinalysis data. Enlarged prostate Cholelithiasis. Cardiomegaly Additional chronic and incidental findings as above. Findings concordant with the preliminary study interpretation provided at the time of the exam. Dictated by: Nando Rizo M.D. on 03/17/2020 at 8:31 Approved by: Nando Rizo M.D. on 03/17/2020 at 8:38
[2020-03-16] MEDS: HYDROMORPHONE 0.5 MG INJ IV (23:56)
[2020-03-17] VITALS (9 sets, daily range): BP systolic 124–167; BP diastolic 59–78; PULSE 43–68; RESP 18–33; O2SAT 90–93
[2020-03-17] MEDS: HYDROCODONE/ACET 5/325 PREPACK 1 BOTTLE MISC (01:51)
[2020-03-17] MEDS: CYCLOBENZAPRINE 10 MG PREPACK 1 BOTTLE MISC (01:51)
== END 2020-03-17 02:00 | disposition home or self-care (01) ==
PROVIDERS: Emergency Provider Emergency Medicine; PCP Family Medicine
DX: R10.11 Right upper quadrant pain (principal); R06.02 Shortness of breath; Z79.01 Long term (current) use of anticoagulants; R00.1 Bradycardia, unspecified
CPT/HCPCS: 36415; 71045; 74177; 80053; 81003; 82550; 83690; 83880; 84484; 85025; 85610; 85730; 93005; 93010; 96374; 96375; 99284; 99285; J1170; J2270; Q9967

== ENCOUNTER → 2020-04-14 09:06 | Outpatient (CLI) | payer MEDICARE, OTHER, SELFPAY ==
--- NOTE | 2020-04-14 09:08 | DI.RAD.S_ITS ---
PROCEDURE: XR CHEST 2V INDICATIONS: Follow-up chest TECHNIQUE: 2 views of the chest were acquired. COMPARISON: [facility], , XR CHEST 1V, 03/16/2020, 22:49. FINDINGS: Surgical changes and devices: Sternotomy wires Scattered subsegmental atelectasis and/or scarring. No focal consolidation. Previous mild patchy bibasilar opacities have resolved. No pleural effusions or pneumothorax. Mediastinum: Mediastinal contours are normal. Heart size is normal. Bones and chest wall: No suspicious bony abnormalities. Chronic left rib fractures. Soft tissues appear unremarkable. IMPRESSION: No acute disease. Interval improvement of previous mild bibasilar opacities Dictated by: Nando Rizo M.D. on 04/14/2020 at 12:48 Approved by: Nando Rizo M.D. on 04/14/2020 at 12:57
== END ==
PROVIDERS: PCP Family Medicine; Referring Provider Family Medicine; Visit Provider Family Medicine
DX: J18.9 Pneumonia, unspecified organism (principal)
CPT/HCPCS: 71046

== ENCOUNTER → 2020-07-21 08:36 | Outpatient (CLI) | payer MEDICARE, OTHER, SELFPAY ==
[2020-07-21 10:32] LABS: Alanine Aminotransferase 13 IU/L (<50); Albumin 3.6 g/dL (3.5-5.0); Albumin Globulin Ratio 1.3 (1.0-2.8); Alkaline Phosphatase 86 U/L (38-126); Aspartate Aminotransferase 20 IU/L (17-59); BUN Creatinine Ratio 16.4 (6-22); Bilirubin Total 1.1 mg/dL (0.2-1.3); Blood Urea Nitrogen 12 mg/dL (9-20); Calcium 8.6 mg/dL (8.4-10.2); Carbon Dioxide 31 mmol/L (22-32); Chloride 105 mmol/L (98-107); Cholesterol 127 mg/dL (140-199); Estimated Glomerular Filt Rate > 60.0 mL/min (>60); Globulin 2.7 g/dL (1.7-4.1); Glucose 99 mg/dL (80-110); HDL Cholesterol 45 mg/dL (40-60); LDL Cholesterol Calculated 69 mg/dL (<100); Sodium 138 mmol/L (137-145); Total Protein 6.3 g/dL (6.3-8.2); Triglycerides 66 mg/dL (35-150)
[2020-07-21 10:57] LABS: Microalbumi Creatinin Ratio Ur 17.7 ug/mg CR (<30); Microalbumin Urine Random 1.1 mg/dL (0-1.6)
[2020-07-21 11:03] LABS: HEMOLYSIS < 15 (0-50); Prostate Specific Antigen Scrn 4.74 ng/mL (0.1-4.0)
== END ==
PROVIDERS: PCP Family Medicine; Referring Provider Family Medicine; Visit Provider Family Medicine
DX: I10 Essential (primary) hypertension (principal); N40.1 Benign prostatic hyperplasia with lower urinary tract symptoms; Z12.5 Encounter for screening for malignant neoplasm of prostate
CPT/HCPCS: 36415; 80053; 80061; 82043; 82570; G0103

== ENCOUNTER → 2020-08-27 14:13 | Outpatient (CLI) | payer MEDICARE, OTHER, SELFPAY ==
[2020-08-27 14:28] LABS: Bacteria Urine None Seen
[2020-08-27 14:39] LABS: Appearance Urine UA CLOUDY; Bilirubin Urine UA NEGATIVE (NEGATIVE); Color Urine UA RED; Glucose Urine UA TRACE g/dL (Negative); Ketones Urine UA 1+ (NEGATIVE); Leukocyte Esterase Urine UA 2+ (NEGATIVE); Nitrite Urine UA POSITIVE (Negative); Occult Blood Urine UA 3+ (Negative); Protein Urine UA 3+ (Negative)
[2020-08-27 14:48] LABS: Culture Indicated Urine Specimen Cultured; RBC Urine >100/HPF (0-5/HPF); WBC Urine 5-10/HPF (0-5/HPF)
[2020-08-27 15:17] LABS: Add Manual Diff / Slide Review NO; Basophils Absolute Auto 0 /uL (0-100); Basophils Percent Auto 0.4 % (0-2); Eosinophils Absolute Auto 100 /uL (0-450); Eosinophils Percent Auto 1.1 % (2-4); Hematocrit 45.1 % (41-53); Hemoglobin 15.2 g/dL (13.5-17.5); Lymphocytes Absolute Auto 2100 /uL (1100-4500); Lymphocytes Percent Auto 26.1 % (25-40); Mean Corpuscular HGB Conc 33.6 % (30-36); Mean Corpuscular Hemoglobin 32.9 PG (26-34); Mean Corpuscular Volume 97.8 fL (80-100); Monocytes Absolute Auto 700 /uL (0-900); Monocytes Percent Auto 8.9 % (3-14); Neutrophils Absolute Auto 5000 /uL (1500-7000); Neutrophils Percent Auto 63.5 % (50-75); Platelet Count 180 X10^3/uL (150-400); Red Blood Cell Count 4.61 X10^6/uL (4.5-5.9); Red Cell Distribution Width 13.3 % (11.6-14.8); White Blood Cell Count 7.9 X10^3/uL (4.5-11.0)
[2020-08-27 15:31] LABS: INR 2.6 (0.9-1.3); Prothrombin Time 30.1 SECONDS (10.1-12.7)
[2020-08-27 15:45] LABS: Alanine Aminotransferase 13 IU/L (<50); Albumin 4.2 g/dL (3.5-5.0); Albumin Globulin Ratio 1.6 (1.0-2.8); Alkaline Phosphatase 94 U/L (38-126); Aspartate Aminotransferase 19 IU/L (17-59); BUN Creatinine Ratio 18.8 (6-22); Bilirubin Total 1.7 mg/dL (0.2-1.3); Blood Urea Nitrogen 15 mg/dL (9-20); Calcium 9.4 mg/dL (8.4-10.2); Carbon Dioxide 31 mmol/L (22-32); Chloride 103 mmol/L (98-107); Estimated Glomerular Filt Rate > 60.0 mL/min (>60); Globulin 2.7 g/dL (1.7-4.1); Glucose 92 mg/dL (80-110); HEMOLYSIS < 15 (0-50); Potassium 4.1 mmol/L (3.4-5.1); Sodium 138 mmol/L (137-145); Total Protein 6.9 g/dL (6.3-8.2)
[2020-08-27 20:36] LABS: PTT Partial Thromboplastin Tim 44 SECONDS (26.4-36.2)
== END ==
PROVIDERS: PCP Family Medicine; Referring Provider Family Medicine; Visit Provider Family Medicine
DX: R31.9 Hematuria, unspecified (principal)
CPT/HCPCS: 80053; 81001; 85025; 85610; 85730; 87086

== ENCOUNTER → 2020-09-10 08:19 | Outpatient (CLI) | payer MEDICARE, OTHER, SELFPAY | PROVIDERS: PCP Family Medicine; Visit Provider Nurse Practitioner Family | DX: R35.0 Frequency of micturition (principal) | CPT/HCPCS: 87086 ==

== ENCOUNTER → 2020-11-06 15:07 | Outpatient (CLI) | payer MEDICARE, OTHER, SELFPAY ==
--- NOTE | 2020-11-06 15:09 | DI.RAD.S_ITS ---
PROCEDURE: XR ANKLE RT MIN 3V INDICATIONS: right ankle pain/swelling TECHNIQUE: 3 views of the ankle were acquired. COMPARISON: [facility], CR, XR ANKLE 3 VIEWS WEIGHT BEARING RIGHT, 08/06/2019, 11:58. [facility], CR, XR FOOT 3 VIEWS WEIGHT BEARING RIGHT, 03/20/2020, 9:27. FINDINGS: Bones: No fractures or dislocations. Ankle mortise is normally aligned. No suspicious bony lesions. Soft tissues: No tibiotalar joint effusion. Achilles tendon appears normal. IMPRESSION: No acute trauma. A small degree of sclerosis is seen at the inferior tip of the right medial malleolus, previously present 08/06/19. Dictated by: Venkatesh Modi M.D. on 11/06/2020 at 15:38 Approved by: Venkatesh Modi M.D. on 11/06/2020 at 15:40
== END ==
PROVIDERS: PCP Family Medicine; Referring Provider Family Medicine; Visit Provider Family Medicine
DX: G89.4 Chronic pain syndrome (principal); M25.571 Pain in right ankle and joints of right foot
CPT/HCPCS: 73610

== ENCOUNTER → 2020-11-19 07:58 | Outpatient (CLI) | payer MEDICARE, OTHER, SELFPAY ==
[2020-11-19 08:44] LABS: Add Manual Diff / Slide Review NO; Basophils Absolute Auto 0 /uL (0-100); Basophils Percent Auto 0.4 % (0-2); Eosinophils Absolute Auto 100 /uL (0-450); Eosinophils Percent Auto 2.2 % (2-4); Hemoglobin 14.2 g/dL (13.5-17.5); Lymphocytes Absolute Auto 1600 /uL (1100-4500); Mean Corpuscular HGB Conc 34.7 % (30-36); Mean Corpuscular Hemoglobin 33.6 PG (26-34); Mean Corpuscular Volume 96.8 fL (80-100); Monocytes Absolute Auto 400 /uL (0-900); Monocytes Percent Auto 9.5 % (3-14); Neutrophils Absolute Auto 2300 /uL (1500-7000); Neutrophils Percent Auto 51.9 % (50-75); Platelet Count 156 X10^3/uL (150-400); Red Blood Cell Count 4.24 X10^6/uL (4.5-5.9); White Blood Cell Count 4.4 X10^3/uL (4.5-11.0)
[2020-11-19 09:21] LABS: Alanine Aminotransferase 16 IU/L (<50); Albumin 3.9 g/dL (3.5-5.0); Albumin Globulin Ratio 1.6 (1.0-2.8); Alkaline Phosphatase 77 U/L (38-126); Aspartate Aminotransferase 22 IU/L (17-59); BUN Creatinine Ratio 20.6 (6-22); Bilirubin Total 1.7 mg/dL (0.2-1.3); Blood Urea Nitrogen 14 mg/dL (9-20); Calcium 9.2 mg/dL (8.4-10.2); Carbon Dioxide 29 mmol/L (22-32); Chloride 106 mmol/L (98-107); Cholesterol 132 mg/dL (140-199); Estimated Glomerular Filt Rate > 60.0 mL/min (>60); Globulin 2.4 g/dL (1.7-4.1); Glucose 101 mg/dL (80-110); HDL Cholesterol 43 mg/dL (40-60); HEMOLYSIS < 15 (0-50); LDL Cholesterol Calculated 70 mg/dL (<100); Magnesium 2.1 mg/dL (1.6-2.3); Potassium 3.8 mmol/L (3.4-5.1); Sodium 140 mmol/L (137-145); Total Protein 6.3 g/dL (6.3-8.2); Triglycerides 96 mg/dL (35-150)
== END ==
PROVIDERS: PCP Family Medicine; Referring Provider Specialist; Visit Provider Specialist
DX: E78.5 Hyperlipidemia, unspecified (principal); I10 Essential (primary) hypertension; G90.511 Complex regional pain syndrome I of right upper limb
CPT/HCPCS: 36415; 80053; 80061; 83735; 85025

== ENCOUNTER → 2021-03-17 08:00 | Outpatient (CLI) | payer MEDICARE, OTHER, SELFPAY ==
--- NOTE | 2021-03-17 08:04 | DI.RAD.S_ITS ---
PROCEDURE: XR RIBS RT MIN 3V W CXR 1V INDICATIONS: R rib pain TECHNIQUE: 2 views of the right ribs were acquired, along with a single view chest. COMPARISON: CT, CHEST/ABD/PEL WITH CONTRAST, 03/29/2017, 17:47. [facility], CR, XR CHEST 2V, 04/14/2020, 8:58. FINDINGS: Surgical changes and devices: Sternotomy wires. Presumed prior CABG.. Bones and chest wall: No fractures or dislocations. No suspicious bony lesions. Overlying soft tissues appear unremarkable. Lungs and pleura: No pleural effusions or pneumothorax. Lungs appear clear. Mediastinum: Mediastinal contours appear normal. Heart size is normal. IMPRESSION: No trauma found. Sternotomy wires, prior presumed CABG. A number of the lower ribs on the right are not fully visualized due to reduced inspiratory volume and superimposition of abdominal structures on the lower ribs. Depending on the clinical status follow-up by nuclear medicine bone scan may be warranted versus CT scanning. Dictated by: Venkatesh Modi M.D. on 03/17/2021 at 9:21 Approved by: Venkatesh Modi M.D. on 03/17/2021 at 9:23
== END ==
PROVIDERS: PCP Family Medicine; Referring Provider Nurse Practitioner; Visit Provider Nurse Practitioner
DX: S29.9XXA Unspecified injury of thorax, initial encounter (principal); X58.XXXA Exposure to other specified factors, initial encounter
CPT/HCPCS: 71101

== ENCOUNTER → 2021-03-25 08:59 | Outpatient (CLI) | payer MEDICARE, OTHER, SELFPAY ==
--- NOTE | 2021-03-25 09:00 | DI.CT.S_ITS ---
PROCEDURE: CT CHEST WO CON INDICATIONS: R lower rib pain, unable to visualize lower ribs in xray, TECHNIQUE: Noncontrast 5 mm thick sections acquired from the pulmonary apices to the posterior costophrenic angles. 1 mm lung window, 5 mm thick coronal and sagittal and 7 mm axial MIP reformats were then acquired. For radiation dose reduction, the following was used: automated exposure control, adjustment of mA and/or kV according to patient size. COMPARISON: None. FINDINGS: Image quality: Excellent. Lungs and pleura: No acute air space opacities. No pleural effusions or pneumothorax. Central and peripheral airways are patent and normal in caliber. Mediastinum: Heart size is enlarged and there is coronary artery calcification.. No pericardial effusion. No mediastinal adenopathy by size criteria. Thoracic aorta and central pulmonary arteries are normal in size. Esophagus is normal in caliber. No hiatal hernia. Bones and chest wall: Chronic left 8th and 9th rib fractures. Acute fracture involving the left lateral 10th rib . There is minimal displacement. Diffuse spondylosis and facet arthropathy. Abdomen: Incidentally noted cholelithiasis. IMPRESSION: Acute left lateral 10th rib fracture, minimally displaced. Cardiomegaly Coronary atherosclerosis. Additional chronic and incidental findings as above. Dictated by: Nando Rizo M.D. on 03/25/2021 at 11:36 Approved by: Nando Rizo M.D. on 03/25/2021 at 11:41
== END ==
PROVIDERS: PCP Family Medicine; Referring Provider Nurse Practitioner; Visit Provider Nurse Practitioner
DX: S29.9XXA Unspecified injury of thorax, initial encounter (principal); S22.32XA Fracture of one rib, left side, initial encounter for closed fracture; I51.7 Cardiomegaly; I25.10 Atherosclerotic heart disease of native coronary artery without angina pectoris; X58.XXXA Exposure to other specified factors, initial encounter
CPT/HCPCS: 71250

== ENCOUNTER 2022-01-25 22:01 | Emergency (ER) | payer MEDICARE, OTHER, SELFPAY ==
[2022-01-25 22:07] VITALS: BP 185/84; PULSE 54; RESP 18; TEMP 36.6; O2SAT 97
--- NOTE | 2022-01-25 22:20 | DI.CT.S_ITS ---
PROCEDURE: CT HEAD/BRAIN WO CON INDICATIONS: fall with head injury TECHNIQUE: Noncontrast 4.5 mm thick angled axial sections acquired from the foramen magnum to the vertex, with coronal and sagittal reformats. For radiation dose reduction, the following was used: automated exposure control, adjustment of mA and/or kV according to patient size. COMPARISON: [facility], CT, HEAD WITHOUT CONTRAST, 07/22/2008, 17:50. FINDINGS: Image quality: Excellent. CSF spaces: Basal cisterns are patent. No extra-axial fluid collections. There is moderate cerebral volume loss, with resultant ventricular and sulcal prominence. Brain: No intracranial hemorrhage, mass, or mass effect. There are subcortical, periventricular and deep white matter hypodensities consistent with moderate chronic small vessel ischemic changes. The fischer-white matter junction appears preserved. There is intracranial internal carotid artery atherosclerosis. Skull and face: There is right frontal supraorbital soft tissue swelling with a subcutaneous hematoma. Calvarium and visualized facial bones appear intact, without suspicious lesions. Sinuses: Visualized sinuses and mastoids are clear. IMPRESSION: 1. No acute intracranial abnormality. 2. Moderate cerebral volume loss and chronic white matter small vessel ischemic changes. Dictated by: Jeff Chang M.D. on 01/25/2022 at 23:42 Approved by: Jeff Chang M.D. on 01/25/2022 at 23:44
[2022-01-25 23:56] VITALS: BP 170/79; PULSE 56; RESP 18; O2SAT 98
--- NOTE | 2022-01-26 00:01 | PC.NURSE ---
4 by 4 pressure dressing to forehead swelling.
--- NOTE | 2022-01-26 05:30 | ED_ITS ---
HPI - Head Injury General Chief complaint: Trauma Stated complaint: head bump from fall is growing Time Seen by Provider: 01/25/22 22:17 Source: patient Mode of arrival: Ambulatory History of Present Illness HPI Narrative: 81-year-old male nonsmoker with a history of hypertension and atrial fibrillation on anticoagulation presents with family for evaluation of a fall with head injury a few days ago. He lost his balance when standing at ground level and fell forward, striking his right side forehead on a garbage can. He has full recall denies any loss of consciousness, nausea vomiting. He denies any blurred vision, trouble speech dizziness, neck pain or other complaint. He states the following day he had accidentally bumped his head, in the same exact spot which caused a slight increase in the swelling. The original fall was on , but he presents today because the bump on his forehead began to grow in size, additionally he has some redness in his right eye. He denies eye pain, blurred or double vision Related Data Home Medications Medication Instructions Recorded Confirmed finasteride 5 mg tablet 5 mg PO DAILY 04/21/21 09/08/21 Previous Rx's Medication Instructions Recorded miscellaneous medical supply #1 ea 08/27/18 acetaminophen 650 mg 650 mg PO Q8HP PRN Pain #90 tabs 07/03/20 tablet,extended release atorvastatin 40 mg tablet 20 mg PO DAILY #90 tabs 10/08/20 doxazosin 8 mg tablet See Rx Instructions .Route 09/10/21 .COMPLEX #90 tabs celecoxib 200 mg capsule (Celebrex) 200 mg PO DAILY #30 caps 10/15/21 warfarin 5 mg tablet See Rx Instructions .Route 12/13/21 .COMPLEX #180 tabs oxycodone-acetaminophen 5 mg-325 See Rx Instructions PO Q4-6H PRN 12/21/21 mg tablet (Percocet) pain #60 tabs amlodipine 5 mg tablet 10 mg PO DAILY #90 tabs 01/03/22 Allergies Allergy/AdvReac Type Severity Reaction Status Date / Time amoxicillin [AMOXICILLIN] Allergy Mild EDEMA IN Verified 09/08/21 15:11 HANDS, BUTTOCKS Penicillins [PENICILLINS] Allergy Mild SWELLING Verified 09/08/21 15:11 clavulanic acid AdvReac Mild EDEMA Verified 09/08/21 15:11 [CLAVULANIC ACID] lisinopril [LISINOPRIL] AdvReac Mild COUGH Verified 09/08/21 15:11 Review of Systems Review of Systems Narrative: GENERAL: Denies chills, fatigue, malaise, fever, sweats. HEENT:see HPI RESPIRATORY: Denies dyspnea, cough, wheezing, hemoptysis, sputum. CARDIOVASCULAR: Denies chest pain, palpitations, orthopnea, edema, GASTROINTESTINAL: Denies nausea, vomiting, abdominal pain, diarrhea, constipation, melena. : Denies dysuria, frequency, incontinence, hematuria, urinary retention. MUSCULOSKELETAL: denies weakness, joint pain, or bony pain SKIN: see HPI NEUROLOGIC: Denies weakness, headache, numbness, change in speech, confusion, seizures, incoordination. PSYCHIATRIC: No concerning psychosocial issues. 12 point review of systems is negative except for those stated above Patient History Medical History AAA (abdominal aortic aneurysm) (03/11/97) Ankle pain (1999) Atrial fibrillation with slow ventricular response BPH NOS w ur obs/LUTS Cervical spinal stenosis Chicken pox (1951) Cholelithiasis (02/2018) Chronic anticoagulation (03/11/97) Chronic pain syndrome Colon polyps (2001) Community acquired pneumonia (2016) Degenerative joint disease of foot Degenerative joint disease, ankle, foot, toe Depression Diverticular disease (~1989) Elevated PSA (~1989) Gallstones GERD (gastroesophageal reflux disease) Gout Hearing loss (~1989) Hematuria Hepatitis B (1984) Hernia (~1989) Hyperlipidemia Hypertension (1999) Impingement syndrome of left shoulder Impingement syndrome of right shoulder Kidney stones (~1969) Measles (~1950) Mumps (1949) Neck fracture (1974) Neck muscle spasm Osteoarthritis Pathologic fracture of vertebrae (09/27/13) Pneumonia (2016) 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 Rib fracture Shoulder pain (1996) Sinus node dysfunction Sleep apnea (2002) Spinal fracture (2007) Supraspinatus tendon tear TIA (transient ischemic attack) Surgical History Anesthesia H/O varicose vein stripping History of aortic valve replacement (03/11/97) History of arthroscopy of knee History of cardiac catheterization History of colon surgery History of meniscectomy of left knee History of neck surgery (1998) History of partial colectomy History of spinal fusion (1974) History of total knee arthroplasty History of vasectomy S/P cervical spinal fusion S/P left knee arthroscopy S/P resection of aortic aneurysm Status post hernia repair () Status post knee surgery (1974) Status post unicompartmental knee replacement, left Family History Brother Age: 71 Diabetes mellitus Daughter Age: 58 Breast cancer Daughter Age: 45 Hypertension Cervical cancer Father Hypertension Heart disease Sister Age: 66 Cancer Breast cancer Colon cancer Lung cancer Brother Aortic aneurysm Daughter Cancer Melanoma Mother Heart disease Sister ATV accident causing injury Social History household members: none Smoking Status: Never smoker alcohol intake: former Smoking Status: Never smoker alcohol intake frequency: 0-2 drinks per day Substance Use Type: does not use Exam Narrative Exam Narrative: GENERAL: [81] year old patient appears stated age. Well-developed patient, in no obvious distress, GCS 15 HEAD: 3 x 3 cm hematoma on right forehead with minimal surrounding erythema, no fluctuance, no bleeding, there is minimal ecchymosis of upper lid, no evidence of depressed skull fracture EYES: Pupils equal round and reactive. Extraocular motions intact. No hyphema, there is minimal right-sided scleral injection ENT: Nose without bleeding, purulent drainage. Throat without erythema, tonsillar hypertrophy or exudate. Airway patent. NECK: Trachea midline. Non tender CARDIOVASCULAR: Regular rate and rhythm without murmurs, gallops, or rubs. RESPIRATORY: Clear to auscultation. Breath sounds equal bilaterally. No wheezes, rales, or rhonchi. GASTROINTESTINAL: Abdomen soft, non-tender, nondistended. EXTREMITIES: No edema or joint tenderness. BACK: Nontender without deformity or crepitance. No flank tenderness. NEURO: AOx3. SKIN: No rash or erythema of visible areas Initial Vital Signs Initial Vital Signs: Vital Signs Temperature 97.8 F 01/25/22 22:07 Pulse Rate 54 L 01/25/22 22:07 Respiratory Rate 18 01/25/22 22:07 Blood Pressure 185/84 H 01/25/22 22:07 Pulse Oximetry 97 01/25/22 22:07 Oxygen Delivery Method 01/25/22 22:07 Course Orders Ordered: ED Orders 01/25/22 22:20 CT head/brain wo con Stat Vital Signs Vital signs: Vital Signs - 8 hr 01/25/22 22:07 01/25/22 23:56 Temperature 97.8 F Pulse Rate 54 L 56 L Respiratory Rate 18 18 Blood Pressure 185/84 H 170/79 H Pulse Oximetry 97 98 Oxygen Delivery Method Room Air Room Air MDM - Head Injury Imaging Data CT scan - head: Radiologist's Impression: [address] [address] [address] Scan Report Signed Patient: Kit Dallas MR#: [id number] : 1940 Acct:[id number] Age/Sex: 81 / M Date of Service: 01/25/22 Loc: ED Accession Number: [id number] ?? Procedure: CT head/brain wo con Ordering Provider: Jesse Acosta D.O. PROCEDURE:? CT HEAD/BRAIN WO CON ? INDICATIONS:? fall with head injury ? TECHNIQUE:? Noncontrast 4.5 mm thick angled axial sections acquired from the foramen magnum to the vertex, with coronal and sagittal reformats.? For radiation dose reduction, the following was used:? automated exposure control, adjustment of mA and/or kV according to patient size.? ? COMPARISON:? [facility], CT, HEAD WITHOUT CONTRAST, 07/22/2008, 17:50. ? FINDINGS:? Image quality:? Excellent.? ? CSF spaces:? Basal cisterns are patent.? No extra-axial fluid collections.? There is moderate cerebral volume loss, with resultant ventricular and sulcal prominence.? ? Brain:? No intracranial hemorrhage, mass, or mass effect.? There are subcortical, periventricular and deep white matter hypodensities consistent with moderate chronic small vessel ischemic changes.? The fischer-white matter junction appears preserved.? There is intracranial internal carotid artery atherosclerosis.? ? Skull and face:? There is right frontal supraorbital soft tissue swelling with a subcutaneous hematoma.? Calvarium and visualized facial bones appear intact, without suspicious lesions.? ? Sinuses:? Visualized sinuses and mastoids are clear.? ? IMPRESSION:? ? 1. No acute intracranial abnormality. ? 2. Moderate cerebral volume loss and chronic white matter small vessel ischemic changes. ? ? Dictated by: Jeff Chang M.D. on 01/25/2022 at 23:42 ? ? Approved by: Jeff Chang M.D. on 01/25/2022 at 23:44 ? Discharge Plan Departure Patient Disposition: Home Clinical Impression: Contusion of forehead Instructions: DI for Hematoma (Bruise) Activity Restrictions/Additional Instructions: *You have been diagnosed with [fall with head injury resulting in forehead hematoma. As we discussed your CT scan was reassuring and there is no evidence of bleeding within your skull] *What to do: *Please continue to take your regular medications as directed. [ ] New medication prescriptions sent to your pharmacy: [ ] [ ] New medication written as a paper prescription [x ] No new medications given *Please follow up with your primary care provider in 2-3 days, call for an appointment. Let them know you were seen in the Emergency Department and that we ask that you be seen in follow up. We will electronically transmit a record of today's note if your PCP is in our system *If you do not have a primary care provider please contact the [facility] Resource line at [phone]. They will ask some questions about your medical history and help get you set up with a doctor in the community. *Return to Emergency Department if you should have any new, worsening or concerning symptoms, such as [fever greater than 101 F, shaking chills, worsening pain, persistent vomiting or other bothersome symptoms] Prescriptions: No Action (DME) miscellaneous medical supply misc See Dose Instructions .Route .MEDSUPPLY Qty: 1 0RF Dose Instruction: Disabled Parking Permit Rx Instructions: Disabled Parking Permit acetaminophen 650 mg tablet extended release 650 mg PO Q8HP PRN (Reason: Pain) Qty: 90 0RF atorvastatin 40 mg tablet 20 mg PO DAILY Qty: 90 3RF doxazosin 8 mg tablet See Rx Instructions .ROUTE .COMPLEX Qty: 90 3RF Dose Instruction: TAKE 1 TABLET BY MOUTH NIGHTLY AT BEDTIME. Rx Instructions: TAKE 1 TABLET BY MOUTH NIGHTLY AT BEDTIME. celecoxib [Celebrex] 200 mg capsule 200 mg PO DAILY Qty: 30 2RF warfarin 5 mg tablet See Rx Instructions .ROUTE .COMPLEX Qty: 180 0RF Dose Instruction: TAKE 2 TABLET BY MOUTH ON MONDAY, MONDAY AND MONDAY. TAKE 2&1/2 TABLETS (12.5 MG) ALL OTHER DAYS, OR DIRECTED Rx Instructions: TAKE 2 TABLET BY MOUTH ON MONDAY, MONDAY AND MONDAY. TAKE 2&1/2 TABLETS (12.5 MG) ALL OTHER DAYS, OR DIRECTED amlodipine 5 mg tablet 10 mg PO DAILY Qty: 90 3RF Rx Instructions: 10 mg PO daily; oxycodone-acetaminophen [Percocet] 5-325 mg tablet See Rx Instructions PO Q4-6H PRN (Reason: pain) Qty: 60 0RF Dose Instruction: PO Q4-6H PRN; Take Rx Instructions: Take 1-2 tabs by mouth every 4-6 hours as needed for pain. finasteride 5 mg tablet 5 mg PO DAILY Label Comments: Take one tablet by mouth one time daily Referrals: Adithya Barnes MD [Primary Care Provider] - Visit Report Forms: Patient Portal/API
== END 2022-01-26 00:08 | disposition home or self-care (01) ==
PROVIDERS: Emergency Provider Emergency Medicine; PCP Family Medicine
DX: S00.83XA Contusion of other part of head, initial encounter (principal); W18.30XA Fall on same level, unspecified, initial encounter
CPT/HCPCS: 70450; 99284

== ENCOUNTER → 2022-03-15 07:52 | Outpatient (CLI) | payer MEDICARE, OTHER, SELFPAY ==
[2022-03-15 09:00] LABS: Add Manual Diff / Slide Review NO; Basophils Absolute Auto 0 /uL (0-100); Basophils Percent Auto 0.5 % (0-2); Eosinophils Absolute Auto 0 /uL (0-450); Eosinophils Percent Auto 1.1 % (2-4); Hematocrit 40.3 % (41-53); Hemoglobin 14.4 g/dL (13.5-17.5); Lymphocytes Absolute Auto 1200 /uL (1100-4500); Lymphocytes Percent Auto 30.4 % (25-40); Mean Corpuscular HGB Conc 35.7 % (30-36); Mean Corpuscular Hemoglobin 34.6 PG (26-34); Monocytes Absolute Auto 300 /uL (0-900); Monocytes Percent Auto 8.2 % (3-14); Neutrophils Absolute Auto 2300 /uL (1500-7000); Neutrophils Percent Auto 59.8 % (50-75); Platelet Count 158 X10^3/uL (150-400); Red Blood Cell Count 4.15 X10^6/uL (4.5-5.9); Red Cell Distribution Width 13.2 % (11.6-14.8); White Blood Cell Count 3.9 X10^3/uL (4.5-11.0)
[2022-03-15 09:01] LABS: INR 3.8 (0.9-1.3); Prothrombin Time 43.8 SECONDS (10.1-12.7)
[2022-03-15 09:28] LABS: Alanine Aminotransferase 17 IU/L (<50); Albumin 3.9 g/dL (3.5-5.0); Albumin Globulin Ratio 1.6 (1.0-2.8); Alkaline Phosphatase 75 U/L (38-126); Aspartate Aminotransferase 20 IU/L (17-59); BUN Creatinine Ratio 15.6 (6-22); Bilirubin Total 1.7 mg/dL (0.2-1.3); Blood Urea Nitrogen 12 mg/dL (9-20); Calcium 8.5 mg/dL (8.4-10.2); Carbon Dioxide 28 mmol/L (22-32); Chloride 108 mmol/L (98-107); Cholesterol 126 mg/dL (140-199); Estimated Glomerular Filt Rate > 60 mL/min (>60); Globulin 2.5 g/dL (1.7-4.1); Glucose 103 mg/dL (80-110); HDL Cholesterol 43 mg/dL (40-60); HEMOLYSIS < 15 (0-50); LDL Cholesterol Calculated 71 mg/dL (<100); Sodium 143 mmol/L (137-145); Total Protein 6.4 g/dL (6.3-8.2); Triglycerides 60 mg/dL (35-150)
[2022-03-15 09:59] LABS: TSH w/ Reflex to FT4 0.97 uIU/mL (0.47-4.68)
[2022-03-15 16:28] LABS: Creatinine Urine Random 259.3 mg/dL
[2022-03-15 16:30] LABS: Microalbumi Creatinin Ratio Ur 16.1 ug/mg CR (<30); Microalbumin Urine Random 4.2 mg/dL (0-1.6)
== END ==
PROVIDERS: PCP Family Medicine; Referring Provider Specialist; Visit Provider Specialist
DX: I10 Essential (primary) hypertension (principal); I49.5 Sick sinus syndrome; Z95.2 Presence of prosthetic heart valve; E78.00 Pure hypercholesterolemia, unspecified; E78.5 Hyperlipidemia, unspecified; S00.83XA Contusion of other part of head, initial encounter; Z79.01 Long term (current) use of anticoagulants
CPT/HCPCS: 36415; 80053; 80061; 82043; 82570; 84443; 85025; 85610

== ENCOUNTER 2022-03-27 00:09 | Emergency (ER) | payer OTHER, MEDICARE, SELFPAY ==
--- NOTE | 2022-03-27 00:11 | ED.UPPEXIN ---
HPI - Extremity Injury (Upper) General Chief Complaint: Extremity Problem,Nontraumatic Stated Complaint: RT. SHOULDER PAIN/SPASM Time Seen by Provider: 03/27/22 00:11 History of Present Illness HPI narrative: 82-year-old male nonsmoker with history of cervical spinal stenosis and chronic pain including bilateral shoulders, prior aortic valve replacement presents for evaluation of episodes of right shoulder pain, requesting a shot of Toradol. He denies any recent injury or overuse. He states that his shoulder has been acting up on him for the past couple days. He states that normally he takes oxycodone which does not seem to be helping and historically under these circumstances Toradol seems to make it better. He states that most of the time it seems to be worse when he uses and improves with rest but does have some episodes where it comes and goes without obvious provocation. He denies any numbness, tingling or weakness extending into his arm. He is had no fever or chills and denies nausea, vomiting or diarrhea. He is had no chest pain, cough or trouble breathing. He denies any exertional fatigue or exercise intolerance. Related Data Home Medications Medication Instructions Recorded Confirmed finasteride 5 mg tablet 5 mg PO DAILY 04/21/21 03/25/22 Previous Rx's Medication Instructions Recorded miscellaneous medical supply #1 ea 08/27/18 acetaminophen 650 mg 650 mg PO Q8HP PRN Pain #90 tabs 07/03/20 tablet,extended release atorvastatin 40 mg tablet 20 mg PO DAILY #90 tabs 10/08/20 doxazosin 8 mg tablet See Rx Instructions .Route 09/10/21 .COMPLEX #90 tabs celecoxib 200 mg capsule (Celebrex) 200 mg PO DAILY #30 caps 10/15/21 amlodipine 5 mg tablet 10 mg PO DAILY #90 tabs 01/03/22 warfarin 5 mg tablet See Rx Instructions .Route 03/14/22 .COMPLEX #180 tabs oxycodone-acetaminophen 5 mg-325 See Rx Instructions PO Q4-6H PRN 03/25/22 mg tablet (Percocet) pain #60 tabs tadalafil 5 mg tablet (Cialis) See Rx Instructions PO DAILY PRN 03/25/22 sexual activity #30 tabs Allergies Allergy/AdvReac Type Severity Reaction Status Date / Time amoxicillin [AMOXICILLIN] Allergy Mild EDEMA IN Verified 03/25/22 11:18 HANDS, BUTTOCKS Penicillins [PENICILLINS] Allergy Mild SWELLING Verified 09/08/21 15:11 clavulanic acid AdvReac Mild EDEMA Verified 09/08/21 15:11 [CLAVULANIC ACID] lisinopril [LISINOPRIL] AdvReac Mild COUGH Verified 09/08/21 15:11 Review of Systems Review of Systems Narrative: GENERAL: Denies chills, fatigue, malaise, fever, sweats. HEENT: Denies sinus pain, ear pain, sore throat, difficulty swallowing, dizziness. RESPIRATORY: Denies dyspnea, cough, wheezing, hemoptysis, sputum. CARDIOVASCULAR: Denies chest pain, palpitations, orthopnea, edema, GASTROINTESTINAL: Denies nausea, vomiting, abdominal pain, diarrhea, constipation, melena. : Denies dysuria, frequency, incontinence, hematuria, urinary retention. MUSCULOSKELETAL: denies weakness, joint pain, or bony pain SKIN: Denies rash, skin lesions, or other NEUROLOGIC: Denies weakness, headache, numbness, change in speech, confusion, seizures, incoordination. PSYCHIATRIC: No concerning psychosocial issues. 12 point review of systems is negative except for those stated above Patient History Medical History AAA (abdominal aortic aneurysm) (03/11/97) Ankle pain (1999) Atrial fibrillation with slow ventricular response BPH NOS w ur obs/LUTS Cervical spinal stenosis Chicken pox (1951) Cholelithiasis (02/2018) Chronic anticoagulation (03/11/97) Chronic pain syndrome Colon polyps (2001) Community acquired pneumonia (2016) Degenerative joint disease of foot Degenerative joint disease, ankle, foot, toe Depression Diverticular disease (~1989) Elevated PSA (~1989) Gallstones GERD (gastroesophageal reflux disease) Gout Hearing loss (~1989) Hematuria Hepatitis B (1984) Hernia (~1989) Hyperlipidemia Hypertension (1999) Impingement syndrome of left shoulder Impingement syndrome of right shoulder Kidney stones (~1969) Measles (~1949) Mumps (1949) Neck fracture (1974) Neck muscle spasm Osteoarthritis Pathologic fracture of vertebrae (09/27/13) Pneumonia (2016) 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 Rib fracture Shoulder pain (1996) Sinus node dysfunction Sleep apnea (2002) Spinal fracture (2007) Supraspinatus tendon tear TIA (transient ischemic attack) Surgical History Anesthesia H/O varicose vein stripping History of aortic valve replacement (03/11/97) History of arthroscopy of knee History of cardiac catheterization History of colon surgery History of meniscectomy of left knee History of neck surgery (1998) History of partial colectomy History of spinal fusion (1974) History of total knee arthroplasty History of vasectomy S/P cervical spinal fusion S/P left knee arthroscopy S/P resection of aortic aneurysm Status post hernia repair () Status post knee surgery (1974) Status post unicompartmental knee replacement, left Family History Brother Age: 71 Diabetes mellitus Daughter Age: 59 Breast cancer Daughter Age: 45 Hypertension Cervical cancer Father Hypertension Heart disease Sister Age: 66 Cancer Breast cancer Colon cancer Lung cancer Brother Aortic aneurysm Daughter Cancer Melanoma Mother Heart disease Sister ATV accident causing injury Social History household members: none Smoking Status: Never smoker alcohol intake: former Smoking Status: Never smoker alcohol intake frequency: 0-2 drinks per day Substance Use Type: does not use Exam Narrative Exam Narrative: GENERAL: [82] year old patient appears stated age. Well-developed patient, in mild distress. HEAD: Atraumatic. Normocephalic. EYES: Pupils equal round and reactive. Extraocular motions intact. No scleral icterus. No injection or drainage. ENT: Nose without bleeding, purulent drainage. Throat without erythema, tonsillar hypertrophy or exudate. Airway patent. NECK: Trachea midline. Non tender, no increased with axial load CARDIOVASCULAR: Regular rate and rhythm without murmurs, gallops, or rubs. RESPIRATORY: Clear to auscultation. Breath sounds equal bilaterally. No wheezes, rales, or rhonchi. GASTROINTESTINAL: Abdomen soft, non-tender, nondistended. EXTREMITIES: Decreased range of motion of right shoulder, pain on exam, no obvious deformity, closed, isolated and neurovascularly intact BACK: Nontender without deformity or crepitance. No flank tenderness. NEURO: AOx3. SKIN: No rash or erythema of visible areas Initial Vital Signs Initial Vital Signs: Vital Signs Temperature 98.9 F 03/27/22 00:15 Pulse Rate 55 L 03/27/22 00:15 Respiratory Rate 18 03/27/22 00:15 Blood Pressure 157/72 H 03/27/22 00:15 Pulse Oximetry 94 03/27/22 00:15 Oxygen Delivery Method 03/27/22 00:15 Course Orders Ordered: ED Orders 03/27/22 00:24 Chest [XR chest 1V] Stat Discontinued Medications Ketorolac Tromethamine (Ketorolac 30 Mg/Ml Vial) 30 mg IM NOW ONE Stop: 03/27/22 00:20 Last Admin: 03/27/22 00:44 Dose: 30 mg Documented By: EB Reevaluation(s) Reevaluation #1: Patient has significant improvement symptoms after Toradol and marked increase range of motion Vital Signs Vital signs: Vital Signs - 8 hr 03/27/22 00:15 03/27/22 01:55 Temperature 98.9 F Pulse Rate 55 L Respiratory Rate 18 18 Blood Pressure 157/72 H 156/79 H Pulse Oximetry 94 98 Oxygen Delivery Method Room Air Room Air Discharge Plan Departure Patient Disposition: Home Clinical Impression: Acute shoulder pain Instructions: DI for Shoulder Pain Activity Restrictions/Additional Instructions: *You have been diagnosed with [acute on chronic right shoulder pain] *What to do: *Please continue to take your regular medications as directed. [ ] New medication prescriptions sent to your pharmacy: [ ] [ ] New medication written as a paper prescription [ x] No new medications given *Please follow up with your primary care provider in 2-3 days, call for an appointment. Let them know you were seen in the Emergency Department and that we ask that you be seen in follow up. We will electronically transmit a record of today's note if your PCP is in our system *If you do not have a primary care provider please contact the [facility] Resource line at [phone]. They will ask some questions about your medical history and help get you set up with a doctor in the community. *Return to Emergency Department if you should have any new, worsening or concerning symptoms, such as [fever greater than 101 F, shaking chills, worsening pain, persistent vomiting or other bothersome symptoms] Prescriptions: No Action (DME) miscellaneous medical supply misc See Dose Instructions .Route .MEDSUPPLY Qty: 1 0RF Dose Instruction: Disabled Parking Permit Rx Instructions: Disabled Parking Permit acetaminophen 650 mg tablet extended release 650 mg PO Q8HP PRN (Reason: Pain) Qty: 90 0RF atorvastatin 40 mg tablet 20 mg PO DAILY Qty: 90 3RF doxazosin 8 mg tablet See Rx Instructions .ROUTE .COMPLEX Qty: 90 3RF Dose Instruction: TAKE 1 TABLET BY MOUTH NIGHTLY AT BEDTIME. Rx Instructions: TAKE 1 TABLET BY MOUTH NIGHTLY AT BEDTIME. celecoxib [Celebrex] 200 mg capsule 200 mg PO DAILY Qty: 30 2RF amlodipine 5 mg tablet 10 mg PO DAILY Qty: 90 3RF Rx Instructions: 10 mg PO daily; warfarin 5 mg tablet See Rx Instructions .ROUTE .COMPLEX Qty: 180 0RF Dose Instruction: TAKE 2 TABLET BY MOUTH ON MONDAY, MONDAY AND MONDAY. TAKE 2&1/2 TABLETS (12.5 MG) ALL OTHER DAYS, OR DIRECTED Rx Instructions: TAKE 2 TABLET BY MOUTH ON MONDAY, MONDAY AND MONDAY. TAKE 2&1/2 TABLETS (12.5 MG) ALL OTHER DAYS, OR DIRECTED oxycodone-acetaminophen [Percocet] 5-325 mg tablet See Rx Instructions PO Q4-6H PRN (Reason: pain) Qty: 60 0RF Dose Instruction: PO Q4-6H PRN; Take Rx Instructions: Take 1-2 tabs by mouth every 4-6 hours as needed for pain. tadalafil [Cialis] 5 mg tablet See Rx Instructions PO DAILY PRN (Reason: sexual activity) Qty: 30 0RF Rx Instructions: orally daily PRN; administer approximately 1-2 tabs 30min before sexual activity; do not use more than 1 dose per 24hrs finasteride 5 mg tablet 5 mg PO DAILY Label Comments: Take one tablet by mouth one time daily Referrals: Oni Bhatti DO [Physician] - Adithya Barnes MD [Primary Care Provider] - Visit Report Forms: Patient Portal/API
[2022-03-27 00:15] VITALS: BP 157/72; PULSE 55; RESP 18; TEMP 37.2; O2SAT 94
--- NOTE | 2022-03-27 00:24 | DI.RAD.S_ITS ---
PROCEDURE: XR CHEST 1V INDICATIONS: shoulder pain TECHNIQUE: One view of the chest was acquired. COMPARISON: [facility], CR, XR CHEST 2V, 04/14/2020, 8:58. [facility], CR, XR CHEST 1V, 03/16/2020, 22:49. FINDINGS: Surgical changes and devices: Sternotomy wires, presumed prior CABG Lungs and pleura: Lungs are clear unchanged considering reduced inspiratory volume, with a mild chronic interstitial prominence. No pleural effusions or pneumothorax. Mediastinum: Mediastinal contours appear normal. Heart size is normal. Bones and chest wall: No suspicious bony lesions. Overlying soft tissues appear unremarkable. Note is made of what appears to be a tendon transfer staple at the lateral border of the right humeral head. IMPRESSION: Reduced inspiratory volume, prior CABG. Chronic mild interstitial prominence which is accentuated by reduced inspiration. No definite acute disease. Dictated by: Venkatesh Modi M.D. on 03/27/2022 at 1:12 Approved by: Venkatesh Modi M.D. on 03/27/2022 at 1:14
[2022-03-27] MEDS: KETOROLAC 30 MG/ML VIAL IM (00:44)
[2022-03-27 01:55] VITALS: BP 156/79; RESP 18; O2SAT 98
== END 2022-03-27 01:55 | disposition home or self-care (01) ==
PROVIDERS: Emergency Provider Emergency Medicine; PCP Family Medicine
DX: M25.511 Pain in right shoulder (principal)
CPT/HCPCS: 71045; 96372; 99283; J1885

== ENCOUNTER → 2022-03-28 08:56 | Outpatient (CLI) | payer MEDICARE, OTHER, SELFPAY ==
--- NOTE | 2022-03-28 | DI.ECHO.S_ITS ---
[facility]---------+ [facility] +---------+ : : [address] : : : : [id number] : : : : Phone: [phone] Echocardiogram Report + + :Name: MOISES ROBERTS Study Date: 03/28/2022 Height: 65 in : :[facility] ReadingLocation: Weight: 185 lb : : Gender: Male BSA: 1.9 m2 : :: 1940 Age: 82 yrs BP: 145/80 mmHg: :Reason For Study: MECHANICAL AORTIC VALVE REPLACEMENT : :Ordering Physician: ADILENE, : :JUAN FRANCISCO Performed By: Laurie Pedraza : :Referring: JUAN FRANCISCO HEAD : + + Interpretation Summary Left ventricular systolic function remains normal with an estimated ejection fraction of 55 to 60% with a mild dyssynchronous contraction pattern but no focal wall motion abnormality. Left ventricular size remains normal and unchanged with mild LVH, also unchanged. Diastolic function is somewhat challenging to assess because of contradictory data although there is no compelling evidence for increased filling pressures. Overall, there has been no significant change from the previous study. The right ventricle is borderline enlarged with normal systolic function and measures slightly larger compared to the previous study but is otherwise unchanged. Right ventricular systolic pressure is estimated at 37 mmHg with a CVP of 3 mmHg, and is likely slightly higher compared to the previous study. Both atria are severely enlarged and measure larger compared to the previous study, particularly left atrial size. There is mild to moderate tricuspid regurgitation that is slightly more prominent compared to the previous study. There is a mechanical aortic valve prosthesis that is not well seen but appears stable. A peak transvalvular velocity is measured at 4.5 m/s with a mean gradient of 44 mmHg, compared to 3.3 m/s and 22 mmHg, respectively, previously. The severity ratio has decreased from 0.35 down to 0.25. This could indicate prosthetic valve stenosis but clinical correlation is recommended. There is trace aortic insufficiency that remains unchanged. The ascending aorta is mildly enlarged and measures larger compared to the previous study. The patient was in sinus rhythm at 43 to 53 bpm during exam, similar to the previous study. Procedure: A two-dimensional transthoracic echocardiogram with color flow and Doppler was performed. The study quality was technically adequate. Comparison is made with the echocardiogram of 04/19/2017. The patient had occasional PVCs during the exam. The patient was in sinus bradycardia with heart rates between 43-53 bpm during the exam. Left Ventricle: The left ventricle is normal in size. The estimated left ventricular end diastolic volume is 92 ml. There is mild concentric left ventricular hypertrophy. The ejection fraction is estimated to be 55-60%. Left ventricular systolic function appears normal without focal wall motion abnormalities. There is a mild dyssynchronous contraction pattern, consistent with a conduction abnormality. This is unchanged compared to the previous study. Diastolic function could not be accurately assessed due to contradictory data. There is no compelling evidence for increased filling pressures. Right Ventricle: The right ventricle is borderline dilated. This is slightly larger compared to the previous study. The right ventricular systolic function is normal. This is unchanged compared to the previous study. Atria: Both atria are severely dilated. This is more prominent compared to the previous study. There is no Doppler evidence for an interatrial shunt. Mitral Valve: There is mild mitral annular calcification. There is trace mitral regurgitation. This is unchanged compared to the previous study. 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 The prosthetic aortic valve is not well visualized. The prosthetic aortic valve is well-seated. The peak aortic velocity is 4.45 m/sec. The peak aortic velocity on the previous exam was 3.2 m/sec. The aortic valve mean gradient is 44 mmHg. The calculated aortic valve area is 0.72 cm2. The severity ratio has decreased from 0.35 down to 0.25. There is a small area of lucency anterior to the aortic root that likely reflects an artifact created by the insertion of the tricuspid valve and grossly appears unchanged from the previous study. There is trace aortic regurgitation. Tricuspid Valve: The tricuspid valve is normal in structure and function. There is mild to moderate tricuspid regurgitation. This is slightly more prominent compared to the previous study. The right ventricular systolic pressure is estimated to be at least 37 mmHg based on an estimated right atrial pressure of 3 mm Hg. Pulmonic Valve: The pulmonic valve is not well visualized. There is trace pulmonic regurgitation. Great Vessels: The ascending aorta is mildly enlarged. This is larger compared to the previous study. The IVC is of normal diameter and collapses greater than 50% with a sniff. This suggests a low right atrial pressure of 3 mm Hg. Pericardium/ Pleura There is no pericardial effusion. There is no pleural effusion. MMode/2D Measurements & Calculations LVIDd: 5.5 cm LVOT diam: 2.1 cm LVIDs: 3.5 cm asc Aorta Diam: 3.7 cm FS: 35.7 % Ao Arch Diam (Prox Trans): 3.5 cm IVSd: 1.2 cm LVPWd: 1.3 cm LV duran. diameter/BSA (cm/m^2): 2.9 LV sys. diameter/BSA (cm/m^2): 1.8 LA A2 area: 33.3 cm2 RA long axis: 6.9 cm LA A4 area: 29.0 cm2 RA area: 29.5 cm2 LA length (vol): 7.0 cm RA vol: 107.2 ml LA vol: 117.5 ml RA : 56.0 ml/m2 LA vol index: 61.4 ml/m2 IVC diam: 2.0 cm RVD1 (basal): 4.6 cm RVD2 (mid): 3.9 cm TAPSE: 1.9 cm Doppler Measurements & Calculations Ao V2 max: 445.7 cm/sec LVOT Max Jairo: 95.6 cm/sec Ao V2 mean: 289.8 cm/sec LV V1 max P.7 mmHg Ao max P.0 mmHg LV V1 VTI: 23.1 cm Ao mean P.9 mmHg HEATHER(I,D): 0.85 cm2 Ao V2 VTI: 92.0 cm HEATHER(V,D): 0.72 cm2 sev ratio: 0.25 HEATHER indexed to BSA (cm^2/m^2): 0.44 MV E max jairo: 79.0 cm/sec TR max jairo: 290.8 cm/sec MV A max jairo: 72.4 cm/sec TR max P.8 mmHg MV E/A: 1.1 PA V2 max: 143.1 cm/sec Med Peak E' Jairo: 7.6 cm/sec PA V2 mean: 92.2 cm/sec E/E' med: 10.4 PA mean P.0 mmHg Lat Peak E' Jairo: 9.7 cm/sec E/E' lat: 8.1 E/e' average: 9.3 MV dec time: 0.23 sec SV(LVOT): 77.9 ml Reading Physician:12:26 PM
--- NOTE | 2022-03-28 08:58 | DI.RAD.S_ITS ---
PROCEDURE: XR SHOULDER LT MIN 2V INDICATIONS: left shoulder pain TECHNIQUE: 3 views of the shoulder were acquired. COMPARISON: None. FINDINGS: Bones: No fractures or dislocations. No suspicious bony lesions. Visualized ribs appear intact. Mild degenerative changes of the acromioclavicular joint and glenohumeral joint. Soft tissues: No suspicious soft tissue calcifications. IMPRESSION: Mild degenerative changes of the acromioclavicular joint and glenohumeral joint. No definite radiographic abnormality. If pain persists with conservative management consider cross-sectional imaging with MRI or CT. Dictated by: Jesus Kyle M.D. on 03/28/2022 at 10:03 Approved by: Jesus Kyle M.D. on 03/28/2022 at 10:05
== END ==
PROVIDERS: PCP Family Medicine; Referring Provider Specialist; Visit Provider Specialist
DX: I07.1 Rheumatic tricuspid insufficiency (principal); Z95.2 Presence of prosthetic heart valve; M25.512 Pain in left shoulder; I77.89 Other specified disorders of arteries and arterioles
CPT/HCPCS: 73030; 93306

== ENCOUNTER → 2022-04-06 13:55 | Outpatient (CLI) | payer MEDICARE, OTHER, SELFPAY ==
[2022-04-06 14:32] LABS: INR 3.2 (0.9-1.3); Prothrombin Time 37.3 SECONDS (10.1-12.7)
== END ==
PROVIDERS: PCP Family Medicine; Referring Provider Family Medicine; Visit Provider Family Medicine
DX: Z79.01 Long term (current) use of anticoagulants (principal)
CPT/HCPCS: 36415; 85610

== ENCOUNTER 2022-04-10 09:01 | Emergency (ER) | payer MEDICARE, OTHER, SELFPAY ==
[2022-04-10 09:20] VITALS: BP 183/77; PULSE 38; RESP 16; TEMP 36.7; O2SAT 99; BMI 29.0
--- NOTE | 2022-04-10 09:25 | DI.RAD.S_ITS ---
PROCEDURE: XR ELBOW RT MIN 3V INDICATIONS: R elbow swelling/pain w/ movement TECHNIQUE: Three views of the elbow were acquired. COMPARISON: None. FINDINGS: Bones: No acute fractures or dislocations. No suspicious bony lesions. Moderate degenerative changes are seen throughout the elbow. Small posterior olecranon enthesophyte. Soft tissues: No definite elbow joint effusion, although evaluation is compromised as the lateral view is mildly rotated. Chondrocalcinosis. Mild soft tissue edema is seen predominantly along the posterior medial elbow. IMPRESSION: 1. Moderate elbow osteoarthrosis. No acute osseous fracture. 2. Chondrocalcinosis. Differential diagnosis includes but is not limited to CPPD, hyperparathyroidism, and hemochromatosis. 3. Nonspecific soft tissue edema surrounding the elbow is most prominent medially. Dictated by: Rubin Gay M.D. on 04/10/2022 at 9:03 Approved by: Rubin Gay M.D. on 04/10/2022 at 9:06
--- NOTE | 2022-04-10 10:02 | ED.UPPEXIN ---
HPI - Extremity Injury (Upper) General Chief Complaint: Extremity Injury, Upper Stated Complaint: Right elbow pain/swelling Time Seen by Provider: 04/10/22 09:58 Source: patient Mode of arrival: Ambulatory Limitations: no limitations History of Present Illness HPI narrative: This is an 82-year-old male history of mechanical valve on Coumadin, hypertension, dyslipidemia, chronic osteoarthritis who presents with right elbow pain which he states he woke up with which has been persistent does not think it has been worsening. Patient denies any fevers or chills, no chest pain or shortness of breath, no nausea or vomiting, no numbness, tingling or weakness, patient denies any GI or urinary symptoms. He states has painful range of motion he can flex and extend but is restricted to a between 35 and 135?, patient has swelling but appears more medially over the radial insertion, the olecranon his nontender, patient is tender over the radial head. Patient states he does not appreciate any color changes, no redness, no warmth, patient denies any bruising. He does not recall any falls or trauma. He denies any history of gout. He has not had any prior infections. Patient states he is had a prior valve replacement which is mechanical. No known drug allergies. No tobacco he states he drinks several alcoholic drinks daily and can range between 2 warm more drinks daily, he does not give a specific number when asked. Patient denies any illicit. Dr. Contreras is his primary care Related Data Home Medications Medication Instructions Recorded Confirmed finasteride 5 mg tablet 5 mg PO DAILY 04/21/21 03/25/22 Previous Rx's Medication Instructions Recorded miscellaneous medical supply #1 ea 08/27/18 acetaminophen 650 mg 650 mg PO Q8HP PRN Pain #90 tabs 07/03/20 tablet,extended release atorvastatin 40 mg tablet 20 mg PO DAILY #90 tabs 10/08/20 doxazosin 8 mg tablet See Rx Instructions .Route 09/10/21 .COMPLEX #90 tabs celecoxib 200 mg capsule (Celebrex) 200 mg PO DAILY #30 caps 10/15/21 amlodipine 5 mg tablet 10 mg PO DAILY #90 tabs 01/03/22 warfarin 5 mg tablet See Rx Instructions .Route 03/14/22 .COMPLEX #180 tabs oxycodone-acetaminophen 5 mg-325 See Rx Instructions PO Q4-6H PRN 03/25/22 mg tablet (Percocet) pain #60 tabs tadalafil 5 mg tablet (Cialis) See Rx Instructions PO DAILY PRN 03/25/22 sexual activity #30 tabs prednisone 20 mg tablet 20 mg PO DAILY #5 tabs 04/10/22 Allergies Allergy/AdvReac Type Severity Reaction Status Date / Time amoxicillin [AMOXICILLIN] Allergy Mild EDEMA IN Verified 03/25/22 11:18 HANDS, BUTTOCKS Penicillins [PENICILLINS] Allergy Mild SWELLING Verified 09/08/21 15:11 clavulanic acid AdvReac Mild EDEMA Verified 09/08/21 15:11 [CLAVULANIC ACID] lisinopril [LISINOPRIL] AdvReac Mild COUGH Verified 09/08/21 15:11 Review of Systems Review of Systems ROS Unobtainable: All systems reviewed & are unremarkable except as noted in HPI and below Patient History Medical History AAA (abdominal aortic aneurysm) (03/11/97) Ankle pain (1999) Atrial fibrillation with slow ventricular response BPH NOS w ur obs/LUTS Cervical spinal stenosis Chicken pox (1951) Cholelithiasis (02/2018) Chronic anticoagulation (03/11/97) Chronic pain syndrome Colon polyps (2001) Community acquired pneumonia (2016) Degenerative joint disease of foot Degenerative joint disease, ankle, foot, toe Depression Diverticular disease (~1989) Elevated PSA (~1989) Gallstones GERD (gastroesophageal reflux disease) Gout Hearing loss (~1989) Hematuria Hepatitis B (1984) Hernia (~1989) Hyperlipidemia Hypertension (1999) Impingement syndrome of left shoulder Impingement syndrome of right shoulder Kidney stones (~1969) Measles (~1950) Mumps (1949) Neck fracture (1974) Neck muscle spasm Osteoarthritis Pathologic fracture of vertebrae (09/27/13) Pneumonia (2016) 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 Rib fracture Shoulder pain (1996) Sinus node dysfunction Sleep apnea (2002) Spinal fracture (2007) Supraspinatus tendon tear TIA (transient ischemic attack) Surgical History Anesthesia H/O varicose vein stripping History of aortic valve replacement (03/11/97) History of arthroscopy of knee History of cardiac catheterization History of colon surgery History of meniscectomy of left knee History of neck surgery (1998) History of partial colectomy History of spinal fusion (1974) History of total knee arthroplasty History of vasectomy S/P cervical spinal fusion S/P left knee arthroscopy S/P resection of aortic aneurysm Status post hernia repair () Status post knee surgery (1974) Status post unicompartmental knee replacement, left Family History Brother Age: 71 Diabetes mellitus Daughter Age: 59 Breast cancer Daughter Age: 45 Hypertension Cervical cancer Father Hypertension Heart disease Sister Age: 66 Cancer Breast cancer Colon cancer Lung cancer Brother Aortic aneurysm Daughter Cancer Melanoma Mother Heart disease Sister ATV accident causing injury Social History household members: none Smoking Status: Never smoker alcohol intake: former Smoking Status: Never smoker alcohol intake frequency: 0-2 drinks per day Substance Use Type: does not use Exam Narrative Exam Narrative: GENERAL: Alert and oriented x three, elderly male in mild distress. HEENT: Head normocephalic, atraumatic, EOMI, pupils reactive, face symmetric, moist mucous membranes NECK: Supple, full range of motion CARDIOVASCULAR: Regular rate and rhythm without murmurs, rubs or gallops. RESPIRATORY: Breath sounds equal bilaterally, no wheezes rales or rhonchi. ABDOMEN: Soft, nontender. Normoactive bowel sounds all 4 quadrants. No guarding or rebound, rigidity, no mass : No CVA tenderness EXTREMITIES: Patient has tenderness over the radial head of the right elbow, no tenderness over medial portion, patient is nontender over the olecranon, not able to palpate a bursa or area of fluctuance or fluid collection but patient does appear to be more swollen particularly over the medial forearm tendon insertion. There is no warmth, erythema, patient is able to flex and extend but is restricted at the more extreme aspects, he has normal range of motion at wrist with all 5 fingers. 2+ radial pulse. Patient does not have a ballotable effusion. Normal range of motion, no clubbing or edema. Neurovascularly intact NEUROLOGICAL: Cranial nerves II through XII grossly intact. Moving all extremities SKIN: Warm, dry, no petechiae, no rashes or lesions, no lacerations or cuts. Initial Vital Signs Initial Vital Signs: Vital Signs Temperature 98.0 F 04/10/22 09:20 Pulse Rate 38 L 04/10/22 09:20 Respiratory Rate 16 04/10/22 09:20 Blood Pressure 183/77 H 04/10/22 09:20 Pulse Oximetry 99 04/10/22 09:20 Oxygen Delivery Method 04/10/22 09:20 Course Orders Ordered: ED Orders 04/10/22 09:25 XR elbow RT min 3V Stat 04/10/22 10:30 CBC Auto Diff [Complete Blood Count AUTO DIFF] Stat Uric Acid Stat 04/10/22 10:31 Prothrombin Time INR Stat Consultations Consultation #1: Aixa Rodriguez with Orthopedic surgery: Discussed x-ray findings, findings with effusion but more over the medial radial head. Patient case was discussed images reviewed she recommend CBC, uric acid and INR could start prednisone if CBC is reassuring does not require tap today but INR would be helpful if they decided perform arthrocentesis on the patient's elbow in the office and to helpful Vital Signs Vital signs: Vital Signs - 8 hr 04/10/22 09:20 Temperature 98.0 F Pulse Rate 38 L Respiratory Rate 16 Blood Pressure 183/77 H Pulse Oximetry 99 Oxygen Delivery Method Room Air MDM - Extremity Injury (Upper) Lab Data Result diagrams: 04/10/22 10:55 Labs: Lab Results 04/10/22 04/10/22 04/10/22 Range/Units 10:55 10:55 10:55 WBC 5.5 (4.5-11.0) X10^3/uL RBC 3.99 L (4.5-5.9) X10^6/uL Hgb 13.5 (13.5-17.5) g/dL Hct 39.4 L (41-53) % MCV 98.7 (80-100) fL MCH 33.9 (26-34) PG MCHC 34.4 (30-36) % RDW 13.0 (11.6-14.8) % Plt Count 174 (150-400) X10^3/uL Neut % (Auto) 67.2 (50-75) % Lymph % (Auto) 21.6 L (25-40) % Gregory % (Auto) 9.1 (3-14) % Eos % (Auto) 1.8 L (2-4) % Baso % (Auto) 0.3 (0-2) % Neut # (Auto) 3700 (7868-7089) /uL Lymph # (Auto) 1200 (9925-6758) /uL Gregory # (Auto) 500 (0-900) /uL Eos # (Auto) 100 (0-450) /uL Baso # (Auto) 0 (0-100) /uL PT 36.4 H (10.1-12.7) SECONDS INR 3.1 H (0.9-1.3) Uric Acid 5.5 (3.5-8.5) mg/dL Imaging Data Extremity x-ray #1: Radiologist's Impression: [address] [address] XRay Report Signed Patient: Kit Dallas MR#: [id number] : 1940 Acct:[id number] Age/Sex: 82 / M Date of Service: 04/10/22 Loc: ED Accession Number: [id number] ?? Procedure: XR elbow RT min 3V Ordering Provider: Yu Villanueva D.O. PROCEDURE:? XR ELBOW RT MIN 3V ? INDICATIONS:? R elbow swelling/pain w/ movement ? TECHNIQUE:? Three views of the elbow were acquired.? ? COMPARISON:? None. ? FINDINGS:? ? Bones:? No acute fractures or dislocations.? No suspicious bony lesions.? Moderate degenerative changes are seen throughout the elbow.? Small posterior olecranon enthesophyte. ? Soft tissues:? No definite elbow joint effusion, although evaluation is compromised as the lateral view is mildly rotated. Chondrocalcinosis.? Mild soft tissue edema is seen predominantly along the posterior medial elbow. ? IMPRESSION:? 1. Moderate elbow osteoarthrosis.? No acute osseous fracture. 2. Chondrocalcinosis.? Differential diagnosis includes but is not limited to CPPD, hyperparathyroidism, and hemochromatosis. 3. Nonspecific soft tissue edema surrounding the elbow is most prominent medially.? ? ? Dictated by: Rubin Gay M.D. on 04/10/2022 at 9:03 ? ? Approved by: Rubin Gay M.D. on 04/10/2022 at 9:06?? MDM Narrative Medical decision making narrative: 82-year-old male with right elbow pain with that is been nontraumatic, swelling is more medially and tenderness was over the radial head, patient has some changes consistent with pseudogout on his x-ray findings, discussed with Orthopedic surgery does not appear to be a septic joint they recommend CBC, uric acid and INR we will see patient in the office could start prednisone as patient can not have NSAIDs but because of his Coumadin if CBC is normal. Patient does not appear to be septic or have changes consistent with that. Plan for patient to follow-up in the office they may perform arthrocentesis at that time and INR would be helpful for that. Discharge Plan Departure Patient Disposition: Home Clinical Impression: Chondrocalcinosis Instructions: Calcium Pyrophosphate Dihydrate Deposition Disease Activity Restrictions/Additional Instructions: Your imaging today shows changes consistent with pseudogout or chondrocalcinosis. Your INR today is 3.1 Please follow-up with orthopedic surgery they may tap the joint obtain fluid for a final diagnosis. Please call to set up an appointment. It is also noted today that your heart rate is very slow. You can continue your medications currently. You may take Tylenol up to a 1000 mg every 6 hours. You may take steroids once daily until gone. You may take your narcotic pain medication for pain. I would recommend using your sling at home as needed. Prescription sent to [facility] in [place]. Please return for fevers increasing swelling, redness or pain, new numbness, tingling or weakness or other new or concerning symptoms. Prescriptions: New prednisone 20 mg tablet 20 mg PO DAILY Qty: 5 0RF No Action (DME) miscellaneous medical supply [facility] See Dose Instructions .Route .MEDSUPPLY Qty: 1 0RF Dose Instruction: Disabled Parking Permit Rx Instructions: Disabled Parking Permit acetaminophen 650 mg tablet extended release 650 mg PO Q8HP PRN (Reason: Pain) Qty: 90 0RF atorvastatin 40 mg tablet 20 mg PO DAILY Qty: 90 3RF doxazosin 8 mg tablet See Rx Instructions .ROUTE .COMPLEX Qty: 90 3RF Dose Instruction: TAKE 1 TABLET BY MOUTH NIGHTLY AT BEDTIME. Rx Instructions: TAKE 1 TABLET BY MOUTH NIGHTLY AT BEDTIME. celecoxib [Celebrex] 200 mg capsule 200 mg PO DAILY Qty: 30 2RF amlodipine 5 mg tablet 10 mg PO DAILY Qty: 90 3RF Rx Instructions: 10 mg PO daily; warfarin 5 mg tablet See Rx Instructions .ROUTE .COMPLEX Qty: 180 0RF Dose Instruction: TAKE 2 TABLET BY MOUTH ON MONDAY, MONDAY AND MONDAY. TAKE 2&1/2 TABLETS (12.5 MG) ALL OTHER DAYS, OR DIRECTED Rx Instructions: TAKE 2 TABLET BY MOUTH ON MONDAY, MONDAY AND MONDAY. TAKE 2&1/2 TABLETS (12.5 MG) ALL OTHER DAYS, OR DIRECTED oxycodone-acetaminophen [Percocet] 5-325 mg tablet See Rx Instructions PO Q4-6H PRN (Reason: pain) Qty: 60 0RF Dose Instruction: PO Q4-6H PRN; Take Rx Instructions: Take 1-2 tabs by mouth every 4-6 hours as needed for pain. tadalafil [Cialis] 5 mg tablet See Rx Instructions PO DAILY PRN (Reason: sexual activity) Qty: 30 0RF Rx Instructions: orally daily PRN; administer approximately 1-2 tabs 30min before sexual activity; do not use more than 1 dose per 24hrs finasteride 5 mg tablet 5 mg PO DAILY Label Comments: Take one tablet by mouth one time daily Referrals: Adithya Barnes MD [Primary Care Provider] - Aixa Rodriguez MD [Physician] - Visit Report Forms: Patient Portal/API
[2022-04-10 11:15] LABS: Add Manual Diff / Slide Review NO; Basophils Absolute Auto 0 /uL (0-100); Basophils Percent Auto 0.3 % (0-2); Eosinophils Absolute Auto 100 /uL (0-450); Eosinophils Percent Auto 1.8 % (2-4); Hematocrit 39.4 % (41-53); Hemoglobin 13.5 g/dL (13.5-17.5); Lymphocytes Absolute Auto 1200 /uL (1100-4500); Lymphocytes Percent Auto 21.6 % (25-40); Mean Corpuscular HGB Conc 34.4 % (30-36); Mean Corpuscular Hemoglobin 33.9 PG (26-34); Mean Corpuscular Volume 98.7 fL (80-100); Monocytes Absolute Auto 500 /uL (0-900); Monocytes Percent Auto 9.1 % (3-14); Neutrophils Absolute Auto 3700 /uL (1500-7000); Neutrophils Percent Auto 67.2 % (50-75); Platelet Count 174 X10^3/uL (150-400); Red Blood Cell Count 3.99 X10^6/uL (4.5-5.9); White Blood Cell Count 5.5 X10^3/uL (4.5-11.0)
[2022-04-10 11:21] LABS: INR 3.1 (0.9-1.3); Prothrombin Time 36.4 SECONDS (10.1-12.7)
[2022-04-10 11:29] VITALS: BP 177/84; PULSE 45; RESP 18; O2SAT 95
[2022-04-10 11:50] LABS: Uric Acid 5.5 mg/dL (3.5-8.5)
== END 2022-04-10 12:19 | disposition home or self-care (01) ==
PROVIDERS: Emergency Provider Emergency Medicine; PCP Family Medicine
DX: M11.221 Other chondrocalcinosis, right elbow (principal)
CPT/HCPCS: 36415; 73080; 84550; 85025; 85610; 99284

== ENCOUNTER → 2022-11-10 08:15 | Outpatient (CLI) | payer MEDICARE, OTHER, SELFPAY ==
[2022-11-10 09:57] LABS: Alanine Aminotransferase 17 IU/L (<50); Albumin 3.7 g/dL (3.5-5.0); Albumin Globulin Ratio 1.2 (1.0-2.8); Alkaline Phosphatase 80 U/L (38-126); Aspartate Aminotransferase 20 IU/L (17-59); BUN Creatinine Ratio 16.5 (6-22); Bilirubin Total 2.7 mg/dL (0.2-1.3); Blood Urea Nitrogen 15 mg/dL (9-20); Calcium 8.6 mg/dL (8.4-10.2); Carbon Dioxide 27 mmol/L (22-32); Chloride 105 mmol/L (98-107); Estimated Glomerular Filt Rate > 60 mL/min (>60); Globulin 3.1 g/dL (1.7-4.1); Glucose 103 mg/dL (80-110); HEMOLYSIS < 15 (0-50); Magnesium 2.2 mg/dL (1.6-2.3); Sodium 137 mmol/L (137-145); Total Protein 6.8 g/dL (6.3-8.2)
[2022-11-12 14:39] LABS: Cholesterol, Total 147 mg/dL (100-199); HDL-Cholesterol 50 mg/dL (>39); HDL-Particle (Total) 31.9 umol/L (>=30.5); LDL Particle 885 nmol/L (<1000); LDL Size 20.7 nm (>20.5); LDL-Cholsterol 78 mg/dL (0-99); LP-IR Score 36 (<=45); Small LDL- Particle 468 nmol/L (<=527); Triglycerides 101 mg/dL (0-149)
== END ==
PROVIDERS: PCP Family Medicine; Referring Provider Specialist; Visit Provider Specialist
DX: I10 Essential (primary) hypertension (principal); E78.00 Pure hypercholesterolemia, unspecified
CPT/HCPCS: 36415; 80053; 80061; 83704; 83735

== ENCOUNTER → 2023-01-21 10:24 | Outpatient (CLI) | payer MEDICARE, OTHER, SELFPAY ==
--- NOTE | 2023-01-21 10:25 | DI.RAD.S_ITS ---
PROCEDURE: XR ELBOW LT MIN 3V INDICATIONS: Left elbow pain TECHNIQUE: 3 views of the elbow were acquired. COMPARISON: None. FINDINGS: Bones: No fractures or dislocations. No suspicious bony lesions. Degenerative changes of the elbow joint Soft tissues: No elbow joint effusion. No suspicious soft tissue calcifications. IMPRESSION: Degenerative changes. No acute abnormality. Dictated by: Jesus Kyle M.D. on 01/21/2023 at 12:53 Approved by: Jesus Kyle M.D. on 01/21/2023 at 12:59
== END ==
PROVIDERS: PCP Family Medicine; Referring Provider Nurse Practitioner Family; Visit Provider Nurse Practitioner Family
DX: M25.522 Pain in left elbow (principal)
CPT/HCPCS: 73080

== ENCOUNTER → 2023-05-01 10:21 | Outpatient (CLI) | payer MEDICARE, OTHER, SELFPAY ==
--- NOTE | 2023-05-01 | DI.ECHO.S_ITS ---
[facility] +---------+ : : [address] : : : : [id number] : : : : Phone: [phone] Echocardiogram Report + + :Name: MOISES ROBERTS Study Date: 05/01/2023 Height: 67 in : :[facility] ReadingLocation: Weight: 185 lb : : Gender: Male BSA: 2.0 m2 : :: 1940 Age: 83 yrs BP: 203/96 mmHg: :Reason For Study: History of Mechnical Aortic Valve : :Replacement : :Ordering Physician: ADILENE, : :JUAN FRANCISCO Performed By: Camilla Gannon : :Referring: JUAN FRANCISCO HEAD : + + Interpretation Summary Left ventricular systolic function remains normal with an estimated ejection fraction of 55 to 60% without focal abnormality and appears slightly less dynamic compared to the previous study. Left ventricular volumes are borderline enlarged with an end-diastolic volume of 113 (92 mL previously). There continues to be mild to moderate concentric LVH that remains unchanged. Diastolic function remains challenging to assess but with probable normal filling pressures, likely similar to the previous study. The right ventricle remains borderline enlarged with normal systolic function but unchanged. Right ventricular systolic pressure is estimated at 38 mmHg with a CVP of 3 mmHg and is unchanged. There is moderate biatrial enlargement and both measure slightly smaller compared to the previous study. There is moderate mitral valve calcification but no significant stenosis or regurgitation. There is mild to moderate tricuspid regurgitation that appears unchanged. There is mechanical aortic valve with possible moderate prosthetic stenosis with a peak velocity of 3.5 m/s and mean gradient 22 mm, compared to 4.5 m/s and 44 mmHg, respectively, previously. The severity ratio has remained unchanged at 0.24 compared to 0.25 previously. The patient was in sinus bradycardia at 38 to 41 bpm compared to 43 to 53 bpm on the previous study. The patient was noted to be hypertensive with a blood pressure after exam of 206/92. He was instructed to take his blood pressure medications and go to the ED if he experienced any concerning symptoms. Procedure: A two-dimensional transthoracic echocardiogram with color flow and Doppler was performed. The study quality was technically adequate. Comparison is made with the echocardiogram of 03/28/2022. The patient was in sinus bradycardia with heart rates between 38-41 bpm during the exam. This is slightly slower compared to the previous study. Left Ventricle: The left ventricle is normal in size. Left ventricular size is at the upper limits of normal. The estimated left ventricular end diastolic volume is 113 mL compared to the previous 92 ml. There is mild-moderate concentric left ventricular hypertrophy. This is unchanged compared to the previous study. Left ventricular systolic function appears normal without focal wall motion abnormalities. The ejection fraction is estimated to be 55- 60%. This is slightly less dynamic compared to the previous study. Diastolic parameters suggest a relaxation abnormality of the left ventricle, consistent with probable normal filling pressures. This is likely unchanged compared to the previous study. Right Ventricle: The right ventricle is borderline dilated. The right ventricular systolic function is normal. This is unchanged compared to the previous study. Atria: The left atrium is moderately dilated. Both atria have mildly decreased in size since the prior echo exam. The right atrium is mild to moderately dilated. There is no Doppler evidence for an interatrial shunt. Mitral Valve: There is mild mitral annular calcification. The mitral valve leaflets are moderately calcified. No significant mitral valve stenosis. There is trace mitral regurgitation. 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 The prosthetic aortic valve is well-seated. There is moderate aortic stenosis. This is unchanged compared to the previous study. The peak aortic velocity is 3.5 m/sec. The aortic valve mean gradient is 22 mmHg. There is trace aortic regurgitation. This is unchanged compared to the previous study. Tricuspid Valve: The tricuspid valve is normal. There is no tricuspid stenosis. There is mild to moderate tricuspid regurgitation. The right ventricular systolic pressure is estimated to be at least 38 mmHg based on an estimated right atrial pressure of 3 mm Hg. This is unchanged compared to the previous study. Pulmonic Valve: The pulmonic valve is not well visualized. There is no pulmonic valvular stenosis. There is trace pulmonic regurgitation. Great Vessels: The aortic root is not well visualized. The ascending aorta is normal in size. The pulmonary artery is normal size. The IVC is of normal diameter and collapses greater than 50% with a sniff. This suggests a low right atrial pressure of 3 mm Hg. Pericardium/ Pleura There is no pericardial effusion. There is no pleural effusion. MMode/2D Measurements & Calculations LVIDd: 5.7 cm asc Aorta Diam: 3.0 cm LVIDs: 3.6 cm FS: 36.8 % IVSd: 1.3 cm LVPWd: 1.4 cm LV duran. diameter/BSA (cm/m^2): 2.9 LV sys. diameter/BSA (cm/m^2): 1.8 LA A2 area: 22.4 cm2 RA long axis: 6.1 cm LA A4 area: 29.6 cm2 RA area: 21.6 cm2 LA length (vol): 5.8 cm RA vol: 65.0 ml LA vol: 97.5 ml RA : 33.2 ml/m2 LA vol index: 49.9 ml/m2 RVD1 (basal): 4.3 cm LVLs ap4: 6.3 cm LVLd ap2: 7.9 cm TAPSE_phl: 2.5 cm LVLs ap2: 6.1 cm Doppler Measurements & Calculations Ao V2 max: 347.6 cm/sec LVOT Max Jairo: 79.3 cm/sec Ao V2 mean: 211.6 cm/sec LV V1 max P.5 mmHg Ao max P.0 mmHg LV V1 VTI: 22.6 cm Ao mean P.4 mmHg sev ratio: 0.24 Ao V2 VTI: 93.0 cm MV E max jairo: 96.8 cm/sec TR max jairo: 295.5 cm/sec MV A max jairo: 80.6 cm/sec TR max P.0 mmHg MV E/A: 1.2 PA V2 max: 123.0 cm/sec Med Peak E' Jairo: 6.0 cm/sec PA V2 mean: 80.2 cm/sec E/E' med: 16.1 PA mean P.0 mmHg Lat Peak E' Jairo: 14.4 cm/sec E/E' lat: 6.7 E/e' average: 11.4 MV dec time: 0.25 sec MV V2 mean: 33.0 cm/sec AV VR_phl: 0.23 MV mean P.65 mmHg MV V2 VTI: 32.8 cm Reading Physician:10:09 AM
== END ==
PROVIDERS: PCP Family Medicine; Referring Provider Specialist; Visit Provider Specialist
DX: I08.3 Combined rheumatic disorders of mitral, aortic and tricuspid valves (principal); Z95.2 Presence of prosthetic heart valve
CPT/HCPCS: 93306

== ENCOUNTER → 2023-05-12 17:24 | Outpatient (CLI) | payer MEDICARE, OTHER, SELFPAY ==
[2023-05-12 17:58] LABS: Alanine Aminotransferase 21 IU/L (<50); Albumin 4.4 g/dL (3.5-5.0); Albumin Globulin Ratio 1.5 (1.0-2.8); Alkaline Phosphatase 77 U/L (38-126); Aspartate Aminotransferase 30 IU/L (17-59); BUN Creatinine Ratio 18.3 (6-22); Blood Urea Nitrogen 15 mg/dL (9-20); Calcium 9.2 mg/dL (8.4-10.2); Carbon Dioxide 24 mmol/L (22-32); Chloride 103 mmol/L (98-107); Cholesterol 130 mg/dL (140-199); Estimated Glomerular Filt Rate > 60 mL/min (>60); Glucose 122 mg/dL (80-110); HDL Cholesterol 47 mg/dL (40-60); LDL Cholesterol Calculated 61 mg/dL (<100); Magnesium 2.1 mg/dL (1.6-2.3); Total Protein 7.4 g/dL (6.3-8.2); Triglycerides 110 mg/dL (35-150)
[2023-05-12 18:08] LABS: HEMOLYSIS 47 (0-50); Potassium 3.8 mmol/L (3.4-5.1); Sodium 137 mmol/L (137-145)
== END ==
PROVIDERS: PCP Family Medicine; Referring Provider Specialist; Visit Provider Specialist
DX: I10 Essential (primary) hypertension (principal); E78.00 Pure hypercholesterolemia, unspecified
CPT/HCPCS: 36415; 80053; 80061; 83735

== ENCOUNTER 2023-09-08 10:22 | Emergency (ER) | payer MEDICARE, OTHER, SELFPAY ==
[2023-09-08] VITALS (9 sets, daily range): BP systolic 132–170; BP diastolic 72–91; PULSE 48–60; RESP 17–24; O2SAT 93–95; BMI 29.7
--- NOTE | 2023-09-08 | DI.US.S_ITS ---
ULTRASOUND OF LEFT BREAST: 09/08/2023 CLINICAL: 84 yo male (ER) here for left nipple pain x 3 weeks. No prior exams were available for comparison. Real-time ultrasound of the left breast was performed. Chance scale images of the real-time examination were reviewed. Patient present to the ED with 3 weeks of nipple pain. Ultrasound performed showed no abscess. Suspected retroareolar gynecomastia is seen. IMPRESSION: INCOMPLETE: NEEDS ADDITIONAL IMAGING EVALUATION Patient present to the ED with 3 weeks of nipple pain. Ultrasound performed showed no abscess. Suspected retroareolar gynecomastia is seen. A followup diagnostic mammogram is recommended, as well as clinical followup. This exam was interpreted at Station ID: [id number]. Electronically Signed By: Sandeep Nguyễn M.D. lc/:09/08/2023 11:45:50 letter sent: Additional Imaging Needed Ultrasound BI-RADS: 0 Indeterminate
--- NOTE | 2023-09-08 10:35 | DI.RAD.S_ITS ---
PROCEDURE: XR CHEST 1V INDICATIONS: chest pain TECHNIQUE: One view of the chest was acquired. COMPARISON: [facility], CR, XR CHEST 1V, 03/27/2022, 0:30. FINDINGS: Surgical changes and devices: Cervical fixation plate and sternal wires. Lungs and pleura: Patchy right basilar opacity is present. Mediastinum: Mediastinal contours appear normal. Heart size is enlarged. Bones and chest wall: No suspicious bony lesions. Overlying soft tissues appear unremarkable. IMPRESSION: Right basilar opacities suggestive of pneumonia. Recommend interval follow-up to document resolution. Dictated by: Gemma Miles M.D. on 09/08/2023 at 11:26 Approved by: Gemma Miles M.D. on 09/08/2023 at 11:26
[2023-09-08 10:56] LABS: Add Manual Diff / Slide Review NO; Basophils Absolute Auto 0 /uL (0-100); Basophils Percent Auto 0.6 % (0-2); Eosinophils Absolute Auto 100 /uL (0-450); Eosinophils Percent Auto 1.1 % (2-4); Hematocrit 40.6 % (41-53); Hemoglobin 14.1 g/dL (13.5-17.5); Lymphocytes Absolute Auto 1400 /uL (1100-4500); Lymphocytes Percent Auto 28.6 % (25-40); Mean Corpuscular HGB Conc 34.8 % (30-36); Mean Corpuscular Hemoglobin 34.2 PG (26-34); Mean Corpuscular Volume 98.4 fL (80-100); Monocytes Absolute Auto 400 /uL (0-900); Monocytes Percent Auto 7.6 % (3-14); Neutrophils Absolute Auto 3000 /uL (1500-7000); Neutrophils Percent Auto 62.1 % (50-75); Platelet Count 136 X10^3/uL (150-400); Red Blood Cell Count 4.13 X10^6/uL (4.5-5.9); Red Cell Distribution Width 13.3 % (11.6-14.8); White Blood Cell Count 4.8 X10^3/uL (4.5-11.0)
--- NOTE | 2023-09-08 10:57 | ED.CHESTPAIN ---
HPI - Chest Pain General Chief Complaint: Chest Pain Stated Complaint: upper L/chest pain Time Seen by Provider: 09/08/23 10:27 Source: patient Mode of arrival: Family Vehicle Limitations: no limitations History of Present Illness HPI narrative: 83-year-old male presents by private vehicle from home for left-sided chest/breast pain for 3 weeks. Pain is constant, palpation makes it worse. Has not taken any medications for pain. Has not called his primary care physician about this. Presents today because he states he is about to go to [place] and wants to get it evaluated before he takes his trip. Reports family history of breast cancer. Related Data Home Medications Medication Instructions Recorded Confirmed finasteride 5 mg tablet 5 mg PO DAILY 04/21/21 08/03/23 latanoprost 0.005 % eye drops 1 drp EYE-BOTH 01/25/23 08/03/23 Previous Rx's Medication Instructions Recorded miscellaneous medical supply #1 ea 08/27/18 acetaminophen 650 mg 650 mg PO Q8HP PRN Pain #90 tabs 07/03/20 tablet,extended release doxazosin 8 mg tablet See Rx Instructions .Route 09/10/21 .COMPLEX #90 tabs celecoxib 200 mg capsule (Celebrex) 200 mg PO DAILY #30 caps 10/15/21 amlodipine 5 mg tablet 10 mg (2 x 5 mg) PO DAILY #90 tabs 01/03/22 Disabled Parking Permit #1 ea 07/04/23 atorvastatin 40 mg tablet 20 mg (1/2 x 40 mg) PO DAILY #90 07/04/23 tabs oxycodone-acetaminophen 5 mg-325 See Rx Instructions PO Q4-6H PRN 07/04/23 mg tablet (Percocet) pain #60 tabs warfarin 5 mg tablet See Rx Instructions .Route 07/04/23 .COMPLEX #157 tabs tadalafil 5 mg tablet 5 mg PO .PRN #30 tabs 08/14/23 Allergies Allergy/AdvReac Type Severity Reaction Status Date / Time amoxicillin [AMOXICILLIN] Allergy Mild EDEMA IN Verified 09/08/23 10:36 HANDS, BUTTOCKS Penicillins [PENICILLINS] Allergy Mild SWELLING Verified 09/08/23 10:36 clavulanic acid AdvReac Mild EDEMA Verified 09/08/23 10:36 [CLAVULANIC ACID] lisinopril [LISINOPRIL] AdvReac Mild COUGH Verified 09/08/23 10:36 Review of Systems Review of Systems Narrative: Negative except as noted above Patient History Medical History Impingement syndrome of left shoulder Degenerative joint disease, ankle, foot, toe Degenerative joint disease of foot Pathologic fracture of vertebrae (09/27/13) Reflex sympathetic dystrophy of upper extremity Sinus node dysfunction Atrial fibrillation with slow ventricular response Chronic pain syndrome Hematuria 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 Gallstones Rib fracture GERD (gastroesophageal reflux disease) Gout Hyperlipidemia Osteoarthritis TIA (transient ischemic attack) Impingement syndrome of right shoulder Supraspinatus tendon tear Reflex sympathetic dystrophy Shoulder pain (1996) Spinal fracture (2007) Neck fracture (1974) Ankle pain (1999) Hearing loss (~1989) Sleep apnea (2002) Mumps (1949) Measles (~1949) Hepatitis B (1984) Chicken pox (1951) Hernia (~1989) Diverticular disease (~1989) Colon polyps (2001) Chronic anticoagulation (03/11/97) Hypertension (1999) AAA (abdominal aortic aneurysm) (03/11/97) Depression Kidney stones (~1969) Elevated PSA (~1989) BPH NOS w ur obs/LUTS Community acquired pneumonia (2016) Cervical spinal stenosis Cholelithiasis (02/2018) Pneumonia (2016) Neck muscle spasm Surgical History S/P resection of aortic aneurysm History of cardiac catheterization S/P left knee arthroscopy S/P cervical spinal fusion History of meniscectomy of left knee Status post unicompartmental knee replacement, left History of partial colectomy History of total knee arthroplasty H/O varicose vein stripping Anesthesia History of colon surgery History of neck surgery (1998) History of arthroscopy of knee Status post hernia repair () Status post knee surgery (1974) History of aortic valve replacement (03/11/97) History of spinal fusion (1974) History of vasectomy Family History Brother Age: 73 Diabetes mellitus Daughter Age: 60 Breast cancer Daughter Age: 47 Hypertension Cervical cancer Father Hypertension Heart disease Sister Age: 68 Cancer Breast cancer Colon cancer Lung cancer Brother Aortic aneurysm Daughter Cancer Melanoma Mother Heart disease Sister ATV accident causing injury Social History household members: none lives independently: Yes occupational status: unemployed Smoking Status: Never smoker alcohol intake: current substance use type: does not use Smoking Status: Never smoker alcohol intake frequency: 0-2 drinks per day Substance Use Type: does not use Exam Initial Vital Signs Initial Vital Signs: Vital Signs Pulse Rate 50 L 09/08/23 10:29 Respiratory Rate 18 09/08/23 10:29 Blood Pressure 170/75 H 09/08/23 10:29 Pulse Oximetry 94 09/08/23 10:29 Oxygen Delivery Method Room Air 09/08/23 10:29 Const: Awake, alert, no acute distress, nontoxic appearing Chest: atraumatic, tenderness to palpation over L nipple, no discharge Cardiac: regular rate, regular rhythm RESP: unlabored, clear bilaterally, no wheezing GI: Atraumatic, soft, nontender, nondistended, no rebound, no guarding Skin: Warm, Dry, intact, no rashes Neuro: AO x3, CN II-XII grossly intact, moves all extremities Course Orders Ordered: ED Orders 09/08/23 10:31 EKG-12 Lead Stat 09/08/23 10:32 EKG-12 Lead Stat 09/08/23 10:35 XR chest 1V Stat 09/08/23 10:40 Prothrombin Time INR Stat 09/08/23 10:49 Complete Blood Count AUTO DIFF Stat Comprehensive Metabolic Panel Stat Lipase Stat Troponin & CK Cardiac Panel Stat Discontinued Medications Aspirin (Aspirin 81 Mg Chew Tab) 324 mg PO NOW ONE Stop: 09/08/23 10:36 Last Admin: 09/08/23 11:17 Dose: Not Given Documented By: RICHIE Sodium Chloride (Normal Saline 0.9%) 1,000 mls @ 150 mls/hr IV CONT BELÉN Last Admin: 09/08/23 11:54 Dose: Not Given Documented By: IRCHIE Vital Signs Vital signs: Vital Signs - 8 hr 09/08/23 10:29 09/08/23 10:38 09/08/23 11:00 Pulse Rate 50 L 60 55 L Respiratory Rate 18 24 Blood Pressure 170/75 H Pulse Oximetry 94 94 94 Oxygen Delivery Method Room Air Room Air 09/08/23 11:01 09/08/23 11:01 09/08/23 11:30 Pulse Rate 54 L 50 L Respiratory Rate 20 21 Blood Pressure 142/91 H Pulse Oximetry 95 93 Oxygen Delivery Method Room Air 09/08/23 11:31 09/08/23 11:31 09/08/23 12:00 Pulse Rate 49 L 49 L Respiratory Rate 17 17 Blood Pressure 162/73 H Pulse Oximetry 93 94 Oxygen Delivery Method Room Air 09/08/23 12:01 09/08/23 12:01 09/08/23 12:30 Pulse Rate 49 L 48 L Respiratory Rate 20 19 Blood Pressure 132/89 Pulse Oximetry 93 94 Oxygen Delivery Method 09/08/23 12:30 Pulse Rate Respiratory Rate Blood Pressure 153/72 H Pulse Oximetry Oxygen Delivery Method MDM - Chest Pain Differential Diagnosis Differential diagnosis: Likely pneumothorax, atypical chest pain and costochondritis Lab Data 09/08/23 10:49 09/08/23 10:49 Labs: Lab Results 09/08/23 09/08/23 Range/Units 10:40 10:49 WBC 4.8 (4.5-11.0) X10^3/uL RBC 4.13 L (4.5-5.9) X10^6/uL Hgb 14.1 (13.5-17.5) g/dL Hct 40.6 L (41-53) % MCV 98.4 (80-100) fL MCH 34.2 H (26-34) PG MCHC 34.8 (30-36) % RDW 13.3 (11.6-14.8) % Plt Count 136 L (150-400) X10^3/uL Neut % (Auto) 62.1 (50-75) % Lymph % (Auto) 28.6 (25-40) % [place] % (Auto) 7.6 (3-14) % Eos % (Auto) 1.1 L (2-4) % Baso % (Auto) 0.6 (0-2) % Neut # (Auto) 3000 (7319-0831) /uL Lymph # (Auto) 1400 (9321-2489) /uL [place] # (Auto) 400 (0-900) /uL Eos # (Auto) 100 (0-450) /uL Baso # (Auto) 0 (0-100) /uL PT 28.4 H (9.4-12.5) SECONDS INR 2.5 H (0.9-1.3) Sodium 138 (137-145) mmol/L Potassium 3.8 (3.4-5.1) mmol/L Chloride 107 (98-107) mmol/L Carbon Dioxide 24 (22-32) mmol/L BUN 18 (9-20) mg/dL Creatinine 0.76 (0.66-1.25) mg/dL Estimated GFR > 60 (>60) mL/min BUN/Creatinine Ratio 23.7 H (6-22) Glucose 135 H (80-110) mg/dL Calcium 8.5 (8.4-10.2) mg/dL Total Bilirubin 1.8 H (0.2-1.3) mg/dL AST 23 (17-59) IU/L ALT 19 (<50) IU/L Alkaline Phosphatase 66 (38-126) U/L Total Creatine Kinase 51 L (55-170) U/L Troponin I 0.016 (0.01-0.034) ng/mL Total Protein 6.8 (6.3-8.2) g/dL Albumin 3.8 (3.5-5.0) g/dL Globulin 3.0 (1.7-4.1) g/dL Albumin/Globulin Ratio 1.3 (1.0-2.8) Lipase 64 (23-300) U/L ECG Data Interpretation: Atrial fibrillation at 60 beats per minute, left anterior fascicular block, no ST T wave changes MDM Narrative Medical decision making narrative: Well-appearing patient with 3 weeks of pain behind the nipple. No skin dimpling, deformity, size difference between the left and right side. Patient states he wanted an evaluation before he leaves for several months for [place]. I explained to the patient that I could evaluate for abscess or underlying large mass, however definitive testing for breast cancer, which is the patient's primary concern, is mammography, which is not obtained through the emergency department. Patient stated that he would find a primary doctor while he was in [place] in order to pursue mammography. Notified of unremarkable ultrasound and chest x-ray imaging. INR checked per patient request, 2.5 here today. Discharge Plan Departure Patient Disposition: Home Clinical Impression: Breast pain Instructions: Mammography Activity Restrictions/Additional Instructions: Your ultrasound today did not show any abscess. Your chest x-ray was negative for any left-sided chest findings. Your INR today was 2.5. You will need to follow up with a primary care physician to schedule a mammogram in order to rule out any breast cancer if that is your concern. Prescriptions: No Action (DME) miscellaneous medical supply misc See Dose Instructions .Route .MEDSUPPLY Qty: 1 0RF Dose Instruction: Disabled Parking Permit Rx Instructions: Disabled Parking Permit acetaminophen 650 mg tablet extended release 650 mg PO Q8HP PRN (Reason: Pain) Qty: 90 0RF doxazosin 8 mg tablet See Rx Instructions .ROUTE .COMPLEX Qty: 90 3RF Dose Instruction: TAKE 1 TABLET BY MOUTH NIGHTLY AT BEDTIME. Rx Instructions: TAKE 1 TABLET BY MOUTH NIGHTLY AT BEDTIME. celecoxib [Celebrex] 200 mg capsule 200 mg PO DAILY Qty: 30 2RF amlodipine 5 mg tablet 10 mg PO DAILY Qty: 90 3RF Rx Instructions: 10 mg PO daily; tadalafil 5 mg tablet 5 mg PO .PRN Qty: 30 0RF (DME) Disabled Parking Permit See Rx Instructions .ROUTE .MEDSUPPLY Qty: 1 0RF Rx Instructions: I find this patient to be medically disabled and qualified for Disabled Parking as indicated and signed on the accompanying Disabled Parking Application for Individuals. oxycodone-acetaminophen [Percocet] 5-325 mg tablet See Rx Instructions PO Q4-6H PRN (Reason: pain) Qty: 60 0RF Dose Instruction: PO Q4-6H PRN; Take Rx Instructions: Take 1-2 tabs by mouth every 4-6 hours as needed for pain. warfarin 5 mg tablet See Rx Instructions .ROUTE .COMPLEX Qty: 157 3RF Dose Instruction: TAKE 2 TABLET BY MOUTH ON MONDAY, MONDAY AND MONDAY. TAKE 2&1/2 TABLETS (12.5 MG) ALL OTHER DAYS, OR DIRECTED Rx Instructions: Take 2.5 tablets (12.5mg) total on Monday'. Take 2 tablets (10mg) total all other days; or as directed. atorvastatin 40 mg tablet 20 mg PO DAILY Qty: 90 3RF latanoprost 0.005 % drops 1 drp EYE-BOTH Patient Comments: INSTILL ONE DROP IN BOTH EYES NIGHTLY AT BEDTIME finasteride 5 mg tablet 5 mg PO DAILY Patient Comments: Take one tablet by mouth one time daily Referrals: Horras,Adithya M, MD [Primary Care Provider] - Stand Alone Forms: Patient Portal/API
[2023-09-08 11:10] LABS: Alanine Aminotransferase 19 IU/L (<50); Albumin 3.8 g/dL (3.5-5.0); Albumin Globulin Ratio 1.3 (1.0-2.8); Alkaline Phosphatase 66 U/L (38-126); Aspartate Aminotransferase 23 IU/L (17-59); BUN Creatinine Ratio 23.7 (6-22); Bilirubin Total 1.8 mg/dL (0.2-1.3); Blood Urea Nitrogen 18 mg/dL (9-20); Calcium 8.5 mg/dL (8.4-10.2); Carbon Dioxide 24 mmol/L (22-32); Chloride 107 mmol/L (98-107); Creatine Kinase 51 U/L (55-170); Estimated Glomerular Filt Rate > 60 mL/min (>60); Glucose 135 mg/dL (80-110); HEMOLYSIS 16 (0-50); Lipase 64 U/L (23-300); Potassium 3.8 mmol/L (3.4-5.1); Sodium 138 mmol/L (137-145); Total Protein 6.8 g/dL (6.3-8.2)
[2023-09-08 11:18] LABS: Troponin I 0.016 ng/mL (0.01-0.034)
[2023-09-08 12:15] LABS: INR 2.5 (0.9-1.3); Prothrombin Time 28.4 SECONDS (9.4-12.5)
== END 2023-09-08 12:43 | disposition home or self-care (01) ==
PROVIDERS: Emergency Provider Emergency Medicine; PCP Family Medicine
DX: N64.4 Mastodynia (principal); R07.9 Chest pain, unspecified
CPT/HCPCS: 36415; 71045; 76642; 80053; 82550; 83690; 84484; 85025; 85610; 93005; 93010; 99284

== ENCOUNTER → 2023-11-06 11:48 | Outpatient (CLI) | payer MEDICARE, OTHER, SELFPAY ==
--- NOTE | 2023-11-06 11:50 | DI.MG.S_ITS ---
MALE BILATERAL DIGITAL DIAGNOSTIC MAMMOGRAM 3D/2D: 11/06/2023 CLINICAL: Left breast pain. Comparison is made to exam dated: 09/08/2023 [facility] [place]. There is gynecomastia in the left breast that correlates with palpable abnormality. No significant masses, calcifications, or other findings are seen in either breast. IMPRESSION: BENIGN There is no mammographic evidence of malignancy. This exam was interpreted at Station ID: [id number]. NOTE: For mammograms, a report in lay terms will be sent to the patient. Approximately 15% of breast malignancies will not be visualized mammographically. In the management of a palpable breast mass, a negative mammogram must not discourage biopsy of a clinically suspicious lesion. Electronically Signed By: Leigh Azevedo M.D. lk/:11/06/2023 12:51:16 letter sent: Clinical Evaluation ACR BI-RADS Category 2: Benign Finding(s) 3342F
== END ==
PROVIDERS: PCP Family Medicine; Referring Provider Family Medicine; Visit Provider Family Medicine
DX: N64.4 Mastodynia (principal); N62 Hypertrophy of breast
CPT/HCPCS: 77066; G0279

== ENCOUNTER 2023-12-27 11:50 | Day surgery (SDC) | payer MEDICARE, OTHER, SELFPAY ==
[2023-12-19 11:46] VITALS: BMI 30.7
--- NOTE | 2023-12-26 09:10 | PM.HP.1 ---
History of Present Illness History of Present Illness Date Patient Seen: 12/27/23 Time Patient Seen: 12:44 Chief complaint: SD Narrative: 83-year-old man with gynecomastia here for elective left lumpectomy. No interval change in health since last seen. Please refer to the H&P from October 2023 for further detail. [facility] Medical History Gynecomastia Impingement syndrome of left shoulder Degenerative joint disease, ankle, foot, toe Degenerative joint disease of foot Pathologic fracture of vertebrae (09/27/13) Reflex sympathetic dystrophy of upper extremity Sinus node dysfunction Atrial fibrillation with slow ventricular response Chronic pain syndrome Hematuria 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 Gallstones Rib fracture GERD (gastroesophageal reflux disease) Gout Hyperlipidemia Osteoarthritis TIA (transient ischemic attack) Impingement syndrome of right shoulder Supraspinatus tendon tear Reflex sympathetic dystrophy Shoulder pain (1996) Spinal fracture (2007) Neck fracture (1974) Ankle pain (1999) Hearing loss (~1989) Sleep apnea (2002) Mumps (1949) Measles (~1949) Hepatitis B (1984) Chicken pox (1951) Hernia (~1989) Diverticular disease (~1989) Colon polyps (2001) Chronic anticoagulation (03/11/97) Hypertension (1999) AAA (abdominal aortic aneurysm) (03/11/97) Depression Kidney stones (~1969) Elevated PSA (~1989) BPH NOS w ur obs/LUTS Community acquired pneumonia (2016) Cervical spinal stenosis Cholelithiasis (02/2018) Pneumonia (2016) Neck muscle spasm Surgical History S/P resection of aortic aneurysm History of cardiac catheterization S/P left knee arthroscopy S/P cervical spinal fusion History of meniscectomy of left knee Status post unicompartmental knee replacement, left History of partial colectomy History of total knee arthroplasty H/O varicose vein stripping Anesthesia History of colon surgery History of neck surgery (1998) History of arthroscopy of knee Status post hernia repair (~1989) Status post knee surgery (1974) History of aortic valve replacement (03/11/97) History of spinal fusion (1974) History of vasectomy Family History Brother Age: 73 Diabetes mellitus Daughter Age: 60 Breast cancer Daughter Age: 47 Hypertension Cervical cancer Father Hypertension Heart disease Sister Age: 68 Cancer Breast cancer Colon cancer Lung cancer Brother Aortic aneurysm Daughter Cancer Melanoma Mother Heart disease Sister ATV accident causing injury Social History household members: none lives independently: Yes occupational status: unemployed Smoking Status: Never smoker alcohol intake: current substance use type: does not use Meds Home Medications and Allergies Home Medications Medication Instructions Recorded Confirmed Type miscellaneous medical supply #1 ea 08/27/18 11/16/23 Rx acetaminophen 650 mg 650 mg PO Q8HP PRN Pain #90 tabs 07/03/20 11/16/23 Rx tablet,extended release finasteride 5 mg tablet 5 mg PO DAILY 04/21/21 11/16/23 History doxazosin 8 mg tablet See Rx Instructions .Route 09/10/21 11/16/23 Rx .COMPLEX #90 tabs celecoxib 200 mg capsule (Celebrex) 200 mg PO DAILY #30 caps 10/15/21 11/16/23 Rx amlodipine 5 mg tablet 10 mg (2 x 5 mg) PO DAILY #90 tabs 01/03/22 11/16/23 Rx latanoprost 0.005 % eye drops 1 drp EYE-BOTH 01/25/23 11/16/23 History Disabled Parking Permit #1 ea 07/04/23 11/16/23 Rx atorvastatin 40 mg tablet 20 mg (1/2 x 40 mg) PO DAILY #90 07/04/23 11/16/23 Rx tabs warfarin 5 mg tablet See Rx Instructions .Route 07/04/23 11/16/23 Rx .COMPLEX #157 tabs tadalafil 5 mg tablet 5 mg PO .PRN #30 tabs 08/14/23 11/16/23 Rx oxycodone-acetaminophen 5 mg-325 See Rx Instructions PO Q4-6H PRN 11/13/23 11/16/23 Rx mg tablet (Percocet) pain #60 tabs enoxaparin 80 mg/0.8 mL 80 mg (0.8 mL) SUBCUT Q12H #8 mL 12/07/23 Rx subcutaneous syringe (Lovenox) Allergies Allergy/AdvReac Type Severity Reaction Status Date / Time amoxicillin [AMOXICILLIN] Allergy Mild EDEMA IN Verified 11/16/23 10:01 HANDS, BUTTOCKS Penicillins [PENICILLINS] Allergy Mild SWELLING Verified 11/16/23 10:01 clavulanic acid AdvReac Mild EDEMA Verified 11/16/23 10:01 [CLAVULANIC ACID] lisinopril [LISINOPRIL] AdvReac Mild COUGH Verified 11/16/23 10:01 Exam Narrative Exam Narrative: General adult man alert oriented no acute distress Chest left chest wall marked with my initials. Assessment & Plan Assessment & Plan narrative: 83-year-old man with symptomatic gynecomastia here for left lumpectomy. Operative plan again reviewed including discussion of risks benefits and alternatives to treatment. Following discussion he elects to proceed and provides his written and verbal consent.
--- NOTE | 2023-12-27 | PATH_ITS ---
[facility] Accession Number: [id number] No. of containers..01 Tissue . 01 Material submitted: . breast - LEFT BREAST MASS . 01 Diagnosis: A. 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 No evidence of atypia, carcinoma in situ, or malignancy. MRV 01/01/2024 1433 Local . 01 Electronically signed: . Anabell Ortega MD, Pathologist NPI- [id number] . 01 Gross description: . The specimen is received in formalin labeled with two patient identifiers and left breast mass, and consists of a 7.0 x 3.0 x 2.8 cm, 22 gram, aggregate of yellow lobulated fibroadipose tissue which is inked and serially sectioned to show a yellow, lobulated, unremarkable cut surface with a thin rim of fibrous tissue which composes less than 10% of the breast parenchyma. Pulmonary Fellow sections are submitted in cassettes A1-A3. ([id number]) /MELONY 12/28/2023 1056 Local . 01 Pathologist provided ICD-10: N62 . 01 CPT . 460881 Specimen Comment: A courtesy copy of this report has been sent to [phone] Performed at: [address] [facility], [place], [place] [id number] MD Jeff Villegas MD Phone: [phone]
[2023-12-27] MEDS: LACTATED RINGERS 1,000 ML 42 ML IV (12:31)
[2023-12-27 12:43] VITALS: BMI 29.7
[2023-12-27] MEDS: CLINDAMYCIN 900 MG/50 ML PIGGYBACK 50 MG IV (13:05)
--- NOTE | 2023-12-27 13:09 | SUR.OPER ---
Supine on padded OR bed, head on pillow, arms secured on padded arm boards at <90 degrees abduction, legs uncrossed, safety belt at thigh, tape over blanket over lower legs.
[2023-12-27 13:45] VITALS: BP 143/80; PULSE 58; RESP 14; TEMP 36.4; O2SAT 93
[2023-12-27 13:50] VITALS: BP 154/76; PULSE 53; RESP 11; O2SAT 94
--- NOTE | 2023-12-27 13:54 | PM.OP.1 ---
Operative Date/Time/Diagnoses Date of procedure: 12/27/23 Time of procedure: 13:54 Pre-op diagnosis: Gynecomastia Post-op diagnosis: same Procedure & Clinicians Procedure: Left lumpectomy Same procedure as scheduled: Yes Indications: Symptomatic left gynecomastia Surgeon: Fei Reyes Eligibility Counselor: Jackson Marin Anesthesia Type: General Operative Notes Findings: 8 cm retroareolar breast tissue consistent with gynecomastia Specimen(s): other (left lumpectomy) Estimated Blood Loss (mL): 20 Procedure in detail: Patient was brought to the operating room placed supine on the table. Bilateral SCDs applied. General anesthesia induced intubated with LMA. He recieved 900 mg Clindamycin prior to incision. Time out performed. Periaerolar incision made on the left chest. There was a 8 cm mass of breast tissue retroareolar which was dissected out with electrocautery. Hemostatsis achieved and a piece of surgicel was placed into the wound cavity. Skin was closed with monocryl followed by dermabond. Sponge and instrument count correct. Emerged from anesthesia and transferred to recovery in stable condition. Complications: none Post-operative Condition: stable Disposition: same day surgery
[2023-12-27 14:00] VITALS: BP 156/78; PULSE 56; RESP 15; O2SAT 93
[2023-12-27 14:05] VITALS: BP 169/86; PULSE 55; RESP 11; O2SAT 94
== END 2023-12-27 14:28 | disposition home or self-care (01) ==
PROVIDERS: Family Provider Family Medicine; PCP Family Medicine; Referring Provider Surgery; Visit Provider Surgery
PROC: (CPT 19301; principal; 2023-12-27 13:15)
DX: N62 Hypertrophy of breast (principal)
CPT/HCPCS: 19300; J1100; J1170; J2405; J2704

== ENCOUNTER 2023-12-30 23:16 | Observation (INO) | payer MEDICARE, OTHER, SELFPAY ==
[2023-12-30 23:17] VITALS: BP 151/77; PULSE 68; RESP 16; TEMP 37.1; O2SAT 92; BMI 29.7
[2023-12-30 23:27] VITALS: PULSE 63; O2SAT 92
[2023-12-30 23:30] VITALS: PULSE 63; O2SAT 92
--- NOTE | 2023-12-30 23:32 | ED_ITS ---
HPI - General Adult General Chief complaint: Recheck/Abnormal Lab/Rx Stated complaint: post breast surgery bleedng, on thinners Time Seen by Provider: 12/30/23 23:20 Source: patient Mode of arrival: Ambulatory Limitations: no limitations History of Present Illness HPI narrative: Patient is an 83-year-old male who earlier this week underwent a gynecomastia surgery. Since that time has had 2 drainage is of hematomas from his left breast. Most recent 1 being earlier this evening where a BILLIE drain was placed. He is on Lovenox and warfarin. His last dose of Lovenox was earlier this morning. He was supposed to be taking it twice a day but has only been taking it once a day. His last dose of warfarin was this evening. He was on anticoagulation because of a heart valve. He came in this evening because there has been bleeding from the drainage site from his left breast. There has been no drainage into the drain and he states that the swelling has been worsening. Related Data Home Medications Medication Instructions Recorded Confirmed finasteride 5 mg tablet 5 mg PO DAILY 04/21/21 12/29/23 latanoprost 0.005 % eye drops 1 drp EYE-BOTH 01/25/23 12/29/23 Previous Rx's Medication Instructions Recorded miscellaneous medical supply #1 ea 08/27/18 acetaminophen 650 mg 650 mg PO Q8HP PRN Pain #90 tabs 07/03/20 tablet,extended release doxazosin 8 mg tablet See Rx Instructions .Route 09/10/21 .COMPLEX #90 tabs celecoxib 200 mg capsule (Celebrex) 200 mg PO DAILY #30 caps 10/15/21 amlodipine 5 mg tablet 10 mg (2 x 5 mg) PO DAILY #90 tabs 01/03/22 Disabled Parking Permit #1 ea 07/04/23 atorvastatin 40 mg tablet 20 mg (1/2 x 40 mg) PO DAILY #90 07/04/23 tabs warfarin 5 mg tablet See Rx Instructions .Route 07/04/23 .COMPLEX #157 tabs tadalafil 5 mg tablet 5 mg PO .PRN #30 tabs 08/14/23 oxycodone-acetaminophen 5 mg-325 See Rx Instructions PO Q4-6H PRN 11/13/23 mg tablet (Percocet) pain #60 tabs oxycodone 5 mg tablet 5 mg PO Q6H PRN pain #10 tabs 12/27/23 enoxaparin 80 mg/0.8 mL 80 mg (0.8 mL) SUBCUT Q12H #8 mL 12/29/23 subcutaneous syringe (Lovenox) Allergies Allergy/AdvReac Type Severity Reaction Status Date / Time amoxicillin [AMOXICILLIN] Allergy Mild EDEMA IN Verified 12/29/23 11:21 HANDS, BUTTOCKS Penicillins [PENICILLINS] Allergy Mild SWELLING Verified 12/29/23 11:21 clavulanic acid AdvReac Mild EDEMA Verified 12/29/23 11:21 [CLAVULANIC ACID] lisinopril [LISINOPRIL] AdvReac Mild COUGH Verified 12/29/23 11:21 Review of Systems Constitutional Constitutional: Reports system reviewed and no additional complaints, except as documented Integumentary/Breasts Skin/Breast: Reports system reviewed and no additional complaints, except as documented Neurologic Neurologic: Reports system reviewed and no additional complaints, except as documented Hematologic/Lymphatic On Anticoagulants: No Patient History Medical History Gynecomastia Impingement syndrome of left shoulder Degenerative joint disease, ankle, foot, toe Degenerative joint disease of foot Pathologic fracture of vertebrae (09/27/13) Reflex sympathetic dystrophy of upper extremity Sinus node dysfunction Atrial fibrillation with slow ventricular response Chronic pain syndrome Hematuria 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 Gallstones Rib fracture GERD (gastroesophageal reflux disease) Gout Hyperlipidemia Osteoarthritis TIA (transient ischemic attack) Impingement syndrome of right shoulder Supraspinatus tendon tear Reflex sympathetic dystrophy Shoulder pain (1996) Spinal fracture (2007) Neck fracture (1974) Ankle pain (1999) Hearing loss (~1989) Sleep apnea (2002) Mumps (1949) Measles (~1949) Hepatitis B (1984) Chicken pox (1951) Hernia (~1989) Diverticular disease (~1989) Colon polyps (2001) Chronic anticoagulation (03/11/97) Hypertension (1999) AAA (abdominal aortic aneurysm) (03/11/97) Depression Kidney stones (~1969) Elevated PSA (~1989) BPH NOS w ur obs/LUTS Community acquired pneumonia (2016) Cervical spinal stenosis Cholelithiasis (02/2018) Pneumonia (2016) Neck muscle spasm Surgical History S/P resection of aortic aneurysm History of cardiac catheterization S/P left knee arthroscopy S/P cervical spinal fusion History of meniscectomy of left knee Status post unicompartmental knee replacement, left History of partial colectomy History of total knee arthroplasty H/O varicose vein stripping Anesthesia History of colon surgery History of neck surgery (1998) History of arthroscopy of knee Status post hernia repair () Status post knee surgery (1974) History of aortic valve replacement (03/11/97) History of spinal fusion (1974) History of vasectomy Family History Brother Age: 73 Diabetes mellitus Daughter Age: 60 Breast cancer Daughter Age: 47 Hypertension Cervical cancer Father Hypertension Heart disease Sister Age: 68 Cancer Breast cancer Colon cancer Lung cancer Brother Aortic aneurysm Daughter Cancer Melanoma Mother Heart disease Sister ATV accident causing injury Social History household members: none lives independently: Yes occupational status: unemployed Smoking Status: Never smoker alcohol intake: current substance use type: does not use Smoking Status: Never smoker alcohol intake frequency: 0-2 drinks per day Substance Use Type: does not use Exam Initial Vital Signs Initial Vital Signs: Vital Signs Temperature 98.7 F 12/30/23 23:17 Pulse Rate 68 12/30/23 23:17 Respiratory Rate 16 12/30/23 23:17 Blood Pressure 151/77 H 12/30/23 23:17 Pulse Oximetry 92 12/30/23 23:17 Oxygen Delivery Method Room Air 12/30/23 23:17 HENND Head: normal to inspection Chest Other: Large swelling to the left breast most likely related to an underlying/subcutaneous hematoma Skin Other: Large ecchymosis and subcutaneous hematoma to the left breast. Course Orders Ordered: ED Orders 12/30/23 23:49 Basic Metabolic Panel Stat Complete Blood Count AUTO DIFF Stat Prothrombin Time INR Stat 12/31/23 00:08 Consult to General Surgery Stat Consult to Physician Stat 12/31/23 05:00 CBC Auto Diff [Complete Blood Count AUTO DIFF] Stat Prothrombin Time INR Stat Acetaminophen (Acetaminophen 325 Mg Tablet) 650 mg PO Q6H PRN PRN Reason: Fever/Mild Pain (1-3) Celecoxib (Celecoxib 200 Mg Capsule) 200 mg PO DAILY BELÉN Sodium Chloride (Normal Saline 0.9%) 1,000 mls @ 80 mls/hr IV CONT BELÉN Last Admin: 12/31/23 00:14 Dose: 80 mls/hr Documented By: NISA Naloxone HCl (Naloxone 0.4 Mg/Ml Vial) 0.2 mg IV Q2MIN PRN PRN Reason: Opiate Reversal Oxycodone HCl (Oxycodone Ir 5 Mg Tablet) 5 mg PO Q3H PRN PRN Reason: Pain, Moderate (4-6) Vital Signs Vital signs: Vital Signs - 8 hr 12/30/23 23:17 Temperature 98.7 F Pulse Rate 68 Respiratory Rate 16 Blood Pressure 151/77 H Pulse Oximetry 92 Oxygen Delivery Method Room Air Medical Decision Making Lab Data Lab results reviewed: Yes I reviewed the patient's lab results. 12/30/23 23:49 12/30/23 23:49 Labs: Lab Results 12/30/23 Range/Units 23:49 WBC 6.6 (4.5-11.0) X10^3/uL RBC 3.74 L (4.5-5.9) X10^6/uL Hgb 12.9 L (13.5-17.5) g/dL Hct 37.4 L (41-53) % MCV 100.0 (80-100) fL MCH 34.5 H (26-34) PG MCHC 34.5 (30-36) % RDW 13.1 (11.6-14.8) % Plt Count 147 L (150-400) X10^3/uL Neut % (Auto) 70.8 (50-75) % Lymph % (Auto) 16.7 L (25-40) % Christian % (Auto) 10.6 (3-14) % Eos % (Auto) 1.5 L (2-4) % Baso % (Auto) 0.4 (0-2) % Neut # (Auto) 4700 (8952-8250) /uL Lymph # (Auto) 1100 (6242-5218) /uL Christian # (Auto) 700 (0-900) /uL Eos # (Auto) 100 (0-450) /uL Baso # (Auto) 0 (0-100) /uL PT 13.0 H (9.4-12.5) SECONDS INR 1.1 (0.9-1.3) Sodium 139 (137-145) mmol/L Potassium 3.8 (3.4-5.1) mmol/L Chloride 107 (98-107) mmol/L Carbon Dioxide 28 (22-32) mmol/L BUN 17 (9-20) mg/dL Creatinine 0.74 (0.66-1.25) mg/dL Estimated GFR > 60 (>60) mL/min BUN/Creatinine Ratio 23.0 H (6-22) Glucose 136 H (80-110) mg/dL Calcium 8.4 (8.4-10.2) mg/dL MDM Narrative Medical decision making narrative: Patient is subtherapeutic on his INR. No warfarin reversal given. A large clot was removed which most likely was from blood that drained around the BILLIE drain site. The BILLIE drain was stripped. Was quite a bit of clot in the BILLIE drain. There was some drainage into the bulb afterwards. Patient states that he feels like the swelling has been worsening over the past couple hours. Discussed the case with Dr. Yin on-call for General surgery. Plan will be to admit the patient overnight for observation. A wrap was placed around the patient's chest to provide compression to the area. Discussed the need for admission with the patient. He expressed understanding and agreement with plan. Discharge Plan Departure Patient Disposition: Admitted as Observation Clinical Impression: Post-op bleeding Admit Date/Time: 12/31/23 00:13 Admit Provider: Laura Yin
[2023-12-30 23:34] VITALS: BP 151/77; PULSE 65; O2SAT 92
[2023-12-30 23:56] LABS: Add Manual Diff / Slide Review NO; Basophils Absolute Auto 0 /uL (0-100); Basophils Percent Auto 0.4 % (0-2); Eosinophils Absolute Auto 100 /uL (0-450); Eosinophils Percent Auto 1.5 % (2-4); Hematocrit 37.4 % (41-53); Hemoglobin 12.9 g/dL (13.5-17.5); Lymphocytes Absolute Auto 1100 /uL (1100-4500); Lymphocytes Percent Auto 16.7 % (25-40); Mean Corpuscular HGB Conc 34.5 % (30-36); Mean Corpuscular Hemoglobin 34.5 PG (26-34); Monocytes Absolute Auto 700 /uL (0-900); Monocytes Percent Auto 10.6 % (3-14); Neutrophils Absolute Auto 4700 /uL (1500-7000); Neutrophils Percent Auto 70.8 % (50-75); Platelet Count 147 X10^3/uL (150-400); Red Blood Cell Count 3.74 X10^6/uL (4.5-5.9); Red Cell Distribution Width 13.1 % (11.6-14.8); White Blood Cell Count 6.6 X10^3/uL (4.5-11.0)
[2023-12-31] VITALS (9 sets, daily range): BP systolic 112–151; BP diastolic 52–71; PULSE 53–63; RESP 16–17; TEMP 36.5–37.8; O2SAT 92–99; BMI 30.4
[2023-12-31 00:06] LABS: INR 1.1 (0.9-1.3)
[2023-12-31 00:10] LABS: Blood Urea Nitrogen 17 mg/dL (9-20); Calcium 8.4 mg/dL (8.4-10.2); Carbon Dioxide 28 mmol/L (22-32); Chloride 107 mmol/L (98-107); Estimated Glomerular Filt Rate > 60 mL/min (>60); Glucose 136 mg/dL (80-110); HEMOLYSIS < 15 (0-50); Potassium 3.8 mmol/L (3.4-5.1); Sodium 139 mmol/L (137-145)
[2023-12-31] MEDS: SODIUM CHLORIDE 0.9% 1,000 ML 80 ML IV ×2 (00:14→13:02)
[2023-12-31] MEDS: OXYCODONE IR 5 MG TABLET PO (01:41)
--- NOTE | 2023-12-31 03:45 | PC.ADMIT ---
[address] [facility] Admission Note: Patient admitted to ACU from ED at 23:56. Alert and oriented x 4, cooperative. NS @ 80/ hr. Abdominal binder placed per order. BILLIE drain with moderate drainage. Oriented to room and call light. Bed in low locked position and bed alarm on. The patient,Kit Dallas,83 y/o, was given written information regarding hospital policies, unit procedures and contact persons. Patient's smoking status: Never smoker. Vital Signs - 8 hr 12/30/23 23:17 12/30/23 23:27 12/30/23 23:30 Temperature 98.7 F Pulse Rate 68 63 63 Respiratory Rate 16 Blood Pressure 151/77 H Pulse Oximetry 92 92 92 Oxygen Delivery Method Room Air Oxygen Flow Rate 12/30/23 23:34 12/30/23 23:34 12/31/23 00:00 Temperature Pulse Rate 65 60 Respiratory Rate Blood Pressure 151/77 H Pulse Oximetry 92 92 Oxygen Delivery Method Oxygen Flow Rate 12/31/23 00:23 12/31/23 00:30 12/31/23 01:31 Temperature 99.0 F Pulse Rate 63 60 Respiratory Rate 17 16 Blood Pressure 145/71 H Pulse Oximetry 92 94 Oxygen Delivery Method Room Air Oxygen Flow Rate 0
[2023-12-31 06:00] LABS: Add Manual Diff / Slide Review NO; Basophils Absolute Auto 0 /uL (0-100); Basophils Percent Auto 0.2 % (0-2); Eosinophils Absolute Auto 0 /uL (0-450); Eosinophils Percent Auto 0.7 % (2-4); Hematocrit 32.9 % (41-53); Hemoglobin 11.6 g/dL (13.5-17.5); Lymphocytes Absolute Auto 1300 /uL (1100-4500); Lymphocytes Percent Auto 19.5 % (25-40); Mean Corpuscular HGB Conc 35.3 % (30-36); Mean Corpuscular Hemoglobin 35.2 PG (26-34); Mean Corpuscular Volume 99.8 fL (80-100); Monocytes Absolute Auto 600 /uL (0-900); Monocytes Percent Auto 9.7 % (3-14); Neutrophils Absolute Auto 4600 /uL (1500-7000); Neutrophils Percent Auto 69.9 % (50-75); Platelet Count 143 X10^3/uL (150-400); Red Blood Cell Count 3.29 X10^6/uL (4.5-5.9); Red Cell Distribution Width 12.9 % (11.6-14.8); White Blood Cell Count 6.6 X10^3/uL (4.5-11.0)
[2023-12-31 06:01] LABS: INR 1.3 (0.9-1.3); Prothrombin Time 14.4 SECONDS (9.4-12.5)
[2023-12-31] MEDS: ACETAMINOPHEN 325 MG TABLET 650 MG PO (06:54)
[2023-12-31] MEDS: CELECOXIB 200 MG CAPSULE PO (08:42)
--- NOTE | 2023-12-31 10:08 | PM.HP.1 ---
History of Present Illness History of Present Illness Date Patient Seen: 12/31/23 Time Patient Seen: 10:08 Chief complaint: post breast surgery bleedng, on thinners Narrative: Continued postop bleeding, drain is clogged. Hct still >30%. INR subtherapeutic. 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 Gallstones Rib fracture GERD (gastroesophageal reflux disease) Gout Hyperlipidemia Osteoarthritis TIA (transient ischemic attack) Impingement syndrome of right shoulder Supraspinatus tendon tear Reflex sympathetic dystrophy Shoulder pain (1996) Spinal fracture (2007) Neck fracture (1974) Ankle pain (1999) Hearing loss (~1989) Sleep apnea (2002) Mumps (1949) Measles (~1949) Hepatitis B (1984) Chicken pox (1951) Hernia (~1989) Diverticular disease (~1989) Colon polyps (2001) Chronic anticoagulation (03/11/97) Hypertension (1999) AAA (abdominal aortic aneurysm) (03/11/97) Depression Kidney stones (~1969) Elevated PSA (~1989) BPH NOS w ur obs/LUTS Community acquired pneumonia (2016) Cervical spinal stenosis Cholelithiasis (02/2018) Pneumonia (2016) Neck muscle spasm Surgical History S/P resection of aortic aneurysm History of cardiac catheterization S/P left knee arthroscopy S/P cervical spinal fusion History of meniscectomy of left knee Status post unicompartmental knee replacement, left History of partial colectomy History of total knee arthroplasty H/O varicose vein stripping Anesthesia History of colon surgery History of neck surgery (1998) History of arthroscopy of knee Status post hernia repair () Status post knee surgery (1974) History of aortic valve replacement (03/11/97) History of spinal fusion (1974) History of vasectomy Family History Brother Age: 73 Diabetes mellitus Daughter Age: 60 Breast cancer Daughter Age: 47 Hypertension Cervical cancer Father Hypertension Heart disease Sister Age: 68 Cancer Breast cancer Colon cancer Lung cancer Brother Aortic aneurysm Daughter Cancer Melanoma Mother Heart disease Sister ATV accident causing injury Social History household members: none lives independently: Yes occupational status: unemployed Smoking Status: Never smoker alcohol intake: current substance use type: does not use Meds Home Medications and Allergies Home Medications Medication Instructions Recorded Confirmed Type miscellaneous medical supply #1 ea 08/27/18 12/29/23 Rx acetaminophen 650 mg 650 mg PO Q8HP PRN Pain #90 tabs 07/03/20 12/31/23 Rx tablet,extended release finasteride 5 mg tablet 5 mg PO DAILY 04/21/21 12/31/23 History doxazosin 8 mg tablet See Rx Instructions .Route 09/10/21 12/31/23 Rx .COMPLEX #90 tabs celecoxib 200 mg capsule (Celebrex) 200 mg PO DAILY #30 caps 10/15/21 12/31/23 Rx amlodipine 5 mg tablet 10 mg (2 x 5 mg) PO DAILY #90 tabs 01/03/22 12/31/23 Rx latanoprost 0.005 % eye drops 1 drp EYE-BOTH 01/25/23 12/29/23 History Disabled Parking Permit #1 ea 07/04/23 12/29/23 Rx atorvastatin 40 mg tablet 20 mg (1/2 x 40 mg) PO DAILY #90 07/04/23 12/31/23 Rx tabs warfarin 5 mg tablet See Rx Instructions .Route 07/04/23 12/31/23 Rx .COMPLEX #157 tabs tadalafil 5 mg tablet 5 mg PO .PRN #30 tabs 08/14/23 12/29/23 Rx oxycodone 5 mg tablet 5 mg PO Q6H PRN pain #10 tabs 12/27/23 12/31/23 Rx enoxaparin 80 mg/0.8 mL 80 mg (0.8 mL) SUBCUT Q12H #8 mL 12/29/23 12/31/23 Rx subcutaneous syringe (Lovenox) Allergies Allergy/AdvReac Type Severity Reaction Status Date / Time amoxicillin [AMOXICILLIN] Allergy Mild EDEMA IN Verified 12/29/23 11:21 HANDS, BUTTOCKS Penicillins [PENICILLINS] Allergy Mild SWELLING Verified 12/29/23 11:21 clavulanic acid AdvReac Mild EDEMA Verified 12/29/23 11:21 [CLAVULANIC ACID] lisinopril [LISINOPRIL] AdvReac Mild COUGH Verified 12/29/23 11:21 Review of Systems Review of Systems ROS: Yes All systems reviewed with the patient and are negative except as otherwise documented Exam Vital Signs (past 8 hours): - 12/31/23 06:54 12/31/23 08:00 Temperature 100.1 F H 97.7 F Pulse Rate 61 Respiratory Rate 16 Blood Pressure 151/52 H Pulse Oximetry 95 Oxygen Delivery Method Room Air Oxygen Flow Rate 0 Narrative Exam Narrative: See preop H and P. Currently comfortable. mervin wrap on left breast with clear hematoma of moderated size. No infection. Objective Labs 12/31/23 05:36 12/30/23 23:49 Labs: Laboratory Results - last 24 hr 12/30/23 12/31/23 23:49 05:36 WBC 6.6 6.6 RBC 3.74 L 3.29 L Hgb 12.9 L 11.6 L Hct 37.4 L 32.9 L MCV 100.0 99.8 MCH 34.5 H 35.2 H MCHC 34.5 35.3 RDW 13.1 12.9 Plt Count 147 L 143 L Neut % (Auto) 70.8 69.9 Lymph % (Auto) 16.7 L 19.5 L Blount % (Auto) 10.6 9.7 Eos % (Auto) 1.5 L 0.7 L Baso % (Auto) 0.4 0.2 Neut # (Auto) 4700 4600 Lymph # (Auto) 1100 1300 Blount # (Auto) 700 600 Eos # (Auto) 100 0 Baso # (Auto) 0 0 PT 13.0 H 14.4 H INR 1.1 1.3 Sodium 139 Potassium 3.8 Chloride 107 Carbon Dioxide 28 BUN 17 Creatinine 0.74 Estimated GFR > 60 BUN/Creatinine Ratio 23.0 H Glucose 136 H Calcium 8.4 Assessment & Plan Assessment & Plan narrative: Left breast postop bleeding associated with bridging program of Lovenox and coumadin due to mechanical valve. Plan: leave hematoma in place along with compression dressing. Continue dosing coumadin and following INR. Switch bridge to less aggressive Heparin 5000u BID. and continue observation with serial Hct (q12). Goal is to stop bleeding, protect mechanical valve and possible delayed aspiration of liquified hematoma. NPO at midnight for re evaluation in the am. Time Spent With Patient Time with patient: 30 to 49 minutes with 50% spent counseling/coordinating care
--- NOTE | 2023-12-31 11:13 | CM.DANOTE ---
Patient is an 83 yo male who was admitted OBS Status on 12/31/23 for Post Surg Bleeding/Clot. Pt has MCR and PRE DIM for insurance and his PCP is Dr. Adithya Barnes. EMR was reviewed. Per Surgeon, pt with recent breast surgery and discharged home with 2 drains but developed clots and bleeding and admitted for tx. Adjusting medications to reduce bleeding for conservative tx but will remain NPO after midnight in case surgical intervention needed if bleeding continues. SW met bedside with pt and explained role and he confirms he lives in [place] at home alone and is active and independent at baseline and drives and does not use DME for ambulation. Pt denies any hx of HH or SNF and does not anticipate any HH needs at d/c and preference is to discharge home tomorrow if medically stable. Pt confirms he has 3 local supportive Dtrs who are his DPOAs and can provide transport and assist as needed at discharge. Plan: SW to follow closely tomorrow to determine if bleeding has resolved towards plan of home with local family support and any further identified discharge planning needs. EMILIANO Rausch Discharge Planning/Care Management CM Discharge Assessment Start: 12/31/23 11:11 Freq: Status: Active Protocol: Document 12/31/23 11:11 BF (Rec: 12/31/23 11:13 BF [id number]) Discharge Planning Assessment Assigned Mechanical Car Checker EMILIANO Finley DPOA/Assigned Designee Name Dtr Safia and Dtr Kay Contact Information [phone] Advance Directives? Yes Advance Directives on File Yes History Provided By Patient,Medical Record Has Patient been admitted in last 30 No days? Comment SDC procedure on 12/29/23 Prior Living Arrangements House Household Members none Type of transporation used prior to Drives own vehicle admit Independent with ADL's Yes Is patient alert and oriented? Yes Caregiver for Another No Barriers to Discharge No Discharge Plan Home Transportation Arrangement Has three local Dtrs and one can transport at d/c Referrals Initiated None needed Whiteboard Updated in Patient Room with Yes name and ext. # of Mechanical Car Checker Review Status In Process Please Provide Date Initial DC 12/31/23 Assessment Was Performed Next Review Type Continued Stay Review
[2023-12-31] MEDS: HEPARIN 5,000 UNIT/ML VIAL 5000 UNIT SUBCUT ×2 (11:42→20:58)
[2023-12-31] MEDS: WARFARIN 5 MG TABLET 10 MG PO (17:08)
[2023-12-31 21:10] LABS: Hematocrit 31.6 % (41-53)
--- NOTE | 2023-12-31 22:58 | PC.NURSE ---
Patient is alert and oriented. Breath sounds CTA with RA sat of 94%; on continuous oximetry per MD order. HR irregular w/telemetry reading of SR w/BBB and PAC's. Noted that HR intermittently drops down into upper 40'5-low 50's. Denied nausea. BT present and is passing flatus; abdomen is round and firm to touch; wearing abdominal binder. Voiding per urinal but brief also wet so unsure if he is leaking urine or missing urinal; denied dysuria. Is able to turn himself in bed and gets out of bed with SBA and no AD. Denies any weakness. Incision with surrounding bruising to left chest with gauze dressing held in place with mervin wrap; CDI. BILLIE is intact and compressed with serosanguinous drainage. Denied pain. Refusing SCD's so reminded to ankle wave when awake. Fall risk score is low; calls appropriately for assistance.
[2024-01-01] MEDS: SODIUM CHLORIDE 0.9% 1,000 ML 80 ML IV ×2 (01:04→12:40)
[2024-01-01 04:00] VITALS: BP 152/59; PULSE 54; RESP 16; TEMP 37.4; O2SAT 93
[2024-01-01] MEDS: ACETAMINOPHEN 325 MG TABLET 650 MG PO ×2 (04:14→14:58)
[2024-01-01 08:00] VITALS: BP 116/49; PULSE 60; RESP 16; TEMP 37.1; O2SAT 94
[2024-01-01 08:39] LABS: Add Manual Diff / Slide Review NO; Basophils Absolute Auto 0 /uL (0-100); Basophils Percent Auto 0.5 % (0-2); Eosinophils Absolute Auto 100 /uL (0-450); Eosinophils Percent Auto 1.5 % (2-4); Hematocrit 32.7 % (41-53); Hemoglobin 11.5 g/dL (13.5-17.5); Lymphocytes Absolute Auto 1200 /uL (1100-4500); Lymphocytes Percent Auto 17.9 % (25-40); Mean Corpuscular HGB Conc 35.3 % (30-36); Mean Corpuscular Hemoglobin 35.4 PG (26-34); Mean Corpuscular Volume 100.2 fL (80-100); Monocytes Absolute Auto 700 /uL (0-900); Monocytes Percent Auto 9.9 % (3-14); Neutrophils Absolute Auto 4600 /uL (1500-7000); Neutrophils Percent Auto 70.2 % (50-75); Platelet Count 145 X10^3/uL (150-400); Red Blood Cell Count 3.26 X10^6/uL (4.5-5.9); Red Cell Distribution Width 13.1 % (11.6-14.8); White Blood Cell Count 6.6 X10^3/uL (4.5-11.0)
[2024-01-01 08:50] LABS: INR 1.3 (0.9-1.3); Prothrombin Time 15.5 SECONDS (9.4-12.5)
[2024-01-01] MEDS: CELECOXIB 200 MG CAPSULE PO (09:15)
[2024-01-01] MEDS: HEPARIN 5,000 UNIT/ML VIAL 5000 UNIT SUBCUT ×2 (09:16→21:31)
[2024-01-01] MEDS: OXYCODONE IR 5 MG TABLET PO ×2 (09:16→19:59)
[2024-01-01 12:00] VITALS: BP 132/52; PULSE 57; RESP 16; TEMP 36.8; O2SAT 96
--- NOTE | 2024-01-01 12:37 | PM.PN.1 ---
Subjective Subjective Date Patient Seen: 01/01/24 Time Patient Seen: 12:37 Interval history: patient wants to go home. Exam Vital Signs (past 8 hours): - 01/01/24 08:00 01/01/24 12:00 Temperature 98.8 F 98.2 F Pulse Rate 60 57 L Respiratory Rate 16 16 Blood Pressure 116/49 L 132/52 L Pulse Oximetry 94 96 Oxygen Flow Rate 0 0 Oxygen Delivery Method Room Air Oxygen Flow Rate 0 Narrative Exam Narrative: hematoma is stable. no on going bleeding Objective Labs 01/01/24 08:24 12/30/23 23:49 Labs: Laboratory Results - last 24 hr 12/31/23 01/01/24 21:02 08:24 WBC 6.6 RBC 3.26 L Hgb 11.5 L Hct 31.6 L 32.7 L MCV 100.2 H MCH 35.4 H MCHC 35.3 RDW 13.1 Plt Count 145 L Neut % (Auto) 70.2 Lymph % (Auto) 17.9 L Coryell % (Auto) 9.9 Eos % (Auto) 1.5 L Baso % (Auto) 0.5 Neut # (Auto) 4600 Lymph # (Auto) 1200 [place]ell # (Auto) 700 Eos # (Auto) 100 Baso # (Auto) 0 PT 15.5 H INR 1.3 PFSH Medical History Gynecomastia Impingement syndrome of left shoulder Degenerative joint disease, ankle, foot, toe Degenerative joint disease of foot Pathologic fracture of vertebrae (09/27/13) Reflex sympathetic dystrophy of upper extremity Sinus node dysfunction Atrial fibrillation with slow ventricular response Chronic pain syndrome Hematuria 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 Gallstones Rib fracture GERD (gastroesophageal reflux disease) Gout Hyperlipidemia Osteoarthritis TIA (transient ischemic attack) Impingement syndrome of right shoulder Supraspinatus tendon tear Reflex sympathetic dystrophy Shoulder pain (1996) Spinal fracture (2007) Neck fracture (1974) Ankle pain (1999) Hearing loss (~1989) Sleep apnea (2002) Mumps (1949) Measles (~1949) Hepatitis B (1984) Chicken pox (1951) Hernia (~1989) Diverticular disease (~1989) Colon polyps (2001) Chronic anticoagulation (03/11/97) Hypertension (1999) AAA (abdominal aortic aneurysm) (03/11/97) Depression Kidney stones (~1969) Elevated PSA (~1989) BPH NOS w ur obs/LUTS Community acquired pneumonia (2017) Cervical spinal stenosis Cholelithiasis (02/2018) Pneumonia (2017) Neck muscle spasm Surgical History S/P resection of aortic aneurysm History of cardiac catheterization S/P left knee arthroscopy S/P cervical spinal fusion History of meniscectomy of left knee Status post unicompartmental knee replacement, left History of partial colectomy History of total knee arthroplasty H/O varicose vein stripping Anesthesia History of colon surgery History of neck surgery (1998) History of arthroscopy of knee Status post hernia repair (~1989) Status post knee surgery (1974) History of aortic valve replacement (03/11/97) History of spinal fusion (1974) History of vasectomy Family History Brother Age: 73 Diabetes mellitus Daughter Age: 60 Breast cancer Daughter Age: 47 Hypertension Cervical cancer Father Hypertension Heart disease Sister Age: 68 Cancer Breast cancer Colon cancer Lung cancer Brother Aortic aneurysm Daughter Cancer Melanoma Mother Heart disease Sister ATV accident causing injury Social History household members: none lives independently: Yes occupational status: unemployed Smoking Status: Never smoker alcohol intake: current substance use type: does not use Assessment & Plan Assessment & Plan narrative: Since INR is 1.3, i would like to keep one more day on BID heparin. Clindamycin for prophylactic prevention of infection of hematoma until it liquifies and can be drained. Time Spent With Patient Time with patient: less than 30 minutes
--- NOTE | 2024-01-01 14:29 | CM.DPC ---
DCP Cont: Per Surgeon, pt not yet medically stable to discharge today but making progress with reduced bleeding and will likely be stable for discharge tomorrow. Pt confirms he still does not anticipate any discharge needs at this time and preference remains home via his Dtr transport. Malia Mccray MSW
[2024-01-01] MEDS: CLINDAMYCIN 150 MG CAPSULE 300 MG PO ×2 (14:55→21:32)
[2024-01-01] MEDS: WARFARIN 5 MG TABLET 10 MG PO (17:20)
[2024-01-01 18:00] VITALS: BP 138/71; PULSE 64; RESP 16; TEMP 36.6; O2SAT 93
--- NOTE | 2024-01-01 18:11 | PC.NURSE ---
Dayshift: Removed sutures and BILLIE drain intact without resistance, final output 100mL. Pt began reporting pain in his L forearm this AM which progressively worsened throughout the day, rating it 7/10 by this evening. No redness, not warm to touch, no pitting, but slightly swollen and pt stated I don't want to make a fist with my hand because it hurts so much. JORGITO Osborne notified and at bedside to assess, continued to monitor throughout shift. Notified MD Yin at 1700, d/t increased pain. She ordered urgent US of left forearm to rule out DVT. Awaiting results. Will continue to monitor.
--- NOTE | 2024-01-01 18:35 | DI.US.S_ITS ---
PROCEDURE: US PERIPH VENOUS UP EXTREM LT INDICATIONS: Rule out DVT left forearm TECHNIQUE: Real-time imaging, as well as color and pulse Doppler interrogation, was performed of the upper extremity deep veins from the inferior neck to the antecubital fossa. COMPARISON: None. FINDINGS: The internal jugular vein, visualized portions of the subclavian vein, axillary, and brachial veins are free of intraluminal thrombus. Where physically possible, the veins are normally compressible. Color and pulse Doppler demonstrate normal intraluminal flow, with expected phasicity and pulsatility. Additional scanning of the cephalic and basilic veins of the superficial system demonstrates normal compressibility, without thrombus. IMPRESSION: No findings of upper extremity deep venous thrombosis can be seen. Approved by: Erin Covarrubias M.D.,Ph.D. on 01/01/2024 at 21:29
[2024-01-01 20:30] VITALS: BP 143/66; PULSE 56; RESP 17; TEMP 36.6; O2SAT 96
--- NOTE | 2024-01-01 22:46 | PC.NURSE ---
Addendum entered by Toma Martin R.N. 01/02/24 03:59: 0130 JORGITO Collier, reports that patient has been in afib since approximately 0100. Rate is controlled and patient has hx of afib. Original Note: Patient is alert and oriented. Breath sounds CTA with RA sat of 96%; refusing to have continuous oximetry on tonight. HR irregular w/telemetry reading of SB/SA with rate in 50's. BP elevated at 143/66. Has mechanical heart valve since 1996. Denies nausea. BT present and is passing flatus; abdomen is soft but is large and round. Is voiding per urinal; denies dysuria, frequency or urgency. Is able to turn himself in bed. Up walking in mahmood this shift with daughter and tolerated well; uses no AD. Dressing to left chest held in place with mervin wrap for compression; no drainage. Abdominal binder not in use as previous RNCamilla, reported Dr. Yin was aware that binder was too small to use over chest area. Extensive bruising on left side of torso. Continues to complain of pain in left UE and has swelling of hand when arm is held in dependent position. US done on previous shift was negative. Pain decreased with use of oxycodone; declined ice pack. 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 Bilateral calf SCD's applied when back in bed for the night. Fall risk score is low.
[2024-01-02 00:20] VITALS: BP 130/59; PULSE 56; RESP 18; TEMP 36.9; O2SAT 94
[2024-01-02 04:54] VITALS: BP 152/60; PULSE 57; RESP 17; TEMP 36.6; O2SAT 92
[2024-01-02] MEDS: CLINDAMYCIN 150 MG CAPSULE 300 MG PO ×2 (05:19→16:05)
[2024-01-02] MEDS: OXYCODONE IR 5 MG TABLET PO (05:19)
[2024-01-02 06:55] LABS: Add Manual Diff / Slide Review NO; Basophils Absolute Auto 0 /uL (0-100); Basophils Percent Auto 0.2 % (0-2); Eosinophils Absolute Auto 200 /uL (0-450); Eosinophils Percent Auto 2.5 % (2-4); Hematocrit 30.9 % (41-53); Hemoglobin 10.9 g/dL (13.5-17.5); Lymphocytes Absolute Auto 1100 /uL (1100-4500); Lymphocytes Percent Auto 19.4 % (25-40); Mean Corpuscular HGB Conc 35.4 % (30-36); Mean Corpuscular Hemoglobin 35.6 PG (26-34); Mean Corpuscular Volume 100.6 fL (80-100); Monocytes Absolute Auto 700 /uL (0-900); Monocytes Percent Auto 11.5 % (3-14); Neutrophils Absolute Auto 3900 /uL (1500-7000); Neutrophils Percent Auto 66.4 % (50-75); Platelet Count 143 X10^3/uL (150-400); Red Blood Cell Count 3.07 X10^6/uL (4.5-5.9); White Blood Cell Count 5.9 X10^3/uL (4.5-11.0)
[2024-01-02 07:12] LABS: INR 1.5 (0.9-1.3); Prothrombin Time 17.7 SECONDS (9.4-12.5)
[2024-01-02 08:00] VITALS: BP 153/62; PULSE 50; RESP 16; TEMP 36.4; O2SAT 95
[2024-01-02] MEDS: SODIUM CHLORIDE 0.9% FLUSH 10 ML IV (09:01)
[2024-01-02] MEDS: HEPARIN 5,000 UNIT/ML VIAL 5000 UNIT SUBCUT ×2 (09:01→16:27)
[2024-01-02] MEDS: CELECOXIB 200 MG CAPSULE PO (09:01)
--- NOTE | 2024-01-02 10:09 | CM.DPC ---
DCP Cont. Reviewed EMR and team rounds for status updates. Pt has been medically cleared for home d/c, family will be transporting him home. No further DCP needs indicated at this time.
[2024-01-02 12:00] VITALS: BP 158/71; PULSE 50; RESP 16; TEMP 36.9; O2SAT 95
[2024-01-02] MEDS: WARFARIN 5 MG TABLET 10 MG PO (16:05)
--- NOTE | 2024-01-02 17:55 | PC.NURSE ---
Discharge Note Patient A&O, VSS, RA, no complaints of pain/discomfort. Discharge packet reviewed with patient, all questions/concerns addressed. PIV/TELE discontinued. Patient able to dress self and pack all belongings. Patient taken down via wheelchair to POV. 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
--- NOTE | 2024-01-12 09:27 | P.DS_ITS ---
History of Present Illness History of Present Illness Date Patient Seen: 01/02/24 Chief complaint: post breast surgery bleedng, on thinners Narrative: 83-year-old man PMH aortic valve replacement on anticoagulation who underwent left lumpectomy 12/27/23 for gynecomastia returns for post operative hematoma. Discharge Providers Provider Date of admission: 12/31/23 00:13 Discharge Date: 01/02/24 Primary care physician: Adithya Barnes MD Consults: 12/31/23 00:08 Consult to General Surgery Stat Comment: Consulting Provider: Laura Yin Reason for consultation: admission Has provider been notified: Yes Consult to Physician Stat Comment: Consulting Provider: Fei Reyes Reason for consultation: post operative bleeding Has provider been notified: No Discharge provider: Fei Reyes MD Summary Hospital Course Discharge Diagnosis: post operative hematoma acute blood loss anemia Hospital Course: Baseline Hct 40 on admission 32 and remained stable. He did not require blood transfusion. He was bridged with BID Heparin and Warfarin. He was observed for further bleeding and he did not appear to be actively bleeding. Remained hemodynamically stable and discharged home on prophylactic clindamycin, and Warfarin. Plan is for aspiration of hematoma once liquified. Exam Vital Signs (past 8 hours): Oxygen Delivery Method Room Air Oxygen Flow Rate 0 Narrative Exam Narrative: Gen-Elderly man alert and oriented Left chest-Large hematoma of left breast. Skin viable. Objective Labs 01/02/24 06:49 12/30/23 23:49 [facility] Medical History Gynecomastia Impingement syndrome of left shoulder Degenerative joint disease, ankle, foot, toe Degenerative joint disease of foot Pathologic fracture of vertebrae (09/27/13) Reflex sympathetic dystrophy of upper extremity Sinus node dysfunction Atrial fibrillation with slow ventricular response Chronic pain syndrome Hematuria 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 Gallstones Rib fracture GERD (gastroesophageal reflux disease) Gout Hyperlipidemia Osteoarthritis TIA (transient ischemic attack) Impingement syndrome of right shoulder Supraspinatus tendon tear Reflex sympathetic dystrophy Shoulder pain (1996) Spinal fracture (2007) Neck fracture (1974) Ankle pain (1999) Hearing loss (~1989) Sleep apnea (2002) Mumps (1949) Measles (~1949) Hepatitis B (1984) Chicken pox (1951) Hernia (~1989) Diverticular disease (~1989) Colon polyps (2001) Chronic anticoagulation (03/11/97) Hypertension (1999) AAA (abdominal aortic aneurysm) (03/11/97) Depression Kidney stones (~1969) Elevated PSA (~1989) BPH NOS w ur obs/LUTS Community acquired pneumonia (2016) Cervical spinal stenosis Cholelithiasis (02/2018) Pneumonia (2016) Neck muscle spasm Surgical History S/P resection of aortic aneurysm History of cardiac catheterization S/P left knee arthroscopy S/P cervical spinal fusion History of meniscectomy of left knee Status post unicompartmental knee replacement, left History of partial colectomy History of total knee arthroplasty H/O varicose vein stripping Anesthesia History of colon surgery History of neck surgery (1998) History of arthroscopy of knee Status post hernia repair (~1989) Status post knee surgery (1974) History of aortic valve replacement (03/11/97) History of spinal fusion (1974) History of vasectomy Family History Brother Age: 73 Diabetes mellitus Daughter Age: 60 Breast cancer Daughter Age: 47 Hypertension Cervical cancer Father Hypertension Heart disease Sister Age: 68 Cancer Breast cancer Colon cancer Lung cancer Brother Aortic aneurysm Daughter Cancer Melanoma Mother Heart disease Sister ATV accident causing injury Social History household members: none lives independently: Yes occupational status: unemployed Smoking Status: Never smoker alcohol intake: current substance use type: does not use Discharge Plan Discharge Plan Patient Disposition: Home Provider Discharge Comment: Resume Lovenox twice daily until INR 2.0-3.0 Follow up surgical clinic this week Discharge orders & Medications Prescriptions: New warfarin 5 mg Tablet 10 mg PO [id number] Qty: 1 0RF Continued doxazosin 8 mg tablet See Rx Instructions .ROUTE .COMPLEX Qty: 90 3RF Dose Instruction: TAKE 1 TABLET BY MOUTH NIGHTLY AT BEDTIME. Rx Instructions: TAKE 1 TABLET BY MOUTH NIGHTLY AT BEDTIME. (DME) Disabled Parking Permit See Rx Instructions .ROUTE .MEDSUPPLY Qty: 1 0RF Rx Instructions: I find this patient to be medically disabled and qualified for Disabled Parking as indicated and signed on the accompanying Disabled Parking Application for Individuals. warfarin 5 mg tablet See Rx Instructions .ROUTE .COMPLEX Qty: 157 3RF Dose Instruction: TAKE 2 TABLET BY MOUTH ON MONDAY, MONDAY AND MONDAY. TAKE 2&1/2 TABLETS (12.5 MG) ALL OTHER DAYS, OR DIRECTED Rx Instructions: Take 2.5 tablets (12.5mg) total on Monday'. Take 2 tablets (10mg) total all other days; or as directed. latanoprost 0.005 % drops 1 drp EYE-BOTH DAILY Patient Comments: INSTILL ONE DROP IN BOTH EYES NIGHTLY AT BEDTIME enoxaparin [Lovenox] 80 mg/0.8 mL syringe 80 mg SUBCUT Q12H Qty: 8 0RF Rx Instructions: Start 3 days prior to surgery Resume day following surgery and continue until INR therapeutic amlodipine 10 mg tablet 10 mg PO DAILY atorvastatin 40 mg Tablet 40 mg PO BEDTIME tadalafil 5 mg Tablet 5 mg PO DAILY PRN (Reason: Erectile Dysfunction) Rx Instructions: administer approximately 30min before sexual activity; do not use more than 1 dose per 24hrs oxycodone 5 mg tablet 5 mg PO Q6H PRN (Reason: pain) Qty: 10 0RF finasteride 5 mg tablet 5 mg PO DAILY Patient Comments: Take one tablet by mouth one time daily No Action sulfamethoxazole-trimethoprim [Bactrim DS] 800-160 mg tablet 1 tab PO Q12H Qty: 14 0RF Follow up/Referrals: Fei Reyse MD [Physician] - 01/11/24 9:45 am (Appt:01/10 check in at 9:[address] Reyes (as scheduled post op ) ) Diet/Activity/Treatments Diet: Diet as Tolerated Skin/Wound/Dressing Care Report to your healthcare provider any signs of infection, such as:: chills, fever, increased pain, unusual drainage and unusual redness Visit Report/Discharge Packet Stand Alone Forms: Patient Portal/API, Stroke Signs & Symptoms Discharge Data Primary Care Provider: Adithya Barnes Attending Provider: Laura Yin Admit Date/Time: 12/31/23 00:13
== END 2024-01-02 17:30 | disposition home or self-care (01) ==
LOC: ED 12-31 00:08 → AC 12-31 00:14
PROVIDERS: Admitting Provider Surgery; Emergency Provider Emergency Medicine; Family Provider Family Medicine; PCP Family Medicine; Referring Provider Emergency Medicine; Visit Provider Surgery
DX: L76.32 Postprocedural hematoma of skin and subcutaneous tissue following other procedure (principal); Z95.2 Presence of prosthetic heart valve; Z79.01 Long term (current) use of anticoagulants
CPT/HCPCS: 36415; 80048; 85014; 85025; 85610; 93971; 96360; 96361; 96372; 99284; G0378; J1644

== ENCOUNTER → 2024-01-03 08:11 | Outpatient (CLI) | payer MEDICARE, OTHER, SELFPAY ==
[2023-12-31 00:23] VITALS: BMI 30.4
[2024-01-03 09:10] LABS: Add Manual Diff / Slide Review NO; Basophils Absolute Auto 0 /uL (0-100); Basophils Percent Auto 0.2 % (0-2); Eosinophils Absolute Auto 200 /uL (0-450); Eosinophils Percent Auto 2.5 % (2-4); Hematocrit 34.4 % (41-53); Hemoglobin 11.9 g/dL (13.5-17.5); Lymphocytes Absolute Auto 1100 /uL (1100-4500); Lymphocytes Percent Auto 16.6 % (25-40); Mean Corpuscular HGB Conc 34.5 % (30-36); Mean Corpuscular Hemoglobin 34.7 PG (26-34); Mean Corpuscular Volume 100.6 fL (80-100); Monocytes Absolute Auto 600 /uL (0-900); Monocytes Percent Auto 8.9 % (3-14); Neutrophils Absolute Auto 4800 /uL (1500-7000); Neutrophils Percent Auto 71.8 % (50-75); Platelet Count 204 X10^3/uL (150-400); Red Blood Cell Count 3.42 X10^6/uL (4.5-5.9); White Blood Cell Count 6.7 X10^3/uL (4.5-11.0)
[2024-01-03 09:41] LABS: Alanine Aminotransferase 49 IU/L (<50); Albumin 3.2 g/dL (3.5-5.0); Albumin Globulin Ratio 1.4 (1.0-2.8); Alkaline Phosphatase 73 U/L (38-126); Aspartate Aminotransferase 23 IU/L (17-59); BUN Creatinine Ratio 21.8 (6-22); Bilirubin Total 1.5 mg/dL (0.2-1.3); Blood Urea Nitrogen 17 mg/dL (9-20); Calcium 8.2 mg/dL (8.4-10.2); Carbon Dioxide 27 mmol/L (22-32); Chloride 109 mmol/L (98-107); Estimated Glomerular Filt Rate > 60 mL/min (>60); Globulin 2.3 g/dL (1.7-4.1); Glucose 115 mg/dL (80-110); HEMOLYSIS < 15 (0-50); Magnesium 2.2 mg/dL (1.6-2.3); Sodium 140 mmol/L (137-145); Total Protein 5.5 g/dL (6.3-8.2)
== END ==
LOC: LAB 08:13
PROVIDERS: Family Provider Family Medicine; PCP Family Medicine; Referring Provider Specialist; Visit Provider Specialist
DX: E78.00 Pure hypercholesterolemia, unspecified (principal); I10 Essential (primary) hypertension; Z79.01 Long term (current) use of anticoagulants; R00.1 Bradycardia, unspecified
CPT/HCPCS: 36415; 80053; 80061; 83704; 83735; 84443; 85025

== ENCOUNTER 2024-01-16 14:30 | Outpatient (RCR) | payer MEDICARE, OTHER, SELFPAY ==
--- NOTE | 2023-12-08 17:10 | PT.OIE ---
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) Complex regional pain syndrome I of unspecified upper limb (12/08/23) Past Medical History (Last Reviewed 11/28/23 @ 14:19 by Fei Reyes MD) AAA (abdominal aortic aneurysm) (03/11/97) Ankle pain (1999) Atrial fibrillation with slow ventricular response BPH NOS w ur obs/LUTS Cervical spinal stenosis Chicken pox (1951) Cholelithiasis (02/2018) Chronic anticoagulation (03/11/97) Chronic pain syndrome Colon polyps (2001) Community acquired pneumonia (2016) Degenerative joint disease of foot Degenerative joint disease, ankle, foot, toe Depression Diverticular disease (~1989) Elevated PSA (~1989) Gallstones GERD (gastroesophageal reflux disease) Gout Gynecomastia Hearing loss (~1989) Hematuria Hepatitis B (1984) Hernia (~1989) Hyperlipidemia Hypertension (1999) Impingement syndrome of left shoulder Impingement syndrome of right shoulder Kidney stones (~1969) Measles (~1949) Mumps (1949) Neck fracture (1974) Neck muscle spasm Osteoarthritis Pathologic fracture of vertebrae (09/27/13) Pneumonia (2016) 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 Rib fracture Shoulder pain (1996) Sinus node dysfunction Sleep apnea (2002) Spinal fracture (2007) Supraspinatus tendon tear TIA (transient ischemic attack) Past Surgical History (Last Reviewed 11/28/23 @ 14:19 by Fei Reyes MD) Anesthesia H/O varicose vein stripping History of aortic valve replacement (03/11/97) History of arthroscopy of knee History of cardiac catheterization History of colon surgery History of meniscectomy of left knee History of neck surgery (1998) History of partial colectomy History of spinal fusion (1974) History of total knee arthroplasty History of vasectomy S/P cervical spinal fusion S/P left knee arthroscopy S/P resection of aortic aneurysm Status post hernia repair () Status post knee surgery (1974) Status post unicompartmental knee replacement, left Visit Care Team Role Provider Type Adithya Barnes MD Attending Provider Physician Family Provider Primary Care Provider Referring Provider Specialty: Family Practice Address: [address] [place] [address], [facility] Email: [email or web address] Physical Therapy Initial Evaluation PT-OP-A Visit Information Start: 12/07/23 16:29 Freq: Status: Active Protocol: Document 12/08/23 13:50 LRN (Rec: 12/08/23 14:39 LRN [id number]) Out-Patient Physical Therapy Visit Information Visit Information Visit Type Initial Evaluation Visit Start Time 13:50 Visit Stop Time 14:36 Visit Number 1 Evaluation Information Evaluation Date 12/08/23 Precautions Precautions Valve replaced - 1996, TKA - Right Partial TKA 2008 & TKA 2009, Left TKA 2006, and colon surgery with ?removal, hernia repairs. PT-OP-B Current Condition Start: 12/07/23 16:29 Freq: Status: Active Protocol: Document 12/08/23 13:50 LRN (Rec: 12/08/23 14:39 LRN [id number]) Current Condition History of Current Condition Onset Date 2 yrs ago Current Complaints Cold R hand History of Current Condition R general hand pain that has become cold and a couple days ago got chilly, then couldn't get it warm. States he is currently being monitored for his heart prior to L breast surgery for nerve dysfunction causing L breast sensitivity. Hurts to make a fist. Feels better when squeezes around the R wrist. Hid primary concern is coldness of R hand. Treatment Goals Patient/Caregiver Goals Pt goal is: - improve sense of warmth in the R hand. 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 Lives alone in [place]. Retired from [employer] in 1999 in [place]. Personal Factors Other Personal Factors That May Effect Arthritis, currently being Therapy/Recovery monitored for his heart in prep for L breast surgery for nerve dysufuncion, heart valve replaced 1996. PT-OP-C Subjective Start: 12/07/23 16:29 Freq: Status: Active Protocol: Document 12/08/23 13:50 LRN (Rec: 12/08/23 14:39 LRN [id number]) Patient Questionnaires Quick Dash- Upper Extremity Quick Dash UE Score Pt did not complete questionaire. PT-OP-F Manual Assessment Start: 12/07/23 16:29 Freq: Status: Active Protocol: Document 12/08/23 13:50 LRN (Rec: 12/08/23 14:39 LRN [id number]) Manual Assessments Soft Tissue Assessment Soft Tissue Mobility Assessment R hand normal temp. Stiff mobility, slightly larger in diameter. Pt is R handed. Joint Mobility Assessment Joint Mobility Assessment Elbow is WNL in mobility. R Ulna Cehalad mob - reduced hand pain Approximation of R distal ulna & radius reduced hand pain. PT-OP-H Neuro Start: 12/07/23 16:29 Freq: Status: Active Protocol: Document 12/08/23 13:50 LRN (Rec: 12/08/23 14:39 LRN [id number]) Sensation Evaluation Gross Sensation Gross Sensation WNL Comments Summary Comments Palpable temperature of R hand is equal to L hand. PT-OP-J Posture/Palpation/Skin Start: 12/07/23 16:29 Freq: Status: Active Protocol: Document 12/08/23 13:50 LRN (Rec: 12/08/23 14:39 LRN [id number]) Posture Evaluation Position Sitting Head/C-Spine Posture Forward Head T-Spine Posture Increased Kyphosis Shoulder Posture (L) Elevated Arm Posture (L) Neutral,(R) Neutral Palpation Assessment Location R hand Palpation Location Palmar & Dorsal side of R hand Palpation Details No palpable areas of dysfunction Skin Assessment Other Assessments Skin Assessment Comments Palpable temperature of right hand is equal to left hand. PT-OP-K Range of Motion Start: 12/07/23 16:29 Freq: Status: Active Protocol: Document 12/08/23 13:50 LRN (Rec: 12/08/23 14:39 LRN [id number]) Elbow/Forearm Range of Motion Elbow/Forearm Right Active Elbow/Forearm ROM WFL Yes Left Active Elbow/Forearm ROM WFL Yes Wrist Goniometric Range of Motion Wrist Right Flexion Active (degrees) 45 Extension Active (degrees) 35 Wrist Pronation (degrees) 74 Wrist Supination (degrees) 70 Ulnar Deviation Active (degrees) 24 Radial Deviation Active (degrees) 18 Left Flexion Active (degrees) 32 Extension Active (degrees) 47 Wrist Pronation (degrees) 75 Wrist Supination (degrees) 70 Ulnar Deviation Active (degrees) 28 Radial Deviation Active (degrees) 18 PT-OP-M Strength Start: 12/07/23 16:29 Freq: Status: Active Protocol: Document 12/08/23 13:50 LRN (Rec: 05/10/24 14:39 LRN [id number]) Elbow/Forearm Strength Elbow and Forearm Manual Muscle Testing Right Comments Strength is 5/5 Left Comments Strength is 5/5 Wrist Strength Wrist Manual Muscle Testing Right Comments Strength is 5/5 Pronation increased wrist pain . Left Comments Strength is 5/5 Hand Treatment Specialist/Pinch Strength Hand Dominance Hand Dominance Right PT-OP-Q Treatments Start: 12/07/23 16:29 Freq: Status: Active Protocol: Document 12/08/23 13:50 LRN (Rec: 12/10/23 11:39 LRN [id number]) Therapeutic Exercises Sitting Exercises Wrist UD Sitting Exercise Name UD AROM Side right Reps/Minutes 30x Comments recommedned shaving R wrist for K-tape treatment. Self-Care/Home Management Treatment Education Patient Education Home Exercise Program Other Education Discussed results of evaluation, goals, and plan of care (POC) with pt, discussed attendance/cx/dns policy; pt agreeable to goals, attendance /cx/dns policy and POC. Activities Self-Care/Home Management Activities Pt I/S in HEP of active R wrist UD, 30x AM/PM, with arm in dependent position. PT-OP-T Assessment and Plan Start: 12/07/23 16:29 Freq: Status: Active Protocol: Document 12/08/23 13:50 LRN (Rec: 12/08/23 14:39 LRN [id number]) Physical Therapy Assessment Rehab Potential Rehabilitation Potential Fair Evaluation Complexity Number of Personal Factors/Comorbidities 1-2 Number of Body Systems Impaired 4 or More Clinical Presentation at Evaluation Evolving Impairments Impairments Activity Tolerance,Pain, Posture,ROM,Sensation,Soft Tissue Mobility Goals Two Impairment Cold sensation at hand. Short Term Goal (STG) Pt educated in hot/cold treatment Nursing Home Goal (LTG) Improve sense of warmth in the R hand to improve functional use of hand per UE Quickdash. LTG Duration 8 wks-02/04/24 One Impairment Lacks appropriate self care HEP Short Term Goal (STG) Pt will be educated in proper sit/stand posturing. Nursing Home Goal (LTG) Pt will be independent in HEP of R wrist/forearm/hand ROM and strengthening ex's and postural corrrection ex's. LTG Duration 8 wks-02/04/24 Assessment Summary Assessment Pt is an 83 yo male who presents with insidious onset of R hand neuropathy of cold sensation that may be associated to radioulnar instability of interosseous membrane, strain of pronator teres muscle, or possibly carpal tunnel (was not able to be assessed today), as he has pain relief with caudal glide of ulna distally or proximally as well as approximation of the distal ulnar/radius at wrist and pain exacerbated by MMT of Pronator teres. He has normal temperature and coloration of his R hand compared to the L hand; therefore further assessment is needed for possible small bone carpals or wrist involvement as his condition doesn't appear to be vascular in nature. The patient will benefit from skilled physcial therapy to work towards achieving the above stated goals. If the pt is not able to show improvement assessment might be appropriate further up his UE chain at the neck or shoulder. Physical Therapy Plan Frequency and Duration Frequency of Treatment 2x/Week Duration of treatment (weeks) 8 Plan of Care Start Date 12/08/23 Plan of Care End Date 02/04/24 Therapeutic Interventions Therapeutic Interventions Home Exercise Program,Joint Mobilizations,Manual Therapy, Neuromuscular Re-education, Self-Care/Home Management,Soft Tissue Mobilization,Taping, Therapeutic Activities, Therapeutic Exercises Modalities Cold Pack/Ice Massage,Hot Packs Next Visit Focus/Plan Next Note Type Treatment Note Next Visit Plan Next: Assess Treatment Specialist/hand strength, Carpal Tunnel testing, Carpals, neck/ shoulder and pt to complete UE Quickdash, circulatory check. Pt education pain management ( hot/cold), posture; wrist ROM & strengthening; Taping w/ Ktape for wrist stability.
--- NOTE | 2023-12-08 17:11 | PT.OPPOC ---
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) Complex regional pain syndrome I of unspecified upper limb (12/08/23) Visit Care Team Role Provider Type Adithya Barnes MD Attending Provider Physician Family Provider Primary Care Provider Referring Provider Specialty: Family Practice Address: [address] [place] [address], [facility] Email: [email or web address] Plan Of Care PT-OP-T Assessment and Plan Start: 12/07/23 16:29 Freq: Status: Active Protocol: Document 12/08/23 13:50 LRN (Rec: 12/08/23 14:39 LRN [id number]) Physical Therapy Assessment Rehab Potential Rehabilitation Potential Fair Evaluation Complexity Number of Personal Factors/Comorbidities 1-2 Number of Body Systems Impaired 4 or More Clinical Presentation at Evaluation Evolving Impairments Impairments Activity Tolerance,Pain, Posture,ROM,Sensation,Soft Tissue Mobility Goals Two Impairment Cold sensation at hand. Short Term Goal (STG) Pt educated in hot/cold treatment Shelter Goal (LTG) Improve sense of warmth in the R hand to improve functional use of hand per UE Quickdash. LTG Duration 8 wks-02/04/24 One Impairment Lacks appropriate self care HEP Short Term Goal (STG) Pt will be educated in proper sit/stand posturing. Shelter Goal (LTG) Pt will be independent in HEP of R wrist/forearm/hand ROM and strengthening ex's and postural corrrection ex's. LTG Duration 8 wks-02/04/24 Assessment Summary Assessment Pt is an 83 yo male who presents with insidious onset of R hand neuropathy of cold sensation that may be associated to radioulnar instability of interosseous membrane, strain of pronator teres muscle, or possibly carpal tunnel (was not able to be assessed today), as he has pain relief with caudal glide of ulna distally or proximally as well as approximation of the distal ulnar/radius at wrist and pain exacerbated by MMT of Pronator teres. He has normal temperature and coloration of his R hand compared to the L hand; therefore further assessment is needed for possible small bone carpals or wrist involvement as his condition doesn't appear to be vascular in nature. The patient will benefit from skilled physcial therapy to work towards achieving the above stated goals. If the pt is not able to show improvement assessment might be appropriate further up his UE chain at the neck or shoulder. Physical Therapy Plan Frequency and Duration Frequency of Treatment 2x/Week Duration of treatment (weeks) 8 Plan of Care Start Date 12/08/23 Plan of Care End Date 02/04/24 Therapeutic Interventions Therapeutic Interventions Home Exercise Program,Joint Mobilizations,Manual Therapy, Neuromuscular Re-education, Self-Care/Home Management,Soft Tissue Mobilization,Taping, Therapeutic Activities, Therapeutic Exercises Modalities Cold Pack/Ice Massage,Hot Packs Next Visit Focus/Plan Next Note Type Treatment Note Next Visit Plan Next: Assess Gravity Prospecting Observer/hand strength, Carpal Tunnel testing, Carpals, neck/ shoulder and pt to complete UE Quickdash, circulatory check. Pt education pain management ( hot/cold), posture; wrist ROM & strengthening; Taping w/ Ktape for wrist stability. Plan of Care Dates Plan of Care Start Date 12/08/23 Plan of Care End Date 02/04/24 Electronically Signed by: Leigh Mccormick, PT 12/11/23 1213 If you are in agreement with this Plan of Care, please return a signed and dated copy. I have reviewed this Plan of Care and certify that the skilled therapy services above are required to meet the patient?s needs. Physician Signature Date Printed Name and Credentials Clinical Instructor Signature Printed Name and Credentials
--- NOTE | 2023-12-19 11:50 | PT-OP ANOTE ---
Per phone conversation the pt states he pressed the wrong button on his phone and is showed cancel, so he thought he had accidently canceled his appt so he didn't come in. Pt plans on attending the next session.
--- NOTE | 2023-12-21 16:12 | PT.OTN ---
Current Diagnoses Unspecified mononeuropathy of right upper limb (12/21/23) Complex regional pain syndrome I of unspecified upper limb (12/21/23) Physical Therapy Treatment Note PT-OP-A Visit Information Start: 12/07/23 16:29 Freq: Status: Active Protocol: Document 12/21/23 08:20 LRN (Rec: 12/21/23 09:04 LRN [id number]) Out-Patient Physical Therapy Visit Information Visit Information Visit Type Treatment Note Visit Start Time 08:21 Visit Stop Time 09:03 Visit Number 2 Evaluation Information Evaluation Date 12/08/23 Precautions Precautions Valve replaced - 1996, TKA - Right Partial TKA 2008 & TKA 2009, Left TKA 2006, and colon surgery with ?removal, hernia repairs. PT-OP-B Current Condition Start: 12/07/23 16:29 Freq: Status: Active Protocol: Document 12/08/23 13:50 LRN (Rec: 12/08/23 14:39 LRN [id number]) Current Condition History of Current Condition Onset Date 2 yrs ago Current Complaints Cold R hand History of Current Condition R general hand pain that has become cold and a couple days ago got chilly, then couldn't get it warm. States he is currently being monitored for his heart prior to L breast surgery for nerve dysfunction causing L breast sensitivity. Hurts to make a fist. Feels better when squeezes around the R wrist. Hid primary concern is coldness of R hand. Treatment Goals Patient/Caregiver Goals Pt goal is: - improve sense of warmth in the R hand. - HEP Current Functional Impairments (Reported) Functional Limitations- ADL's Moderately active by working around his house, mows [employer], [employer], works on cars. Lives alone in [place]. Retired from [employer] in 1999 in [employer]. Personal Factors Other Personal Factors That May Effect Arthritis, currently being Therapy/Recovery monitored for his heart in prep for L breast surgery for nerve dysufuncion, heart valve replaced 1996. PT-OP-C Subjective Start: 12/07/23 16:29 Freq: Status: Active Protocol: Document 12/21/23 08:20 LRN (Rec: 12/21/23 09:04 LRN [id number]) OP-PT Subjective Patient Comments Patient Comments Same, cold sensation on the top of the R hand feels cold; the ulnar deviation causes pain in the wrist. States he did radial deviation movement and it caused ulnar sided pain . Patient Questionnaires Quick Dash- Upper Extremity Quick Dash UE Score 47.72 Quick Dash UE Impairment 40 to 59% Impaired (Score 40- 59) PT-OP-F Manual Assessment Start: 12/07/23 16:29 Freq: Status: Active Protocol: Document 12/08/23 13:50 LRN (Rec: 12/08/23 14:39 LRN [id number]) Manual Assessments Soft Tissue Assessment Soft Tissue Mobility Assessment R hand normal temp. Stiff mobility, slightly larger in diameter. Pt is R handed. Joint Mobility Assessment Joint Mobility Assessment Elbow is WNL in mobility. R Ulna Cehalad mob - reduced hand pain Approximation of R distal ulna & radius reduced hand pain. PT-OP-H Neuro Start: 12/07/23 16:29 Freq: Status: Active Protocol: Document 12/08/23 13:50 LRN (Rec: 12/08/23 14:39 LRN [id number]) Sensation Evaluation Gross Sensation Gross Sensation WNL Comments Summary Comments Palpable temperature of R hand is equal to L hand. PT-OP-J Posture/Palpation/Skin Start: 12/07/23 16:29 Freq: Status: Active Protocol: Document 12/08/23 13:50 LRN (Rec: 12/08/23 14:39 LRN [id number]) Posture Evaluation Position Sitting Head/C-Spine Posture Forward Head T-Spine Posture Increased Kyphosis Shoulder Posture (L) Elevated Arm Posture (L) Neutral,(R) Neutral Palpation Assessment Location R hand Palpation Location Palmar & Dorsal side of R hand Palpation Details No palpable areas of dysfunction Skin Assessment Other Assessments Skin Assessment Comments Palpable temperature of right hand is equal to left hand. PT-OP-K Range of Motion Start: 12/07/23 16:29 Freq: Status: Active Protocol: Document 12/08/23 13:50 LRN (Rec: 12/08/23 14:39 LRN [id number]) Elbow/Forearm Range of Motion Elbow/Forearm Right Active Elbow/Forearm ROM WFL Yes Left Active Elbow/Forearm ROM WFL Yes Wrist Goniometric Range of Motion Wrist Right Flexion Active (degrees) 45 Extension Active (degrees) 35 Wrist Pronation (degrees) 74 Wrist Supination (degrees) 70 Ulnar Deviation Active (degrees) 24 Radial Deviation Active (degrees) 18 Left Flexion Active (degrees) 32 Extension Active (degrees) 47 Wrist Pronation (degrees) 75 Wrist Supination (degrees) 70 Ulnar Deviation Active (degrees) 28 Radial Deviation Active (degrees) 18 PT-OP-L Special Tests Start: 12/07/23 16:29 Freq: Status: Active Protocol: Document 12/21/23 08:20 LRN (Rec: 12/21/23 16:11 LRN [id number]) Special Tests Wrist/Hand Special Tests Reverse Phalen's Test Test Results ? Comments Pt had low tolerance to positioning due to lack of wrist extension. Phalen's Test Test Results Negative Comments Pt wrist became sore and stiff . PT-OP-M Strength Start: 12/07/23 16:29 Freq: Status: Active Protocol: Document 12/21/23 08:20 LRN (Rec: 12/21/23 09:04 LRN [id number]) Hand Selling Underwriter/Pinch Strength Hand Dominance Hand Dominance Right Hand Strength Right Comments Kgs: 20, 20, 17 (avg 26 kg) Avg for 75+ men is 29.8 kg Left Comments kgs: 12, 12, 12 (avg 12 kg) Avg for 75+ men is 24.9 kg PT-OP-Q Treatments Start: 12/07/23 16:29 Freq: Status: Active Protocol: Document 12/21/23 08:20 LRN (Rec: 12/21/23 16:11 LRN [id number]) Therapeutic Exercises Sitting Exercises Wrist ext Sitting Exercise Name Stretch into Wrist Ext with elbow flexed Side right Reps/Minutes 4' Comments Extra time was needed for training & to find max edmund stretch Manual Therapy Treatment Soft Tissue Mobilization Supinator Region Mobilization Type Strumming Comments Not tender Pronator Teres Region Mobilization Type Strumming Comments Not tender Manual Techniques R Wrist traction Type R Wrist traction Body Location R wrist Body Position Sitting Reps/Duration 2' Comments Rest times btn traction MWM R ulna Type Caudal glide R ulna Body Location R ulna Body Position Sitting Reps/Duration 3' Comments No change in pain or hand temp with caudal glide. MWM R wrist ext Type Approximation of ulna & radius at distal end -at rest & - wrist extension Body Location R wrist Body Position Sitting Reps/Duration 4' Self-Care/Home Management Treatment Activities Self-Care/Home Management Activities Issued & reviewed HEP: Stretch into wrist extension PT-OP-T Assessment and Plan Start: 12/07/23 16:29 Freq: Status: Active Protocol: Document 12/21/23 08:20 LRN (Rec: 12/21/23 09:04 LRN [id number]) Physical Therapy Assessment Goals Two Impairment Cold sensation at hand. Short Term Goal (STG) Pt educated in hot/cold treatment Director Of Golf Goal (LTG) Improve sense of warmth in the R hand to improve functional use of hand per UE Quickdash. LTG Duration 8 wks-02/04/24 One Impairment Lacks appropriate self care HEP Short Term Goal (STG) Pt will be educated in proper sit/stand posturing. Director Of Golf Goal (LTG) Pt will be independent in HEP of R wrist/forearm/hand ROM and strengthening ex's and postural corrrection ex's. LTG Duration 8 wks-02/04/24 Assessment Summary Assessment 83 yo male w/insidious onset of cold sensation R hand ( physically warm to touch), possible radioulnar instability of interosseous membrane, or strain of pronator teres. Negative for carpal tunnel and vascular dysfunction. R reinforcing steel placer strength is good, L side is weak. Further assessment needed of small bone carpals for wrist involvement. No pain relief pain relief with caudal glide of R ulna distally or proximally. Pain relief is still with approximation of the distal ulnar/radius at wrist. Vascular nature at R wrist should be reassessed as I'm not sure I was accurate in occluding blood low on ulnar side. Physical Therapy Plan Next Visit Focus/Plan Next Note Type Treatment Note Next Visit Plan Next: Check Carpals, neck/ shoulder, vascular supply to hand. Pt education pain management ( hot/cold), posture; wrist ROM & strengthening; Educate in proper sit/stand posturing. Trial Taping w/Ktape for wrist stability.
--- NOTE | 2024-01-09 15:56 | PT.OTN ---
Current Diagnoses Unspecified mononeuropathy of right upper limb (01/09/24) Complex regional pain syndrome I of unspecified upper limb (01/09/24) Physical Therapy Treatment Note PT-OP-A Visit Information Start: 12/07/23 16:29 Freq: Status: Active Protocol: Document 01/09/24 13:54 LRN (Rec: 01/09/24 14:19 LRN [id number]) Out-Patient Physical Therapy Visit Information Visit Information Visit Type Treatment Note Visit Start Time 13:54 Visit Stop Time 14:32 Visit Number 3 Evaluation Information Evaluation Date 12/08/23 Precautions Precautions Valve replaced - 1996, TKA - Right Partial TKA 2008 & TKA 2009, Left TKA 2006, and colon surgery with ?removal, hernia repairs. PT-OP-B Current Condition Start: 12/07/23 16:29 Freq: Status: Active Protocol: Document 12/08/23 13:50 LRN (Rec: 12/08/23 14:39 LRN [id number]) Current Condition History of Current Condition Onset Date 2 yrs ago Current Complaints Cold R hand History of Current Condition R general hand pain that has become cold and a couple days ago got chilly, then couldn't get it warm. States he is currently being monitored for his heart prior to L breast surgery for nerve dysfunction causing L breast sensitivity. Hurts to make a fist. Feels better when squeezes around the R wrist. Hid primary concern is coldness of R hand. Treatment Goals Patient/Caregiver Goals Pt goal is: - improve sense of warmth in the R hand. - HEP Current Functional Impairments (Reported) Functional Limitations- ADL's Moderately active by working around his house, mows [employer], [employer], works on cars. Lives alone in [place]. Retired from [employer] in 1999 in [employer]. Personal Factors Other Personal Factors That May Effect Arthritis, currently being Therapy/Recovery monitored for his heart in prep for L breast surgery for nerve dysufuncion, heart valve replaced 1996. PT-OP-C Subjective Start: 12/07/23 16:29 Freq: Status: Active Protocol: Document 01/09/24 13:54 LRN (Rec: 01/09/24 14:19 LRN [id number]) OP-PT Subjective Patient Comments Patient Comments States his L nipple has been very sensitive and he had surgery 2.5 wks ago to remove tissue and is now on blood thinners. No change with R hand. Compression of the midline small carpal bones of the wrist helps a little. PT-OP-F Manual Assessment Start: 12/07/23 16:29 Freq: Status: Active Protocol: Document 12/08/23 13:50 LRN (Rec: 12/08/23 14:39 LRN [id number]) Manual Assessments Soft Tissue Assessment Soft Tissue Mobility Assessment R hand normal temp. Stiff mobility, slightly larger in diameter. Pt is R handed. Joint Mobility Assessment Joint Mobility Assessment Elbow is WNL in mobility. R Ulna Cehalad mob - reduced hand pain Approximation of R distal ulna & radius reduced hand pain. PT-OP-H Neuro Start: 12/07/23 16:29 Freq: Status: Active Protocol: Document 12/08/23 13:50 LRN (Rec: 12/08/23 14:39 LRN [id number]) Sensation Evaluation Gross Sensation Gross Sensation WNL Comments Summary Comments Palpable temperature of R hand is equal to L hand. PT-OP-J Posture/Palpation/Skin Start: 12/07/23 16:29 Freq: Status: Active Protocol: Document 12/08/23 13:50 LRN (Rec: 12/08/23 14:39 LRN [id number]) Posture Evaluation Position Sitting Head/C-Spine Posture Forward Head T-Spine Posture Increased Kyphosis Shoulder Posture (L) Elevated Arm Posture (L) Neutral,(R) Neutral Palpation Assessment Location R hand Palpation Location Palmar & Dorsal side of R hand Palpation Details No palpable areas of dysfunction Skin Assessment Other Assessments Skin Assessment Comments Palpable temperature of right hand is equal to left hand. PT-OP-K Range of Motion Start: 12/07/23 16:29 Freq: Status: Active Protocol: Document 12/08/23 13:50 LRN (Rec: 12/08/23 14:39 LRN [id number]) Elbow/Forearm Range of Motion Elbow/Forearm Right Active Elbow/Forearm ROM WFL Yes Left Active Elbow/Forearm ROM WFL Yes Wrist Goniometric Range of Motion Wrist Right Flexion Active (degrees) 45 Extension Active (degrees) 35 Wrist Pronation (degrees) 74 Wrist Supination (degrees) 70 Ulnar Deviation Active (degrees) 24 Radial Deviation Active (degrees) 18 Left Flexion Active (degrees) 32 Extension Active (degrees) 47 Wrist Pronation (degrees) 75 Wrist Supination (degrees) 70 Ulnar Deviation Active (degrees) 28 Radial Deviation Active (degrees) 18 PT-OP-L Special Tests Start: 12/07/23 16:29 Freq: Status: Active Protocol: Document 12/21/23 08:20 LRN (Rec: 12/21/23 16:11 LRN [id number]) Special Tests Wrist/Hand Special Tests Reverse Phalen's Test Test Results ? Comments Pt had low tolerance to positioning due to lack of wrist extension. Phalen's Test Test Results Negative Comments Pt wrist became sore and stiff . PT-OP-M Strength Start: 12/07/23 16:29 Freq: Status: Active Protocol: Document 12/21/23 08:20 LRN (Rec: 12/21/23 09:04 LRN [id number]) Hand Heat Treat Operator/Pinch Strength Hand Dominance Hand Dominance Right Hand Strength Right Comments Kgs: 20, 20, 17 (avg 26 kg) Avg for 75+ men is 29.8 kg Left Comments kgs: 12, 12, 12 (avg 12 kg) Avg for 75+ men is 24.9 kg PT-OP-Q Treatments Start: 12/07/23 16:29 Freq: Status: Active Protocol: Document 01/09/24 13:54 LRN (Rec: 01/09/24 14:19 LRN [id number]) Therapeutic Exercises Supine Exercises R UE ulnar n glide Supine Exercise Name R Ulnar n glide positioning Side right Reps/Minutes 2' Comments DC'd due to increase wrist discomfort with forearm supination. R UE Med n glide Supine Exercise Name R medial n glide positioning. Side right Reps/Minutes 2' Comments No change in hand/wrist/ forearm R forearm pronation stretch Supine Exercise Name Pt in radial n glide position w/o the glide for forearm stretch Side right Reps/Minutes 5' Comments Much extra time to determine tolerated position and stretch Manual Therapy Treatment Manual Traction R UE Details Intermittent R axial traction general, at elbow and at wrist . Body Position Supine Reps/Duration 15' neck Details axial & 50 deg's Body Position Supine Reps/Duration 6' Manual Techniques R Wrist traction Type R Wrist traction Body Location R wrist Body Position Sitting Reps/Duration 2' Comments Rest times btn traction MWM R wrist ext Type r wrist traction with flex/ext Body Location R wrist Body Position Sitting Reps/Duration 6' PT-OP-T Assessment and Plan Start: 12/07/23 16:29 Freq: Status: Active Protocol: Document 01/09/24 13:54 LRN (Rec: 01/09/24 14:19 LRN [id number]) Physical Therapy Assessment Goals Two Impairment Cold sensation at hand. Short Term Goal (STG) Pt educated in hot/cold treatment Assisted Goal (LTG) Improve sense of warmth in the R hand to improve functional use of hand per UE Quickdash. 01/09/24: Pt had normalization of hand from discomfort after general/wrist traction & compression of midline carpal bones. LTG Duration 8 wks-02/04/24 temp progress 01/09/24 One Impairment Lacks appropriate self care HEP Short Term Goal (STG) Pt will be educated in proper sit/stand posturing. Assisted Goal (LTG) Pt will be independent in HEP of R wrist/forearm/hand ROM and strengthening ex's and postural corrrection ex's. LTG Duration 8 wks-02/04/24 Assessment Summary Assessment 83 yo male w/insidious onset of cold sensation R hand ( physically warm to touch), possible radioulnar instability of interosseous membrane, or strain of pronator teres. Today had numbness/achy pain relief with R UE traction, primarily at wrist, and Dorsal/volar compression of midline carpals (most likely captitate, lumate, scaphoid). Pt ended with R hand feeling normal. Physical Therapy Plan Frequency and Duration Frequency of Treatment 2x/Week Duration of treatment (weeks) 8 Plan of Care Start Date 12/08/23 Plan of Care End Date 02/04/24 Next Visit Focus/Plan Next Note Type Treatment Note Next Visit Plan Next: Assess lasting response to R UE traction and resolution of pain. *Pt education pain management (hot /cold), proper sit/stand posturing; Check Carpals (captitate, scaphoid, lunate), vascular supply to hand, neck/shoulder; Wrist ROM & strengthening. Trial Taping w/Ktape for wrist stability.
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
== END 2024-01-22 11:00 | disposition home or self-care (01) ==
LOC: PHYS 14:30
PROVIDERS: Family Provider Family Medicine; PCP Family Medicine; Referring Provider Family Medicine; Visit Provider Family Medicine
DX: G90.519 Complex regional pain syndrome I of unspecified upper limb (principal); G56.91 Unspecified mononeuropathy of right upper limb
CPT/HCPCS: 97110; 97140; 97162; 97535

== ENCOUNTER 2024-04-01 07:23 | Emergency (ER) | payer MEDICARE, OTHER, SELFPAY ==
[2023-12-31 00:23] VITALS: BMI 30.4
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
[2024-04-01 07:32] VITALS: BP 192/84; PULSE 50; RESP 18; TEMP 36.8; O2SAT 95; BMI 29.7
[2024-04-01] MEDS: KETOROLAC 30 MG/ML VIAL IM (07:39)
== END 2024-04-01 07:45 | disposition home or self-care (01) ==
PROVIDERS: Emergency Provider Emergency Medicine; Family Provider Family Medicine; PCP Family Medicine
DX: M54.2 Cervicalgia (principal)
CPT/HCPCS: 96372; 99283; J1885

== ENCOUNTER → 2024-05-23 07:04 | Outpatient (CLI) | payer MEDICARE, OTHER, SELFPAY ==
[2023-12-31 00:23] VITALS: BMI 30.4
--- NOTE | 2024-05-23 | DI.ECHO.S_ITS ---
[facility] : : [address] : : [place] : : [id number] : : Phone: [phone] Echocardiogram Report + + :Name: MOISES ROBERTS Study Date: 05/23/2024 Height: 67 in : :Hospital ReadingLocation: Weight: 190 lb: : Gender: Male BSA: 2.0 m2 : :: 1940 Age: 84 yrs : :Reason For Study: STENOSIS OF PROSTHETIC AORTIC VALVE : :Ordering Physician: ADILENE, : :JUAN FRANCISCO Performed By: Ric Paul : :Referring: JUAN FRANCISCO HEAD : + + Interpretation Summary Left ventricular systolic function remains normal with the ejection fraction of 55 to 65% with considerable dvqw-po-eudz variability because of frequent PVCs, but no focal wall motion abnormalities. Systolic function appears similar, perhaps slightly more dynamic compared to the previous exam. There is mild left ventricular enlargement, measuring larger compared to the previous study although visually appears unchanged. There continues to be mild to moderate LVH that is unchanged. There is a probable pseudonormal pattern of diastolic filling with elevated filling pressures that are likely higher compared to the previous exam. The right ventricle remains borderline enlarged with normal systolic function but is unchanged from the previous study. There is severe left atrial enlargement and mild to moderate right atrial enlargement, both measuring slightly larger. There is mild to moderate mitral regurgitation that is slightly more prominent and mild to moderate tricuspid regurgitation that is unchanged. There is a mechanical aortic valve that is not well-seen but appears to have adequate leaflet motion. The peak aortic velocity remains mildly elevated at 3.1 m/s with a mean gradient of 23 mmHg, but similar to the previous exam. The patient was in sinus rhythm at 50-60 bpm with frequent PVCs, slightly faster than the previous study and with more frequent PVCs. Procedure: A two-dimensional transthoracic echocardiogram with color flow and Doppler was performed. The study quality was technically good. Comparison is made with the echocardiogram of 05/01/2023. The patient was in sinus bradycardia with heart rates between 50-60 bpm during the exam. The patient had frequent PVCs during the exam. Left Ventricle: The left ventricle is mildly dilated. The estimated left ventricular end diastolic volume is 150 mL compared to the previous 113 ml. This is visually appears unchanged compared to the previous study. There is mild concentric left ventricular hypertrophy. This is unchanged compared to the previous study. Left ventricular systolic function appears normal without focal wall motion abnormalities. Left ventricular ejection fraction is estimated to be 55 to 65% with considerable agxq-cs-keps variability because of frequent PVCs. This is unchanged to slightly more dynamic compared to the previous study. Diastolic parameters suggest a pseudonormalization pattern, consistent with probable elevated filling pressures. This is possibly, slightly higher compared to the previous study. Right Ventricle: The right ventricle is borderline dilated. The right ventricular systolic function is normal. This is unchanged compared to the previous study. Atria: The left atrium is severely dilated. The right atrium is mild to moderately dilated. This is slightly larger compared to the previous study. There is no Doppler evidence for an atrial septal defect. Mitral Valve: There is mild to moderate mitral annular calcification. The mitral valve leaflets are mildly calcified. There is mild to moderate mitral regurgitation. This is slightly more prominent compared to the previous study. 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 The prosthetic aortic valve is not well visualized. The prosthetic aortic valve is well-seated. The prosthetic aortic valve appears to open well. The peak aortic velocity is 3.1 m/sec. The aortic valve mean gradient is 23 mmHg compared to the previous 22 mmHg mmHg. The peak aortic velocity on the previous exam was 3.5 m/sec. There is trace aortic regurgitation. This is unchanged compared to the previous study. Tricuspid Valve: The tricuspid valve is normal in structure and function. There is mild to moderate tricuspid regurgitation. This is unchanged compared to the previous study. The right ventricular systolic pressure is estimated to be at least 51 mmHg based on an estimated right atrial pressure of 8 mm Hg. This is likely higher compared to the previous study. Pulmonic Valve: The pulmonic valve is not well seen, but is grossly normal. The pulmonic valve is not well visualized. There is no pulmonic valvular regurgitation. Great Vessels: The aortic root is normal size. The dimensions of the ascending aorta are normal. The pulmonary artery is normal size. The IVC is dilated (diameter is greater than 2.1 cm) yet it collapses greater than 50% with a sniff. This suggests a right atrial pressure of 8 mm Hg. Pericardium/ Pleura There is no pericardial effusion. There is no pleural effusion. MMode/2D Measurements & Calculations LVIDd: 6.3 cm LVOT diam: 1.9 cm LVIDs: 4.2 cm Ao root diam: 3.1 cm FS: 33.8 % asc Aorta Diam: 2.9 cm EPSS: 0.94 cm Ao Arch Diam (Prox Trans): 2.7 cm IVSd: 1.3 cm LVPWd: 1.1 cm LV duran. diameter/BSA (cm/m^2): 3.2 LV sys. diameter/BSA (cm/m^2): 2.1 LA A2 area: 26.3 cm2 RA long axis: 5.9 cm LA A4 area: 31.7 cm2 RA area: 22.9 cm2 LA length (vol): 6.5 cm RA vol: 76.3 ml LA vol: 109.1 ml RA : 38.5 ml/m2 LA vol index: 55.2 ml/m2 IVC diam: 2.5 cm RVD1 (basal): 3.8 cm RVD2 (mid): 3.5 cm TAPSE: 3.0 cm Doppler Measurements & Calculations Ao V2 max: 312.4 cm/sec LVOT Max Jairo: 110.5 cm/sec Ao V2 mean: 264.9 cm/sec LV V1 max P.0 mmHg Ao max P.3 mmHg LV V1 VTI: 30.3 cm Ao mean P.5 mmHg HEATHER(I,D): 0.93 cm2 Ao V2 VTI: 90.4 cm HEATHER(V,D): 0.98 cm2 sev ratio: 0.33 HEATHER indexed to BSA (cm^2/m^2): 0.47 MV E max jairo: 100.2 cm/sec TR max jairo: 327.3 cm/sec MV A max jairo: 74.1 cm/sec TR max P.9 mmHg MV E/A: 1.4 PA V2 max: 101.0 cm/sec Med Peak E' Jairo: 5.9 cm/sec PA V2 mean: 51.7 cm/sec E/E' med: 16.9 PA mean P.4 mmHg Lat Peak E' Jairo: 9.8 cm/sec PA pr(Accel): 61.0 mmHg E/E' lat: 10.3 E/e' average: 13.6 MV dec time: 0.23 sec SV(LVOT): 84.1 ml Reading Physician:12:04 PM
== END ==
LOC: ECHO 07:04
PROVIDERS: Family Provider Family Medicine; PCP Family Medicine; Referring Provider Specialist; Visit Provider Specialist
DX: T82.857D Stenosis of other cardiac prosthetic devices, implants and grafts, subsequent encounter (principal); I08.1 Rheumatic disorders of both mitral and tricuspid valves
CPT/HCPCS: 93306

== ENCOUNTER → 2024-07-17 07:19 | Outpatient (CLI) | payer MEDICARE, OTHER, SELFPAY ==
[2023-12-31 00:23] VITALS: BMI 30.4
[2024-07-17 08:01] LABS: Creatinine Urine Random 74.44 mg/dL
[2024-07-17 08:06] LABS: Microalbumin Urine Random 2.3 mg/dL (0-1.6)
[2024-07-17 09:10] LABS: Add Manual Diff / Slide Review NO; Basophils Absolute Auto 0 /uL (0-100); Basophils Percent Auto 0.5 % (0-2); Eosinophils Absolute Auto 100 /uL (0-450); Eosinophils Percent Auto 1.8 % (2-4); Hematocrit 42.4 % (41-53); Hemoglobin 14.5 g/dL (13.5-17.5); Lymphocytes Absolute Auto 1700 /uL (1100-4500); Lymphocytes Percent Auto 34.7 % (25-40); Mean Corpuscular HGB Conc 34.1 % (30-36); Mean Corpuscular Volume 99.8 fL (80-100); Monocytes Absolute Auto 400 /uL (0-900); Monocytes Percent Auto 8.6 % (3-14); Neutrophils Absolute Auto 2700 /uL (1500-7000); Neutrophils Percent Auto 54.4 % (50-75); Platelet Count 167 X10^3/uL (150-400); Red Blood Cell Count 4.25 X10^6/uL (4.5-5.9); Red Cell Distribution Width 13.8 % (11.6-14.8); White Blood Cell Count 4.9 X10^3/uL (4.5-11.0)
[2024-07-17 09:32] LABS: Magnesium 2.1 mg/dL (1.6-2.3)
[2024-07-17 09:32] LABS: Alanine Aminotransferase 20 IU/L (<50); Albumin 3.7 g/dL (3.5-5.0); Albumin Globulin Ratio 1.5 (1.0-2.8); Alkaline Phosphatase 86 U/L (38-126); Aspartate Aminotransferase 24 IU/L (17-59); BUN Creatinine Ratio 18.2 (6-22); Bilirubin Total 1.4 mg/dL (0.2-1.3); Blood Urea Nitrogen 14 mg/dL (9-20); Calcium 8.9 mg/dL (8.4-10.2); Carbon Dioxide 26 mmol/L (22-32); Chloride 108 mmol/L (98-107); Cholesterol 130 mg/dL (140-199); Estimated Glomerular Filt Rate > 60 mL/min (>60); Globulin 2.4 g/dL (1.7-4.1); Glucose 98 mg/dL (80-110); HDL Cholesterol 47 mg/dL (40-60); HEMOLYSIS < 15 (0-50); LDL Cholesterol Calculated 65 mg/dL (<100); Potassium 3.9 mmol/L (3.4-5.1); Sodium 140 mmol/L (137-145); Total Protein 6.1 g/dL (6.3-8.2); Triglycerides 91 mg/dL (35-150)
[2024-07-17 10:04] LABS: TSH w/ Reflex to FT4 2.03 uIU/mL (0.47-4.68)
[2024-07-18 03:13] LABS: Apolipoprotein B 59 mg/dL (<90)
[2024-07-18 15:52] LABS: Hep C Virus Ab w/Reflex Quant NEGATIVE s/c (NEGATIVE)
== END ==
PROVIDERS: Family Provider Family Medicine; PCP Family Medicine; Referring Provider Specialist; Visit Provider Specialist
DX: I10 Essential (primary) hypertension; E78.00 Pure hypercholesterolemia, unspecified; E78.5 Hyperlipidemia, unspecified; I48.91 Unspecified atrial fibrillation; G89.4 Chronic pain syndrome; G90.519 Complex regional pain syndrome I of unspecified upper limb; Z79.01 Long term (current) use of anticoagulants
CPT/HCPCS: 36415; 80053; 80061; 82043; 82172; 82570; 83704; 83735; 84443; 85025; 86803

== ENCOUNTER → 2024-08-09 08:00 | Outpatient (CLI) | payer MEDICARE, OTHER, SELFPAY ==
[2023-12-31 00:23] VITALS: BMI 30.4
[2024-08-09 09:03] LABS: Blood Urea Nitrogen 16 mg/dL (9-20); Calcium 9.1 mg/dL (8.4-10.2); Carbon Dioxide 27 mmol/L (22-32); Chloride 108 mmol/L (98-107); Estimated Glomerular Filt Rate > 60 mL/min (>60); Glucose 102 mg/dL (80-110); HEMOLYSIS < 15 (0-50); Magnesium 2.2 mg/dL (1.6-2.3); Potassium 4.1 mmol/L (3.4-5.1); Sodium 139 mmol/L (137-145)
== END ==
PROVIDERS: Family Provider Family Medicine; PCP Family Medicine; Referring Provider Specialist; Visit Provider Specialist
DX: I10 Essential (primary) hypertension (principal)
CPT/HCPCS: 36415; 80048; 83735

== ENCOUNTER → 2024-11-22 08:22 | Outpatient (CLI) | payer MEDICARE, OTHER, SELFPAY ==
[2023-12-31 00:23] VITALS: BMI 30.4
[2024-11-22 09:58] LABS: Alanine Aminotransferase 20 IU/L (<50); Albumin 3.8 g/dL (3.5-5.0); Albumin Globulin Ratio 1.7 (1.0-2.8); Alkaline Phosphatase 67 U/L (38-126); Aspartate Aminotransferase 23 IU/L (17-59); BUN Creatinine Ratio 20.7 (6-22); Bilirubin Total 1.2 mg/dL (0.2-1.3); Blood Urea Nitrogen 17 mg/dL (9-20); Calcium 8.9 mg/dL (8.4-10.2); Carbon Dioxide 24 mmol/L (22-32); Chloride 109 mmol/L (98-107); Estimated Glomerular Filt Rate > 60 mL/min (>60); Globulin 2.3 g/dL (1.7-4.1); Glucose 103 mg/dL (70-99); HEMOLYSIS < 15 (0-50); Magnesium 2.1 mg/dL (1.6-2.3); Potassium 4.4 mmol/L (3.4-5.1); Sodium 140 mmol/L (137-145); Total Protein 6.1 g/dL (6.3-8.2)
== END ==
PROVIDERS: Family Provider Family Medicine; PCP Family Medicine; Referring Provider Specialist; Visit Provider Specialist
DX: I10 Essential (primary) hypertension (principal); I49.3 Ventricular premature depolarization
CPT/HCPCS: 36415; 80053; 83735

== ENCOUNTER → 2024-12-26 10:48 | Outpatient (CLI) | payer MEDICARE, OTHER, SELFPAY ==
[2023-12-31 00:23] VITALS: BMI 30.4
--- NOTE | 2024-12-26 10:51 | DI.RAD.S_ITS ---
PROCEDURE: XR HIP W PEL IF DONE RT 2V INDICATIONS: Right hip pain x 2 weeks TECHNIQUE: AP pelvis with lateral view(s) of the right hip(s). COMPARISON: [facility], CT, CT ABDOMEN PELVIS W CON, 03/17/2020, 0:02. FINDINGS: Bones: No fractures or dislocations. Pelvic ring appears intact. No suspicious bony lesions. 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 Degenerative changes at the pubic symphysis. Soft tissues: The visualized bowel gas pattern is normal. No suspicious soft tissue calcifications. Clips in the left abdomen. IMPRESSION: Mild right hip DJD. Ktof-wg-neudsued left hip DJD. Dictated by: Misael Alvarez M.D. on 12/28/2024 at 17:43 Approved by: Misael Alvarez M.D. on 12/28/2024 at 17:45
== END ==
PROVIDERS: Family Provider Family Medicine; PCP Family Medicine; Referring Provider Family Medicine; Visit Provider Family Medicine
DX: M16.0 Bilateral primary osteoarthritis of hip (principal); M25.551 Pain in right hip
CPT/HCPCS: 73502

== ENCOUNTER → 2025-05-16 08:30 | Outpatient (CLI) | payer MEDICARE, OTHER, SELFPAY ==
[2024-12-27 11:17] VITALS: BMI 30.4
--- NOTE | 2025-05-16 08:33 | DI.RAD.S_ITS ---
PROCEDURE: XR LUMBAR SPINE 2-3V INDICATIONS: Back pain TECHNIQUE: 3 views of the lumbar spine were acquired. COMPARISON: None. FINDINGS: Bones: 5 [id number] vertebrae are present. Minimal levocurvature. Straightening of the normal lumbar lordosis. Minimal retrolisthesis of L1 on L2 and minimal anterolisthesis of L5 on S1. Decreased osseous mineralization. No vertebral body compression fractures. No suspicious bony lesions. There is multilevel facet arthropathy, worse at L4-5 and L5-S1. Multilevel disc height loss with degenerative endplate changes and spurring is present. Soft tissues: Overlying bowel gas pattern is normal. No suspicious soft tissue calcifications. Atherosclerotic vascular calcifications. IMPRESSION: Moderate to severe multilevel degenerative changes. Dictated by: Andrew Chester M.D. on 05/16/2025 at 10:17 Approved by: Andrew Chester M.D. on 05/16/2025 at 10:18
--- NOTE | 2025-05-16 08:33 | DI.RAD.S_ITS ---
PROCEDURE: XR THORACIC SPINE 3V INDICATIONS: Back pain TECHNIQUE: 3 views of the thoracic spine were acquired. COMPARISON: None. FINDINGS: Bones: No fractures or dislocations. No suspicious bony lesions. 12 pairs of ribs are noted, and appear intact where visualized. Multilevel degenerative changes of the spine. Decreased osseous mineralization. Median sternotomy wires. ACDF hardware. Soft tissues: No paravertebral stripe thickening. IMPRESSION: At least moderate multilevel degenerative changes. No acute osseous abnormalities. Dictated by: Andrew Chester M.D. on 05/16/2025 at 10:16 Approved by: Andrew Chester M.D. on 05/16/2025 at 10:17
== END ==
PROVIDERS: Family Provider Family Medicine; PCP Family Medicine; Referring Provider Family Medicine; Visit Provider Nurse Practitioner Family
DX: M54.9 Dorsalgia, unspecified (principal); M47.816 Spondylosis without myelopathy or radiculopathy, lumbar region; M47.817 Spondylosis without myelopathy or radiculopathy, lumbosacral region; Z98.1 Arthrodesis status
CPT/HCPCS: 72072; 72100

== ENCOUNTER → 2025-05-31 10:46 | Outpatient (CLI) | payer MEDICARE, OTHER, SELFPAY ==
[2025-05-21 11:19] VITALS: BMI 30.4
--- NOTE | 2025-05-31 10:47 | DI.MRI.S_ITS ---
PROCEDURE: MR LUMBAR SPINE WO CON INDICATIONS: Lumbar stenosis with neurogenic claudication TECHNIQUE: Noncontrast sagittal T1 spin echo and T2 fast echo, sagittal STIR, and T2 fast spin echo through the lumbar spine. In cases with scoliosis, additional coronal T2 fast spin echo may be performed. COMPARISON: [facility], CR, XR LUMBAR SPINE 2-3V, 05/16/2025, 8:35. FINDINGS: Image quality: Excellent. Alignment and Curvature: There is trace retrolisthesis of L1 on L2, L2 on L3. Slight leftward curvature. Bone Marrow: Marrow is of normal overall signal. Moderate reactive endplate changes are present at T12-L1 as well as L2-3. No acute vertebral body compression fractures. Spinal Cord: Conus medullaris terminates at the L1 level. Visualized cord demonstrates normal signal and size. Paraspinous Soft Tissues: No paravertebral masses. Discs: Multilevel moderate to severe disc desiccation most prominent L3-4, L4-5. T12-L1: Minimal disc bulge without spinal stenosis. Moderate left foraminal narrowing with facet and ligamentum flavum hypertrophy. L1-L2: Mild disc bulge with mild spinal stenosis. Moderate right and minimal left foraminal narrowing with facet and ligamentum flavum hypertrophy. L2-L3: Mild disc bulge with superimposed central/right paracentral protrusion. Moderate to severe spinal stenosis. Moderate to severe bilateral foraminal narrowing with facet and ligamentum flavum hypertrophy. L3-L4: Mild disc bulge without spinal stenosis. Moderate to severe bilateral foraminal narrowing with facet and ligamentum flavum hypertrophy. L4-L5: Mild disc bulge without spinal stenosis. Moderate to severe bilateral foraminal narrowing with facet and ligamentum flavum hypertrophy. L5-S1: Mild disc bulge including a right lateral component. Moderate bilateral foraminal narrowing with facet and ligamentum flavum hypertrophy. IMPRESSION: Multilevel disc bulges. Multilevel spinal stenosis most severe at L2-3 secondary to disc bulge with contributing effect of facet/ligamentum flavum arthropathy. Multilevel overall moderate to severe foraminal narrowing without appreciable nerve root compression. Dictated by: Gemma Miles M.D. on 06/02/2025 at 10:39 Approved by: Gemma Miles M.D. on 06/02/2025 at 10:58
== END ==
LOC: MRI 10:46
PROVIDERS: Family Provider Family Medicine; PCP Family Medicine; Referring Provider Physical Medicine & Rehabilitation; Visit Provider Physical Medicine & Rehabilitation
DX: M48.062 Spinal stenosis, lumbar region with neurogenic claudication (principal); M47.816 Spondylosis without myelopathy or radiculopathy, lumbar region; M51.379 Other intervertebral disc degeneration, lumbosacral region without mention of lumbar back pain or lower extremity pain; M51.369 Other intervertebral disc degeneration, lumbar region without mention of lumbar back pain or lower extremity pain; M48.07 Spinal stenosis, lumbosacral region; M47.817 Spondylosis without myelopathy or radiculopathy, lumbosacral region
CPT/HCPCS: 72148